=== PATIENT | male | born 1945 | race Caucasian/White ===

== ENCOUNTER → 2017-12-06 13:35 | Outpatient (CLI) | payer MEDICARE, OTHER, SELFPAY ==
--- NOTE | 2017-12-06 13:44 | US_ITS ---
US kidney retroperitoneal comp HISTORY: ITS.REASON: STAGE 4 CHRONIC KIDNEY DISEASE ORDERING PHYSICIAN: Aamir Rao MD PATIENT AGE: 72 years Comparison: None FINDINGS: The right kidney is 12 x 6.5 x 6.8 cm. No hydronephrosis. There is increase echogenicity of the renal cortex with cortical thinning. There is a 2.5 cm cyst along the upper pole on the right with an additional 1.4 cm cyst laterally and a 1.8 cm cyst inferiorly. The left kidney is 11 x 5 x 7 cm with cortical thinning and increased echogenicity of the liver. A 1.4 cm cyst is present in the mid polar region and a 2.6 cm cyst is present in the lower pole. No hydronephrosis. IMPRESSION: 1. No hydronephrosis. 2. Cortical thinning with increased echogenicity of the renal cortex consistent with medical renal disease. 3. Bilateral renal cysts
== END ==
PROVIDERS: Family Provider Internal Medicine Adolescent Medicine; PCP Internal Medicine Adolescent Medicine; Visit Provider Internal Medicine
DX: N18.4 Chronic kidney disease, stage 4 (severe) (principal)
CPT/HCPCS: 76770

== ENCOUNTER → 2018-09-26 11:22 | Outpatient (CLI) | payer MEDICARE, OTHER, SELFPAY ==
--- NOTE | 2018-09-26 11:36 | XR_ITS ---
XR chest 2V HISTORY: ITS.REASON: CHEST WALL PAIN ORDERING PHYSICIAN: Yusuf Luke MD PATIENT AGE: 73 years COMPARISON: 05/27/2014 FINDINGS: The cardiomediastinal silhouette and pulmonary vascularity are within normal limits. No lobar consolidation or collapse is evident. There is a small irregular parenchymal opacity overlying the anterior clear space inferiorly which may be related to an area of scarring. Follow-up may confirm stability. The remaining lungs are clear. There are mild degenerative changes in the thoracic spine. IMPRESSION: Small irregular parenchymal opacity in the anterior clear space inferiorly which may be due to an area of fibrosis or scarring. Suggest follow-up to confirm stability in this patient with chest wall pain
--- NOTE | 2018-09-26 11:36 | XR_ITS ---
XR ribs LT 2V HISTORY: ITS.REASON: CHEST WALL PAIN ORDERING PHYSICIAN: Yusuf Luke MD PATIENT AGE: 73 years Comparison: None FINDINGS: Multiple views of the Left ribs were obtained. No fracture or dislocation. No lytic or blastic change. IMPRESSION: Negative RIBS. If pain persists, consider follow-up exam in 7-[address] with 3-D reformats.
== END ==
PROVIDERS: PCP Internal Medicine Adolescent Medicine; Visit Provider Internal Medicine Adolescent Medicine
DX: R07.89 Other chest pain (principal)
CPT/HCPCS: 71046; 71100

== ENCOUNTER → 2019-03-17 09:14 | Outpatient (CLI) | payer MEDICARE, OTHER, SELFPAY ==
--- NOTE | 2019-03-17 | CA_ITS ---
APPROVED REPORT Exam: Exercise Treadmill Technologist: Elsa Hays Ht: 5 ft 10 in Wt: 236 lbs BSA: 2.24 m2 HR: 64 bpm BP: 127/74 mmHg Indications: Chest pain Medical History Medications: Allopurinol,,,,, Vitamins,,,,, Carvedilol,,,,, Januvia,,,,, Nephodiapine,,,,, Stress Test Details Test: Cory HR Resting HR: 68 bpm Max Heart Rate (APMHR): 147 bpm Max HR Achieved: 85 bpm Target HR (85% APMHR): 124 bpm % of APMHR: 57 Recovery HR: 67 bpm BP Resting BP: 130.0/70.0 mmHg Max BP: 142.0/60.0 mmHg Recovery BP: 137.0/65.0 mmHg ECG Clinical Exercise duration: 02:42 min Highest Stage Achieved: Exercise capacity: 4.6 METs Stress ECG Conclusion Symptoms: Leg pain (test stopped due to leg pain) Arrhythmias/Ectopy: None ST-T Changes: Less than 1.[address] changes up to 65% target heart rate. Electronically signed by : Yusuf Luke, 03/21/2019 16:44:44
== END ==
PROVIDERS: PCP Internal Medicine Adolescent Medicine; Visit Provider Internal Medicine Adolescent Medicine
DX: R07.9 Chest pain, unspecified (principal)
CPT/HCPCS: 93017

== ENCOUNTER → 2020-06-09 16:53 | Outpatient (CLI) | payer MEDICARE, OTHER, SELFPAY ==
[2020-06-09 16:59] LABS: Microscopic, Urine URINE MICROSCOPIC (MICROSCOPIC)
[2020-06-09 17:18] LABS: Basophils % 0.5 % (0.1-2.0); Eosinophils # 0.2 K/mm3 (0.0-0.4); Eosinophils % 2.7 % (0.1-12.0); Hematocrit 30.4 % (42.0-52.0); Hemoglobin 9.5 g/dL (14.1-18.0); Lymphocytes # 1.9 K/mm3 (0.7-4.5); Lymphocytes % 24.4 % (10-50); Mean Corpuscular HGB Conc 31.2 g/dL (31.8-35.4); Mean Corpuscular Hemoglobin 29.8 pg (27.0-31.2); Mean Corpuscular Volume 95.3 fl (80-94); Mean Platelet Volume 9.1 fl (7.4-10.4); Monocytes # 0.6 K/mm3 (0.1-1.0); Monocytes % 7.5 % (1.7-9.3); Neutrophils # 5.1 K/mm3 (1.8-7.8); Neutrophils % 64.9 % (37.0-80.0); Platelet Count 218 K/mm3 (142-424); Red Blood Count 3.19 M/mm3 (4.60-6.20); Red Cell Distribution Width 16.8 % (11.5-17.5); White Blood Count 7.9 K/mm3 (4.8-10.8)
[2020-06-09 17:32] LABS: Appearance,Urine CLEAR (Clear); Bilirubin,Urine Negative (Negative); Blood, Urine 1+ (Negative); Color,Urine YELLOW (Yellow); Glucose,Urine (UA) TRACE (Negative); Ketones,Urine Negative (Negative); Leukocyte Esterase,Urine Negative (Negative); Nitrate,Urine Negative (Negative); Protein,Urine 3+ (Negative); Specific Gravity, Urine 1.025 (1.005-1.030); Urobilinogen,Urine 0.2 EU/dl (0.2)
[2020-06-09 18:02] LABS: Bacteria,Urine Trace /lpf
[2020-06-09 18:56] LABS: Alanine Aminotransferase 12 U/L (12-78); Albumin/Globulin Ratio 1.4 (1.1-1.8); Alkaline Phosphatase 102 U/L (38-126); Anion Gap 19.8 mEq/L (5-15); Aspartate Amino Transferase 16 U/L (17-59); Bilirubin,Total 0.4 mg/dl (0.2-1.3); Calcium 7.1 mg/dl (8.4-10.2); Carbon Dioxide 20 mmol/L (22.0-30.0); Chloride 104 mmol/L (98-107); Estimated Glomerular Filt Rate 5 ml/min (>60); GFR (African American) 6 ML/MIN (>60); Globulin 2.9 g/dL (1.3-3.2); Glucose 144 mg/dl (74-100); Potassium 4.8 mmoL/L (3.5-5.1); Sodium 139 mmol/L (136-145); Total Protein,Serum 6.9 g/dl (6.3-8.2)
[2020-06-09 20:14] LABS: Blood Urea Nitrogen 82 mg/dl (9-20)
== END ==
PROVIDERS: Visit Provider Internal Medicine Adolescent Medicine
DX: N17.9 Acute kidney failure, unspecified (principal)
CPT/HCPCS: 36415; 80053; 81001; 85025

== ENCOUNTER → 2020-08-03 16:04 | Outpatient (CLI) | payer MEDICARE, OTHER, SELFPAY | PROVIDERS: PCP Internal Medicine Adolescent Medicine; Visit Provider Internal Medicine Cardiovascular Disease | DX: Z01.810 Encounter for preprocedural cardiovascular examination; Z20.822 Contact with and (suspected) exposure to COVID-19; R07.9 Chest pain, unspecified | CPT/HCPCS: U0003 ==

== ENCOUNTER 2020-08-04 07:41 | Day surgery (SDC) | payer MEDICARE, OTHER, SELFPAY ==
[2020-08-04] VITALS (13 sets, daily range): BP systolic 132–177; BP diastolic 81–98; PULSE 60–70; RESP 18–20; TEMP 36.7; O2SAT 92–100; BMI 35.6
--- NOTE | 2020-08-04 07:25 | IR_ITS ---
APPROVED REPORT Patient Location: Outpatient [id number] Developer: SKYE Cortez RT (R) PROCEDURES Selective coronary angiogram Drug-eluting stent deployment to the ostial proximal mid and distal dominant right coronary artery in a contiguous manner INDICATION Preoperative evaluation for vascular surgery, Coronary artery disease, Patient on hemodialysis not an appropriate candidate for coronary bypass surgery Informed consent was obtained prior to the procedure. COMPLICATIONS None Estimated Blood Loss: Less than 10 mls TECHNIQUE One percent lidocaine used to anesthetize the right anterior aspect of the wrist. The right radial artery was accessed via the Seldinger technique. A 6 Turkmen sheath was placed in the right radial artery. 2.5 mg of verapamil, 800 mcg of nitroglycerin, 1mg Lidocaine and 5000 U Heparin were given through the arterial sheath. The trap catheter was also used to perform left heart catheterization, left ventriculogram and selective coronary angiogram. At the end of the diagnostic procedure an AL 0.75 guide catheter was advanced however due to the tortuosity throughout the brachiocephalic artery it was unable to engage the right coronary artery. This was repeated with a JR4 and likewise could not be cannulated without kinking the guide catheter. A long 45 cm sheath was advanced which did help and allowed a 6 Turkmen JR4 catheter to cannulate the right coronary artery. A Choice PT wire was used to traverse the stenosis and a telescope was used to engage the proximal portion of the right coronary artery. A 2.5 x 27 mm balloon was used to predilate the stenosis and three 3 mm x 38 mm stents were deployed in the distal to proximal manner all overlapping in a contiguous manner all at 20, 22 and 24 arjun. Excellent angiographic results were obtained with FAWN-3 flow being present before and after the procedure. At the end of the procedure the apparatus was removed the sheath was removed good hemostasis was achieved using TR banding patient was transferred to the postop holding in stable condition ANGIOGRAPHIC RESULTS The left main artery Has distal 10% calcified stenosis The left anterior descending artery Has proximal and mid vessel calcified 50 to 60% stenoses. The entire proximal through mid LAD has calcified disease. Distally the LAD is a nice caliber vessel and supplies the apex. 2 moderate-sized diagonal arteries have proximal greater than 70% calcified stenoses however the vessel is patent with FAWN-3 flow The circumflex artery Is nondominant and proximally occluded. The distal vessel fills via collaterals from the LAD/diagonal system The right coronary artery Is a large dominant vessel with proximal concentric 30% stenosis a concentric 90% stenosis mid vessel 50 followed by an additional 80 to 90% stenosis with a distal diffuse 80% stenosis. It gives rise to a large PDA and posterior lateral branch The GALLEGOS ventriculogram reveals Not performed The left ventricular end-diastolic pressure Not measured IMPRESSION Coronary disease as described above Severe to critical disease throughout the dominant right coronary artery with successful reconstruction reducing critical disease to 0% with 3 contiguous drug-eluting stents Chronically occluded nondominant circumflex artery which fills nicely via left to left collaterals Moderate diffuse disease throughout the LAD as described above however the LAD is patent with excellent FAWN-3 flow PLAN 1. Dual antiplatelet therapy for at least 30 days at which time Plavix can be discontinued in order for vascular surgery to occur. I would like for Plavix to be restarted as soon as vascular surgeon feels it safe from a postoper
--- NOTE | 2020-08-04 07:54 | CA_ITS ---
APPROVED REPORT EXAM: Comprehensive 2D, Doppler, and color-flow Echocardiogram Transcription Typist: Ora Chin, MELINA, RVS Ht: 5 ft 10 in Wt: 248lbs BSA: 2.29 HR: 64 bpm BP: 136/84 mmHg Rhythm: frequent ectopy Indications: CP,ABN EKG, PRE OP, heart cath today 2D Dimensions LVDd 5.82 cm LVEF (Visual) 51.00 % LVDs 4.28 cm LA Volume 90.70 mL Aortic Root 3.48 cm LA Volume Index 39.60 mL/m2 (M/F) 16-34 Left Atrium 5.35 cm LVOT 2.12 cm (M/F) 1.5-2.5 M-Mode Dimensions LA Diam 5.20 cm (1.9-4.0) Ao Diam 3.64 cm (2.0-3.7) TAPSE 1.73 (<1.7) LV Diastology E Decel Time 177.00 (160-240 msec) E/A Ratio 0.88 MED E' 6.20 (< 7 cm/sec) MED A' 9.70 cm/s E'/MED E' Ratio 18.58 (>14) LAT E' 9.50 (<10 cm/sec) LAT A' 15.30 cm/s E/LAT E' Ratio 12.13 (>14) Pulm Vein s 23.00 cm/sec Pulm Vein d 20.00 cm/sec Ar-A Duration 90.00 msec Aortic Valve LVOT Max 101.00 (70-110 cm/s) LVOT VTI 23.00 cm AoV Peak Rahul. 156.00 (50-130 cm/s) AO Peak GR. 9.70 mmHg AO Mean GR. 4.90 (<5 mmHg) AO VTI 35.34 (18-25 cm) LEVI (VTI) 2.30 (2.5-4.5 cm2) Mitral Valve MV A Velocity 131.00 (40-130 cm/s) E/A Ratio 0.88 MV Decel. Time 177.00 (160-240 ms) MV Mean Gr. 3.80 (<2mmHg) Pulmonary Valve PV Peak Velocity 92.00 (50-150 cm/s) OK End VMAX 232.00 cm/s Tricuspid Valve TR P. Velocity 305.00 cm/s RAP Estimate 10.00 mmHg RVSP 47.30 mmHg Left Ventricle Left atrium is mildly enlarged, left ventricle is normal size, mild concentric left ventricular hypertrophy, visually estimated ejection fraction 45%, there is marked hypokinesis involving the basal septum and inferior basal wall. Grade 2 diastolic dysfunction seen with tissue Doppler evidence of raise left atrial pressure. Right Ventricle Right atrium and right ventricle mildly enlarged with normal contractility. Aortic Valve Aortic valve is minimally thickened and fibrosed, there is no aortic stenosis or aortic insufficiency. Mitral Valve Mitral valve leaflets are minimally thickened, there is no mitral stenosis, there is mild mitral regurgitation. Tricuspid Valve Tricuspid valve is grossly normal, there is mild tricuspid regurgitation, calculated right ventricular systolic pressure is 47 mmHg. Pulmonic Valve Pulmonic valve is poorly visualized. Great Vessels Aortic root is normal size. Pericardium No significant pericardial effusion noted. Conclusion 1. Biatrial enlargement, normal left ventricular size, mild concentric left ventricular hypertrophy, visually estimated ejection fraction 45% with segmental wall motion abnormality described above, grade 2 diastolic dysfunction seen with tissue Doppler evidence of raise left atrial pressure. 2. Mildly enlarged right ventricle with normal contractility. 3. Mild mitral and tricuspid regurgitation, calculated right ventricular systolic pressure is 47 mmHg. 4. No significant pericardial effusion noted. Electronically signed by : Juliocesar Martinez, 08/05/2020 13:56:32
[2020-08-04 08:48] LABS: Basophils # 0.1 K/mm3 (0-0.2); Basophils % 0.6 % (0.1-2.0); Eosinophils # 0.2 K/mm3 (0.0-0.4); Eosinophils % 2.7 % (0.1-12.0); Hematocrit 32.5 % (42.0-52.0); Hemoglobin 10.3 g/dL (14.1-18.0); Lymphocytes # 1.9 K/mm3 (0.7-4.5); Lymphocytes % 23.3 % (10-50); Mean Corpuscular HGB Conc 31.8 g/dL (31.8-35.4); Mean Corpuscular Hemoglobin 29.7 pg (27.0-31.2); Mean Corpuscular Volume 93.4 fl (80-94); Mean Platelet Volume 7.5 fl (7.4-10.4); Monocytes # 0.6 K/mm3 (0.1-1.0); Monocytes % 7.6 % (1.7-9.3); Neutrophils # 5.3 K/mm3 (1.8-7.8); Neutrophils % 65.7 % (37.0-80.0); Platelet Count 254 K/mm3 (142-424); Red Blood Count 3.48 M/mm3 (4.60-6.20); Red Cell Distribution Width 15.6 % (11.5-17.5); White Blood Count 8.1 K/mm3 (4.8-10.8)
[2020-08-04 08:52] LABS: Chloride 103 mmol/L (98-107); Potassium 3.4 mmoL/L (3.5-5.1); Sodium 140 mmol/L (136-145)
[2020-08-04 08:55] LABS: Anion Gap 13.4 mEq/L (5-15); Blood Urea Nitrogen 18 mg/dl (9-20); Calcium 7.6 mg/dl (8.4-10.2); Carbon Dioxide 27 mmol/L (22.0-30.0); Creatinine Clearance Estimated 20 mL/min (50-200); Estimated Glomerular Filt Rate 11 ml/min (>60); GFR (African American) 13 ML/MIN (>60); Glucose 144 mg/dl (74-100)
--- NOTE | 2020-08-04 13:39 | [facility].PHACLD ---
[place] has received discharge medication counseling on the following medications: NEW MEDICATIONS: PLAVIX, LIPITOR CONTINUED MEDICATIONS: ASPIRIN, COREG PATIENT WILL NOT BE STARTED ON AN BARBARA/ARB AT THIS TIME PER MD.
[2020-08-04 15:19] LABS: CATHL Activated Clotting Time 337 SEC (74-125)
== END 2020-08-04 13:31 | disposition home or self-care (01) ==
LOC: CATHLAB 07:43
PROVIDERS: PCP Internal Medicine Adolescent Medicine; Visit Provider Internal Medicine
DX: I25.118 Atherosclerotic heart disease of native coronary artery with other forms of angina pectoris (principal); E11.69 Type 2 diabetes mellitus with other specified complication; E66.9 Obesity, unspecified; I12.0 Hypertensive chronic kidney disease with stage 5 chronic kidney disease or end stage renal disease; N18.6 End stage renal disease; R06.00 Dyspnea, unspecified; R60.9 Edema, unspecified; R94.31 Abnormal electrocardiogram [ECG] [EKG]; Z99.2 Dependence on renal dialysis; E11.22 Type 2 diabetes mellitus with diabetic chronic kidney disease; Z79.84 Long term (current) use of oral hypoglycemic drugs; Z79.01 Long term (current) use of anticoagulants; Z79.899 Other long term (current) drug therapy
CPT/HCPCS: 80048; 85025; 85347; 92928; 93306; 99152; 99153; C1725; C1760; C1766; C1769; C1876; C9600; J1644; Q9967

== ENCOUNTER → 2023-01-19 10:34 | Outpatient (CLI) | payer MEDICARE, OTHER, SELFPAY ==
--- NOTE | 2023-01-19 10:38 | CA_ITS ---
APPROVED REPORT EXAM: Comprehensive 2D, Doppler, and color-flow Echocardiogram Liner Helper: Judith David RVT Ht: 5 ft 10 in Wt: 232lbs BSA: 2.22 BP: 153/85 mmHg Indications: LV DYSFUNCTION,CAD,ABN EKG,EDEMA,HTN,HLD,PT ON DIALYSIS TDS-LIMITED WINDOWS 2D Dimensions LVOT 2.81 cm (M/F) 1.5-2.5 LA Volume 89.00 mL LA Volume Index 39.91 mL/m2 (M/F) 16-34 M-Mode Dimensions RVDd 2.76 cm (0.9-2.6) LA Diam 4.48 cm (1.9-4.0) LVDd 5.35 cm (3.5-5.7) Ao Diam 3.76 cm (2.0-3.7) LVDs 3.83 cm (3.5-5.7) IVSd 0.49 cm (0.6-1.1) PWd 0.76 cm (0.6-1.1) EF (Teich) 54.40% FS 28.40% EDV (Teich) 138.30 mL TAPSE 1.98 (<1.7) ESV (Teich) 63.10 mL LV Diastology E Decel Time 200.00 (160-240 msec) E/A Ratio 0.5 MED E' 4.40 (< 7 cm/sec) E'/MED E' Ratio 12.66 (>14) LAT E' 9.30 (<10 cm/sec) E/LAT E' Ratio 5.99 (>14) Aortic Valve AO Peak GR. 7.70 mmHg Mitral Valve MV E Max Rahul. 56.00 (40-130 cm/s) MV A Velocity 113.00 (40-130 cm/s) E/A Ratio 0.49 MV Decel. Time 200.00 (160-240 ms) MV Mean Gr. 2.20 (<2mmHg) MV PHT 59.00 ms Pulmonary Valve PV Peak Velocity 95.00 (50-150 cm/s) Tricuspid Valve TR P. Velocity 120.00 cm/s RAP Estimate 10.00 mmHg RVSP 15.80 mmHg Left Ventricle The left ventricle is normal size. The left ventricular systolic function is normal. The left ventricular ejection fraction is within the normal range. There is increased LV wall thickness. There is normal LV segmental wall motion. Transmitral Doppler flow pattern suggests impaired LV relaxation. LVEF is 55% Right Ventricle Right ventricle is mildly dilated. The right ventricular systolic function is normal. Atria The left atrium size is normal. The right atrium size is normal. There is no Doppler evidence of interatrial shunt. Aortic Valve The aortic valve is mildly thickened. There is no aortic valvular stenosis. No aortic regurgitation is present. Mitral Valve Mild mitral annular calcification. The mitral valve leaflets are mildly thickened. No evidence of mitral valve stenosis. Trace mitral regurgitation. Tricuspid Valve Tricuspid valve leaflets are thin and pliable. Trace tricuspid regurgitation. There is insufficient TR jet to estimate RVSP. Pulmonic Valve The pulmonary valve is normal in structure. Trace pulmonic regurgitation. Great Vessels The aortic root is normal in size. The ascending aorta is not well visualized. The IVC is not well visualized. Pericardium There is no pericardial effusion. Other Information Study Quality: Technically Difficult Conclusion This is a technically difficult study due to poor accoustic windows. Normal biventricular systolic function. Mild RV dilation. No significant valvular stenosis or regurgitation. Electronically signed by : Althea Fuentes MD 01/23/2023 19:22:44
== END ==
PROVIDERS: PCP Family Medicine; Visit Provider Nurse Practitioner
DX: E78.5 Hyperlipidemia, unspecified (principal); I25.10 Atherosclerotic heart disease of native coronary artery without angina pectoris; N18.6 End stage renal disease; I12.0 Hypertensive chronic kidney disease with stage 5 chronic kidney disease or end stage renal disease
CPT/HCPCS: 93306

== ENCOUNTER 2024-05-14 11:16 | Outpatient (CLI) | payer MEDICARE, OTHER, SELFPAY ==
--- NOTE | 2024-05-14 11:21 | XR_ITS ---
FINAL REPORT CLINICAL HISTORY: LOW BACK PAIN COMPARISON: None FINDINGS: LUMBAR SPINE 4 views of the lumbar spine were obtained. There is no acute fracture. There is no malalignment. The vertebrae are normal in height. The disc spaces are preserved. Moderate facet sclerosis is noted in the lower lumbar spine. IMPRESSION: Degenerative changes without acute abnormality. Reviewed, Interpreted and Dictated by Fidencio Denis MD Transcribed by Estefanía Berman Authenticated and [facility]
== END 2024-05-14 23:59 | disposition home or self-care (01) ==
PROVIDERS: PCP Family Medicine; Visit Provider Family Medicine
DX: M54.50 Low back pain, unspecified (principal)
CPT/HCPCS: 72110

== ENCOUNTER 2024-07-11 13:44 | Outpatient (CLI) | payer MEDICARE, OTHER, SELFPAY ==
--- NOTE | 2024-07-11 14:30 | CA_ITS ---
APPROVED REPORT EXAM: Comprehensive 2D, Doppler, and color-flow Echocardiogram Non Destructive Tester: Ora Chin, RCS, RVS Ht: 5 ft 10 in Wt: 209lbs BSA: 2.13 BP: 135/79 mmHg Indications: Dyspnea, CAD, HTN, HLD Echo Enhancing Agent Comments: Poor acoustic windows 2D Dimensions IVSd 0.92 cm LVEF (Visual) 64.90 % PWd 1.24 cm LA Volume 51.10 mL LVDd 5.28 cm LA Volume Index 23.478283 mL/m2 (M/F) 16-34 LVDs 3.39 cm EF AP4 61.70 % Aortic Root 3.08 cm GL Strain -22.2 % Left Atrium 3.81 cm LVOT 1.98 cm (M/F) 1.5-2.5 M-Mode Dimensions LVDd 5.28 cm (3.5-5.7) Ao Diam 3.71 cm (2.0-3.7) LVDs 3.39 cm (3.5-5.7) IVSd 0.92 cm (0.6-1.1) PWd 1.24 cm (0.6-1.1) FS 35.80% TAPSE 1.43 (<1.7) LV Diastology E Decel Time 228 (160-240 msec) E/A Ratio 0.66 MED E' 5.5 (>= 7 cm/sec) MED A' 9.10 cm/s E'/MED E' Ratio 12.00 (<= 14) LAT E' 11.0 (>= 10 cm/sec) LAT A' 14.50 cm/s E/LAT E' Ratio 6.00 (<= 14) Aortic Valve LVOT Max 117.0 (70-110 cm/s) LEVI Index 0.95 cm2/m2 LVOT VTI 21.31 cm AoV Peak Rahul. 172.0 (50-130 cm/s) AO Mean GR. 5.80 (<5 mmHg) AO VTI 32.5 (18-25 cm) LEVI (VTI) 2.02 (2.5-4.5 cm2) Mitral Valve MV E Max Rahul. 66.0 (40-130 cm/s) MV A Velocity 100.0 (40-130 cm/s) E/A Ratio 0.66 MV Decel. Time 228 (160-240 ms) Tricuspid Valve TR P. Velocity 246.00 cm/s RAP Estimate 10.00 mmHg RVSP 34.20 mmHg Left Ventricle The left ventricle is normal size. The left ventricular systolic function is normal. The left ventricular ejection fraction is within the normal range. There is increased LV wall thickness. There is normal LV segmental wall motion. Transmitral Doppler flow pattern suggests impaired LV relaxation. LVEF is 55%. Right Ventricle The right ventricle is normal size. The right ventricular systolic function is normal. Atria The left atrium size is normal. The right atrium size is normal. There is no Doppler evidence of interatrial shunt. Aortic Valve Aortic valve is mildly thickened. There is no aortic valvular stenosis. No aortic regurgitation is present. Mitral Valve The mitral valve is normal in structure. No evidence of mitral valve stenosis. Trace mitral regurgitation. Tricuspid Valve Tricuspid valve is grossly normal in structure and function. Mild tricuspid regurgitation. RVSP is 20-25 mmHg. Pulmonic Valve The pulmonary valve is normal in structure. Trace pulmonic regurgitation. Great Vessels The aortic root is normal in size. IVC is normal in size and collapses >50% with inspiration. Pericardium There is no pericardial effusion. Other Information Study Quality: Fair Conclusion Normal biventricular systolic function. Mild TR. Electronically signed by : Althea Fuentes MD 07/22/2024 13:40:06
== END 2024-07-11 23:59 | disposition home or self-care (01) ==
LOC: RT 13:45
PROVIDERS: PCP Family Medicine; Visit Provider Nurse Practitioner
DX: I36.1 Nonrheumatic tricuspid (valve) insufficiency (principal); I51.9 Heart disease, unspecified; R00.1 Bradycardia, unspecified; I20.9 Angina pectoris, unspecified
CPT/HCPCS: 93306

== ENCOUNTER 2024-08-19 09:25 | Emergency (ER) | payer MEDICARE, OTHER, SELFPAY ==
[2024-08-19 09:35] VITALS: BP 156/85; PULSE 89; RESP 19; TEMP 36.8; O2SAT 96; BMI 29.5
--- NOTE | 2024-08-19 09:42 | PC.NURSE ---
[facility] for [facility] assistance with pt going to [facility]. confirmed contact information of with care management for them to reach out
--- OUTSIDE RECORDS SUMMARY | 2024-08-19 09:44 | XMS_ITS | Encounter Summary ---
Author Name [facility] [facility] [place] [facility] [place] Address [address] [place] [address] Support Name Relationship Address Phone LURDES AMPARO Next of Kin [address] [facility] [place] [place] [phone] LURDES AMPARO Emergency Contact [address] [facility] [address] [phone] Selected Encounter This section includes the information on record at [place] for the Encounter. Date/Time Encounter Type Encounter Description Reason Pro vider Source Jul 29, 2024 12:00 AM Outpatient Encounter EVENT (HISTORICAL) IHE Encounter Template Text not used by [place]
--- OUTSIDE RECORDS SUMMARY | 2024-08-19 09:44 | XMS_ITS ---
Author Organization Unknown TREATMENT PLAN Planned Care Start Date Provider Encounter for Check-up [phone] [facility]
--- OUTSIDE RECORDS SUMMARY | 2024-08-19 09:44 | XMS_ITS | Encounter Summary ---
Author Name [facility] [place] [facility] [place] Organization [facility] [place] Address [address] [place] [address] Support Name Relationship Address Phone CHATMANAMPARO BAILEY Next of Kin [address] [facility] [place] [phone] AMPARO CHATMAN Emergency Contact [address] [facility] [place] [phone] Selected Encounter This section includes the information on record at [place] for the Encounter. Date/Time Encounter Type Encounter Description Reason Pro vider Source Jul 18, 2024 01:07 PM Outpatient Encounter ADMIN PAT ACTIVTIES (MASNONCT) IHE Encounter Template Text not used by [facility] Encounter Notes: All associated encounter notes This section contains the clinical notes associated to the Encounter. Date/Time Encounter Note(s) Provider Source Jul 15, 2024 06:57 PM NONVA NOTE: LOCAL TITLE: [facility]UNITY [facility]-RONEL SELF PRESENTING CARE COORD PLAN STANDARD TITLE: NONVA NOTE DATE OF NOTE: JUL 15, 2024@18:57 ENTRY DATE: JUL 18, 2024@13:08:16 AUTHOR: DAIN BAGLEY COSIGNER: URGENCY: STATUS: COMPLETED COMMUNITY CARE-RONEL SELF PRESENTING CARE COORD PLAN NOTE Has ADDENDA Emergency Notification Intake Date Presenting to the Facility: Jul Date of note has been modified to reflect Date of Service. Reason for modification: HOSPITAL NOTIFICATION DATE/TIME: 07/16/2024 1036 EDT Method of Contact: Notified from [facility] worklist Notification ID: [id number] [facility] Referral #: Count Includes [facility] Hospital Name: Hospital: [facility] Address: City: [place] State: [place] Zip Code: Phone : Count Includes [facility] Facility Point of Contact: Name: DIXIE ROLON Phone: [phone] Chief complaint: RIGHT FX HUMERAL NECK Primary Diagnosis: Disposition Admitted Route of Admission: ER Date of Admission: Jul Admitting Diagnosis: S42.211A Community Care Provider: Yenny Level of Care: Acute Inpatient Care /cait/ Dain Bagley MSN, landing worker Nurse Coordinator Signed: 07/18/2024 13:13 07/18/2024 ADDENDUM STATUS: COMPLETED CONTINUED STAY REVIEW: Clinical update reviewed and transcribed from [facility] [employer] Link on Contact Date: Jul Date of Admission: Jul Maria M Morales APRN Nurse Practitioner Trauma Surgery Yasmin Chatman is a 79 yo M with PMHx of HTN, CAD s/p PCI, CHF, ESRD on iHD (TTS), HLD, T2DM, hypothyroidism, chronic anemia, gout and SUNNY who presented to ED on 07/15 from OSH following FFS due to weakness (-LOC) while at dialysis resulting in R humeral neck fx. ORT consulted, non-operative intervention. Admitted for pain control and rehab placement. 24hrs: Yasmin seen resting in bed eating breakfast. A&O. VSS. NAD. Tolerating Ra. Denies SOA, chest pain, N/V, dizziness, headache, blurred vision. Patient RUE in fletcher brace. Patient will be non op on RUE. Denies pain at this time. Discussed plan of care with patient/family, attending, JONATHON, RN, consulting teams. No further concerns at this time. Plan: - ORT: NWB RUE, Fletcher with cuff and collar, f/u outpt - Nephro consulted for ESRD (iHD TTS) - MMPC & bowel regimen - PT/OT, OOBTC daily -Resume home plavix - SSI, CC2 diet -PT/OT Dispo: CARMELA /gaby Bagley MSN, landing worker Nurse Coordinator Signed: 07/18/2024 13:16 07/21/2024 ADDENDUM STATUS: COMPLETED CONTINUED STAY REVIEW PER [employer] CARE LINK REVIEW Contact Date: 07/21/24 Date of Admission: 07/16/24 Facility Name: [facility] Plan: - ORT: NWB RUE, Fletcher with cuff and collar, f/u outpt - Nephro following for ESRD (iHD TTS) - MMPC & bowel regimen - PT/OT, OOBTC daily -Resume home plavix -EKG pending -Hold coreg for bradycardia (HR <60); Increase Nifedipine for Htn - SSI, CC2 diet -PT/OT Dispo: CARMELA Edited by: Maria M Morales APRN at 07/20/2024 0945 Maria M Morales APRN /cait/ Becky DIETRICH CAR STOWERAPPRENTICE MACHINIST OUTSIDE Signed: 07/21/2024 08:31 07/24/2024 ADDENDUM STATUS: COMPLETED Discharge Disposition Date of discharge: Jul Disposition Discharge to Correction Facility /cait/ Becky DIETRICH CAR STOWERAPPRENTICE MACHINIST OUTSIDE Signed: 07/24/2024 09:16 DAIN BAGLEY-[facility]
--- OUTSIDE RECORDS SUMMARY | 2024-08-19 09:44 | XMS_ITS | Encounter Summary ---
Author Name [facility] [place] Organization [place] Address [address] [place] [address] Support Name Relationship Address Phone AMPARO CHATMAN Next of Kin [address] [facility] [place] [phone] AMPARO CHATMAN Emergency Contact [address] [facility] [place] [address] [phone] Selected Encounter This section includes the information on record at [place] for the Encounter. Date/Time Encounter Type Encounter Description Reason Pro vider Source Jul 29, 2024 10:13 AM Outpatient Encounter TELEPHONE/MEDICINE IHE Encounter Template Text not used by [facility] Encounter Notes: All associated encounter notes This section contains the clinical notes associated to the Encounter. Date/Time Encounter Note(s) Provider Source Jul 29, 2024 10:13 AM ADMINISTRATIVE NOT E: LOCAL TITLE: V9 [facility] ADMINISTRATIVE NOTE STANDARD TITLE: ADMINISTRATIVE NOTE DATE OF NOTE: JUL 29, 2024@10:13 ENTRY DATE: JUL 29, 2024@10:16:07 AUTHOR: JAM SANTANA EXP COSIGNER: URGENCY: STATUS: COMPLETED Toxic Exposure Screening: Attempts to contact /caregiver to perform ARMIDA: Contact type attempted: Telephone. No answer; 2 phone attempts made today. Unable to leave message due to phone number not in service. No alternate phone numbers or contacts on profile. Unable to send message to via secure messaging on GELI due to not having an account. Note the purpose of this call is to complete the toxic exposure screening per the PACT Act that was passed into law in 2021. The [place] is now screening all Veterans enrolled in the [facility], and inquiring if they have any health-related concerns based on any possible toxic exposures during their service. /cait/ JAM SANTANA Staff Physician Signed: 07/29/2024 10:31 JAM SANTANA[facility]
--- OUTSIDE RECORDS SUMMARY | 2024-08-19 09:44 | XMS_ITS | Continuity of Care Document ---
Author Name [facility] Organization [facility] Care Team Providers Care Household Manager Name Role Phone [facility] Unavailable Unavailable Medications Combined list of outpatient medications from Department of Defense and Veterans Affairs facilities.Medications provided include 1) outpatient medications from the last 15 months, and 2) patient-reported medications. Medication Details Route Status Patient Instructions Prescription Expires Prescription Number Last Dispense Date Ordering Provider Order Date Order Qty Source CARVEDILOL (CARVEDILOL ), 12.5MG, TABLET, ORAL, GLENMARK PHARMA, 500 ea. BOTTLE Active [id number] 2023 180 Pharmac y Data Transac tion Service Facilit y CARVEDILOL (CARVEDILOL ), 12.5MG, TABLET, ORAL, GLENMARK PHARMA, 500 ea. BOTTLE Cancele d [id number] : 2023 0 Pharmac y Data Transac tion Service Facilit y JANUVIA (SITAGLIPTI N PHOSPHATE), 25MG, TABLET, ORAL, [employer] 30 ea. BOTTLE Active [id number] 4 2023 90 Pharmac y Data Transac tion Service Facilit y JANUVIA (SITAGLIPTI N PHOSPHATE), 25MG, TABLET, ORAL, [employer] 30 ea. BOTTLE Active [id number] 4 2023 90 Pharmac y Data Transac tion Service Facilit y LEVOTHYROXI NE SODIUM (levothyrox ine sodium), 175 MCG, TABLET, ORAL, AMNEAL PHARMACE, 1000 ea. BOTTLE Active [id number] 4 2023 90 Pharmac y Data Transac tion Service Facilit y NIFEDIPINE ER (nifedipine ), 60 MG, TAB ER 24, ORAL, [employer], 100 ea. BOTTLE Cancele d [id number] : 2023 0 Pharmac y Data Transac tion Service Facilit y NIFEDIPINE ER (nifedipine ), 60 MG, TAB ER 24, ORAL, INGENUS PHARMAC, 100 ea. BOTTLE Cancele d [id number] : 2023 0 Pharmac y Data Transac tion Service Facilit y NIFEDIPINE ER (nifedipine ), 90 MG, TABLET ER, ORAL, INGENUS PHARMAC, 100 ea. BOTTLE Active [id number] 2023 90 Pharmac y Data Transac tion Service Facilit y SEVELAMER CARBONATE (sevelamer carbonate), 800 MG, TABLET, ORAL, [employer] 270 ea. BOTTLE Cancele d [id number] : 2023 0 Pharmac y Data Transac tion Service Facilit y SEVELAMER CARBONATE (sevelamer carbonate), 800 MG, TABLET, ORAL, [employer] 270 ea. BOTTLE Active [id number] 2023 240 Pharmac y Data Transac tion Service Facilit y SEVELAMER CARBONATE (sevelamer carbonate), 800 MG, TABLET, ORAL, [employer] 270 ea. BOTTLE Cancele d [id number] : 2023 0 Pharmac y Data Transac tion Service Facilit y SEVELAMER CARBONATE (sevelamer carbonate), 800 MG, TABLET, ORAL, [employer] 270 ea. BOTTLE Cancele d [id number] : 2023 0 Pharmac y Data Transac tion Service Facilit y SEVELAMER CARBONATE (sevelamer carbonate), 800 MG, TABLET, ORAL, [employer] 270 ea. BOTTLE Active [id number] 4 2023 150 Pharmac y Data Transac tion Service Facilit y SEVELAMER CARBONATE (sevelamer carbonate), 800 MG, TABLET, ORAL, [employer] 270 ea. BOTTLE Active [id number] 4 2023 150 Pharmac y Data Transac tion Service Facilit y SEVELAMER CARBONATE (sevelamer carbonate), 800 MG, TABLET, ORAL, [employer] 270 ea. BOTTLE Cancele d [id number] : 2023 0 Pharmac y Data Transac tion Service Facilit y SEVELAMER CARBONATE (sevelamer carbonate), 800 MG, TABLET, ORAL, C[employer]LA [employer] 270 ea. BOTTLE Active [id number] 4 2023 210 Pharmac y Data Transac tion Service Facilit y SEVELAMER CARBONATE (sevelamer carbonate), 800 MG, TABLET, ORAL, [employer] , 270 ea. BOTTLE Cancele d [id number] : 2023 0 Pharmac y Data Transac tion Service Facilit y SEVELAMER CARBONATE (sevelamer carbonate), 800 MG, TABLET, ORAL, [employer] , 270 ea. BOTTLE Cancele d [id number] : 2023 0 Pharmac y Data Transac tion Service Facilit y Immunizations Combined list of available immunizations from the Department of Defense and Veterans Affairs facilities. Immunization Series Date Given Administered By Site Reaction Lot Number CVX Code Drug Vocational Rehabilitation Consultant Status Comments Source COVID-19, mRNA, LNP-S, PF, 30 mcg/0.3 mL dose 2021 ARELY [employer] (PFR) Not Given COVID-19, mRNA, LNP-S, PF, 30 mcg/0.3 mL dose DoD Hep A, adult 2017 YUSRA, () Not Given Hep A, adult DoD influenza, trivalent, adjuvanted 2016 MARQUISE BECKMAN () Not Given influenza , trivalent , adjuvante d [facility] Influenza, high dose seasonal 2015 MARQUISE BECKMAN () Not Given Influenza , high dose seasonal DoD Influenza, high dose seasonal 2014 ANNIE DEJESUS () Not Given Influenza , high dose seasonal DoD Encounters Combined list of: 1) Encounters from Department of Veterans Affairs facilities going backup to the last 18 months, not all [place] inpatient encounters are included; 2) Encounters from the Department of Defense facilities going backup to 280 months. Location Location Details Encounter Type Encounter Number Reason For Visit Attending Provider ADM Date DC Date Status Disposition Source [facility] Outpatient Encounter [id number] 05/29 [place] [facility] Outpatient Encounter [id number] 03/18 [place] [facility] Outpatient Encounter [id number] 07/18 [place] Outpatient Encounter [id number] 07/29 [place] [facility] Outpatient Encounter [id number] 07/29 [place] [facility] Social History Combined list of available smoking, tobacco, and other social history from Department of Defense and Veterans Affairs facilities. Social History Type Response Date Comment Sourc e This section is an empty social history section. DoD
--- NOTE | 2024-08-19 09:50 | ECG_ITS ---
APPROVED REPORT Exam: Resting ECG HR:87 bpm ECG Measurements Heart Rate 87 AXES WV 284 P 40 QRSd 103 QRS 60 QT 338 T 44 QTc 383 Conclusion SINUS RHYTHM WITH FIRST DEGREE AV BLOCK ABNORMAL ECG UNCONFIRMED REPORT Electronically signed by : Jorge Ashby, 08/19/2024 15:15:21
--- NOTE | 2024-08-19 09:54 | XR_ITS ---
FINAL REPORT CLINICAL HISTORY: Shortness of breath FINDINGS: A single PA view of the chest was obtained. There is no prior exam for comparison. The cardiac and mediastinal silhouettes are within normal limits. There are 2 nodular opacities in the left lung that are not definitely calcified. The lungs are otherwise clear. There is no effusion or pneumothorax. IMPRESSION: Nodular opacities in the left lung. Recommend chest CT. Reviewed, Interpreted and Dictated by Isabelle Noyola MD Transcribed by Estefanía Berman Authenticated and [facility]
--- NOTE | 2024-08-19 09:59 | HMH.EDGENADL ---
Discharge Plan Disposition Patient Disposition: Xfer Other Chief Complaint: Weakness Prescriptions Prescriptions: No Action sevelamer HCl 800 mg tablet 800 mg PO TID Centrum Silver Men 300-600-300 mcg tablet 1 tab PO DAILY clopidogrel 75 mg tablet 75 mg PO DAILY Qty: 90 3RF nifedipine 90 mg tablet extended release See Rx Instructions .ROUTE .COMPLEX Qty: 90 3RF Dose Instruction: TAKE 1 TABLET BY MOUTH DAILY Rx Instructions: TAKE 1 TABLET BY MOUTH DAILY atorvastatin 40 mg tablet 40 mg PO HS Qty: 90 3RF carvedilol 12.5 mg tablet 12.5 mg PO BID Qty: 180 1RF Rx Instructions: must administer with a meal/food levothyroxine 175 MCG tablet 175 mcg PO DAILY aspirin 81 MG tablet,chewable 81 mg PO DAILY sitagliptin phosphate 25 MG tablet 25 mg PO DAILY vitamin B95-pjqix acid 1 EACH tablet 1 each PO DAILY Referrals Follow up/Referrals: Provider,Referral, MD [Referring] - See instructions Clinical Impressions Clinical Impression: Generalized weakness, Inability to walk, Acute hyponatremia, Chronic anemia, End-stage renal disease (ESRD) Stand Alone Forms Stand Alone Forms: Transfer Record - ED Print Language Print Language: Peruvian Discharge ED Provider: Jr Ashby General Adult HPI General Chief complaint: Weakness Stated complaint: weakness Time Seen by Provider: 08/19/24 09:45 Mode of Arrival: EMS Source of Information: Patient Description of Symptoms (Recalled from ER Triage Doc. by RN): pt presents to ED from home via EMS for weakness. pt was going to dialysis this am and was very weak getting on the transportation bus. pt gets dialysis sunday, , sunday. pt reports that three days ago he was started on gabapentin 3 days ago and began to notice weakness. History of Present Illness HPI narrative: Felipe is a 79-year-old gentleman who has a history of end-stage renal disease and dialyzes on Sunday was set to have his dialysis this morning but states that he has severe and worsening generalized weakness. States that he is so weak that he cannot stand up or walk he typically is able to walk he lives at home with his . Denies this being solely focal to his legs but that is his main focus. States his entire body is weak and that he just feels tired. He does attribute his symptoms to the initiation of his gabapentin which he started a few days ago for chronic sciatica. Denies any back pain at the moment. Denies any saddle anesthesia. Does have a history of urinary incontinence but that is not a new symptom. Denies any bowel incontinence. He is not paralyzed from historical standpoint or states that he has proximal leg weakness. Related Data Home Medications ?Medication ?Instructions ?Recorded ?Confirmed aspirin 81 mg chewable tablet 81 mg PO DAILY Blood thinner 10/18/17 07/02/24 levothyroxine 175 mcg tablet 175 mcg PO DAILY THYROID 10/18/17 07/02/24 sitagliptin phosphate 25 mg tablet 25 mg PO DAILY Diabetes 10/18/17 07/02/24 vitamin B12 500 mcg-folic acid 400 1 each PO DAILY HEALTH 10/18/17 07/02/24 mcg tablet [id number] 300 mcg-K 60 1 tab PO DAILY Supplement 08/03/20 07/02/24 mcg-lycop 600 mcg-lutein 300 mcg tablet (Centrum Silver Men) sevelamer HCl 800 mg tablet 800 mg PO TID CKD 08/03/20 07/02/24 Previous Rx's ?Medication ?Instructions ?Recorded clopidogrel 75 mg tablet 75 mg PO DAILY STENT #90 tabs 01/31/24 nifedipine 90 mg tablet,extended See Rx Instructions .Route 02/11/24 release .COMPLEX #90 tabs atorvastatin 40 mg tablet 40 mg PO HS Cholesterol #90 tabs 02/28/24 carvedilol 12.5 mg tablet 12.5 mg PO BID #180 tabs 04/08/24 Allergies Allergy/AdvReac Type Severity Reaction Status Date / Time sulfamethoxazole (From Allergy Rash Verified 07/02/24 13:30 Bactrim) trimethoprim (From Bactrim) Allergy Rash Verified 07/02/24 13:30 [facility] Disclaimer: The information contained in this section may have been updated after the patient was seen, as this information can be updated by other users. Medical History Bradycardia LV dysfunction CAD (coronary artery disease) Dialysis patient Typical angina Preop cardiovascular exam Abnormal EKG End stage renal disease Edema Dyspnea Chest pain Social History Smoking Status: Never smoker alcohol intake: never substance use type: denies use current occupational status: retired Travel in the last 8 weeks?: None household members: spouse housing: house caffeine: Yes Have you lived/traveled outside US in past 30 days?: No Contact w/someone who lives/traveled outside US past 30 days?: No Exposure to someone with infectious disease in past 14 days?: No Do you have a fever (greater than 100.4 F or 38 C)?: No Have you tested positive for COVID-19?: No Exposed to someone with COVID-19 in past 14 days?: No Do you have a sore throat?: No Do you have a cough?: No Do you have any weakness?: Yes Do you have any diarrhea?: No Are you experiencing any unusual bleeding?: No Do you have any muscle aches/pain?: No Do you have any abdominal pain?: No Are you experiencing loss of taste or smell?: No Other Medical History Have you received the Flu Vaccine for this season: Yes Have you received the Pneumonia Vaccine: Yes ROS Obtained: Yes All systems reviewed & no additional complaints except as documented Physical Exam General General appearance: alert and in no apparent distress Respiratory Respiratory exam: Present normal lung sounds bilaterally Cardiovascular Cardiovascular exam: Present other (Bilateral lower extremity pitting edema) Abdominal Exam Abdominal exam: Present soft; Absent distention or tenderness Extremities Exam Extremities exam: Present full ROM and other (Patient has distal 5 out of 5 strength with dorsiflexion plantarflexion at the ankle and the foot but he is unable to hold both legs up off the bed against gravity he does have movement against gravity but cannot hold them up) Neurological Exam Neurological exam: Present alert and oriented X3 Medical Decision Making Medical Records Screening: Per USPSTF and CDC recommendations, given the prevalence of disease in our region, it is our hospital?s policy to screen for HIV and viral Hepatitis for all patients aged 18 and over and those with ongoing risk factors. [place] Inquiry Pt receiving controlled substance: No Vital Signs: 08/19/24 09:35 08/19/24 10:00 08/19/24 12:33 Temperature 98.3 F Temperature Source Oral Pulse Rate 86 84 Pulse Rate [Left Radial] 89 Respiratory Rate 19 Blood Pressure 167/84 H 152/79 H Blood Pressure [Right Arm] 156/85 H Blood Pressure Mean 99 Blood Pressure Mean [Right Arm] 108 02 Sat by Pulse Oximetry 96 94 L 97 Oxygen Delivery Method Room Air Room Air Lab Data Lab results reviewed: Yes I reviewed the patient's lab results. Lab Results 08/19/24 10:12: WBC 13.5 H, RBC 2.82 L, Hgb 8.6 L, Hct 26.2 L, MCV 92.9, MCH 30.5, MCHC 32.8, RDW 14.6, Plt Count 396, MPV 8.7, Neut % (Auto) 78.4, Lymph % (Auto) 9.3 L, Slope % (Auto) 10.9 H, Eos % (Auto) 0.4, Baso % (Auto) 0.4, Neut # (Auto) 10.6 H, Lymph # (Auto) 1.3, Slope # (Auto) 1.5 H, Eos # (Auto) 0.1, Baso # (Auto) 0.1, Sodium 129 L, Potassium 5.8 H, Chloride 95 L, Carbon Dioxide 26, Anion Gap 13.8, BUN 65 H, Creatinine 7.40 H, Estimated Creat Clear 10, Estimated GFR 7 L*, Est GFR ( Amer) 9 L*, Glucose 139 H, Calcium 9.0, Phosphorus 3.1, Magnesium 2.0, Total Bilirubin 0.4, AST 27, ALT 18, Alkaline Phosphatase 182 H, Total Creatine Kinase 54 L, Troponin I 0.03, C-Reactive Protein 270.5 H, NT-Pro-B Natriuret Pep 7680 H, Total Protein 6.3, Albumin 3.2 L, Globulin 3.1, Albumin/Globulin Ratio 1.0 L, TSH 1.68, HIV Ag/Ab Combo Qual Negative 08/19/24 10:40: Urine Color Yellow, Urine Appearance Clear, Urine pH 7.5, Ur Specific [place] 1.015, Urine Protein 2+ A, Urine Glucose (UA) Trace, Urine Ketones Negative, Urine Blood 3+ A, Urine Nitrate Negative, Urine Bilirubin Negative, Urine Urobilinogen 0.2, Ur Leukocyte Esterase Negative, Urine RBC None, Urine WBC 20-50, Ur Squamous Epith Cells Occasional, Urine Bacteria Trace 08/19/24 10:12 08/19/24 10:12 Orders (Tests/Meds): ORDERS Category Date Time Status CXR --portable [XR chest portable] Stat Exams 08/19/24 09:54 Completed POCUS Point of Care (ER Only) Stat Exams 08/19/24 09:55 Completed BNP [NT Pro Brain Natriuretic Pep.] Stat Lab 08/19/24 10:12 Completed CBC w/Auto Diff [Complete Blood Count Auto Diff] Stat Lab 08/19/24 10:12 Completed CK [Creatine Kinase] Stat Lab 08/19/24 10:12 Completed CMP [Comprehensive Metabolic Panel] Stat Lab 08/19/24 10:12 Completed CRP [C-Reactive Protein] Stat Lab 08/19/24 10:12 Completed HIV Combo Stat Lab 08/19/24 10:12 Completed Hepatitis C Ab Qual. W/ RFX Stat Lab 08/19/24 10:12 Received Magnesium Stat Lab 08/19/24 10:12 Completed Phosphorous Stat Lab 08/19/24 10:12 Completed TSH [Thyroid Stimulating Hormone] Stat Lab 08/19/24 10:12 Completed Trop I [Troponin I] Stat Lab 08/19/24 10:12 Completed Troponin I Q3H Lab 08/19/24 13:00 Ordered Troponin I Q3H Lab 08/19/24 16:00 Ordered UA [Urinalysis and Microscopic] Stat Lab 08/19/24 10:40 Completed Urine Culture Stat Micro 08/19/24 10:40 Received Medical Decision Narrative: 79-year-old with above history and physical. Differential is broad including decompensated heart failure significant electrolyte abnormalities infection spinal cord pathology etc. At the moment I am not working up further spinal cord pathology as he has no back pain and he has generalized weakness that does not seem to be confined to his legs. EKG was performed I personally interpreted shows a ventricular rate of 87 there is a sinus rhythm with a first-degree AV block patient either has very prolonged NH intervals or TU waves noted just after the QT complex. Will reassess after this initial workup is complete. Patient clearly is cannot be unable to care for himself and likely will need to be admitted for social reasons even if we do not find a medical cause of his symptoms today. Bedside ultrasound of the heart was unremarkable no definitive evidence of any significant depression in the left ventricular function. Chest x-ray was performed which I personally interpreted which shows no evidence of an acute cardiopulmonary emergency there are some nonspecific pulmonary nodules which may require an outpatient or nonemergent CT scan. Labs consistent with somebody who is on dialysis however some abnormalities including an elevation in the CRP is nonspecific there is also an elevation in white blood cell count of 13.5. No evidence of pneumonia. Urinalysis is unremarkable from a UTI standpoint. Patient CK is normal nonspecific elevation in inflammatory markers could be associated with some inflammatory condition of the proximal muscles but this seems to be more generalized in nature. Patient does have mild acute worsening of his chronic anemia H&H today is 8.6 and 26.2 down from hemoglobin of 10. But the patient denies any melena upper gastrointestinal bleed remains on the differential. Or some other form of blood loss. Neurologic exam remains nonfocal on serial assessments. Overall nonspecific workup nothing to definitively explain patient's acute generalized weakness that is this profound. He will require hospitalization as came to the bedside states that he is actually been declining over the last month since he broke his arm this may just be generalized deconditioning. Nonetheless he can go home and care for himself at the moment. He is on dialysis we have no dialysis capabilities here at [facility] therefore he was transferred to [facility] and ultimately accepted by Dr. Austin for further evaluation and management. The remains diagnostic uncertainty and family is aware of this. Procedures Miscellaneous Procedure Procedure Performed: Limited cardiac ultrasound Indication: Dyspnea Identified structures: The heart was visualized in the parasternal long axis, parastenal short axis, apical four chamber and subxyphiod views. The IVC was visualized in the short axis and long axis at its entry into the right atrium. Findings: Normal LVEF no evidence of pericardial effusion Impression: Unremarkable limited ultrasound of the heart Images were saved to permanent archive The study was technically adequate CPT: 23305-75 This study was performed by me, and I personally interpreted all images/videos. Based on my clinical judgement, these images were adequate and did not necessitate further imaging. Critical Care Critical Care Time Critical Care Time: No
[2024-08-19 10:00] VITALS: BP 167/84; PULSE 86; O2SAT 94
[2024-08-19 10:18] LABS: Basophils # 0.1 K/mm3 (0-0.2); Basophils % 0.4 % (0.1-2.0); Eosinophils # 0.1 Kmm3 (0.0-0.4); Eosinophils % 0.4 % (0.1-12.0); Hematocrit 26.2 % (42.0-52.0); Hemoglobin 8.6 g/dL (14.1-18.0); Lymphocytes # 1.3 K/mm3 (0.7-4.5); Lymphocytes % 9.3 % (10-50); Mean Corpuscular HGB Conc 32.8 g/dL (31.8-35.4); Mean Corpuscular Hemoglobin 30.5 pg (27.0-31.2); Mean Corpuscular Volume 92.9 fl (80-94); Mean Platelet Volume 8.7 fl (7.4-10.4); Monocytes # 1.5 K/mm3 (0.1-1.0); Monocytes % 10.9 % (1.7-9.3); Neutrophils # 10.6 K/mm3 (1.8-7.8); Neutrophils % 78.4 % (37.0-80.0); Nucleated Red Blood Cells # 0 10^3/uL; Nucleated Red Blood Cells % 0 %; Platelet Count 396 K/mm3 (142-424); Red Blood Count 2.82 M/mm3 (4.60-6.20); Red Cell Distribution Width 14.6 % (11.5-17.5); Red Cell Distribution Width-SD 49.8 fL; White Blood Count 13.5 K/mm3 (4.8-10.8)
[2024-08-19 10:38] LABS: Albumin Level 3.2 g/dl (3.5-5.0); Chloride 95 mmol/L (98-107); Potassium 5.8 mmoL/L (3.5-5.1); Sodium 129 mmol/L (136-145)
[2024-08-19 10:41] LABS: Alanine Aminotransferase 18 U/L (12-78); Alkaline Phosphatase 182 U/L (38-126); Anion Gap 13.8 mEq/L (5-15); Aspartate Amino Transferase 27 U/L (17-59); Bilirubin,Total 0.4 mg/dl (0.2-1.3); Blood Urea Nitrogen 65 mg/dl (9-20); Carbon Dioxide 26 mmol/L (22.0-30.0); Creatine Kinase 54 U/L (55-170); Creatinine Clearance Estimated 10 mL/min (50-200); Estimated Glomerular Filt Rate 7 ml/min (>60); GFR (African American) 9 ML/MIN (>60); Globulin 3.1 g/dL (1.3-3.2); Total Protein,Serum 6.3 g/dl (6.3-8.2)
[2024-08-19 10:42] LABS: Glucose 139 mg/dl (74-100); Phosphorous 3.1 mg/dl (2.5-4.5)
[2024-08-19 10:45] LABS: Microscopic, Urine URINE MICROSCOPIC (MICROSCOPIC)
[2024-08-19 10:47] LABS: C-Reactive Protein 270.5 mg/L (0-4)
[2024-08-19 10:53] LABS: NT Pro Brain Natriuretic Pep. 7680 pg/mL (0-450)
[2024-08-19 10:56] LABS: Troponin I 0.03 ng/ml (0.00-0.034)
[2024-08-19 11:14] LABS: Thyroid Stimulating Hormone 1.68 uIU/mL (0.465-4.68)
[2024-08-19 11:24] LABS: Appearance,Urine CLEAR (Clear); Bilirubin,Urine Negative (Negative); Blood, Urine 3+ (Negative); Color,Urine YELLOW (Yellow); Glucose,Urine (UA) TRACE (Negative); Ketones,Urine Negative (Negative); Leukocyte Esterase,Urine Negative (Negative); Nitrate,Urine Negative (Negative); PH,Urine 7.5 (5.0-8.5); Protein,Urine 2+ (Negative); Specific Gravity, Urine 1.015 (1.005-1.030); Urobilinogen,Urine 0.2 EU/dl (0.2)
[2024-08-19 11:25] LABS: HIV Combo NEGATIVE (Negative)
--- NOTE | 2024-08-19 12:19 | PC.NURSE ---
emmanuel chiu on phone with [facility] maritime officer.
[2024-08-19 12:24] LABS: Bacteria,Urine Trace /lpf; Squamous Epithelial Cell,Urine Occasional #/hpf (0-5); WBC,Urine 20-50 #/hpf (0-3)
[2024-08-19 12:33] VITALS: BP 152/79; PULSE 84; O2SAT 97
--- NOTE | 2024-08-19 12:39 | PC.NURSE ---
report called to mingo at [facility]. med surg room 115 phone number [phone]
--- NOTE | 2024-08-19 12:47 | PC.NURSE ---
call made to EMS for pt transport to [facility].
[2024-08-19 13:22] VITALS: BP 148/77; PULSE 64; RESP 19; TEMP 36.9
[2024-08-19 15:39] LABS: Hepatitis C Ab Qual. W/ RFX NEGATIVE (Negative)
== END 2024-08-19 13:23 | disposition other institution (70) ==
PROVIDERS: Emergency Provider Student in an Organized Health Care Education/Training Program; PCP Family Medicine
DX: R53.1 Weakness (principal); E87.5 Hyperkalemia; E87.1 Hypo-osmolality and hyponatremia; I44.0 Atrioventricular block, first degree; R26.2 Difficulty in walking, not elsewhere classified; D63.1 Anemia in chronic kidney disease; N18.6 End stage renal disease; Z99.2 Dependence on renal dialysis; Z11.4 Encounter for screening for human immunodeficiency virus [HIV]; Z11.59 Encounter for screening for other viral diseases
CPT/HCPCS: 71045; 80053; 81001; 82550; 83735; 83880; 84100; 84443; 84484; 85025; 86140; 86803; 87086; 87389; 93005; 99285

== ENCOUNTER 2025-01-19 15:46 | Outpatient (CLI) | payer MEDICARE, OTHER, SELFPAY ==
--- OUTSIDE RECORDS SUMMARY | 2024-03-19 10:00 | XMS_ITS ---
Author [facility] Address [address] [place] [phone] Care Team Providers Care Finish Photographer Name Role Phone Nestor Verdugo Unavailable [phone] Allergies Allergen (clinical drug ingredient) Drug/Non Drug [...] W/U Status Risk Notes Problem Primary insomnia (3409893) Primary insomnia (F51.01) Active confirmed Vital Signs Blood pressure systolic 130 mm Hg 03/19/20 24 Blood pressure diastolic 82 mm Hg 024 Heart Rate 75 /min 03/19/2024 Height 70 in 03/19/2024 Weight 201.4 lbs 03/19/2024 BMI 28.89 kg/m2 03/19/2024 Encounters Encounter Location Date Provider Diagnosis [facility] [address] [place] [id number] 03/19/2024 Nestor Verdugo Type 2 diabetes puneet [address], [place], [id number], Progress Notes * CHATMAN, ROGANASTASIADOB:[birth year] (79 yo M)Acc No.[id number]:03/19/2024 Progress Notes Patient: YASMIN PLASENCIA Provider: Glenis Verdugo M.D. :1945 A ge:78 Y S ex:Male Date:03/19/2024 Address:[address] [place], [place] [address], [id number] Subjective: * Chief Complaints: * 1 . [...] Coronary Artery Disease, Stents x 2, 2020- [facility]. * Surgical History: D enies Past Surgical [...] * Images: Billing Information: * Visit Code: 19570 Office Visit, Est Pt., Level 4. * Procedure Codes: G2211 Complex e/m visit add on. * Electronic signature of Mariam Verdugo MD on 01/19/2025 at 03:49 PM EDT Sign off status: Pending * Provider: Glenis Verdugo M.D. Date: 05/20/2023 Generated for Alan waller/Silvestre/eTransmitting on: 1 03:49 PM EDT History and Physical Notes * [...]
--- OUTSIDE RECORDS SUMMARY | 2024-07-19 17:30 | XMS_ITS ---
Author Organization [facility] PE D [place] Address [address] [facility] [address] [place] [address] Care Team Providers Care Retirement Manager Name Role Phone Yusuf Luke Primary Care Provider Migration, Provider Unavailable Unavailable Allergies Allergen (clinical drug ingredient) Drug/Non Drug Allergy documented on EMR Reaction Allergy Type Onset Date Status sulfamethoxazole / trimethoprim Bactrim rash Drug Allergy [facility] Conversion Encounter Medications Medication SIG (Take, Route, Frequency, Duration) Notes Start Date End Date Status FREESTYLE LITE TEST STRIPS USE TO TEST BLOOD SUGAR TWICE DAILY E11.9 *Please review for potential replacement for e-prescription and drug interaction check* 06/28/2017 Active CINNAMON CAPSULES 500MG DIRECTED PO QD *Please review for potential replacement for e-prescription and drug interaction check* Active TUMERICK 500MG ONE TABLET TWICE A DAY *Please review for potential replacement for e-prescription and drug interaction check* Active B-12 1000 MCG 1 tab(s) orally once a day Active Aspirin 81 MG 1 tab(s) orally once a day Active FREESTYLE LITE GLUCOSE MONITORING SYSTEM USE TO TEST BLOOD SUGAR TWICE DAILY E11.9 *Please review for potential replacement for e-prescription and drug interaction check* 06/28/2017 Active ACCU-CHECK COMPACTPLUS BID PRN *Please review for potential replacement for e-prescription and drug interaction check* 03/09/2014 Active Coreg 25 MG TAKE 2 TABLET BY MOUTH TWICE A DAY; Duration: 30 Active FREESTYLE LANCET USE TO TEST BLOOD SUGAR TWICE DAILY E11.9 *Please review for potential replacement for e-prescription and drug interaction check* 06/28/2017 Active ACCU CHECK DRUM NA DIRECTED DIRECTED BID; Duration: 30 DAY *Please review for potential replacement for e-prescription and drug interaction check* 08/29/2012 Active Januvia 25 MG TAKE 1 TABLET DAILY Active Allopurinol 100 MG 1 tab(s) orally 2 times a day Active Synthroid 175 MCG TAKE 1 TABLET DAILY Active NIFEdipine 10 MG TAKE 1 CAPSULE BY MOUTH DAILY.; Duration: 30 Active Encounters Encounter Location Date Provider Diagnosis [facility] [place] [address] [place] [address] 07/19/2024 Provider Migration Plan Of Treatment Medication Medication Name Sig Start Date Stop Date Notes Coreg 25 MG TAKE 2 TABLET BY OTF TH TWICE A DAY; Duration: 30 Januvia 25 MG TAKE 1 TABLET DAILY Synthroid 175 MCG TAKE 1 TABLET DAILY Progress Notes * Felipe CHATMAN WDOB:1945 (79 yo M)Acc No.[id number]:07/19/2024 Patient: Felipe PLASENCIA W Provider: Miya hart Migration :1945 A ge:79 Y S ex:Male Date:07/19/2024 Address:[address] [place], [place] [address], [id number] Pcp:Yusuf Luke Subjective: * Chief Complaints: * 1 . [facility] Conversion Encounter. * Medical History: * Medications: T aking ACCU CHECK DRUM NA NA DIRECTED DIRECTED BID , Notes to Pharmacist: *Please review for potential replacement for e-prescription and drug interaction check*, Taking ACCU-CHECK COMPACTPLUS BID PRN , Notes to Pharmacist: *Please review for potential replacement for e-prescription and drug interaction check*, Taking FREESTYLE LITE GLUCOSE MONITORING SYSTEM USE TO TEST BLOOD SUGAR TWICE DAILY , Notes to Pharmacist: E11.9 *Please review for potential replacement for e-prescription and drug interaction check*, Taking FREESTYLE LANCET USE TO TEST BLOOD SUGAR TWICE DAILY , Notes to Pharmacist: E11.9 *Please review for potential replacement for e-prescription and drug interaction check*, Taking FREESTYLE LITE TEST STRIPS USE TO TEST BLOOD SUGAR TWICE DAILY , Notes to Pharmacist: E11.9 *Please review for potential replacement for e-prescription and drug interaction check*, Taking TUMERICK 500MG TABLET ONE TABLET TWICE A DAY , Notes to Pharmacist: *Please review for potential replacement for e-prescription and drug interaction check*, Taking CINNAMON CAPSULES 500MG DIRECTED PO QD , Notes to Pharmacist: *Please review for potential replacement for e-prescription and drug interaction check*, Taking Aspirin 81 MG Tablet Delayed Release 1 tab(s) orally once a day , Taking B-12 1000 MCG Tablet 1 tab(s) orally once a day , Taking NIFEdipine 10 MG Capsule TAKE 1 CAPSULE BY MOUTH DAILY. , Taking Allopurinol 100 MG Tablet 1 tab(s) orally 2 times a day * Allergies: B actrim: rash. Objective: * Vitals: Assessment: Plan: * Treatment: * * Electronic signature of Paco brower Migration on 01/19/2025 at 03:48 PM EDT Sign off status: Pending * Provider: Miya hart Migration Date: 0 07/19/2024 Generated for Alan waller/Silvestre/Chaya on: 1 03:48 PM EDT
--- OUTSIDE RECORDS SUMMARY | 2024-08-15 09:30 | XMS_ITS ---
[facility] Address [address] [place] [id number] Care Team Providers Care Roll Forming Machine Operator Name Role Phone Nestor Verdugo Unavailable [phone] Allergies Allergen (clinical drug ingredient) Drug/Non Drug Allergy documented on EMR Reaction Allergy Type Onset Date Status sulfamethoxazole / trimethoprim Bactrim Unknown Drug Allergy Active REASON FOR VISIT CR D/C fu Medications Medication SIG (Take, Route, Frequency, Duration) Notes Start Date End Date Status Atorvastatin Calcium 40 MG 1 tab(s) oral ly once a day Active NIFEdipine ER 90 MG 2 tab(s) Orally once a day Active Levothyroxine Sodium 175 MCG TAKE 1 TABL ET BY MOUTH EVERY DAY; Duration: 90 Active Clopidogrel Bisulfate 75 MG 1 tablet Ora lly Once a day Active Januvia 25 MG as directed Orally Active Aspirin 81 MG 1 tab(s) orally once a day; Duration: 30 day(s) Active Sevelamer Carbonate 800 MG 2 tab(s) oral ly 3 times a day; Duration: 30 day(s) Active Vitamin B-12 1000 MCG 1 tab(s) orally on ce a day; Duration: 30 day(s) Active Vitamin D (Cholecalciferol) 25 MCG (1000 UT) 1 capsule Orally Once a day Active Carvedilol 12.5 MG 1 tablet with food Orally Twice a day Active Gabapentin 100 MG 1 capsule Orally Two times a day; Duration: 30 days 08/15/2024 Active Problems Problem Type SNOMED Code ICD Code Onset Dates Problem Status W/U Status Risk Notes Problem Sciatica (20439892) Right sided sciatica (M54.31) Active confirmed Vital Signs Blood pressure systolic 001 mm Hg 08/16/19 25 Blood pressure diastolic 001 mm Hg 025 Heart Rate 96 /min 08/15/2024 Height 70 in 08/15/2024 Weight 000 lbs 08/15/2024 Encounters Encounter Location Date Provider Diagnosis Mya [address] [facility] [address] [facility] [address] [place] [id number] 08/15/2024 Nestor Verdugo Closed fracture of s haft of right humerus, unspecified fracture morphology, initial encounter S42.301A ; Right sided sciatica M54.31 ; Peripheral edema R60.0 ; Primary hypertension I10 ; Hypothyroidism (acquired) E03.9 ; End stage renal disease N18.6 and 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 Assessments Encounter Date Diagnosis (ICD Code) Assessment Notes Treatment Notes Treatment Clinical Notes Section Notes 08/15/2024 Closed fracture of shaft of right humerus, unspecified fracture morphology, initial encounter (ICD-10 - S42.301A) Keep follow up with ortho at 08/15/2024 Right sided sciatica (ICD-10 - M54.31) 08/15/2024 Peripheral edema (ICD-10 - R60.0) Likely a side effect of Nifedipine 08/15/2024 Primary hypertension (ICD-10 - I10) Blood pressure journal, call with BP's from dialysis center next week 08/15/2024 Hypothyroidism (acquired) (ICD-10 - E03.9) 08/15/2024 End stage renal disease (ICD-10 - N18.6) 08/15/2024 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) Plan Of Treatment Medication Medication Name Sig Start Date Stop Date Notes Gabapentin 100 MG 1 capsule Orally Two times a day; Duration: 30 days 08/15/2024 Treatment Notes Assessment Notes Closed fracture of shaft of right humerus, unspecified fracture morphology, initial encounter Keep follow up with ortho at Peripheral edema Likely a side effect of Nifedipine Primary hypertension Blood pressure jour nal, call with BP's from dialysis center next week Next Appt Details Follow Up: via phone to repo rt progress, Reason: Provider Name:Nestor adair, 03/18/2025 03:30:00 PM, [address] [facility], [address], [place], [id number], Progress Notes * YASMIN CHATMANDOB:[birth year] (79 yo M)Acc No.[id number]:08/15/2024 Progress Notes Patient: YASMIN PLASENCIA Provider: Glenis Verdugo M.D. :1945 A ge:79 Y S ex:Male Date:08/15/2024 Address:[address] [place] [address] [place], [id number] Subjective: * Chief Complaints: * 1 . CR D/C fu. * HPI: H PI: 79 year old male presents with c/o Here for follow up on: P t here to f/u on [facility] d/c. Pt's states that pt broke his arm and was in [place] for rehab.? * ROS: D ERMATOLOGY: no R ramez. n o H robbie. G ASTROENTEROLOGY: no N ausea. n o V omiting. M USCULOSKELETAL: Sciatica yes, r ight. U ROLOGY: no D ifficulty urinating. n o B lood in urine. * Medical History: H ypertension, Type 2 Diabetes, Hyperlipidemia, Chronic Kidney Disease, Stage 5, Dialysis, 04/2020, Coronary Artery Disease, Stents x 2, 2020- [facility]. * Surgical History: D enies [...] yes, smokeless tobacco. * Medications: T aking Vitamin D (Cholecalciferol) 25 MCG (1000 UT) Capsule 1 capsule Orally Once a day , Taking Carvedilol 12.5 MG Tablet 1 tablet with food Orally Twice a day , Taking Clopidogrel Bisulfate 75 MG Tablet 1 tablet Orally Once a day , Taking Januvia 25 MG Tablet as directed Orally , Taking Sevelamer Carbonate 800 MG Tablet 2 tab(s) orally 3 times a day , Taking Vitamin B-12 1000 MCG Tablet 1 tab(s) orally once a day , Taking Aspirin 81 MG Tablet Delayed Release 1 tab(s) orally once a day , Taking Atorvastatin Calcium 40 MG Tablet 1 tab(s) orally once a day , Taking NIFEdipine ER 90 MG Tablet Extended Release 24 Hour 2 tab(s) Orally once a day , Taking Levothyroxine Sodium 175 MCG Tablet TAKE 1 TABLET BY MOUTH EVERY DAY , Discontinued Plavix 75 MG Tablet 1 tab(s) orally once a day , Discontinued Carvedilol 25 MG Tablet 2 tab(s) orally 2 times a day , Medication List reviewed and reconciled with the patient * Allergies: B actrim. Objective: * Vitals: W t: 000, Temp: 98.0, BP: 001/001, HR: 96, Nurse: emery, Ht: 70. * Examination: G eneral Examination: General Appearance: N AD. H eart: R SR. L ungs:?clear to auscultation. E xtremities: s plint and sling on RUE, bilateral 2+ leg edema.? Assessment: * Assessment: 1. C losed fracture of shaft of right humerus, unspecified fracture morphology, initial encounter - S42.301A (Primary) 2 . R ight sided sciatica - M54.31 3 .?Peripheral edema - R60.0 4 . P rimary hypertension - I10 5 . Hypothyroidism (acquired) - E03.9 6 . E nd stage renal disease - N18.6? 7. C hronic kidney disease due to diabetes mellitus - E11.22 Plan: * Treatment: 2. R ight sided sciatica Start Gabapentin Capsule, 100 MG, 1 capsule, Orally, Two times a day, 30 days, 60 Capsule, Refills 0. 3. P eripheral edema Notes: Likely a side effect of Nifedipine 4. P rimary hypertension Notes: Blood pressure journal, call with BP's from dialysis center next week * Procedure Codes: G 2211 Complex e/m visit add on * Follow Up: v ia phone to report progress * Images: Billing Information: * Visit Code: 43236 Office Visit, Est Pt., Level 4. * Procedure Codes: G2211 Complex e/m visit add on. * Electronic signature of Mariam Verdugo MD on 01/19/2025 at 03:49 PM EDT Sign off status: Pending * Provider: Glenis Verdugo M.D. Date: 0 08/15/2024 Generated for Alan waller/Silvestre/eTransmitting on: 1 03:49 PM EDT History and Physical Notes * HPI (History of Present Illness) Category Sub-Category Detail Notes Category Not es HPI Here for follow up on: Pt here t o f/u on [facility] d/c. Pt's states that pt broke his arm and was in [place] for rehab Examination Category Sub-Category Detail Notes Category Not es General Examination Heart: RSR Lungs: clear to auscultatio n Extremities: splint and sling on RUE, bilateral 2+ leg edema General Appearance: NAD
--- OUTSIDE RECORDS SUMMARY | 2024-09-10 09:30 | XMS_ITS ---
Author Organization [facility] Address [address] [place] [id number] Care Team Providers Care Marketing Graphics Specialist Name Role Phone Nestor Verdugo Unavailable [phone] REASON FOR VISIT CR f/u Encounters Encounter Location Date Provider Diagnosis [facility] [address] [place] [id number] 09/10/2024 Nestor Verdugo Plan Of Treatment Next Appt Details Provider Name:Nestor Aquino ry, 03/18/2025 03:30:00 PM, [address], [address], [place], [phone], Progress Notes * YASMIN CHATMANDOB:[birth year] (79 yo M)Acc No.[id number]:09/10/2024 Patient: Camille YASMIN MARKS Provider: Glenis Verduog M.D. :1945 A ge:79 Y S ex:Male Date:09/10/2024 [address] [id number] Subjective: * Chief Complaints: * 1 . CR f/u. * Medical History: Objective: * Vitals: Assessment: Plan: * Treatment: * Images: Billing Information: * Visit Code: * Procedure Codes: * Electronic signature of Mariam Verdugo MD on 01/19/2025 at 03:49 PM EDT Sign off status: Pending * Provider: Glenis Verdugo M.D. Date: 0 09/10/2024 Generated for Alan waller/Silvestre/Chaya on: 1 03:49 PM EDT
--- OUTSIDE RECORDS SUMMARY | 2024-09-17 09:45 | XMS_ITS ---
Author Organization [facility] Address [address] [place] [id number] Care Team Providers Care Rn Cardiac Rehab Name Role Phone Nestor Verdugo Unavailable [phone] Allergies Allergen (clinical drug ingredient) Drug/Non Drug Allergy documented on EMR Reaction Allergy Type Onset Date Status sulfamethoxazole / trimethoprim Bactrim Unknown Drug Allergy Active REASON FOR VISIT 6 month f/u & [place] D/C Medications Medication SIG (Take, Route, Frequency, [...] Status Risk Notes Problem Incontinence of feces (33167812) Incontinence of feces, unspecified fecal incontinence type (R15.9) Active confirmed Vital Signs Heart Rate 72 /min 09/17/2024 Height 70 in 09/17/2024 Weight 200 lbs 09/17/2024 BMI 28.69 kg/m2 09/17/2024 Encounters Encounter Location Date Provider Diagnosis [facility] 36 [facility] [address] [place] [id number] 09/17/2024 Nestor Verdugo Right sided sciatica M54.31 [...] Notes Peripheral edema Patient to discuss w [facility] dialysis clinic staff Pending Test Test Name Order Date CT Scan : Spine, lumbosacral, without co ntrast 09/17/2024 Next Appt Details Follow Up: via phone to repo rt test results, Reason: Provider Name:Nestor Aquino , 03/18/2025 03:30:00 PM, [address] [facility] 36 [facility], [address], [place], [phone], Progress Notes * YASMIN CHATMANDOB:[birth year] (79 yo M)Acc No.[id number]:09/17/2024 Progress Notes Patient: YASMIN PLASENCIA Provider: Glenis Verdugo M.D. :1945 A ge:79 Y S ex:Male Date:09/17/2024 Address:[address] [place], [place] [address], [id number] Subjective: * Chief Complaints: * 1 . 6 month f/u & [place] D/C. * HPI: C ardiology: 79 year [...] c/o Here for follow [place] on: [place] [facility] [place]. [place] states he was in [place] after having reaction to Gabapentin. Pt states he took Gabapentin for 3 days then became so weak that he w as unable to stand or walk. Pt states after going to [facility] 08/19 and being transported to [facility] for admission h e was then discharged [...] Coronary Artery Disease, Stents x , 2020- [facility]. * Surgical History: D enies Past [...] pain present - M51.369 5 . B [place] 28.0-28.9,adult - Z68.28 Plan: * Treatment: 2.?Incontinence of feces, unspecified fecal incontinence type?Imaging: CT Scan : Spine, lumbosacral, without contrast* MWF, afternoon appt.Claudia Marte 09/17/2024 04:10:53 PM EDT > no auth required; CPT code 12871; faxed to [facility] Scheduling 3.?Peripheral edema? Notes: Patient to discuss with dialysis clinic staff??4.?Degeneration of intervertebral disc of lumbar region, unspecified whether pain present?Imaging: CT Scan : Spine, lumbosacral, without contrast* MWF, afternoon appt.Claudia Marte 09/17/2024 04:10:53 PM EDT > no auth required; CPT code 59214; faxed to [facility] Scheduling * Procedure Codes: G 2211 Complex e/m visit add on, G8420 BMI<30 AND >=22 CALC & DOCU * Follow Up: v ia phone to report test results * Images: Billing Information: * Visit Code: 18900 Office Visit, Est Pt., Level 4. * Procedure Codes: G2211 Complex e/m visit add on. G8420 BMI<30 AND >=22 CALC & DOCU. * Electronic signature of Mariam Verdugo MD on 01/19/2025 at 03:49 PM EDT Sign off status: Pending * Provider: Glenis Verdugo M.D. Date: 0 09/17/2024 Generated for Alan waller/Silvestre/Donalditting on: 03:49 PM EDT History and Physical Notes [...] concerns HPI Here for follow up on: Collin Rid ge. Pt states he was in [place] after having reaction to Gabapentin. Pt states he took Gabapentin for 3 days then became so weak that he was unable to stand or walk. Pt states after going to [facility] 08/19 and being transported to [facility] for admission he was then discharged to Examination Category Sub-Category Detail Notes Category Not es General Examination Extremities: long arm bra ce on the right upper extremity, 1+ bilateral leg edema General Appearance: NAD, sitting in a wh eelchair
--- OUTSIDE RECORDS SUMMARY | 2025-01-19 15:49 | XMS_ITS | Patient Health Record ---
Author Organization [facility] PE D ROSALIE Address [address] [place] [address] Care Team Providers Care Building Code Inspector Name Role Phone Yusuf Luke Primary Care Provider Nelida Plaza Unavailable [phone] Migration, Provider Unavailable Unavailable Allergies Allergen (clinical drug ingredient) Drug/Non Drug Allergy documented on EMR Reaction Allergy Type Onset Date Status sulfamethoxazole / trimethoprim Bactrim rash Drug Allergy Active Medications Medication SIG (Take, Route, Frequency, Duration) Notes Start Date End Date Status Atorvastatin Calcium 40 MG 1 tablet Oral ly Once a day Active Synthroid 175 MCG TAKE 1 TABLET DAILY Active Sevelamer HCl 800 MG 1 tablet with meals Orally Three times a day Active B-12 5000 MCG 1 tab(s) orally once a day Active NIFEdipine ER 60 MG 1 tablet on an empty stomach Orally 2 times a day Active Aspirin 81 MG 1 tab(s) orally once a day Active Immunizations Vaccine Route Administration Date Status Comme nts Prevnar PCV-13 (Pneumococcal conjugate 13) IM Intramuscular 03/27/2016 Administered Pneumovax 23 IM Intramuscular 12/10/2019 Administered Influenza-Fluzone 3+years (NON-MEDICARE) IM Intramuscular 01/29/2018 Administered Influenza (Fluzone)--Medicar e only Unknown 04/25/2012 Administered Influenza (Fluzone)--Medicar e only IM Intramuscular 12/27/2015 Administered Influenza (Fluzone)--Medicar e only IM Intramuscular 01/24/2017 Administered LOt # [id number] Exp 09/14/17 [employer] Hep A Adult 2 Dose IM Intramuscular 03/25/2018 Administere d Fluzone High Dose IM Intramuscular 03/12/2019 Administered Fluzone High Dose IM Intramuscular 02/12/2020 Administered Fluzone High Dose IM Intramuscular 04/06/2021 Administered Problems Problem Type SNOMED Code ICD Code Onset Dates Problem Status W/U Status Risk Notes Problem End stage renal disease (82248931) End stage renal disease (N18.6) Active confirmed Problem Dependence on renal dialysis (339313549) Dependence on renal dialysis (Z99.2) Active confirmed Problem Hypothyroidism (74227599) Hypothyroidism (acquired) (E03.9) Active confirmed Problem Type II diabetes mellitus without complication (786562309) Diabetes mellitus type 2, noninsulin dependent (E11.9) Active confirmed Problem Essential hypertension (82995835) Essential hypertension (I10) Active confirmed Problem Senile debility (19076731) Senile debility (R54) Active confirmed Problem Gouty arthritis (07038706) Gouty arthritis (M10.9) Active confirmed Problem Chronic kidney disease stage 3 (disorder) (312486907) CKD (chronic kidney disease) stage 3, GFR 30-59 ml/min (N18.3) Active confirmed Problem Primary hypothyroidism (86608869) Primary hypothyroidism (E03.9) Active confirmed Problem Chronic kidney disease stage 4 (530087246) CKD (chronic kidney disease) stage 4, GFR 15-29 ml/min (N18.4) Active confirmed Problem Lower urinary tract symptoms due to benign prostatic hypertrophy (33105726513935) Benign prostatic hyperplasia with lower urinary tract symptoms (N40.1) Active confirmed Problem Anemia of chronic disorder (443646954) Anemia in chronic illness (D63.8) Active confirmed Problem AV block (295758608) AV block (I44.30) Active confirmed Problem 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 2 diabetes mellitus (357201754) Controlled type 2 diabetes mellitus with complication, without long-term current use of insulin (E11.8) Active confirmed Vital Signs Heart Rate 92 /min 07/29/2024 Temperature 98.2 degrees Fahrenheit 07/29/2024 Blood pressure diastolic 106 mm Hg 07/29/2024 Height 70 in 07/29/2024 Blood pressure systolic 166 mm Hg 07/29/2024 Weight 200.2 lbs 07/29/2024 BMI 28.72 kg/m2 07/29/2024 Encounters Encounter Location Date Provider Diagnosis [facility] PED [place] [address] [place] [address] 07/19/2024 Provider Migration [place] [address] [facility] [address] [place] [address] 07/29/2024 Nelida Plaza Closed fracture of neck of right humerus, sequela S42.211S ; Essential hypertension I10 ; End stage renal disease N18.6 ; Dependence on renal dialysis Z99.2 ; Primary hypothyroidism E03.9 ; Controlled type 2 diabetes mellitus with complication, without long-term current use of insulin E11.8 ; AV block I44.30 ; History of heart disease Z86.79 ; Anemia in chronic illness D63.8 ; Senile debility R54 and Hospital discharge follow-up Z09 Assessments Encounter Date Diagnosis (ICD Code) Assessment Notes Treatment Notes Treatment Clinical Notes Section Notes 07/29/2024 Essential hypertension (ICD-10 - I10) monitor, improved this afternoon after HD 07/29/2024 Closed fracture of neck of right humerus, sequela (ICD-10 - S42.211S) Continue orthopedic FU, NWB per their direction 07/29/2024 End stage renal disease (ICD-10 - N18.6) continue HD 07/29/2024 Dependence on renal dialysis (ICD-10 - Z99.2) 07/29/2024 Primary hypothyroidism (ICD-10 - E03.9) continue oral replacement 07/29/2024 Controlled type 2 diabetes mellitus with complication, without long-term current use of insulin (ICD-10 - E11.8) CC diet 07/29/2024 AV block (ICD-10 - I44.30) FU with [facility] Cardiology, monitor in place, coreg stopped 07/29/2024 History of heart disease (ICD-10 - Z86.79) plavix stopped. continue ASA, statin 07/29/2024 Anemia in chronic illness (ICD-10 - D63.8) nephrology following 07/29/2024 Senile debility (ICD-10 - R54) PT/OT as needed 07/29/2024 Hospital discharge follow-up (ICD-10 - Z09) records reviewed Plan Of Treatment Pending Test Test Name Order Date H-BMP 12/22/2016 C-TESTOSTERONE 05/07/2012 C-TESTOSTERONE 03/11/2011 C-CBC 05/07/2012 C-CBC 09/24/2019 C-CBC 08/26/2013 C-CMP 08/26/2013 C-CMP 05/07/2012 C-CMP 09/24/2019 C-CMP 06/03/2020 C-CMP 01/05/2014 C-CMP 03/11/2011 C-MICROALBUMIN 01/05/2014 C-LIPID PANEL 01/05/2014 C-LIPID PANEL 03/11/2011 C-LIPID PANEL 06/03/2020 C-LIPID PANEL 09/24/2019 C-LIPID PANEL 05/07/2012 C-URIC ACID 09/24/2019 C-TSH 08/26/2013 C-TSH 09/24/2019 C-TSH 05/07/2012 C-TSH 01/05/2014 C-TSH 03/11/2011 C-PSA 08/26/2013 C-HGBA1C 08/26/2013 C-HGBA1C 09/24/2019 C-HGBA1C 01/05/2014 C-HGBA1C 05/07/2012 C-HGBA1C 03/11/2011 Lexiscan Stress Test 05/12/2019 Future Test Test Name Order Date C-CMP 07/19/2015 C-LIPID PANEL 07/19/2015 C-TSH 07/19/2015 C-HGBA1C 07/19/2015 H-CMP 04/03/2016 H-LIPID PANEL 04/03/2016 H-HGBA1C 04/03/2016 H-TSH 04/03/2016 H-URIC ACID 04/03/2016 Insurance Providers Payer Name Payer Address Payer Phone Subscriber Number Group Number Insured Name Patient Relationship to Insured Coverage Start Date Coverage End Date MEDICARE [place] [address] [id number] Felipe Robison Self - patient is the insured [facility]. [address] [place] [address] [phone] [id number] Felipe Robison Self - patient is the insured Medical (General) History Medical History History ICD Code type II diabetes hypertension Hypothyroidism 244.9 Gout ESRD with dialysis negative cologuard testing 2016 CAD with stenting, CHF, chronic anemia, [facility] Surgical History Surgery Date(Month/Year) AVF placement cardiac stenting Hospitalization History Reason Date(Month/Year) [facility] - humerus fracture 07/2024
--- OUTSIDE RECORDS SUMMARY | 2025-01-19 15:49 | XMS_ITS | Encounter Summary ---
Author Organization [facility] Address [address] [place] [address] Care Team Providers Care Director Of Exhibit Development Name Role Phone Yusuf Luke MD Primary Care Provider + [phone] Liam Pineda MD Unavailable Janee Anton RN Unavailable [phone] Lei Abarca MD Unavailable [phone] Payton Austin Unavailable [phone] Reason for Visit * Reason Comments Med Refill Encounter Details Date Type Department Care Team (Late st Contact Info) Description 06/04/2023 Refill Professional [facility] Nephrology, Bone & Mineral Metabolism [address] [facility], [address] [place] [address] Yeyo Marrufo MD [address] [place] [id number] Social History Tobacco Use Types Packs/Day Years Used Date Smoking Tobacco: Never Smokeless Tobacco: Current Chew Alcohol Use Standard Drinks/Week Comments Never 0 (1 standard drink = 0.6 oz pur e alcohol) Sex and Gender Information Value Date Recorded Sex Assigned at Not on file Legal Sex Male 8:26 PM EDT Gender Identity Male 02/04/2021 9:54 AM EDT Sexual Orientation Not on file documented as of this encounter Miscellaneous Notes * Telephone Encounter - Benita Goodman LPN - 06/04/2023 12:36 PM EST This is a dialysis patient. The patient will need to contact the dialysis clinic and request a refill from the treating provider. documented in this encounter Plan of Treatment Not on file documented as of this encounter Visit Diagnoses Not on filedocumented in this encounter Additional Health Concerns Assessment Noted Time A fall risk assessment has been complete d for the patient 09/21/2021 1:31 PM EDT documented as of this encounter Care Teams Director Of Exhibit Development Relationship Specialty Start Date End Date Yusuf Luke MD [address] [place] [address] PCP - General 08/27/20 Liam Pineda MD [address] [facility] [address] [place] [address] Transplant Physician Transplant Surgery 06/30/20 Janee Anton RN [facility] [address] [place] [address] Surgical Navigator Transplant 06/30/20 Lei Abarca MD [address] [facility] [address] [place] [address] Referring Physician Nephrology 06/30/20 [place] [address] Surgical Navigator Transplant Surgery 12/09/20 documented as of this encounter
--- OUTSIDE RECORDS SUMMARY | 2025-01-19 15:49 | XMS_ITS | Patient Health Record ---
[facility] Address [address] [place] [id number] Care Team Providers Care Real Estate Sales Manager Name Role Phone Nestor Verdugo Unavailable [phone] Allergies Allergen (clinical drug ingredient) Drug/Non Drug Allergy documented on EMR Reaction Allergy Type Onset Date Status sulfamethoxazole / trimethoprim Bactrim Unknown Drug Allergy Active Results Component Value Reference Range Notes X ray : Spine, lumbosacral Reviewed date:05/15/2024 09:15:21 AM Interpretation:degenerative changes Performing Lab: Notes/Report: degenerative changes Reason For Referral No Information Medications Medication SIG (Take, Route, Frequency, Duration) [...] once a day; Duration: 10 days Active Vitamin D (Cholecalciferol) 25 MCG (1000 UT) 1 capsule Orally Once a day Active Immunizations Vaccine Route Administration Date Status Comme nts COVID 19 Pfizer Unknown 07/29/2020 Administered COVID 19 Pfizer Unknown 08/17/2020 Administered COVID 19 Pfizer Unknown 04/20/2021 Administered Fluzone High Dose (65yr and older) IM Intramuscular 01/23/2022 Administered Fluzone High Dose (65yr and older) Unknown 01/19/2025 Pending Fluzone Quad (6months&older) Unknown 01/29/2018 Administered Hepatitis A (adult) Unknown 03/25/2018 Administered PNEUMOVAX 23 VACCINE Unknown 12/10/2019 Administered Prevnar (PCV20) IM Intramuscular 05/22/2022 Administered xFluzone High Dose-private (65yr&older) Unknown 03/12/2019 Administered xFluzone High Dose-private (65yr&older) Unknown 02/12/2020 Administered xFluzone High Dose-private (65yr&older) Unknown 04/06/2021 Administered Problems Problem Type SNOMED Code ICD Code Onset Dates Problem Status W/U Status Risk Notes Problem Hypothyroidism (76659823) Hypothyroidism (acquired) (E03.9) Active confirmed Problem Diabetic renal disease (207668458) Type 2 diabetes mellitus with diabetic chronic kidney disease (E11.22) Active confirmed Problem Primary insomnia (5918575) Primary insomnia (F51.01) Active confirmed Problem End stage renal disease (60226902) End stage renal disease (N18.6) Active confirmed Problem Dependence on renal dialysis (347701849) Dependence on renal dialysis (Z99.2) Active confirmed Problem Atherosclerotic heart disease of [place] coronary artery without angina pectoris (948333644986972) Coronary artery disease involving [place] coronary artery of [place] heart without angina pectoris (I25.10) Active confirmed Problem Sciatica (35822667) Right sided sciatica (M54.31) Active confirmed Problem Difficulty walking (609171600) Difficulty walking (R26.2) Active confirmed Problem Incontinence of feces (52118396) Incontinence of feces, unspecified fecal incontinence type (R15.9) Active confirmed Problem Primary hypertension (49754387) Primary hypertension (I10) Active confirmed Problem Frequent fecal incontinence (208751157899277) 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) Active confirmed Vital Signs Heart Rate 80 /min 01/19/2025 Blood pressure diastolic 80 mm Hg 01/19/2025 Height 70 in 01/19/2025 Blood pressure systolic 126 mm Hg 01/19/2025 Weight 128.4 lbs 01/19/2025 BMI 18.42 kg/m2 01/19/2025 Encounters Encounter Location Date Provider Diagnosis Mya [address] [facility] [address] [place] [id number] 03/19/2024 Nestor Buffalo Type 2 diabetes puneet itus with diabetic chronic kidney disease E11.22 ; Primary hypertension I10 ; Hypothyroidism (acquired) E03.9 and Low back pain, unspecified M54.50 [place] [address] [facility] [address] [place] [id number] 08/15/2024 Nestor Buffalo Closed fracture of s haft of right humerus, unspecified fracture morphology, initial encounter S42.301A ; Right sided sciatica M54.31 ; Peripheral edema R60.0 ; Primary hypertension I10 ; Hypothyroidism (acquired) E03.9 ; End stage renal disease N18.6 and 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 Jacquelin-Obdulio [address] [facility] [address] [place] [id number] 09/17/2024 Nestor Buffalo Right sided sciatica M54.31 ; Incontinence of feces, unspecified fecal incontinence type R15.9 ; Peripheral edema R60.0 ; Degeneration of intervertebral disc of lumbar region, unspecified whether pain present M51.369 and BMI 28.0-28.9,adult Z68.28 [place] [address] [facility] [address] [place] [id number] 01/19/2025 Nestor Buffalo Pain in right lower leg M79.661 ; Pain in left lower leg M79.662 ; Difficulty walking R26.2 ; Frequent fecal incontinence R15.9 ; Encounter for immunization Z23 ; Muscle weakness M62.81 and SOB (shortness of breath) R06.02 Jacquelin-Obdulio [address] [facility] [address] [place] [id number] 05/15/2024 Nestor Buffalo [place] [address] [facility] [address] [place] [id number] 08/25/2024 Nestor Buffalo [place] [address] [facility] [address] [place], [place] [id number] 08/28/2024 Nestor Buffalo [facility] [address] [place], [place] [id number] 09/01/2024 Nestor Buffalo [facility] [address] [place] [id number] 10/27/2024 Nestor Buffalo [facility] [address] [place], [place] [id number] 11/03/2024 Nestor Buffalo [facility] [address] [place], [place] [id number] 01/16/2025 Nestor Buffalo Assessments Encounter Date Diagnosis (ICD Code) Assessment Notes Treatment Notes Treatment Clinical Notes Section Notes 03/19/2024 Type 2 diabetes mellitus with diabetic chronic kidney disease (ICD-10 - E11.22) 03/19/2024 Primary hypertension (ICD-10 - I10) 08/15/2024 Right sided sciatica (ICD-10 - M54.31) 08/15/2024 Closed fracture of shaft of right humerus, unspecified fracture morphology, initial encounter (ICD-10 - S42.301A) Keep follow up with ortho at 09/17/2024 Incontinence of feces, unspecified fecal incontinence type (ICD-10 - R15.9) 09/17/2024 Right sided sciatica (ICD-10 - M54.31) 01/19/2025 Pain in right lower leg (ICD-10 - M79.661) 01/19/2025 Pain in left lower leg (ICD-10 - M79.662) 01/19/2025 Difficulty walking (ICD-10 - R26.2) 09/17/2024 Peripheral edema (ICD-10 - R60.0) Patient to discuss with dialysis clinic staff 08/15/2024 Peripheral edema (ICD-10 - R60.0) Likely a side effect of Nifedipine 03/19/2024 Hypothyroidism (acquired) (ICD-10 - E03.9) 03/19/2024 Low back pain, unspecified (ICD-10 - M54.50) 08/15/2024 Primary hypertension (ICD-10 - I10) Blood pressure journal, call with BP's from dialysis center next week 09/17/2024 Degeneration of intervertebral disc of lumbar region, unspecified whether pain present (ICD-10 - M51.369) 01/19/2025 Frequent fecal incontinence (ICD-10 - R15.9) 09/17/2024 BMI 28.0-28.9,adult (ICD-10 - Z68.28) 01/19/2025 Encounter for immunization (ICD-10 - Z23) 08/15/2024 Hypothyroidism (acquired) (ICD-10 - E03.9) 08/15/2024 End stage renal disease (ICD-10 - N18.6) 01/19/2025 Muscle weakness (ICD-10 - M62.81) 08/15/2024 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) 01/19/2025 SOB (shortness of breath) (ICD-10 - R06.02) 03/19/2024 Other Labs from dialysis center reviewed, A1c 5.7%, see remainder of results Plan Of Treatment Pending Test Test Name Order Date Lipid Profile 09/17/2023 Glycohemoglobin (HbA1C) 09/17/2023 X ray : Spine, lumbosacral 01/19/2025 TSH 09/17/2023 CMP 09/17/2023 T4 Free 09/17/2023 CT Scan : Spine, lumbosacral, without co ntrast 09/17/2024 H-TSH 01/19/2025 H-CBC 01/19/2025 H-BNP 01/19/2025 H-VITAMIN B12 01/19/2025 H-CPK, Total 01/19/2025 Next Appt Details Provider Name:Nestor adair, 03/18/2025 03:30:00 PM, [address], [place], [place], [id number], Insurance Providers Payer Name Payer Address Payer Phone Subscriber Number Group Number Insured Name Patient Relationship to Insured Coverage Start Date Coverage End Date MEDICARE PART B [address] [address] [place] [id number] YASMIN SETHI Self - patient is the insured [place] [address] [place] [address] [id number] MCFARLAN D, YASMIN Self - patient is the insured Medical (General) History Medical History History ICD Code Hypertension Type 2 Diabetes Hyperlipidemia Chronic Kidney Disease, Stage 5 Dialysis, 04/2020 Coronary Artery Disease, Stents x 1- [facility] Surgical History Surgery Date(Month/Year)
--- OUTSIDE RECORDS SUMMARY | 2025-01-19 15:50 | XMS_ITS | Encounter Summary ---
Author Organization [facility] Address [address] [id number] Care Team Providers Care Drug Room Clerk Name Role Phone Yusuf Luke MD Primary Care Provider + [phone] Liam Pineda MD Unavailable Janee Anton RN Unavailable [phone] Lei Abarca MD Unavailable [phone] Payton Austin Unavailable [phone] Encounter Details Date Type Department Care Team (Late st Contact Info) Description 09/15/2020 Legacy OTTR Encounter Historical OTTR [address] [place] [address] Payton [place], [place] [id number] Social History Tobacco Use Types Packs/Day Years Used Date Smoking Tobacco: Never Alcohol Use Standard Drinks/Week Comments Yes 0 (1 standard drink = 0.6 oz pur e alcohol) Sex and Gender Information Value Date Recorded Sex Assigned at Not on file Legal Sex Male 8:26 PM EDT Gender Identity Male 02/04/2021 9:54 AM EDT Sexual Orientation Not on file documented as of this encounter Miscellaneous Notes * Progress Notes - Payton Austin MA - 09/15/2020 10:31 AM EDT Received a call from Mr. Bay's this morning to discuss Mr. Bay's upcoming appointment. I let her know that it was scheduled for 09/16 but I spoke with Mr. Bay and he dialyzes on that day. I rescheduled him to 09/[address] Pineda was at an outreach clinic that day, so he is scheduled now for 09/29 @ 1300. She understood and said they would be here. She was curious to know if he needed to be seen in pre-op again. I told her that I would discuss that with pre-opand get back to her. Spoke with Mili in pre-op who said that we gonsalo continue booking pre-op appointments on a case bycase basis. So, when he is booked for surgery and pre- op has his information, they will review and decide if he needs to be seen in person. Attempted to contact Mr. Bay and advise him, no answer, no VM. * Progress Notes - Payton Austin MA - 09/14/2020 12:17 PM EDT Mr. Bay is scheduled to see Dr. Pineda on 09/29 @ 1300 for AVF Creation Consult. Note to Rosario for update. * Progress Notes - Payton uAstin RN - 08/09/2020 3:56 PM EDT Attempted to contact Mr. Bay again this afternoon, no answer, no VM. Spoke with Tyra at dialysis facility who said that Mr. Bay would be in tomorrow and she would be happy to give him an appointment reminder for me. Faxed over appointment reminder. * Progress Notes - Payton Austin RN - 08/06/2020 11:[address] Pineda told me yesterday that Mr. Bay has already seen the chemical dependency professional had had stent placement and started on Plavix. He was told by pre-op that the chemical dependency professional said that he is good to go but Dr. Pineda would like to wait to take him to surgery. Mr. Bay is currently dialyzing via TDC and it is not urgent. Scheduled Mr. Bay for 09/16 @ 1320. Attempted to contact Mr. Bay, no answer, no voicemail. * Progress Notes - Payton Austin RN - 08/02/2020 3:40 PM EDT Was informed by Dr. Pineda that Mr. Bay needs to have cardiac tests prior to having surgery. Hesaid that Dr. Keys gave him a call and informed him. Dr. Pineda was not sure if we needed to get that scheduled or if they were getting it scheduled and ask me to call Dr. Keys and see. Called the phone number that Dr. Pineda gave me [phone], LVM on Dr. Keys's cell requesting a follow up call. Spoke with [facility], I was told that Mr. Bay does need to have cardiac clearance prior to surgery but they are getting that arranged due to him wanting it at a specific facility. Updated dialysis facility, [facility] requesting a call back from Mr. Bay and letting him know that we were aware of the current situation with cardiac testing and we will cancel surgery for Sundayand reschedule once those were complete. Note to Janee for update. UPDATE: email sent to [facility] [place] * Progress Notes - Payton Austin RN - 07/28/2020 12:58 PM EDT Ronna with dialysis has aggreed to do Mr. Bay's COVID on Sunday prior to his surgery, 08/02. * Progress Notes - ProviderDomenico MD - 07/22/2020 1:05 PM EDT DOS 08/04/2020 AVF vs Graft creation on 08/04 (Dx: N18.6 (ESRD), CPT: 72888 (Fistula)). This procedure is booked as an OPPA. 1. Fed Med AandB active NPR 2. 4 Life NPR since Medicare prime updating IAuth and nurse. * Progress Notes - Payton Austin RN - 07/22/2020 12:15 PM EDT Mr. Bay was seen in clinic yesterday by Dr. Pineda (Fernando) accompanied by his . He was consented for a left upper extremity AVF vs graft. It is scheduled for August 04 to follow first case. PICIS - 08/04 @ 1030, patient knows to be here at 0800 for prep and registration COVID - 07/31 @ dialysis - emailed Ronna, waiting for approval Binder made taken to [facility] OR Calendar updated Note to Mary Jo for pre-auth of Mr. Bay's AVF vs Graft creation on 08/04 (Dx: N18.6 (ESRD), CPT: 31834 (Fistula)). This procedure is booked as an OPPA. * Progress Notes - Payton Austin RN - 07/14/2020 9:25 AM EDT Janee received a call this morning from Mr. Bay that his is sick and is unable to attend his appointment today. * Progress Notes - ProviderDomenico MD - 07/14/2020 9:15 AM EDT Pt. called needing to r/s today's appts. R/s to 07/21; vein mapping @ 1pm, surg visit @ 2:40pm. Pt. confirmed new appts. Note to HEW for update. * Progress Notes - Judith Trinidad - 07/07/2020 10:41 AM EDT Mr. Bay called to let us know he would be unavailable to attend appt today. Will get vein mapping rescheduled and call him back with an appt date and time. * Progress Notes - ProviderDomenico MD - 07/06/2020 9:03 AM EDT DOS 07/07/2020 Venous duplex Upper Extremity Bilateral [id number] 1. Fed Med AandB active NPR 2. [employer]4 Life NPR updating IAuth and nurse. * Progress Notes - Judith Trinidad - 06/30/2020 3:06 PM EDT HEL[employer]TE[employer]ANING Surgical ICE referred by Lei Abarca MD for AVF placement consult for NORIS. Called , confirmed w/ , Mr. Bay is scheduled 07/07/20 1 pm arrival time for vein mapping/SG. Appt information mailed and emailed to [email or web address]. Referring/[facility] notified. documented in this encounter Plan of Treatment Not on file documented as of this encounter Visit Diagnoses Not on filedocumented in this encounter Care Teams Drug Room Clerk Relationship Specialty Start Date End Date Yusuf Luke MD [address] [place] [address] PCP - General 08/27/20 Liam Pineda MD [address] [facility] [address] [place] [address] Transplant Physician Transplant Surgery 06/30/20 Janee Anton, RN [facility] [address] [place] [address] Surgical Navigator Transplant 06/30/20 Lei Abarca MD [address] [facility] [address] [place] [address] Referring Physician Nephrology 06/30/20 [place] [address] Surgical Navigator Transplant Surgery 12/09/20 documented as of this encounter
--- OUTSIDE RECORDS SUMMARY | 2025-01-19 15:50 | XMS_ITS | Clinical Summary ---
Author Organization [facility] Address [address] [place] [address] Care Team Providers Care Sports Agent Name Role Phone Yusuf Luke MD Primary Care Provider + [phone] Liam Pineda MD Unavailable Janee Anton RN Unavailable [phone] Lei Abarca MD Unavailable [phone] Payton Austin Unavailable [phone] Allergies Active Allergy Reactions Criticality Noted Date Comments Sulfamethoxazole-Trimethoprim Rash Low 2017 Medications aspirin 81 MG EC tablet Take 1 tablet by mouth daily. Active Cyanocobalamin 5000 MCG capsule Take 1 capsule by mouth daily. Active levothyroxine (Synthroid, Levoxyl) 175 MCG tablet Take 1 tablet by mouth daily. 05/28/2017 Active sevelamer carbonate (Renvela) 800 MG tablet Take 3 tablets (2,400 mg) by mouth 3 (three) times a day with meals. 810 tablet 3 03/10/2024 Active atorvastatin (Lipitor) 40 MG tablet Take 1 tablet by mouth nightly. Active NIFEdipine XL (Adalat CC) 60 MG 24 hr tablet Take 1 tablet by mouth in the morning and 1 tablet before bedtime. Do not crush, chew, or split. 60 tablet 07/22/2024 Active acetaminophen (Tylenol) 500 MG tablet Take 1 tablet by mouth every 6 hours as needed for pain for up to 15 doses. 15 tablet 07/22/2024 Active Active Problems Problem Noted Date Diagnosed Date Second degree AV block, Mobitz type I 07/22/2024 Overview (07/23/2024): Asymptomatic Cardiology consulted; TTE, ECG, Tsh,FT4 Cardiac patch monitor for 14 days Will need to follow up with home Bioinformatics Support Specialist Dr. Helton in the next 2-3 weeks Fx humeral neck, right, closed, initial encounte r 07/16/2024 Overview (07/22/2024): Acute spiral fx of proximal humerus ORT consulted [facility] Cuff+Collar, trial non-op WBS per ORT Outpt F/U 07/28 Fall 07/16/2024 Overview (07/23/2024): Admitted SGT Tertiary exam 07/17 CHF (congestive heart failure) 07/16/2024 Overview (07/23/2024): Resumed medications and adjusted as needed Chronic anemia 07/16/2024 Overview (07/18/2024): Hgb stable Physical debility 07/16/2024 Overview (07/16/2024): Uses cane at baseline Sciatica 07/16/2024 Overview (07/22/2024): Has intermittent sciatic nerve pain, feels it contributed to fall Peripheral edema 07/16/2024 Overview (07/22/2024): ESRD / HF On iHD SUNNY (obstructive sleep apnea) 07/16/2024 Overview (07/22/2024): -See PCP for referral for sleep study High cholesterol 10/15/2020 Overview (07/16/2024): Home meds Hypothyroidism 10/15/2020 Overview (07/16/2024): Home meds CAD (coronary artery disease) 10/15/2020 Overview (07/22/2024): S/p PCI 2020 Resume aspirin; No need for Plavix as it is past the duration of recommended DAPT (Spoke with PCP who is aware and agreeable- Dr. Verdugo) ESRD (end stage renal disease) 10/15/2020 Overview (07/18/2024): On iHD, Tue/Thur/Sat LUE AV Fistula Nephro consulted; HD Tu.Th,Sa Essential hypertension, benign 11/25/2017 Overview (07/16/2024): Home meds, adjust regimen as needed Gout 11/25/2017 Type 2 diabetes mellitus with complications 11/14 Overview (07/16/2024): SSI CC2 Diet CTM BG Resolved Problems Problem Noted Date Diagnosed Date Resolved Date Complications due to vascula r device, implant, and graft 12/30/2020 07/16/2024 Overview (12/30/2020): Added automatically from request for surgery [id number] Good tolerance for activity 10/15/2020 07/16/2024 Antiplatelet or antithrombotic long-term use 07/16/2024 Proteinuria 12/09/2017 07/16/2024 Family History Medical History Relation Name Comments Cardiac disorder Father Stroke Father Diabetes Mother Other cancer Mother Stroke Mother Anesthesia problems Neg Hx Malig Hyperthermia Neg Hx Relation Name Status Comments Father Mother Social History Tobacco Use Types Packs/Day Years Used Date Smoking Tobacco: Never Smokeless Tobacco: Current Chew Alcohol Use Standard Drinks/Week Comments Never 0 (1 standard drink = 0.6 oz pur e alcohol) Sex and Gender Information Value Date Recorded Sex Assigned at Not on file Legal Sex Male 8:26 PM EDT Gender Identity Male 02/04/2021 9:54 AM EDT Sexual Orientation Not on file Last Filed Vital Signs Vital Sign Reading Time Taken Comments Blood Pressure 148/89 09/01/2024 1:34 PM EDT Pulse 67 09/01/2024 1:34 PM EDT Temperature 36.7 C (98.1 F) 07/23/2024 3:34 AM EDT Respiratory Rate 20 07/22/2024 12:23 PM EDT Oxygen Saturation 100% 09/01/2024 1:34 PM EDT Inhaled Oxygen Concentration - - Weight 88.5 kg (195 lb) 09/01/2024 1:34 PM EDT Height 176.5 cm (5' 9.5 ) 09/01/2024 1:34 PM EDT Body Mass Index 28.38 09/01/2024 1:34 PM EDT Plan of Treatment Health Maintenance Due Date Last Done Comments [facility]-Depression Screening 1945 [facility]-Medicare Annual Wellness (AWV) 1945 [facility]-Infant/Child/Adol SDOH Screenings 1945 Diabetes: Dental Exam 06/18/1955 [facility]- SDOH Screenings 06/18/1963 [facility]-Adult SDOH Screenings 06/18/1963 [facility]-Zoster Vaccines (1 of 2) 06/18/1995 [facility]-DTaP,Tdap,and Td Vaccines (1 - Tdap) 10/19/2017 10/18/2017 [facility]-RSV Vaccine: 60+ Years or (1 - 1-dose 75+ series) 2020 [facility]-Diabetes: Hemoglobin A1C 12/08/2020 06/10/2020 YPV-PGESD-13 Vaccine ( season) 2024 04/20/2021, 08/17/2020, 07/29/2020 [facility]-Influenza Vaccine (#1) 12/15/202403/03, 01/23/2022, 04/06/2021, Additional history exists [facility]-Hepatitis A Vaccines Aged Out 03/25/2018 No longer eligible based on patient's age to complete this topic [facility]-Pneumococcal Vaccine: 50+ Years Completed 12/10/2019, 03/27/2016 [facility]-Hepatitis C Screening Completed 2024, 07/16/2024, 06/10/2020 [facility]-Obesity Intervention Completed 025, 07/28/2024, 07/15/2024 HPV Vaccines Aged Out No longer eligi ble based on patient's age to complete this topic [facility]-HIB Vaccines Aged Out No longer e ligible based on patient's age to complete this topic [facility]-IPV Vaccines Aged Out No longer e ligible based on patient's age to complete this topic [facility]-Rotavirus Vaccines Aged Out No lo nger eligible based on patient's age to complete this topic Medical Devices Implanted Type Area Business Services Sales Representative Device Identifier Shelf Expiration Date Model / Serial / Lot Coil 38 Embolization 0.038 In-2cm-3mm - [id number] Implanted:Qty: 1 on 01/14/2021 by Caitlyn Malcolm, RN at [facility] Left: Arm [facility]-[id number] 12/09/2025 [id number] / / [id number] Coil Emb Pltm 0.035in 6cm 6mm - [id number] Implanted:Qty: 1 on 01/14/2021 by Caitlyn Malcolm, YAQUELIN at [facility] Left: Arm [facility]-[id number] 11/27/2024 [id number] / / [id number] Coil 38 Embolization 0.038 In-2cm-3mm - [id number] Implanted:Qty: 1 on 01/14/2021 by Caitlyn Malcolm, YAQUELIN at [facility] Left: Arm [facility]-[id number] 12/09/2025 [id number] / / [id number] Coil 38 Embolization 0.038 In-2cm-3mm - [id number] Implanted:Qty: 1 on 01/14/2021 by Caitlyn Malcolm, RN at [facility] Left: Arm [employer]-[id number] 12/09/2025 [id number] / / [id number] Coil Emb Pltm 0.035in 6cm 6mm - [id number] Implanted:Qty: 1 on 01/14/2021 by Caitlyn Malcolm, YAQUELIN at [facility] Left: Arm [facility]-[id number] 11/27/2024 [id number] / / [id number] Coil Emb Pltm 0.035in 6cm 6mm - [id number] Implanted:Qty: 1 on 01/14/2021 by Caitlyn Malcolm, YAQUELIN at [facility] Left: Arm [facility]-[id number] 11/27/2024 [id number] / / [id number] Procedures Procedure Name Priority Date/Time Associated Diagnosis Comments ACUTE HEPATITIS PANEL Routine 07/17/2024 9:22 AM EDT HEMOGLOBIN A1C Routine 06/10/2020 3:50 PM EST from Last 3 Months or Most Recently Relevant to Health Maintenance Results * Hepatitis panel, acute (07/17/2024 9:22 AM EDT) Hepatitis B Surf Antigen Negative Negative 07/17/2024 12:01 PM EDT [facility] Hepatitis A Antibody IgM Negative Negative 07/17/2024 12:01 PM EDT [facility] Hepatitis B Core Antibody IgM Negative Negative 07/17/2024 12:01 PM EDT [facility] Blood Venous blood specimen / Unknown (Central Line) Existing Catheter / Unknown 07/17/2024 9:22 AM EDT 07/17/2024 9:58 AM EDT Narrative [facility] - 07/17/2024 12:01 PM EDT Hepatitis C Antibody previously reported on patient within 24hrs and will not be repeated on this panel. See previous results below: Hepatitis C Antibody Date Value Ref Range Status 07/16/2024 Negative Negative Final us Jennifer Riggs MD LAB BLOOD ORDERABLES Final Resul t [facility] [address] [place] [address] * (ABNORMAL) Hemoglobin A1c (06/10/2020 3:50 PM EST) Hemoglobin A1c 7.2(H) 4.7 - 6.0 % [facility] Comment: Glycohemoglobin Reference Range, 0 years and up: 4.7 to 6.0% . HA1C Interpretive Data: Diagnosis of Diabetes: Diabetic > or = 6.5% Pre-diabetic 5.7 to 6.4% Non-diabetic < or = 5.6% . Glycemic Targets for Type I and Type II Diabetics: Non- Adults <7.0% Adults <6.0% Children and Adolescents <7.5% . Source: [place] Diabetes Association. Standards of medical care in diabetes, 2017. Diabetes Care.2017:40 (suppl 1):S1-S135. . HbA1c assay performed by an ion-exchange chromatography method that is certified traceable to the DCCT. 06/10/2020 3:50 PM EST 06/10/2020 5:40 PM EST us Nelida Brandt MD LAB BLOOD ORDERABLES Final Resu lt [facility] from Last 3 Months or Most Recently Relevant to Health Maintenance [place] [address] [facility] Advance Directives * Full Code (Latest Code Status on File) Date Activated Date Inactivated Comments 07/16/2024 4:40 PM 07/23/2024 2:05 PM Care Teams Sports Agent Relationship Specialty Start Date End Date Yusuf Luke MD [address] [place] [address] PCP - General 08/27/20 Liam Pineda MD [address] [facility] [address] [place] [address] Transplant Physician Transplant Surgery 06/30/20 Janee Anton, RN [facility] [address] [place] [address] Surgical Navigator Transplant 06/30/20 Lei Abarca MD [address] [facility] [address] [place] [address] Referring Physician Nephrology 06/30/20 [place] [address] Surgical Navigator Transplant Surgery 12/09/20
--- NOTE | 2025-01-19 15:52 | XR_ITS ---
FINAL REPORT CLINICAL HISTORY: PAIN IN LEFT LEG DIFFICULTY IN WALKING FINDINGS: AP, lateral, and oblique views of the lumbar spine were obtained. There is no acute fracture or acute malalignment of the lumbar spine. There is increased density within the inferior aspect of the thigh vertebral body and within the proximal sacrum, may represent sacral ala fractures. There is mild multilevel degenerative disc disease. No acute paraspinal abnormality is identified. IMPRESSION: Increasing densities in the sacrum bilaterally which could be sacral ala fractures but underlying malignancy is not excluded. Recommend CT or MRI of the lumbar spine/pelvis for further evaluation. Reviewed, Interpreted and Dictated by Isabelle Noyola MD Transcribed by Charla Posadas Authenticated and [facility]
== END 2025-01-19 23:59 | disposition home or self-care (01) ==
LOC: RAD 15:47
PROVIDERS: PCP Family Medicine; Visit Provider Family Medicine
DX: M51.361 Other intervertebral disc degeneration, lumbar region with lower extremity pain only (principal); R93.7 Abnormal findings on diagnostic imaging of other parts of musculoskeletal system; R26.2 Difficulty in walking, not elsewhere classified
CPT/HCPCS: 72110

== ENCOUNTER 2025-02-06 13:26 | Outpatient (CLI) | payer MEDICARE, OTHER, SELFPAY ==
--- OUTSIDE RECORDS SUMMARY | 2023-09-17 12:15 | XMS_ITS ---
Author Organization [facility] Address [address] [place], [place] [address] Care Team Providers Care Real Time Analyst Name Role Phone [place], Nestor Unavailable [phone] Allergies Allergen (clinical drug ingredient) Drug/Non Drug Allergy documented on EMR Reaction Allergy Type Onset Date Status sulfamethoxazole / trimethoprim Bactrim Unknown Drug Allergy Active Results Component Value Reference Range Notes P-Surgical Pathology Reviewed date:09/24/2023 10:09:53 AM Interpretation: Performing Lab: Notes/Report: Surgical Pathology View Report Patient Name: FELIPE CHATMAN Age-Sex-: 78y M 1945 Procedure Date: 09/17/2023 Accession Date: 09/19/2023 Pt Acct#: Report Date: 09/21/2023 Location: OFFICE Physician(s): Nestor Verdugo MD P A T H O L O G Y R E P O R T DIAGNOSIS: Skin, left hand, shave biopsy: Invasive squamous cell carcinoma, well differentiated, 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 Haven Fields MD electronically signed 09/21/2023 01:54 PM Gross Description: Received in formalin labeled Felipe Chatman per the requisition the site is left hand and consists of a white-mason, spiculated, irregular skin shave measuring 1.1 x 0.9 x 0.2 cm. Eccentrically located on the skin surface is a yellow, scaly lesion measuring 0.4 cm in greatest dimension. The lesion is 0.1 cm from the nearest margin. The base is inked blue. The specimen is sectioned and totally submitted in cassette 1A, 06/14. (KFA,[id number],[id number]) Grossing services provided by [facility], [facility], d/b/a [address] [place], [address] Heriberto Mills MD, Residential Recycle Driver. Microscopic Description: There are nests of mildly atypical squamous epithelium which arise from the epidermis and extend into the underlying dermis. There is surrounding inflammation and fibrosis present. The lesion is at least 2.1 mm thick and extends to the base of the biopsy. No definitive perineural or lymphovascular invasion are identified. Clinical History: Neoplasm of uncertain behavior of skin (D48.5); neoplasm of uncertain behavior Time of Collection of Tissue: 5:00 Time of Immersion of Tissue in Fixative: 5:00 Specimen List: Left hand Unless specified otherwise above, the quality of the H and E and any other stains performed is satisfactory, and any internal or external positive and negative controls react appropriately. End of Report Technical services provided by [facility], [facility], d/b/a [facility], [address] [place] [address] , [place] [address] Heriberto Mills MD, Residential Recycle Driver. Case reviewed and diagnosis rendered at [facility], [facility], d/b/a [address] , [place] [address] Heriberto Mills MD, Residential Recycle Driver. CONFIDENTIAL REASON FOR VISIT 6 month ckup Medications Medication SIG (Take, Route, Frequency, Duration) Notes Start Date End Date Status Aspirin 81 MG 1 tab(s) orally once a day; Duration: 30 day(s) Active Vitamin B-12 1000 MCG 1 tab(s) orally on ce a day; Duration: 30 day(s) Active NIFEdipine ER 90 MG 1 tab(s) Orally once a day Active Levoxyl 175 MCG 1 tab(s) orally once a day Active Sevelamer Carbonate 800 MG 2 tab(s) oral ly 3 times a day; Duration: 30 day(s) Active Plavix 75 MG 1 tab(s) orally once a day Active Januvia 25 MG 1 tab(s) orally once a day Active Carvedilol 25 MG 2 tab(s) orally 2 ti mes a day Active Atorvastatin Calcium 40 MG 1 tab(s) oral ly once a day Active Vital Signs Blood pressure systolic 122 mm Hg 09/17/19 24 Blood pressure diastolic 80 mm Hg 024 Heart Rate 70 /min 09/17/2023 Height 70 in 09/17/2023 Weight 231.6 lbs 09/17/2023 BMI 33.23 kg/m2 09/17/2023 Encounters Encounter Location Date Provider Diagnosis [facility] [address] [facility] [address] [facility] [address] [place] [id number] 09/17/2023 Nestor Verdugo Type 2 diabetes puneet itus with diabetic chronic kidney disease E11.22 ; Primary hypertension I10 ; Hypothyroidism (acquired) E03.9 and Neoplasm of uncertain behavior of skin of hand D48.5 Assessments Encounter Date Diagnosis (ICD Code) Assessment Notes Treatment Notes Treatment Clinical Notes Section Notes 09/17/2023 Type 2 diabetes mellitus with diabetic chronic kidney disease (ICD-10 - E11.22) 09/17/2023 Primary hypertension (ICD-10 - I10) 09/17/2023 Hypothyroidism (acquired) (ICD-10 - E03.9) 09/17/2023 Neoplasm of uncertain behavior of skin of hand (ICD-10 - D48.5) Plan Of Treatment Medication Medication Name Sig Start Date Stop Date Notes NIFEdipine ER 90 MG 1 tab(s) Orally once a day Levoxyl 175 MCG 1 tab(s) orally once a day Januvia 25 MG 1 tab(s) orally once a day Carvedilol 25 MG 2 tab(s) orally 2 times a day Pending Test Test Name Order Date Lipid Profile 09/17/2023 Glycohemoglobin (HbA1C) 09/17/2023 TSH 09/17/2023 CMP 09/17/2023 T4 Free 09/17/2023 Next Appt Details Follow Up: 6 Months, Reason: Provider Name:Nestor Aquino , 03/18/2025 03:30:00 PM, [address] [facility] [address] [facility], [address], [place], [id number], Procedure Notes * Category Sub-Category Detail Notes Shave Biopsy Indication: Uncertain nature of the lesion Consent: All risks, benefits, and potential complications were discussed including bleeding, infection, scarring, and the need for further surgery to improve the resultant scar or to remove a cancerous process. It was explained that this procedure was for diagnostic purposes and was not being performed with the intention of curing the condition Method: The biopsy was taken using the tangential shave technique. The area was first prepped with Betadine and anesthetized with 1% Lidocaine with epi. A flexible blade was used to harvest a freight representative specimen, light electrocautery of excision site for hemostasis Post-op: The likelihood of sc arring and the possibilty of recurrence was reiterated to the patient. The patient is instructed to cleanse the wound twice daily with soap and water or hydrogen peroxide, and then apply a bandage for one week's time. The patient is instructed to notify the office if the wound site(s) ooze, become painful or red. The biopsy specimen was sent to the laboratory for pathological evaluation Progress Notes * FELIPE CHATMANDOB:[birth year] (79 yo M)Acc No.[id number]:09/17/2023 Progress Notes Patient: FELIPE PLASENCIA Provider: Glenis Verdugo M.D. :1945 A ge:78 Y S ex:Male Date:09/17/2023 Address:[address] [place], [place] [id number] Subjective: * Chief Complaints: * 1 . 6 month ckup. * HPI: C ardiology: 78 year old male presents with c/o Blood Pressure Elevated P t here for 6 mo f/u on hypertension, states he is doing well and does not have any concerns. E ndocrinology: c/o Recent Blood Sugars P t here to f/u on DM 2. c/o Hypothyroidism. * ROS: D ERMATOLOGY: nodule o n the back of the left hand. n o R ramez.?no H robbie. G ASTROENTEROLOGY: no N ausea. n o V omiting. U ROLOGY: no D ifficulty urinating. n o B lood in urine. * Medical History: H ypertension, Type 2 Diabetes, Hyperlipidemia, Chronic Kidney Disease, Stage 5, Dialysis, 04/2020, Coronary Artery Disease, Stents x 2, 2020- [facility]. * Surgical History: D enies Past Surgical History. * Hospitalization/Major Diagno stic Procedure: D enies Past Hospitalization. * Family History: F ather: , diagnosed with Hypertension, Heart Disease, Stroke. M other: , diagnosed with Hypertension, Heart Disease, Cancer. 1 sister(s) . 3 son(s) . . sister . * Social History: C URRENT TOBACCO USE: Yes . C affeine: yes, frequency:coffee and soft drinks. Marital Status: . Occupation: retired. Recreational drug use: no. Tobacco use other than smoking: yes, smokeless tobacco. * Medications: T aking Sevelamer Carbonate 800 MG Tablet 2 tab(s) orally 3 times a day , Taking Vitamin B-12 1000 MCG Tablet 1 tab(s) orally once a day , Taking Aspirin 81 MG Tablet Delayed Release 1 tab(s) orally once a day , Taking Plavix 75 MG Tablet 1 tab(s) orally once a day , Taking Atorvastatin Calcium 40 MG Tablet 1 tab(s) orally once a day , Taking NIFEdipine ER 90 MG Tablet Extended Release 24 Hour 1 tab(s) Orally once a day , Taking Levoxyl 175 MCG Tablet 1 tab(s) orally once a day , Taking Carvedilol 25 MG Tablet 2 tab(s) orally 2 times a day , Taking Januvia 25 MG Tablet 1 tab(s) orally once a day , Medication List reviewed and reconciled with the patient * Allergies: B actrim. Objective: * Vitals: W t:231.6, Temp:98.0, BP:122/80, HR:70, Nurse:emery, Ht: 70, BMI:33.23. * Examination: E ndocrinology: General Appearance: N AD. H eart: R SR. L ungs:?clear to auscultation. S kin: d orsum of the left hand has a 7 mm wide firm pink nodule, non tender to palpation. Assessment: * Assessment: 1. T ype 2 diabetes mellitus with diabetic chronic kidney disease - E11.22 (Primary) 2 . P rimary hypertension - I10 3 . H ypothyroidism (acquired) - E03.9? 4. N eoplasm of uncertain behavior of skin of hand - D48.5 Plan: * Treatment: 2. P rimary hypertension Continue Carvedilol Tablet, 25 MG, 2 tab(s), orally, 2 times a day; C ontinue NIFEdipine ER Tablet Extended Release 24 Hour, 90 MG, 1 tab(s), Orally, once a day. L AB: CMP 3. H ypothyroidism (acquired) Continue Levoxyl Tablet, 175 MCG, 1 tab(s), orally, once a day. L AB: TSH L AB: T4 Free 4. N eoplasm of uncertain behavior of skin of hand L AB: P-Surgical Pathology (Collection Date & Time - 09/17/2023 04:00 PM) Value Reference Range S urgical Pathology View Report - * Invasive squamous cell carci noma, well differentiated, extending to the deep margin [place] 09/24/2023 10:09:46 AM >See phone encounter * Procedures: S have Biopsy: Indication: U ncertain nature of the lesion. C onsent:?All risks, benefits,and potential complications were discussed including bleeding, infection, scarring, and the need for further surgery to improve the resultant scar or to remove a cancerous process. It was explained that this procedure was for diagnostic purposes and was not being performed with the intention of curing the condition. M ethod: T he biopsy was taken using the tangential shave technique. The area was first prepped with Betadine and anesthetized with 1% Lidocaine with epi. A flexible blade was used to harvest a freight representative specimen, light electrocautery of excision site for hemostasis. P ost-op: T he likelihood of scarring and the possibilty of recurrence was reiterated to the patient. The patient is instructed to cleanse the wound twice daily with soap and water or hydrogen peroxide, and then apply a bandage for one week's time. The patient is instructed to notify the office if the wound site(s) ooze, become painful or red. The biopsy specimen was sent to the laboratory for pathological evaluation. * Procedure Codes: 1 1306 SHAVE LESION,SCALP,NECK,HANDS,FEET 0.6 TO 1.0 CM * Follow Up: 6 Months * Images: Billing Information: * Visit Code: 67618 Office Visit, Est Pt., Level 4. Modifiers: 25 * Procedure Codes: 78347 SHAVE LESION,SCALP,NECK,HANDS,FEET 0.6 TO 1.0 CM. * Electronic signature of Mariam Verdugo MD on 02/06/2025 at 01:30 PM EDT Sign off status: Pending * Provider: Glenis Verdugo M.D. Date: 0 09/17/2023 Generated for Alan waller/Silvestre/Chaya on: 1 01:30 PM EDT History and Physical Notes * HPI (History of Present Illness) Category Sub-Category Detail Notes Category Not es Endocrinology Recent Blood Sugars Pt here to f/u on DM 2 Hypothyroidism Cardiology Blood Pressure Elevated Pt here for 6 mo f/u on hypertension, states he is doing well and does not have any concerns Examination Category Sub-Category Detail Notes Category Not es Endocrinology Heart: RSR Lungs: clear to auscultatio n General Appearance: NAD Skin: dorsum of the left h and has a 7 mm wide firm pink nodule, non tender to palpation
--- OUTSIDE RECORDS SUMMARY | 2024-03-19 10:00 | XMS_ITS ---
[facility] Address [address] [place] [id number] Care Team Providers Care Draftsperson Name Role Phone Nestor Verdugo Unavailable [phone] Allergies Allergen (clinical drug ingredient) Drug/Non Drug Allergy documented on EMR Reaction Allergy Type Onset Date Status sulfamethoxazole / trimethoprim Bactrim Unknown Drug Allergy Active Results Component Value Reference Range Notes X ray : Spine, lumbosacral Reviewed date:05/15/2024 09:15:21 AM Interpretation:degenerative changes Performing Lab: Notes/Report: degenerative changes REASON FOR VISIT 6 month f/u Medications Medication SIG (Take, Route, Frequency, Duration) Notes Start Date End Date Status Atorvastatin Calcium 40 MG 1 tab(s) oral ly once a day Active Levoxyl 175 MCG 1 tab(s) orally once a day Active Januvia 25 mg TAKE 1 TABLET DAILY Active Carvedilol 25 MG 2 tab(s) orally 2 ti mes a day Active NIFEdipine ER 90 MG 1 tab(s) Orally once a day Active Plavix 75 MG 1 tab(s) orally once a day Active Vitamin B-12 1000 MCG 1 tab(s) orally on ce a day; Duration: 30 day(s) Active Aspirin 81 MG 1 tab(s) orally once a day; Duration: 30 day(s) Active Sevelamer Carbonate 800 MG 2 tab(s) oral ly 3 times a day; Duration: 30 day(s) Active Problems Problem Type SNOMED Code ICD Code Onset Dates Problem Status W/U Status Risk Notes Problem Primary insomnia (4767886) Primary insomnia (F51.01) Active confirmed Vital Signs Blood pressure systolic 130 mm Hg 03/19/20 24 Blood pressure diastolic 82 mm Hg 024 Heart Rate 75 /min 03/19/2024 Height 70 in 03/19/2024 Weight 201.4 lbs 03/19/2024 BMI 28.89 kg/m2 03/19/2024 Encounters Encounter Location Date Provider Diagnosis [facility] [address] [place] [id number] 03/19/2024 Nestor Verdugo Type 2 diabetes puneet itus with diabetic chronic kidney disease E11.22 ; Primary hypertension I10 ; Hypothyroidism (acquired) E03.9 and Low back pain, unspecified M54.50 Assessments Encounter Date Diagnosis (ICD Code) Assessment Notes Treatment Notes Treatment Clinical Notes Section Notes 03/19/2024 Type 2 diabetes mellitus with diabetic chronic kidney disease (ICD-10 - E11.22) 03/19/2024 Primary hypertension (ICD-10 - I10) 03/19/2024 Hypothyroidism (acquired) (ICD-10 - E03.9) 03/19/2024 Low back pain, unspecified (ICD-10 - M54.50) 03/19/2024 Other Labs from dialysis center reviewed, A1c 5.7%, see remainder of results Plan Of Treatment Medication Medication Name Sig Start Date Stop Date Notes Levoxyl 175 MCG 1 tab(s) orally once a day Januvia 25 mg TAKE 1 TABLET DAILY Carvedilol 25 MG 2 tab(s) orally 2 times a day NIFEdipine ER 90 MG 1 tab(s) Orally once a day Treatment Notes Assessment Notes Other Labs from dialysis c enter reviewed, A1c 5.7%, see remainder of results Next Appt Details Follow Up: 6 Months, Reason: Provider Name:Nestor Aquino ry, 03/18/2025 03:30:00 PM, [address], [address], [place], [phone], Progress Notes * CHATMAN, ROGANASTASIADOB:[birth year] (79 yo M)Acc No.[id number]:03/19/2024 Progress Notes Patient: YASMIN PLASENCIA Provider: Glenis Verdugo M.D. :1945 A ge:78 Y S ex:Male Date:03/19/2024 Address:[address] [place], [place] [address], [id number] Subjective: * Chief Complaints: * 1 . 6 month f/u. * HPI: C ardiology: 78 year old male presents with c/o Blood Pressure Elevated P t here for 6 mo f/u on hypertension, states he is doing well and does not have any concerns. E ndocrinology: c/o Recent Blood Sugars P t here to f/u, pt states that he does not check blood sugar at home. c/o Hypothyroidism P t here to f/u. * ROS: D ERMATOLOGY: no R ramez. n o H robbie. G ASTROENTEROLOGY: no N ausea. n o V omiting. U ROLOGY: no D ifficulty urinating. n o B lood in urine. * Medical History: H ypertension, Type 2 Diabetes, Hyperlipidemia, Chronic Kidney Disease, Stage 5, Dialysis, 04/2020, Coronary Artery Disease, Stents x 2, 2020- [facility]. * Surgical History: D enies Past [...] orally 2 times a day , Taking NIFEdipine ER 90 MG Tablet Extended Release 24 Hour 1 tab(s) Orally once a day , Taking Januvia 25 mg Tablet TAKE 1 TABLET DAILY , Taking Levoxyl 175 MCG Tablet 1 tab(s) orally once a day , Medication List reviewed and reconciled with the patient * Allergies: B actrim. Objective: * Vitals: W t:201.4, Temp:97.8, BP:130/82, HR:75, Nurse:emery, Ht: 70, BMI:28.89. * Examination: E ndocrinology: General Appearance: N AD. H eart: R SR. L ungs:?clear to auscultation. E xtremities: n o leg edema. Assessment: * Assessment: 1. T ype 2 diabetes mellitus with diabetic chronic kidney disease - E11.22 (Primary) 2 . P rimary hypertension - I10 3 . H ypothyroidism (acquired) - E03.9? 4. L ow back pain, unspecified - M54.50 Plan: * Treatment: 2. P rimary hypertension Continue Carvedilol Tablet, 25 MG, 2 tab(s), orally, 2 times a day; C ontinue NIFEdipine ER Tablet Extended Release 24 Hour, 90 MG, 1 tab(s), Orally, once a day. 3. H ypothyroidism (acquired) Continue Levoxyl Tablet, 175 MCG, 1 tab(s), orally, once a day. 4. L ow back pain, unspecified I maging: X ray : Spine, lumbosacral (Performed Date - 05/14/2024) d egenerative changes 5.?Others? Notes: Labs from dialysis center reviewed, A1c 5.7%, see remainder of results?? * Procedure Codes: G 2211 Complex e/m visit add on * Follow Up: 6 Months * Images: Billing Information: * Visit Code: 77677 Office Visit, Est Pt., Level 4. * Procedure Codes: G2211 Complex e/m visit add on. * Electronic signature of Mariam Verdugo MD on 02/06/2025 at 01:29 PM EDT Sign off status: Pending * Provider: Glenis Verdugo M.D. Date: 05/20/2023 Generated for Alan waller/Silvestre/eTransmitting on: 1 01:29 PM EDT History and Physical Notes * HPI (History of Present Illness) Category Sub-Category Detail Notes Category Not es Endocrinology Recent Blood Sugars Pt here to f /u, pt states that he does not check blood sugar at home Hypothyroidism Pt here to f/u Cardiology Blood Pressure Elevated Pt here for 6 mo f/u on hypertension, states he is doing well and does not have any concerns Examination Category Sub-Category Detail Notes Category Not es Endocrinology Heart: RSR Lungs: clear to auscultatio n Extremities: no leg edema General Appearance: NAD
--- OUTSIDE RECORDS SUMMARY | 2024-07-19 17:30 | XMS_ITS ---
Author Organization [facility] PE D ROSALIE Address [address] [facility] [address] [place] [address] Care Team Providers Care Drawing Supervisor Name Role Phone Yusuf Luke Primary Care Provider Migration, Provider Unavailable Unavailable Allergies Allergen (clinical drug ingredient) Drug/Non Drug Allergy documented on EMR Reaction Allergy Type Onset Date Status sulfamethoxazole / trimethoprim Bactrim rash Drug Allergy Active [facility] Conversion Encounter Medications Medication SIG (Take, Route, [...] Active Encounters Encounter Location Date Provider Diagnosis [facility] [place] [address] [place] [address] 07/19/2024 Provider Migration Plan Of Treatment Medication Medication Name Sig Start Date Stop Date Notes Coreg 25 MG TAKE 2 TABLET BY OTF TH TWICE A DAY; Duration: 30 Januvia 25 MG TAKE 1 TABLET DAILY Synthroid 175 MCG TAKE 1 TABLET DAILY Progress Notes * Felipe CHATMAN WDOB:1945 (79 yo M)Acc No.[id number]:07/19/2024 Patient: Felipe PLASENCIA W Provider: Miya hart Migration :1945 A ge:79 Y S ex:Male Date:07/19/2024 Address:[address] [place], [place] [address], [id number] Pcp:Yusuf Luke Subjective: * Chief Complaints: * [...] Electronic signature of Paco brower Migration on 02/06/2025 at 01:29 PM EDT Sign off status: Pending * Provider: Miya hart Migration Date: 0 07/19/2024 Generated for Alan waller/Silvestre/Chaya on: 01:29 PM EDT
--- OUTSIDE RECORDS SUMMARY | 2024-08-15 09:30 | XMS_ITS ---
Author Organization [facility] Address [address] [place] [id number] Care Team Providers Care Cost Accounting Manager Name Role Phone Nestor Verdugo Unavailable [phone] Allergies Allergen (clinical drug ingredient) Drug/Non Drug [...] Status W/U Status Risk Notes Problem Sciatica (37840170) Right sided sciatica (M54.31) Active confirmed Vital Signs Blood pressure systolic 001 mm Hg 08/16/19 25 Blood pressure diastolic 001 mm Hg 025 Heart Rate 96 /min 08/15/2024 Height 70 in 08/15/2024 Weight 000 lbs 08/15/2024 Encounters Encounter Location Date Provider Diagnosis Mya [address] [facility] [address] [facility] [address] [place] [id number] 08/15/2024 Nestor Verdugo Closed fracture of s [...] 03/18/2025 03:30:00 PM, [address] [facility], [address], [place], [id number], Progress Notes * YASMIN CHATMANDOB:[birth year] (79 yo M)Acc No.[id number]:08/15/2024 Progress Notes Patient: YASMIN PLASENCIA Provider: Glenis Verdugo M.D. :1945 A ge:79 Y S ex:Male Date:08/15/2024 Address:[address] [place] [address] [place], [id number] Subjective: * Chief Complaints: * 1 . CR D/C fu. * HPI: H PI: 79 year old male presents with c/o Here for follow up on: P t here to f/u on [facility] d/c. Pt's states that pt broke his [...] Coronary Artery Disease, Stents x 2, 2020- [facility]. * Surgical History: D enies Past Surgical [...] * Images: Billing Information: * Visit Code: 29566 Office Visit, Est Pt., Level 4. * Procedure Codes: G2211 Complex e/m visit add on. * Electronic signature of Mariam Verdugo MD on 02/06/2025 at 01:30 PM EDT Sign off status: Pending * Provider: Glenis Verdugo M.D. Date: 0 08/15/2024 Generated for Alan waller/Silvestre/eTransmitting on: 01:30 PM EDT History and Physical Notes * HPI (History of Present Illness) Category Sub-Category Detail Notes Category Not es HPI Here for follow up on: Pt here t o f/u on [facility] d/c. Pt's states that pt broke his arm and was in [place] for rehab Examination Category Sub-Category Detail Notes Category Not es General Examination Heart: RSR Lungs: clear to auscultatio n Extremities: splint and sling on RUE, bilateral 2+ leg edema General Appearance: NAD
--- OUTSIDE RECORDS SUMMARY | 2024-09-10 09:30 | XMS_ITS ---
Author Organization [facility] Address [address] [place] [id number] Care Team Providers Care Director Name Role Phone Nestor Verdugo Unavailable [phone] REASON FOR VISIT CR f/u Encounters Encounter Location Date Provider Diagnosis [facility] [address] [place] [id number] 09/10/2024 Nestor Verdugo Plan Of Treatment Next Appt Details Provider Name:Nestor Aquino ry, 03/18/2025 03:30:00 PM, [address], [address], [place], [phone], Progress Notes * YASMIN CHATMANDOB:[birth year] (79 yo M)Acc No.[id number]:09/10/2024 Patient: Camille YASMIN MARKS Provider: Glenis Verdugo M.D. :1945 A ge:79 Y S ex:Male Date:09/10/2024 [address] [id number] Subjective: * Chief Complaints: * 1 . CR f/u. * Medical History: Objective: * Vitals: Assessment: Plan: * Treatment: * Images: Billing Information: * Visit Code: * Procedure Codes: * Electronic signature of Mariam Verdugo MD on 02/06/2025 at 01:29 PM EDT Sign off status: Pending * Provider: Glenis Verdugo M.D. Date: 0 09/10/2024 Generated for Alan waller/Silvestre/Chaya on: 1 01:29 PM EDT
--- OUTSIDE RECORDS SUMMARY | 2024-09-17 09:45 | XMS_ITS ---
Author Organization [facility] Address [address] [place] [id number] Care Team Providers Care Apiarist Name Role Phone Netsor Verdugo Unavailable [phone] Allergies Allergen (clinical drug ingredient) Drug/Non Drug Allergy documented on EMR Reaction Allergy Type Onset Date Status sulfamethoxazole / trimethoprim Bactrim Unknown Drug Allergy Active REASON FOR VISIT 6 month f/u & [place] D/C Medications Medication SIG (Take, Route, Frequency, Duration) Notes Start Date End Date Status Januvia 25 MG as directed Orally Active Sevelamer Carbonate 800 MG 2 tab(s) oral ly 3 times a day; Duration: 30 day(s) Active Aspirin 81 MG 1 tab(s) orally once a day; Duration: 30 day(s) Active Atorvastatin Calcium 40 MG 1 tab(s) oral ly once a day Active Vitamin B-12 1000 MCG 1 tab(s) orally on ce a day; Duration: 30 day(s) Active Carvedilol 12.5 MG 1 tablet with food Orally Twice a day Active Clopidogrel Bisulfate 75 MG 1 tablet Ora lly Once a day Active Vitamin D (Cholecalciferol) 25 MCG (1000 UT) 1 capsule Orally Once a day Active Levothyroxine Sodium 175 MCG TAKE 1 TABL ET BY MOUTH EVERY DAY; Duration: 90 Active NIFEdipine ER 90 MG 2 tab(s) Orally once a day Active Problems Problem Type SNOMED Code ICD Code Onset Dates Problem Status W/U Status Risk Notes Problem Incontinence of feces (29488310) Incontinence of feces, unspecified fecal incontinence type (R15.9) Active confirmed Vital Signs Heart Rate 72 /min 09/17/2024 Height 70 in 09/17/2024 Weight 200 lbs 09/17/2024 BMI 28.69 kg/m2 09/17/2024 Encounters Encounter Location Date Provider Diagnosis [facility] [facility] 36 [facility] [address] [place] [id number] 09/17/2024 Nestor Verdugo Right sided sciatica M54.31 ; Incontinence of feces, unspecified fecal incontinence type R15.9 ; Peripheral edema R60.0 ; Degeneration of intervertebral disc of lumbar region, unspecified whether pain present M51.369 and BMI 28.0-28.9,adult Z68.28 Assessments Encounter Date Diagnosis (ICD Code) Assessment Notes Treatment Notes Treatment Clinical Notes Section Notes 09/17/2024 Right sided sciatica (ICD-10 - M54.31) 09/17/2024 Incontinence of feces, unspecified fecal incontinence type (ICD-10 - R15.9) 09/17/2024 Peripheral edema (ICD-10 - R60.0) Patient to discuss with dialysis clinic staff 09/17/2024 Degeneration of intervertebral disc of lumbar region, unspecified whether pain present (ICD-10 - M51.369) 09/17/2024 BMI 28.0-28.9,adult (ICD-10 - Z68.28) Plan Of Treatment Treatment Notes Assessment Notes Peripheral edema Patient to discuss w [facility] dialysis clinic staff Pending Test Test Name Order Date CT Scan : Spine, lumbosacral, without co ntrast 09/17/2024 Next Appt Details Follow Up: via phone to repo rt test results, Reason: Provider Name:Nestor Aquino , 03/18/2025 03:30:00 PM, [address] [facility] [facility] [address] [facility], [address], [place], [phone], Progress Notes * YASMIN CHATMANDOB:[birth year] (79 yo M)Acc No.[id number]:09/17/2024 Progress Notes Patient: YASMIN PLASENCIA Provider: Glenis Verdugo M.D. :1945 A ge:79 Y S ex:Male Date:09/17/2024 Address:[address] [place], [place] [address], [id number] Subjective: * Chief Complaints: * 1 . 6 month f/u & [place] D/C. * HPI: C ardiology: 79 year old male presents with c/o Leg Edema P t complains of bilateral leg swelling, lt is worse . c/o Blood Pressure Elevated P t here for 6 mo f/u on hypertension, states he is doing well and does not have any concerns. E ndocrinology: c/o Recent Blood Sugars P t here to f/u on DM 2. c/o Hypothyroidism P t here to f/u. H PI: c/o Here for follow [place] [facility] [place] after having reaction to Gabapentin. Pt states he took Gabapentin for 3 days then became so weak that he w as unable to stand or walk. Pt states after going to [facility] 08/19 and being transported to [facility] for admission h e was then discharged to . * ROS: D ERMATOLOGY: no R ramez. n o H robbie. G ASTROENTEROLOGY: no N ausea. n o V omiting. U ROLOGY: no D ifficulty urinating. n o B lood in urine. * Medical History: H ypertension, Type 2 Diabetes, Hyperlipidemia, Chronic Kidney Disease, Stage 5, Dialysis, 04/2020, Coronary Artery Disease, Stents x , 2020- [facility]. * Surgical History: D enies Past Surgical History. * Hospitalization/Major Diagno stic Procedure: D enjalen Past Hospitalization. * Family History: F ather: , diagnosed with Hypertension, Stroke, Heart Disease. M other: , diagnosed with Cancer, Hypertension, Heart Disease. 1 sister(s) . 3 son(s) . . [...] TABLET BY MOUTH EVERY DAY , Discontinued Gabapentin 100 MG Capsule 1 capsule Orally Two times a day , Medication List reviewed and reconciled with the patient * Allergies: B actrim. Objective: * Vitals: W t: 200, Temp: 97.8, HR: 72, Nurse: emery, Ht: 70, BMI:28.69. * Examination: G eneral Examination: General Appearance: N AD, sitting in a wheelchair. E xtremities: l preston arm brace on the right upper extremity, 1+ bilateral leg edema. Assessment: * Assessment: 1. R ight sided sciatica - M54.31 (Primary) 2 . I ncontinence of feces, unspecified fecal incontinence type - R15.9 3 . P eripheral edema - R60.0 ? 4 . D egeneration of intervertebral disc of lumbar region, unspecified whether pain present - M51.369 5 . B AL 28.0-28.9,adult - Z68.28 Plan: * Treatment: 2.?Incontinence of feces, unspecified fecal incontinence type?Imaging: CT Scan : Spine, lumbosacral, without contrast* MWF, afternoon appt.Claudia Marte 09/17/2024 04:10:53 PM EDT > no auth required; CPT code 60658; faxed to [facility] Scheduling 3.?Peripheral edema? Notes: Patient to discuss with dialysis clinic staff??4.?Degeneration of intervertebral disc of lumbar region, unspecified whether pain present?Imaging: CT Scan : Spine, lumbosacral, without contrast* MWF, afternoon appt.Claudia Marte 09/17/2024 04:10:53 PM EDT > no auth required; CPT code 18320; faxed to [facility] Scheduling * Procedure Codes: G 2211 Complex e/m visit add on, G8420 BMI<30 AND >=22 CALC & DOCU * Follow Up: v ia phone to report test results * Images: Billing Information: * Visit Code: 61806 Office Visit, Est Pt., Level 4. * Procedure Codes: G2211 Complex e/m visit add on. G8420 BMI<30 AND >=22 CALC & DOCU. * Electronic signature of Mariam Verdugo MD on 02/06/2025 at 01:30 PM EDT Sign off status: Pending * Provider: Glenis Verdugo M.D. Date: 0 09/17/2024 Generated for Alan waller/Silvestre/Donalditting on: 01:30 PM EDT History and Physical Notes * HPI (History of Present Illness) Category Sub-Category Detail Notes Category Not es Endocrinology Recent Blood Sugars Pt here to f/u on DM 2 Hypothyroidism Pt here to f/u Cardiology Leg Edema Pt complains of bilateral le g swelling, lt is worse Blood Pressure Elevated Pt here for 6 mo f/u on hypertension, states he is doing well and does not have any concerns HPI Here for follow up on: Crimora Rid ge. Pt states he was in [place] after having reaction to Gabapentin. Pt states he took Gabapentin for 3 days then became so weak that he was unable to stand or walk. Pt states after going to [facility] 08/19 and being transported to [facility] for admission he was then discharged to Examination Category Sub-Category Detail Notes Category Not es General Examination Extremities: long arm bra ce on the right upper extremity, 1+ bilateral leg edema General Appearance: NAD, sitting in a wh eelchair
--- OUTSIDE RECORDS SUMMARY | 2025-01-19 10:45 | XMS_ITS ---
Author Organization [facility] Address [address] [place] [phone] Care Team Providers Care Outreach Assistant Name Role Phone Nestor Verdugo Unavailable [phone] Allergies Allergen (clinical drug ingredient) Drug/Non Drug Allergy documented on EMR Reaction Allergy Type Onset Date Status sulfamethoxazole / trimethoprim Bactrim Unknown Drug Allergy Active Results Component Value Reference Range Notes X ray : Spine, lumbosacral Reviewed date:01/21/2025 09:38:21 AM Interpretation: Performing Lab: Notes/Report: REASON FOR VISIT check up, discuss circumstances Medications Medication SIG (Take, Route, Frequency, Duration) Notes Start Date End Date Status Clopidogrel Bisulfate 75 MG 1 tablet Ora lly Once a day Active Carvedilol 12.5 MG 1 tablet with food Orally Twice a day Active Vitamin B-12 1000 MCG 1 tab(s) orally on ce a day; Duration: 30 day(s) Active Sevelamer Carbonate 800 MG 2 tab(s) oral ly 3 times a day; Duration: 30 day(s) Active Vitamin D (Cholecalciferol) 25 MCG (1000 UT) 1 capsule Orally Once a day Active Aspirin 81 MG 1 tab(s) orally once a day; Duration: 30 day(s) Active NIFEdipine ER 90 MG 2 tab(s) Orally once a day Active Atorvastatin Calcium 40 MG 1 tab(s) oral ly once a day Active Levothyroxine Sodium 175 MCG TAKE 1 TABL ET BY MOUTH EVERY DAY; Duration: 90 Active Januvia 25 MG 1 tablet Orally once a day; Duration: 10 days Active Immunizations Vaccine Route Administration Date Status Comme nts Fluzone High Dose (65yr and older) IM Intramuscular 01/19/2025 Administered Problems Problem Type SNOMED Code ICD Code Onset Dates Problem Status W/U Status Risk Notes Problem Difficulty walking (020972239) Difficulty walking (R26.2) Active confirmed Problem Frequent fecal incontinence (643018028035979 ) 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) Active confirmed Vital Signs Blood pressure systolic 126 mm Hg 01/20/20 25 Blood pressure diastolic 80 mm Hg 025 Heart Rate 80 /min 01/19/2025 Height 70 in 01/19/2025 Weight 128.4 lbs 01/19/2025 BMI 18.42 kg/m2 01/19/2025 Encounters Encounter Location Date Provider Diagnosis [facility] [address] [id number] 01/19/2025 Nestor Verdugo Pain in right lower leg M79.661 ; Pain in left lower leg M79.662 ; Difficulty walking R26.2 ; Frequent fecal incontinence R15.9 ; Encounter for immunization Z23 ; Muscle weakness M62.81 and SOB (shortness of breath) R06.02 Assessments Encounter Date Diagnosis (ICD Code) Assessment Notes Treatment Notes Treatment Clinical Notes Section Notes 01/19/2025 Pain in right lower leg (ICD-10 - M79.661) 01/19/2025 Pain in left lower leg (ICD-10 - M79.662) 01/19/2025 Difficulty walking (ICD-10 - R26.2) 01/19/2025 Frequent fecal incontinence (ICD-10 - R15.9) 01/19/2025 Encounter for immunization (ICD-10 - Z23) 01/19/2025 Muscle weakness (ICD-10 - M62.81) 01/19/2025 SOB (shortness of breath) (ICD-10 - R06.02) Plan Of Treatment Pending Test Test Name Order Date H-TSH 01/19/2025 H-CBC 01/19/2025 H-BNP 01/19/2025 H-VITAMIN B12 01/19/2025 H-CPK, Total 01/19/2025 Next Appt Details Follow Up: via phone to repo rt test results, Reason: Provider Name:Nestor adair, 03/18/2025 03:30:00 PM, [address], [address], [place], [phone], Progress Notes * YASMIN CHATMANDOB:[birth year] (79 yo M)Acc No.[id number]:01/19/2025 Progress Notes Patient: YASMIN PLASENCIA Provider: Glenis Verdugo M.D. :1945 A ge:79 Y S ex:Male Date:01/19/2025 Address:[address] [place] [address], [place], [id number] Subjective: * Chief Complaints: * 1 . Check up, discuss circumstances. * HPI: L e79 year old male presents with c/o Leg pain P t states he has been having leg pain off and on for several months. He has had some issues with SOB and leg edema, worse on the left leg. He issues with bowel incontinence for several months as well. * ROS: D ERMATOLOGY: no R ramez. n o H robbie. G ASTROENTEROLOGY: no N ausea. n o V omiting. U ROLOGY: no D ifficulty urinating. n o B lood in urine. * Medical History: H ypertension, Type 2 Diabetes, Hyperlipidemia, Chronic Kidney Disease, Stage 5, Dialysis, 04/2020, Coronary Artery Disease, Stents x 2, 2020- [facility]. * Family History: F ather: , diagnosed with Hypertension, Stroke, Heart Disease. M other: , diagnosed with Cancer, Heart Disease, Hypertension. 1 sister(s) . 3 son(s) . . [...] tablet Orally Once a day , Taking Sevelamer Carbonate 800 MG Tablet [...] once a day , Taking Januvia 25 MG Tablet 1 tablet Orally once a day , Taking Levothyroxine Sodium 175 MCG Tablet TAKE 1 TABLET BY MOUTH EVERY DAY , Medication List reviewed and reconciled with the patient * Allergies: B actrim. Objective: * Vitals: W t: 128.4, Temp: 97.5, BP: 126/80, HR: 80, Nurse: joann, Ht: 70, BMI:18.42. * Examination: G eneral Examination: General Appearance: N AD, using a rollator walker to assist with ambulation. H eart: R SR. L ungs: c lear to auscultation. E xtremities:?1+ bilateral leg edema. Assessment: * Assessment: 1. P ain in right lower leg - M79.661 (Primary) 2 . P ain in left lower leg - M79.662 3 . D ifficulty walking - R26.2 4 . F requent fecal incontinence - R15.9 5 . E ncounter for immunization - Z23 6 . M uscle weakness - M62.81 7 . S OB (shortness of breath) - R06.02 ? Plan: * Treatment: 2.?Pain in left lower leg?Imaging: X ray : Spine, lumbosacral (Performed Date - 01/19/2025)* [place] 01/21/2025 09:3 8:11 AM EDT > See phone encounter 3.?Difficulty walking?LAB: H-TSH ?LAB: H-VITAMIN B12 ?Imaging: X ray : Spine, lumbosacral (Performed Date - 01/19/2025)* [place] 01/21/2025 09:3 8:11 AM EDT > See phone encounter 4.?Muscle weakness?LAB: H-TSH ?LAB: H-CBC ?LAB: H-CPK, Total5.?SOB (shortness of breath)?LAB: H-TSH ?LAB: H-CBC ?LAB: H-BNP * Immunizations: Fluzone High Dose (65yr and older) : 0.5 mL (Route: Intramuscular) given by Ara Winters on Right Deltoid (Encounter for immunization) * Procedure Codes: G 2211 Complex e/m visit add on * Follow Up: v ia phone to report test results * Images: Billing Information: * Visit Code: 05634 Office Visit, Est Pt., Level 4. * Procedure Codes: G2211 Complex e/m visit add on. * Electronic signature of Mariam Verdugo MD on 02/06/2025 at 01:30 PM EDT Sign off status: Pending * Provider: Glenis Verdugo M.D. Date: Generated for Alan waller/Silvestre/Milanasmitting on: 01:30 PM EDT History and Physical Notes * HPI (History of Present Illness) Category Sub-Category Detail Notes Category Not es Leg Leg pain Pt states he has been having leg pain off and on for several months. He has had some issues with SOB and leg edema, worse on the left leg. He issues with bowel incontinence for several months as well Examination Category Sub-Category Detail Notes Category Not es General Examination Heart: RSR Lungs: clear to auscultatio n Extremities: 1+ bilateral leg paul ma General Appearance: NAD, using a rollato r walker to assist with ambulation
--- OUTSIDE RECORDS SUMMARY | 2025-01-21 05:37 | XMS_ITS ---
Author Organization [facility] Address [address] [facility] [address] [place] [id number] Care Team Providers Care Investment Accounting Clerk Name Role Phone Nestor Verdugo Unavailable [phone] REASON FOR VISIT abnormal L-spine needs testing Problems Problem Type SNOMED Code ICD Code Onset Dates Problem Status W/U Status Risk Notes Problem Degeneration of intervertebral disc of lumbar region with discogenic back pain and lower extremity pain (M51.362) Active confirmed Encounters Encounter Location Date Provider Diagnosis [facility] [address] [facility] [address] [place] [id number] 01/21/2025 Nestor Verdugo Right sided sciatica M54.31 ; Closed fracture of sacrum, unspecified portion of sacrum, initial encounter S32.10XA ; Difficulty walking R26.2 and Degeneration of intervertebral disc of lumbar region with discogenic back pain and lower extremity pain M51.362 Assessments Encounter Date Diagnosis (ICD Code) Assessment Notes Treatment Notes Treatment Clinical Notes Section Notes 01/21/2025 Right sided sciatica (ICD-10 - M54.31) 01/21/2025 Closed fracture of sacrum, unspecified portion of sacrum, initial encounter (ICD-10 - S32.10XA) 01/21/2025 Difficulty walking (ICD-10 - R26.2) 01/21/2025 Degeneration of intervertebral disc of lumbar region with discogenic back pain and lower extremity pain (ICD-10 - M51.362) Plan Of Treatment Pending Test Test Name Order Date MRI : Spine, Lumbosacral, without contra st 01/21/2025 Next Appt Details Provider Name:Nestor Aquino ry, 03/18/2025 03:30:00 PM, [address], [place], [place], [id number], Progress Notes * YASMIN CHATMANDOB:[birth year] (79 yo M)Acc No.[id number]:01/21/2025 Patient: YASMIN PLASENCIA :1945 A ge:79 Y S ex:Male Address:[address] [place] [address], [id number] Subjective: * Chief Complaints: * a bnormal L-spine needs testing * Medical History: * Surgical History: * Hospitalization/Major Diagno stic Procedure: * Medications: Objective: * Vitals: * Physical Examination: Assessment: * Assessment: 1. R ight sided sciatica - M54.31 (Primary) 2 . C losed fracture of sacrum, unspecified portion of sacrum, initial encounter - S32.10XA 3 . D ifficulty walking - R26.2 4 . D egeneration of intervertebral disc of lumbar region with discogenic back pain and lower extremity pain - M51.362 Plan: * Treatment: 2.?Closed fracture of sacrum, unspecified portion of sacrum, initial encounter?Imaging: MRI : Spine, Lumbosacral, without contrast* Claudia Marte 01/21/2025 04:2 2:57 PM EDT > faxed to [facility] Scheduling 3.?Difficulty walking?Imaging: MRI : Spine, Lumbosacral, without contrast* Claudia Marte 01/21/2025 04:2 2:57 PM EDT > faxed to [facility] Scheduling 4.?Degeneration of intervertebral disc of lumbar region with discogenic back pain and lower extremity pain?Imaging: MRI : Spine, Lumbosacral, without contrast* Claudia Marte 01/21/2025 04:2 2:57 PM EDT > faxed to [facility] Scheduling * Procedure Codes: * true * Date: Generated for Printi ng/Faxing/eTransmitting on: 01:30 PM EDT
--- NOTE | 2025-02-06 13:28 | MR_ITS ---
FINAL REPORT TECHNIQUE: Multiplanar MR without gadolinium enhancement CLINICAL HISTORY: RIGHT SIDED SCIATICA. BILATERAL LBP. COMPARISON: None FINDINGS: There is an infiltrative process involving the L5 vertebra, and the entire sacrum with significant extraosseous extension of tumor and into the sacral neural foramen. The presacral space is noted as well. This extensive infiltrative process likely represents metastases or myeloma, or chordoma is a third possibility. There are small lesions in the posterior L2 vertebral body in the anterior L1 vertebral body, which are nonspecific but may represent metastases. There is minimal disc disease, with no tumor or cyst noted in the upper lumbar spine. There is tumor encasement of the thecal sac and cauda equina in the lower lumbar spine. There is a distended bladder, which could be secondary to cauda equina syndrome. There are soft tissue masses in the right pre-L5 region measuring 24 mm in thickness and in the left iliac fossa measuring 20 mm. This may be secondary to neoplastic adenopathy or metastases. There is evidence of polycystic kidney disease. IMPRESSION: 1. 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 The differential diagnosis includes metastatic disease or myeloma, or chordoma. Reviewed, Interpreted and Dictated by Conrad Jasmine MD Transcribed by Alejandra Ludwig Authenticated and [facility]
--- OUTSIDE RECORDS SUMMARY | 2025-02-06 13:29 | XMS_ITS | Patient Health Record ---
Author Organization [facility] Address [address] [place] [address] Care Team Providers Care Hvac Refrigeration Technician Name Role Phone Yusuf Luke Primary Care Provider Nelida Plaza Unavailable [phone] Migration, Provider Unavailable Unavailable Allergies Allergen (clinical [...] only IM Intramuscular 01/24/2017 Administered LOt # [id number] Exp 09/14/17 [employer] Hep A Adult 2 Dose IM Intramuscular 03/25/2018 Administere d Fluzone High Dose IM Intramuscular 03/12/2019 Administered Fluzone High Dose IM Intramuscular 02/12/2020 Administered Fluzone High Dose IM Intramuscular 04/06/2021 Administered Problems Problem Type SNOMED Code ICD Code Onset Dates Problem Status W/U Status Risk Notes Problem End stage renal disease (43587840) End stage renal disease (N18.6) Active confirmed Problem Dependence on renal dialysis (493044422) Dependence on renal dialysis (Z99.2) Active confirmed Problem Hypothyroidism (51772978) Hypothyroidism (acquired) (E03.9) Active confirmed Problem Type II diabetes mellitus without complication (227338520) Diabetes mellitus type 2, noninsulin dependent (E11.9) Active confirmed Problem Essential hypertension (09672036) Essential hypertension (I10) Active confirmed Problem Senile debility (22894037) Senile debility (R54) Active confirmed Problem Gouty arthritis (37543617) Gouty arthritis (M10.9) Active confirmed Problem Chronic kidney disease stage 3 (disorder) (189374498) CKD (chronic kidney disease) stage 3, GFR 30-59 ml/min (N18.3) Active confirmed Problem Primary hypothyroidism (17617444) Primary hypothyroidism (E03.9) Active confirmed Problem Chronic kidney disease stage 4 (471936074) CKD (chronic kidney disease) stage 4, GFR 15-29 ml/min (N18.4) Active confirmed Problem Lower urinary tract symptoms due to benign prostatic hypertrophy (53682079752840) Benign prostatic hyperplasia with lower urinary tract symptoms (N40.1) Active confirmed Problem Anemia of chronic disorder (505582069) Anemia in chronic illness (D63.8) Active confirmed Problem AV block (122168580) AV block (I44.30) Active confirmed Problem 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 2 diabetes mellitus (096006105) Controlled type 2 diabetes mellitus with complication, without long-term current use of insulin (E11.8) Active confirmed Vital Signs Heart Rate 92 /min 07/29/2024 Temperature 98.2 degrees Fahrenheit 07/29/2024 Blood pressure diastolic 106 mm Hg 07/29/2024 Height 70 in 07/29/2024 Blood pressure systolic 166 mm Hg 07/29/2024 Weight 200.2 lbs 07/29/2024 BMI 28.72 kg/m2 07/29/2024 Encounters Encounter Location Date Provider Diagnosis [facility] [address] [place] [address] 07/19/2024 Provider Migration [place] [address] [facility] [address] [place] [address] 07/29/2024 Nelida Plaza Closed fracture of neck [...] AV block (ICD-10 - I44.30) FU with [facility] Cardiology, monitor in place, coreg stopped 07/29/2024 History of heart disease (ICD-10 - Z86.79) plavix stopped. continue ASA, statin 07/29/2024 Anemia in chronic illness (ICD-10 - D63.8) nephrology following 07/29/2024 Senile debility (ICD-10 - R54) PT/OT as needed 07/29/2024 Hospital discharge follow-up (ICD-10 - Z09) records reviewed Plan Of Treatment Pending Test Test Name Order Date H-BMP 12/22/2016 C-TESTOSTERONE 03/11/2011 C-TESTOSTERONE 05/07/2012 C-CBC 05/07/2012 C-CBC 08/26/2013 C-CBC 09/24/2019 C-CMP 09/24/2019 C-CMP 06/03/2020 C-CMP 03/11/2011 C-CMP 05/07/2012 C-CMP 08/26/2013 C-CMP 01/05/2014 C-MICROALBUMIN 01/05/2014 C-LIPID PANEL 01/05/2014 C-LIPID PANEL 03/11/2011 C-LIPID PANEL 05/07/2012 C-LIPID PANEL 06/03/2020 C-LIPID PANEL 09/24/2019 C-URIC ACID 09/24/2019 C-TSH 09/24/2019 C-TSH 05/07/2012 C-TSH 03/11/2011 C-TSH 01/05/2014 C-TSH 08/26/2013 C-PSA 08/26/2013 C-HGBA1C 08/26/2013 C-HGBA1C 05/07/2012 C-HGBA1C 01/05/2014 C-HGBA1C 03/11/2011 C-HGBA1C 09/24/2019 Lexiscan Stress Test 05/12/2019 Future Test Test Name Order Date C-CMP 07/19/2015 C-LIPID PANEL 07/19/2015 C-TSH 07/19/2015 C-HGBA1C 07/19/2015 H-CMP 04/03/2016 H-LIPID PANEL 04/03/2016 H-HGBA1C 04/03/2016 H-TSH 04/03/2016 H-URIC ACID 04/03/2016 Insurance Providers Payer Name Payer Address Payer Phone Subscriber Number Group Number Insured Name Patient Relationship to Insured Coverage Start Date Coverage End Date [place]IC[place] [address] [phone] [id number] Felipe Robison Self - patient is the insured [facility]. [address] [place] [address] [id number] Felipe Robison Self - patient is the insured Medical (General) History Medical History History ICD Code type II diabetes hypertension Hypothyroidism 244.9 Gout ESRD with dialysis negative cologuard testing 2016 CAD with stenting, CHF, chronic anemia, SUNNY Surgical History Surgery Date(Month/Year) AVF placement cardiac stenting Hospitalization History Reason Date(Month/Year) [facility] - humerus fracture 07/2024
--- OUTSIDE RECORDS SUMMARY | 2025-02-06 13:30 | XMS_ITS | Encounter Summary ---
Author Organization [facility] Address [address] [id number] Care Team Providers Care Cook Tortilla Name Role Phone Yusuf Luke MD Primary Care Provider + [phone] Liam Pineda MD Unavailable Janee Anton RN Unavailable [phone] Lei Abarca MD Unavailable [phone] Payton Austin Unavailable [phone] Encounter Details Date Type Department Care Team (Late st Contact Info) Description 09/15/2020 Legacy OTTR Encounter Historical OTTR [address] [place] [address] Payton Austin [place], [place] [id number] Social History Tobacco Use Types Packs/Day Years [...] for update. * Progress Notes - Payton Austin RN - 08/09/2020 3:56 PM EDT Attempted [...] that Mr. Bay has already seen the cnc lathe machinist had had stent placement and started on Plavix. He was told by pre-op that the cnc lathe machinist said that he is good to go [...] phone number that Dr. Pineda gave me [phone], LVM on Dr. Keys's cell requesting a follow up call. Spoke with [facility], I was told that Mr. Bay does need to have cardiac clearance prior to surgery but they are getting that arranged due to him wanting it at a specific facility. Updated dialysis facility, [facility] requesting a call back from Mr. Bay and letting him know that we were aware of the current situation with cardiac testing and we will cancel surgery for Sundayand reschedule once those were complete. Note to Janee for update. UPDATE: email sent to [facility] for cancellation * Progress Notes - Patyon Austin RN - 07/28/2020 12:58 PM EDT Ronna with dialysis has aggreed to do Mr. Bay's COVID on Sunday prior to his surgery, 08/02. * Progress Notes - ProviderDomenico MD - 07/22/2020 1:05 PM EDT DOS 08/04/2020 AVF vs Graft creation on 08/04 (Dx: N18.6 (ESRD), CPT: 82880 (Fistula)). This procedure is booked as an [...] creation on 08/04 (Dx: N18.6 (ESRD), CPT: 29050 (Fistula)). This procedure is booked as an [...] DOS 07/07/2020 Venous duplex Upper Extremity Bilateral 02444 1. [employer] A[employer] active NPR 2. [employer] NPR updating IAuth and nurse. * Progress Notes - Judith Trinidad - 06/30/2020 3:06 PM EDT PERSONNEL OFFICER Surgical ICE referred by Lei Abarca MD for AVF placement consult for NORIS. Called , confirmed w/ , Mr. Bay is scheduled 07/07/20 1 pm arrival time for vein mapping/SG. Appt information mailed and emailed to [email or web address]. Referring/[facility] notified. documented in this encounter Plan of Treatment Not on file documented as of this encounter Visit Diagnoses Not on filedocumented in this encounter Care Teams Cook Tortilla Relationship Specialty Start Date End Date Yusuf Luke MD [address] [place] [address] PCP - General 08/27/20 Liam Pineda MD [address] [facility] [address] [place] [address] Transplant Physician Transplant Surgery 06/30/20 Janee Anton, RN [facility] [address] [place] [address] Surgical Navigator Transplant 06/30/20 Lei Abarca MD [address] [facility] [address] [place] [address] Referring Physician Nephrology 06/30/20 [place] [address] Surgical Navigator Transplant Surgery 12/09/20 documented as of this encounter
--- OUTSIDE RECORDS SUMMARY | 2025-02-06 13:30 | XMS_ITS | Patient Health Record ---
Author [facility] Address [address] [place] [id number] Care Team Providers Care Fios Line Installer Name Role Phone Nestor Verdugo Unavailable [phone] Allergies Allergen (clinical drug ingredient) Drug/Non Drug Allergy documented on EMR Reaction Allergy Type Onset Date Status sulfamethoxazole / trimethoprim Bactrim Unknown Drug Allergy Active Results Component Value Reference Range Notes X ray : Spine, lumbosacral Reviewed date:05/15/2024 09:15:21 AM Interpretation:degenerative changes Performing Lab: Notes/Report: degenerative changes X ray : Spine, lumbosacral Reviewed date:01/21/2025 09:38:21 AM Interpretation: Performing Lab: Notes/Report: Reason For Referral No Information Medications Medication [...] (65yr and older) IM Intramuscular 01/19/2025 Administered Fluzone Quad (6months&older) Unknown 01/29/2018 Administered Hepatitis A (adult) Unknown 03/25/2018 Administered PNEUMOVAX 23 VACCINE Unknown 12/10/2019 Administered Prevnar (PCV20) IM Intramuscular 05/22/2022 Administered xFluzone High Dose-private (65yr&older) Unknown 03/12/2019 Administered xFluzone High Dose-private (65yr&older) Unknown 02/12/2020 Administered xFluzone High Dose-private (65yr&older) Unknown 04/06/2021 Administered Problems Problem Type SNOMED Code ICD Code Onset Dates Problem Status W/U Status Risk Notes Problem Hypothyroidism (61536090) Hypothyroidism (acquired) (E03.9) Active confirmed Problem 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 Problem Primary insomnia (0664081) Primary insomnia (F51.01) Active confirmed Problem End stage renal disease (49872737) End stage renal disease (N18.6) Active confirmed Problem Dependence on renal dialysis (226586242) Dependence on renal dialysis (Z99.2) Active confirmed Problem Atherosclerotic heart disease of [place] coronary artery without angina pectoris (256435815632980) Coronary artery disease involving [place] coronary artery of [place] heart without angina pectoris (I25.10) Active confirmed Problem Sciatica (89110187) Right sided sciatica (M54.31) Active confirmed Problem Difficulty walking (142474084) Difficulty walking (R26.2) Active confirmed Problem Incontinence of feces (13230293) Incontinence of feces, unspecified fecal incontinence type (R15.9) Active confirmed Problem Primary hypertension (44456452) Primary hypertension (I10) Active confirmed Problem Frequent fecal incontinence (125434888549760) 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) Active confirmed Problem Degeneration of intervertebral disc of lumbar region with discogenic back pain and lower extremity pain (M51.362) Active confirmed Vital Signs Heart Rate 80 /min 01/19/2025 Blood pressure diastolic 80 mm Hg 01/19/2025 Height 70 in 01/19/2025 Blood pressure systolic 126 mm Hg 01/19/2025 Weight 128.4 lbs 01/19/2025 BMI 18.42 kg/m2 01/19/2025 Encounters Encounter Location Date Provider Diagnosis [facility] [address] [place] [id number] 03/19/2024 Nestor Motley Type 2 diabetes puneet itus with diabetic chronic kidney disease E11.22 ; Primary hypertension I10 ; Hypothyroidism (acquired) E03.9 and Low back pain, unspecified M54.50 [facility] [address] [place] [id number] 08/15/2024 Nestor Motley Closed fracture of s haft of right humerus, unspecified fracture morphology, initial encounter S42.301A ; Right sided sciatica M54.31 ; Peripheral edema R60.0 ; Primary hypertension I10 ; Hypothyroidism (acquired) E03.9 ; End stage renal disease N18.6 and 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 [facility] [address] [place] [id number] 09/17/2024 Nestor Motley Right sided sciatica M54.31 ; Incontinence of feces, unspecified fecal incontinence type R15.9 ; Peripheral edema R60.0 ; Degeneration of intervertebral disc of lumbar region, unspecified whether pain present M51.369 and BMI 28.0-28.9,adult Z68.28 [facility] [address] [place] [address] [place] [id number] 01/19/2025 Nestor Motley Pain in right lower leg M79.661 ; Pain in left lower leg M79.662 ; Difficulty walking R26.2 ; Frequent fecal incontinence R15.9 ; Encounter for immunization Z23 ; Muscle weakness M62.81 and SOB (shortness of breath) R06.02 [facility] [place] [id number] 05/15/2024 Nestor Motley [facility] [address] [place], [place] [id number] 08/25/2024 Nestor Motley [facility] [address] [place], [place] [id number] 08/28/2024 Nestor Motley [facility] [address] [place], [place] [id number] 09/01/2024 Nestor Motley [facility] [address] [place], [place] [id number] 10/27/2024 Nestor Motley [facility] [address] [place], [place] [id number] 11/03/2024 Nestor Motley [facility] [address] [place] [id number] 01/16/2025 Nestor Motley [facility] [address] [facility] [address] [place], [place] [id number] 01/21/2025 Nestor Motley Right sided sciatica M54.31 ; Closed fracture of sacrum, unspecified portion of sacrum, initial encounter S32.10XA ; Difficulty walking R26.2 and Degeneration of intervertebral disc of lumbar region with discogenic back pain and lower extremity pain M51.362 [facility] [address] [facility] [address] [place], [place] [id number] 01/29/2025 Nestor Motley Assessments Encounter Date Diagnosis (ICD Code) Assessment [...] in left lower leg (ICD-10 - M79.662) 01/21/2025 Right sided sciatica (ICD-10 - M54.31) 01/21/2025 Closed fracture of sacrum, unspecified portion of sacrum, initial encounter (ICD-10 - S32.10XA) 01/21/2025 Difficulty walking (ICD-10 - R26.2) 01/19/2025 Difficulty walking (ICD-10 - R26.2) 09/17/2024 [...] 01/19/2025 Frequent fecal incontinence (ICD-10 - R15.9) 01/21/2025 Degeneration of intervertebral disc of lumbar region with discogenic back pain and lower extremity pain (ICD-10 - M51.362) 09/17/2024 BMI 28.0-28.9,adult (ICD-10 - Z68.28) 01/19/2025 [...] Date Lipid Profile 09/17/2023 Glycohemoglobin (HbA1C) 09/17/2023 MRI : Spine, Lumbosacral, without contra st 01/21/2025 TSH 09/17/2023 CMP 09/17/2023 T4 Free 09/17/2023 CT Scan : Spine, lumbosacral, without co ntrast 09/17/2024 H-TSH 01/19/2025 H-CBC 01/19/2025 H-BNP 01/19/2025 H-VITAMIN B12 01/19/2025 H-CPK, Total 01/19/2025 Next Appt Details Provider Name:Nestor Aquino ry, 03/18/2025 03:30:00 PM, [address], [place], [id number], Insurance Providers Payer Name Payer Address Payer Phone Subscriber Number Group Number Insured Name Patient Relationship to Insured Coverage Start Date Coverage End Date MEDICARE PART B [address] [address] [place] [address] [id number] YASMIN SETHI Self - patient is the insured [employer] [address] [place] [address] [id number] YASMIN SETHI Self - patient is the insured Medical (General) History Medical History History ICD Code Hypertension Type 2 Diabetes Hyperlipidemia Chronic Kidney Disease, Stage 5 Dialysis, 04/2020 Coronary Artery Disease, Stents x 1- [facility] Surgical History Surgery Date(Month/Year)
--- OUTSIDE RECORDS SUMMARY | 2025-02-06 13:30 | XMS_ITS | Encounter Summary ---
Author Organization [facility] Address [address] [place] [address] Care Team Providers Care Chicken Stuffer Name Role Phone Yusuf Luke MD Primary Care Provider + [phone] Liam Pineda MD Unavailable Janee Anton RN Unavailable [phone] Lei Abarca MD Unavailable [phone] Payton Austin Unavailable [phone] Reason for Visit * Reason Comments Med Refill Encounter Details Date Type Department Care Team (Late st Contact Info) Description 06/04/2023 Refill Professional [facility] Nephrology, Bone & Mineral Metabolism [address] [facility], [address] [place] [address] Yeyo Marrufo MD [address] [place] [address] Social History Tobacco Use Types Packs/Day [...] documented as of this encounter Care Teams Chicken Stuffer Relationship Specialty Start Date End Date Yusuf Luke MD [address] [place] [address] PCP - General 08/27/20 Liam Pineda MD [address] [facility] [address] [place] [address] Transplant Physician Transplant Surgery 06/30/20 Janee Anton RN [facility] [address] [place] [address] Surgical Navigator Transplant 06/30/20 Lei Abarca MD [address] [facility] [address] [place] [address] Referring Physician Nephrology 06/30/20 [place] [address] Surgical Navigator Transplant Surgery 12/09/20 documented as of this encounter
--- OUTSIDE RECORDS SUMMARY | 2025-02-06 13:30 | XMS_ITS | Clinical Summary ---
Author Organization [facility] Address [address] [place] [address] Care Team Providers Care Community Outreach Manager Name Role Phone Yusuf Luke MD Primary Care Provider + [phone] Liam Pineda MD Unavailable Janee Anton RN Unavailable [phone] Lei Abarca MD Unavailable [phone] Payton Austin Unavailable [phone] Allergies Active Allergy Reactions Criticality Noted [...] Will need to follow up with home Law Firm Receptionist Dr. 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, implant, and graft 12/30/2020 07/16/2024 Overview (12/30/2020): Added automatically from request for surgery [id number] Good tolerance for activity 10/15/2020 07/16/2024 Antiplatelet [...] series) 2020 [facility]-Diabetes: Hemoglobin A1C 12/08/2020 06/10/2020 [id number] Vaccine (2024- season) 2024 04/20/2021, 08/17/2020, 07/29/2020 [facility]-Hepatitis A Vaccines Aged Out 03/25/2018 No longer eligible based on patient's age to complete this topic [facility]-Pneumococcal Vaccine: 50+ Years Completed 12/10/2019, 03/27/2016 [facility]-Hepatitis C Screening Completed 2024, 07/16/2024, 06/10/2020 [facility]-Obesity Intervention Completed 025, 07/28/2024, 07/15/2024 [facility]-Influenza Vaccine Completed 01/19/2025 , 03/03/2024, 01/23/2022, Additional history exists HPV Vaccines Aged Out No longer eligi [...] this topic Medical Devices Implanted Type Area Vaccine Key Customer Leader Device Identifier Shelf Expiration Date Model / Serial / Lot Coil 38 Embolization 0.038 In-2cm-3mm - [id number] Implanted:Qty: 1 on 01/14/2021 by Caitlyn Malcolm RN at [facility] Left: Arm [employer]-[id number] 12/09/2025 [id number] / / [id number] Coil Emb Pltm 0.035in 6cm 6mm - [id number] Implanted:Qty: 1 on 01/14/2021 by Caitlyn Malcolm, YAQUELIN at [facility] Left: Arm [facility] Inc-[id number] 11/27/2024 [id number] / / [id number] Coil 38 Embolization 0.038 In-2cm-3mm - [id number] Implanted:Qty: 1 on 01/14/2021 by Caitlyn Malcolm RN at [facility] Left: Arm [employer] [facility] Inc-[id number] 12/09/2025 [id number] / / [id number] Coil 38 Embolization 0.038 In-2cm-3mm - [id number] Implanted:Qty: 1 on 01/14/2021 by Caitlyn Malcolm, RN at [facility] Left: Arm [employer]-[id number] 12/09/2025 [id number] / / [id number] Coil Emb Pltm 0.035in 6cm 6mm - [id number] Implanted:Qty: 1 on 01/14/2021 by Caitlyn Malcolm, YAQUELIN at [facility] Left: Arm [facility] Inc-[id number] 11/27/2024 [id number] / / [id number] Coil Emb Pltm 0.035in 6cm 6mm - [id number] Implanted:Qty: 1 on 01/14/2021 by Caitlyn Malcolm, YAQUELIN at [facility] Left: Arm [facility] Inc-[id number] 11/27/2024 [id number] / / [id number] Procedures Procedure Name Priority Date/Time Associated Diagnosis Comments ACUTE HEPATITIS PANEL Routine 07/17/2024 9:22 AM EDT HEMOGLOBIN A1C Routine 06/10/2020 3:50 PM EST from Last 3 Months or Most Recently Relevant to Health Maintenance Results * Hepatitis panel, acute (07/17/2024 9:22 AM EDT) Hepatitis B Surf Antigen Negative Negative 07/17/2024 12:01 PM EDT [facility] Hepatitis A Antibody IgM Negative Negative 07/17/2024 12:01 PM EDT [facility] Hepatitis B Core Antibody IgM Negative Negative 07/17/2024 12:01 PM EDT [facility] Blood Venous blood specimen / Unknown (Central Line) Existing Catheter / Unknown 07/17/2024 9:22 AM EDT 07/17/2024 9:58 AM EDT Narrative [facility] - 07/17/2024 12:01 PM EDT Hepatitis C Antibody previously reported on patient within 24hrs and will not be repeated on this panel. See previous results below: Hepatitis C Antibody Date Value Ref Range Status 07/16/2024 Negative Negative Final Jennifer Riggs MD LAB BLOOD ORDERABLES Final Resul t [facility] [address] [place] [address] * (ABNORMAL) Hemoglobin A1c (06/10/2020 3:50 PM [...] <6.0% Children and Adolescents <7.5% . Source: [place] [employer]. Standards of medical care in diabetes, 2017. Diabetes Care.2017:40 (suppl 1):S1-S135. . HbA1c assay performed by an ion-exchange chromatography method that is certified traceable to the DCCT. 06/10/2020 3:50 PM EST 06/10/2020 5:40 PM EST us Nelida Brandt MD LAB BLOOD ORDERABLES Final Resu lt SUNQUEST from Last 3 Months or Most Recently Relevant to Health Maintenance Insurance MEDICARE [facility] Advance Directives * Full Code (Latest Code Status on File) Date Activated Date Inactivated Comments 07/16/2024 4:40 PM 07/23/2024 2:05 PM Care Teams Community Outreach Manager Relationship Specialty Start Date End Date Yusuf Luke MD [address] [place] [address] PCP - General 08/27/20 Liam Pineda MD [address] [facility] [address] [place] [address] Transplant Physician Transplant Surgery 06/30/20 Janee Anton, RN [facility] [address] [place] [address] Surgical Navigator Transplant 06/30/20 Lei Abarca MD [address] [facility] [address] [place] [address] Referring Physician Nephrology 06/30/20 [place] [address] Surgical Navigator Transplant Surgery 12/09/20
--- OUTSIDE RECORDS SUMMARY | 2025-02-06 13:35 | XMS_ITS ---
Author Organization [facility] ([facility]) Address [address] [place] [id number] Care Team Providers Care Field Reviewer Name Role Phone Unavailable Unavailable Unavailable Allergies, Adverse Reactions, Alerts Allergy Name Allergy Type Status Severity Reaction(s) Onset Date Inactive Date Treating Clinician Comments No Known Allergies Allergy Active 2021-08 18:57:3 5 Medications Ordered Medication Name Filled Medication Name Start Date Stop Date Current Medication? Ordering Clinician Indication Dosage Frequency Signature (SIG) Comments Components Mircera 2024-04 0-20 12:11: 30 Yes [id number] Number of Repeats Allowed: Frequency: RAKEL dosing, every two weeks Mircera 6 04:00: 00 Yes [id number] Number of Repeats Allowed: Frequency: RAKEL dosing, every two weeks acetaminoph en 6-14 13:42: 48 Yes [id number] Number of Repeats Allowed: Frequency: Every 4 hours as needed Mircera 4-16 21:03: 38 Yes [id number] Number of Repeats Allowed: Frequency: RAKEL dosing, every two weeks calcitriol 2023-04 2-13 17:53: 53 Yes [id number] Number of Repeats Allowed: Frequency: Three times a week NIFEdipine 6-13 15:15: 40 Yes Number of Repeats Allowed: Frequency: One time a day ONS [facility] 5-17 22:22: 08 Yes [id number] Number of Repeats Allowed: Frequency: Every Dialysis Treatment heparin sodium, porcine 05-03 05:00: 00 Yes [id number] Number of Repeats Allowed: Frequency: Every Dialysis TreatmentD osesOrdere d: Hourly Dose 500 Units/Hr 1:1000 Units/mLRo smooth: Intravenou s heparin sodium, porcine 05-03 05:00: 00 Yes [id number] Number of Repeats Allowed: Frequency: Every Dialysis TreatmentD osesOrdere d: Loading Dose 2000 Units 1:1000 Units/mLRo smooth: Intravenou s Oxygen 10-30 04:00: 00 Yes [id number] Number of Repeats Allowed: Frequency: As needed Nitrostat 10-30 04:00: 00 Yes [id number] Number of Repeats Allowed: Frequency: Every 5 minutes as needed Normal Saline Solution 0.9% NaCl 10-30 04:00: 00 Yes [id number] Number of Repeats Allowed: Frequency: As needed Januvia 06-15 05:00: 00 Yes Number of Repeats Allowed: Frequency: One time a day Levothyroxi ne Sodium 06-15 05:00: 00 Yes Number of Repeats Allowed: Frequency: One time a day Vitamin B 12 06-15 05:00: 00 Yes Number of Repeats Allowed: Frequency: One time a day Aspirin 81 06-15 05:00: 00 Yes Number of Repeats Allowed: Frequency: One time a day Multi Vitamin Daily 06-15 05:00: 00 Yes Number of Repeats Allowed: Frequency: One time a day Problems This patient has no known problems. Procedures Procedure Date / Time Performed Performing Clinician Doris ce Details AV Fistula 2020-11-09 04:00:00 Access Site Forearm (Left) Access Use Start Date 2021-11-01 04:00:0 0 DIALYSIS TREATMENT INFORMATION Conventional Hemodialysis Date Type Treatment Start Date Treatment End Date Pre-Treatment Vitals Post-Treatment Vitals Weight Gain BFR DFR Actual UF Dialysis Access Octob er 2024 In-Ce nter Hemod ialys is Treat ment 2025-02-05 T14:17:00. 000Z 2025-02-05 T17:52:21. 000Z BP Sitting (Pre-Dialysis) 171/88 mmHg BP Sitting (Post-D ialysis ) 153/ 85 mmHg Sitting Heart Rate Pre-Dialysis 66 BPM Sitting H eart Rate Post-Dialysis 62 BPM Temperature Pre-Dialysis 97 degF Temperature Post -Dialysis 97.3 degF February 03, 2025 In-Center Hemodialysis Treatment 8170-03-12D07:03:55.000Z 3956-13-79Y53:05:51.000Z BP Sitting (Pre-Dialysis) 120/79 mmHg BP Sitting (Post-Dialysis) 159/93 mmHg Concurrent Access: falseAV Fistula Forearm (Left) Arterial Sitting Heart Rate Pre-Dialysis 80 BPM Sitting H eart Rate Post-Dialysis 65 BPM Temperature Pre-Dialysis 98 degF Temperature Post -Dialysis 97.5 degF January 31, 2025 In-Center Hemodialysis Treatment 9924-13-88P43:49:00.000Z 3681-77-23A27:18:38.000Z BP Sitting (Pre-Dialysis) 132/63 mmHg BP Sitting (Post-Dialysis) 155/84 mmHg Concurrent Access: falseAV Fistula Forearm (Left) Arterial Sitting Heart Rate Pre-Dialysis 53 BPM Sitting H eart Rate Post-Dialysis 57 BPM Temperature Pre-Dialysis 97.7 degF Temperature Post -Dialysis 97.5 degF January 29, 2025 In-Center Hemodialysis Treatment 6404-98-33L16:48:30.000Z 3788-97-14C98:22:20.000Z BP Sitting (Pre-Dialysis) 117/81 mmHg BP Sitting (Post-Dialysis) 105/62 mmHg Concurrent Access: falseAV Fistula Forearm (Left) Arterial Sitting Heart Rate Pre-Dialysis 80 BPM Sitting H eart Rate Post-Dialysis 80 BPM Temperature Pre-Dialysis 97.6 degF Temperature Post -Dialysis 97.4 degF January 24, 2025 [facility] Treatment 8179-35-55X53:55:49.000Z 1091-07-07X13:28:12.000Z BP Sitting (Pre-Dialysis) 121/78 mmHg BP Sitting (Post-Dialysis) 131/65 mmHg Concurrent Access: falseAV Fistula Forearm (Left) Arterial BP Standing (Pre-Dialysis) 125/63 mmHg Sitti ng Heart Rate Post-Dialysis 60 BPM Sitting Heart Rate Pre-Dialysis 73 BPM Temperatu re Post-Dialysis 97.9 degF Standing Heart Rate Pre-Dialysis 54 BPM Temperature Pre-Dialysis 97.4 degF January 22, 2025 In-Center Hemodialysis Treatment 1292-62-63C48:47:23.000Z 8853-07-26O09:25:39.000Z BP Sitting (Pre-Dialysis) 134/82 mmHg BP Sitting (Post-Dialysis) 118/72 mmHg Concurrent Access: falseAV Fistula Forearm (Left) Arterial Sitting Heart Rate Pre-Dialysis 80 BPM Sitting H eart Rate Post-Dialysis 73 BPM Temperature Pre-Dialysis 97.9 degF Temperature Post -Dialysis 97.3 degF January 20, 2025 In-Center Hemodialysis Treatment 3811-05-82F31:46:00.000Z 6954-22-52O49:25:49.000Z BP Sitting (Pre-Dialysis) 121/81 mmHg BP Sitting (Post-Dialysis) 146/87 mmHg Concurrent Access: falseAV Fistula Forearm (Left) Arterial Sitting Heart Rate Pre-Dialysis 66 BPM BP Standing (Post-Dialysis) 129/89 mmHg Temperature Pre-Dialysis 97.9 degF Sitting Heart Ra te Post-Dialysis 69 BPM Standing Heart Rate Post-Rosa lysis 80 BPM Temperature Post-Dialysis 97 .1 degF January 17, 2025 In-Center Hemodialysis Treatment 9155-04-75D17:24:42.000Z 6316-91-05Y23:57:12.000Z BP Sitting (Pre-Dialysis) 128/75 mmHg BP Sitting (Post-Dialysis) 134/78 mmHg Concurrent Access: falseAV Fistula Forearm (Left) Arterial Sitting Heart Rate Pre-Dialysis 74 BPM Sitting H eart Rate Post-Dialysis 55 BPM Temperature Pre-Dialysis 98 degF Temperature Post -Dialysis 98.1 degF January 15, 2025 In-Center Hemodialysis Treatment 0148-14-55I32:43:07.000Z 4459-23-21L86:10:37.000Z BP Sitting (Pre-Dialysis) 132/77 mmHg BP Sitting (Post-Dialysis) 132/79 mmHg Concurrent Access: falseAV Fistula Forearm (Left) Arterial Sitting Heart Rate Pre-Dialysis 62 BPM Sitting H eart Rate Post-Dialysis 71 BPM Temperature Pre-Dialysis 97.6 degF Temperature Post -Dialysis 97.4 degF January 13, 2025 In-Center Hemodialysis Treatment 2624-50-73B28:53:50.000Z 4644-92-29X44:31:18.000Z BP Sitting (Pre-Dialysis) 160/92 mmHg BP Sitting (Post-Dialysis) 133/50 mmHg Concurrent Access: falseAV Fistula Forearm (Left) Arterial Sitting Heart Rate Pre-Dialysis 74 BPM BP Standing (Post-Dialysis) 138/81 mmHg Temperature Pre-Dialysis 98.3 degF Sitting Heart Ra te Post-Dialysis 74 BPM Standing Heart Rate Post-Rosa lysis 68 BPM Temperature Post-Dialysis 97 .9 degF January 10, 2025 In-Center Hemodialysis Treatment 7102-02-99W89:33:12.000Z 7973-23-02E22:06:52.000Z BP Sitting (Pre-Dialysis) 156/91 mmHg BP Sitting (Post-Dialysis) 131/93 mmHg Concurrent Access: falseAV Fistula Forearm (Left) Arterial Sitting Heart Rate Pre-Dialysis 73 BPM Sitting H eart Rate Post-Dialysis 60 BPM Temperature Pre-Dialysis 98.1 degF Temperature Post -Dialysis 97.6 degF January 08, 2025 In-Center Hemodialysis Treatment 0836-69-71H87:40:43.000Z 0595-23-22S69:14:42.000Z BP Sitting (Pre-Dialysis) 102/65 mmHg BP Sitting (Post-Dialysis) 160/77 mmHg Concurrent Access: falseAV Fistula Forearm (Left) Arterial BP Standing (Pre-Dialysis) 126/77 mmHg BP Standing (P ost-Dialysis) 121/82 mmHg Sitting Heart Rate Pre-Dialysis 69 BPM Sitting Heart Rate Post-Dialysis 95 BPM Standing Heart Rate Pre-Dialysis 80 BPM Standing Heart Rate Post-Dialysis 80 BPM Temperature Pre-Dialysis 97.4 degF Temperature Post -Dialysis 97.1 degF January 06, 2025 In-Center Hemodialysis Treatment 9030-52-77Z74:45:01.000Z 3825-93-29G61:16:41.000Z BP Sitting (Pre-Dialysis) 124/90 mmHg BP Sitting (Post-Dialysis) 139/73 mmHg Concurrent Access: falseAV Fistula Forearm (Left) Arterial Sitting Heart Rate Pre-Dialysis 80 BPM Sitting H eart Rate Post-Dialysis 60 BPM Temperature Pre-Dialysis 97.4 degF Temperature Post -Dialysis 98.2 degF January 03, 2025 In-Center Hemodialysis Treatment 400 mL/min 500 mL/min Concurrent Access: false January 01, 2025 In-Center Hemodialysis Treatment 25 -0 - T1 3: 41 :5 5. 00 0Z 20 25 -0 - 18 T1 7: 14 :3 0. 00 0Z BP Sitting (Pre-Dial ysis) 146/81 mmHg BP Sitting (Post-Rosa lysis) 147/7 7 mmHg Concurrent Access: falseAV Fistula Forearm (Left) Arterial BP Standing (Pre-Dialysis) 140/81 mmHg BP Standing (P ost-Dialysis) 140/97 mmHg Sitting Heart Rate Pre-Dialysis 72 BPM Sitting Heart Rate Post-Dialysis 60 BPM Standing Heart Rate Pre-Dialysis 74 BPM Standing Heart Rate Post-Dialysis 62 BPM Temperature Pre-Dialysis 97.3 degF Temperature Post -Dialysis 97.8 degF December 30, 2024 In-Center Hemodialysis Treatment 6268-29-88T22:43:00.000Z 3307-27-70S70:18:41.000Z BP Sitting (Pre-Dialysis) 136/74 mmHg BP Sitting (Post-Dialysis) 159/98 mmHg Concurrent Access: falseAV Fistula Forearm (Left) Arterial Sitting Heart Rate Pre-Dialysis 72 BPM BP Standing (Post-Dialysis) 121/83 mmHg Temperature Pre-Dialysis 97.8 degF Sitting Heart Ra te Post-Dialysis 60 BPM Standing Heart Rate Post-Rosa lysis 74 BPM Temperature Post-Dialysis 97 .4 degF December 27, 2024 In-Center Hemodialysis Treatment 9310-10-65F17:34:28.000Z 9213-99-84O15:06:36.000Z BP Sitting (Pre-Dialysis) 121/82 mmHg BP Sitting (Post-Dialysis) 136/76 mmHg Concurrent Access: falseAV Fistula Forearm (Left) Arterial BP Standing (Pre-Dialysis) 174/89 mmHg Sitti ng Heart Rate Post-Dialysis 65 BPM Sitting Heart Rate Pre-Dialysis 80 BPM Temperatu re Post-Dialysis 97.3 degF Standing Heart Rate Pre-Dialysis 69 BPM Temperature Pre-Dialysis 97.4 degF December 25, 2024 In-Center Hemodialysis Treatment 400 mL/min 500 mL/min Concurrent Access: false December 25, 2024 In-Center Hemodialysis Treatment 20 25 -0 - T1 4: 26 :0 0. 00 0Z 20 25 -0 - T1 7: 59 :0 0. 00 0Z BP Sitting (Pre-Dial ysis) 121/80 mmHg BP Sitting (Post-Rosa lysis) 119/8 0 mmHg Concurrent Access: falseAV Fistula Forearm (Left) Arterial BP Standing (Pre-Dialysis) 110/81 mmHg BP Standing (P ost-Dialysis) 122/92 mmHg Sitting Heart Rate Pre-Dialysis 80 BPM Sitting Heart Rate Post-Dialysis 80 BPM Standing Heart Rate Pre-Dialysis 60 BPM Standing Heart Rate Post-Dialysis 80 BPM December 23, 2024 In-Center Hemodialysis Treatment 4605-38-36O42:51:34.000Z 0690-33-69J37:24:47.000Z BP Sitting (Pre-Dialysis) 129/89 mmHg BP Sitting (Post-Dialysis) 106/58 mmHg Concurrent Access: falseAV Fistula Forearm (Left) Arterial BP Standing (Pre-Dialysis) 118/71 mmHg BP Standing (P ost-Dialysis) 113/64 mmHg Sitting Heart Rate Pre-Dialysis 68 BPM Sitting Heart Rate Post-Dialysis 80 BPM Standing Heart Rate Pre-Dialysis 70 BPM Standing Heart Rate Post-Dialysis 80 BPM Temperature Pre-Dialysis 97.5 degF Temperature Post -Dialysis 97 degF December 20, 2024 In-Center Hemodialysis Treatment 5889-00-05T63:03:25.000Z 0602-19-39U98:42:56.000Z BP Sitting (Pre-Dialysis) 122/68 mmHg BP Sitting (Post-Dialysis) 145/83 mmHg Concurrent Access: falseAV Fistula Forearm (Left) Arterial Sitting Heart Rate Pre-Dialysis 71 BPM BP Standing (Post-Dialysis) 123/98 mmHg Temperature Pre-Dialysis 97.5 degF Sitting Heart Ra te Post-Dialysis 60 BPM Standing Heart Rate Post-Rosa lysis 80 BPM Temperature Post-Dialysis 97 .5 degF December 18, 2024 In-Center Hemodialysis Treatment [id number]:46:58.000Z 0148-25-70P83:21:24.000Z BP Sitting (Pre-Dialysis) 129/61 mmHg BP Sitting (Post-Dialysis) 136/53 mmHg Concurrent Access: falseAV Fistula Forearm (Left) Arterial Sitting Heart Rate Pre-Dialysis 62 BPM BP Standing (Post-Dialysis) 138/77 mmHg Temperature Pre-Dialysis 97.6 degF Sitting Heart Ra te Post-Dialysis 60 BPM Standing Heart Rate Post-Rosa lysis 74 BPM Temperature Post-Dialysis 97 .2 degF December 16, 2024 In-Center Hemodialysis Treatment 8586-53-59U50:31:00.000Z 0550-74-89T83:06:02.000Z BP Sitting (Pre-Dialysis) 136/64 mmHg BP Sitting (Post-Dialysis) 120/92 mmHg Concurrent Access: falseAV Fistula Forearm (Left) Arterial Sitting Heart Rate Pre-Dialysis 77 BPM Sitting H eart Rate Post-Dialysis 66 BPM Temperature Pre-Dialysis 98 degF Temperature Post -Dialysis 97 degF December 13, 2024 In-Center Hemodialysis Treatment [id number]:57:42.000Z 0033-40-43C07:33:18.000Z BP Sitting (Pre-Dialysis) 112/69 mmHg BP Sitting (Post-Dialysis) 125/76 mmHg Concurrent Access: falseAV Fistula Forearm (Left) Arterial BP Standing (Pre-Dialysis) 121/70 mmHg BP Standing (P ost-Dialysis) 116/78 mmHg Sitting Heart Rate Pre-Dialysis 80 BPM Sitting Heart Rate Post-Dialysis 70 BPM Standing Heart Rate Pre-Dialysis 80 BPM Standing Heart Rate Post-Dialysis 72 BPM Temperature Pre-Dialysis 97.6 degF Temperature Post -Dialysis 97.6 degF December 11, 2024 In-Center Hemodialysis Treatment 0839-10-79W83:08:56.000Z 5953-19-51F32:42:31.000Z BP Sitting (Pre-Dialysis) 153/90 mmHg BP Sitting (Post-Dialysis) 152/68 mmHg Concurrent Access: falseAV Fistula Forearm (Left) Arterial Sitting Heart Rate Pre-Dialysis 80 BPM BP Standing (Post-Dialysis) 152/98 mmHg Temperature Pre-Dialysis 97.9 degF Sitting Heart Ra te Post-Dialysis 87 BPM Standing Heart Rate Post-Rosa lysis 67 BPM Temperature Post-Dialysis 98 .1 degF December 09, 2024 In-Center Hemodialysis Treatment 4203-67-75W01:45:00.000Z 6631-25-37U25:16:03.000Z BP Sitting (Pre-Dialysis) 124/70 mmHg BP Sitting (Post-Dialysis) 134/68 mmHg Concurrent Access: falseAV Fistula Forearm (Left) Arterial Sitting Heart Rate Pre-Dialysis 80 BPM Sitting H eart Rate Post-Dialysis 60 BPM Temperature Pre-Dialysis 97.5 degF Temperature Post -Dialysis 98.1 degF December 06, 2024 In-Center Hemodialysis Treatment [id number]:17:40.000Z 7622-75-19F52:20:36.000Z BP Sitting (Pre-Dialysis) 103/89 mmHg BP Sitting (Post-Dialysis) 164/89 mmHg Concurrent Access: falseAV Fistula Forearm (Left) Arterial Sitting Heart Rate Pre-Dialysis 74 BPM BP Standing (Post-Dialysis) 112/80 mmHg Temperature Pre-Dialysis 97.9 degF Sitting Heart Ra te Post-Dialysis 60 BPM Standing Heart Rate Post-Rosa lysis 68 BPM Temperature Post-Dialysis 97 .9 degF December 04, 2024 In-Center Hemodialysis Treatment 2431-14-59A88:01:27.000Z 6107-26-58D09:24:22.000Z BP Sitting (Pre-Dialysis) 104/71 mmHg BP Sitting (Post-Dialysis) 123/83 mmHg Concurrent Access: falseAV Fistula Forearm (Left) Arterial Sitting Heart Rate Pre-Dialysis 74 BPM Sitting H eart Rate Post-Dialysis 72 BPM Temperature Pre-Dialysis 98 degF December 02, 2024 In-Center Hemodialysis Treatment 2920-69-19D79:42:11.000Z 9749-78-44F86:16:43.000Z BP Sitting (Pre-Dialysis) 144/100 mmHg BP Sitting (Post-Dialysis) 126/93 mmHg Concurrent Access: falseAV Fistula Forearm (Left) Arterial Sitting Heart Rate Pre-Dialysis 60 BPM Sitting H eart Rate Post-Dialysis 81 BPM Temperature Pre-Dialysis 98.1 degF Temperature Post -Dialysis 98.1 degF November 29, 2024 [facility] Treatment 1654-10-03C77:10:47.000Z 2355-45-69X49:43:32.000Z BP Sitting (Pre-Dialysis) 108/89 mmHg BP Sitting (Post-Dialysis) 142/77 mmHg Concurrent Access: falseAV Fistula Forearm (Left) Arterial BP Standing (Pre-Dialysis) 104/76 mmHg Sitti ng Heart Rate Post-Dialysis 60 BPM Sitting Heart Rate Pre-Dialysis 113 BPM Temperatu re Post-Dialysis 97.6 degF Standing Heart Rate Pre-Dialysis 120 BPM Temperature Pre-Dialysis 97.5 degF November 27, 2024 In-Center Hemodialysis Treatment 8250-94-59S43:00:55.000Z 1382-98-97K14:32:00.000Z BP Sitting (Pre-Dialysis) 110/74 mmHg BP Sitting (Post-Dialysis) 160/91 mmHg Concurrent Access: falseAV Fistula Forearm (Left) Arterial BP Standing (Pre-Dialysis) 119/81 mmHg BP Standing (P ost-Dialysis) 128/61 mmHg Sitting Heart Rate Pre-Dialysis 86 BPM Sitting Heart Rate Post-Dialysis 60 BPM Standing Heart Rate Pre-Dialysis 86 BPM Standing Heart Rate Post-Dialysis 80 BPM Temperature Pre-Dialysis 98.3 degF Temperature Post -Dialysis 97.6 degF November 25, 2024 In-Center Hemodialysis Treatment 1147-37-84M16:00:27.000Z 5525-49-30F70:35:28.000Z BP Sitting (Pre-Dialysis) 136/98 mmHg BP Sitting (Post-Dialysis) 143/82 mmHg Concurrent Access: falseAV Fistula Forearm (Left) Arterial Sitting Heart Rate Pre-Dialysis 82 BPM BP Standing (Post-Dialysis) 134/78 mmHg Temperature Pre-Dialysis 98.4 degF Sitting Heart Ra te Post-Dialysis 62 BPM Standing Heart Rate Post-Rosa lysis 60 BPM Temperature Post-Dialysis 98 degF November 22, 2024 In-Center Hemodialysis Treatment 1513-56-28Q82:47:11.000Z 8991-60-44B80:17:12.000Z BP Sitting (Pre-Dialysis) 116/80 mmHg BP Sitting (Post-Dialysis) 140/87 mmHg Concurrent Access: falseAV Fistula Forearm (Left) Arterial Sitting Heart Rate Pre-Dialysis 95 BPM Sitting H eart Rate Post-Dialysis 67 BPM Temperature Pre-Dialysis 98.3 degF Temperature Post -Dialysis 98.4 degF November 20, 2024 In-Center Hemodialysis Treatment 2368-27-40T94:38:00.000Z 8932-37-10D05:07:39.000Z BP Sitting (Pre-Dialysis) 142/93 mmHg BP Sitting (Post-Dialysis) 165/90 mmHg Concurrent Access: falseAV Fistula Forearm (Left) Arterial Sitting Heart Rate Pre-Dialysis 97 BPM BP Standing (Post-Dialysis) 150/99 mmHg Temperature Pre-Dialysis 98.1 degF Sitting Heart Ra te Post-Dialysis 65 BPM Standing Heart Rate Post-Rosa lysis 82 BPM Temperature Post-Dialysis 98 .3 degF November 15, 2024 In-Center Hemodialysis Treatment 7090-83-19Y01:56:15.000Z 8381-40-01D03:24:16.000Z BP Sitting (Pre-Dialysis) 118/62 mmHg BP Sitting (Post-Dialysis) 143/83 mmHg Concurrent Access: falseAV Fistula Forearm (Left) Arterial Sitting Heart Rate Pre-Dialysis 74 BPM BP Standing (Post-Dialysis) 133/88 mmHg Temperature Pre-Dialysis 97.8 degF Sitting Heart Ra te Post-Dialysis 67 BPM Standing Heart Rate Post-Rosa lysis 62 BPM Temperature Post-Dialysis 97 .8 degF November 13, 2024 In-Center Hemodialysis Treatment 1528-12-67Z04:38:10.000Z 1252-10-22K96:07:36.000Z BP Sitting (Pre-Dialysis) 125/98 mmHg BP Sitting (Post-Dialysis) 144/87 mmHg Concurrent Access: falseAV Fistula Forearm (Left) Arterial Sitting Heart Rate Pre-Dialysis 80 BPM BP Standing (Post-Dialysis) 128/88 mmHg Temperature Pre-Dialysis 97.4 degF Sitting Heart Ra te Post-Dialysis 66 BPM Standing Heart Rate Post-Rosa lysis 69 BPM Temperature Post-Dialysis 97 .2 degF November 11, 2024 In-Center Hemodialysis Treatment 9174-40-49T81:22:45.000Z 8824-59-28E89:03:20.000Z BP Sitting (Pre-Dialysis) 153/93 mmHg BP Sitting (Post-Dialysis) 147/82 mmHg Concurrent Access: falseAV Fistula Forearm (Left) Arterial Sitting Heart Rate Pre-Dialysis 80 BPM Sitting H eart Rate Post-Dialysis 60 BPM Temperature Pre-Dialysis 97.9 degF Temperature Post -Dialysis 97.3 degF November 08, 2024 In-Center Hemodialysis Treatment 3420-25-35N49:09:00.000Z 3139-33-91W79:42:49.000Z BP Sitting (Pre-Dialysis) 116/87 mmHg BP Sitting (Post-Dialysis) 144/86 mmHg Concurrent Access: falseAV Fistula Forearm (Left) Arterial Sitting Heart Rate Pre-Dialysis 74 BPM Sitting H eart Rate Post-Dialysis 66 BPM Temperature Pre-Dialysis 97.6 degF Temperature Post -Dialysis 97.9 degF November 06, 2024 In-Center Hemodialysis Treatment 6908-94-02C21:58:06.000Z 9760-99-36N53:37:12.000Z BP Sitting (Pre-Dialysis) 115/85 mmHg BP Sitting (Post-Dialysis) 128/101 mmHg Concurrent Access: falseAV Fistula Forearm (Left) Arterial Sitting Heart Rate Pre-Dialysis 60 BPM BP Standing (Post-Dialysis) 135/61 mmHg Temperature Pre-Dialysis 97.9 degF Sitting Heart Ra te Post-Dialysis 66 BPM Standing Heart Rate Post-Rosa lysis 68 BPM Temperature Post-Dialysis 97 .9 degF November 04, 2024 In-Center Hemodialysis Treatment 6884-17-04R94:32:21.000Z 3943-90-09W04:04:27.000Z BP Sitting (Pre-Dialysis) 141/85 mmHg BP Sitting (Post-Dialysis) 140/80 mmHg Concurrent Access: falseAV Fistula Forearm (Left) Arterial BP Standing (Pre-Dialysis) 144/80 mmHg BP Standing (P ost-Dialysis) 135/78 mmHg Sitting Heart Rate Pre-Dialysis 74 BPM Sitting Heart Rate Post-Dialysis 65 BPM Standing Heart Rate Pre-Dialysis 74 BPM Standing Heart Rate Post-Dialysis 80 BPM Temperature Pre-Dialysis 97.4 degF Temperature Post -Dialysis 97.6 degF November 01, 2024 In-Center Hemodialysis Treatment 0774-56-29X25:50:13.000Z 2765-19-87K98:27:04.000Z BP Sitting (Pre-Dialysis) 105/57 mmHg BP Sitting (Post-Dialysis) 129/83 mmHg Concurrent Access: falseAV Fistula Forearm (Left) Arterial BP Standing (Pre-Dialysis) 131/71 mmHg BP Standing (P ost-Dialysis) 146/88 mmHg Sitting Heart Rate Pre-Dialysis 70 BPM Sitting Heart Rate Post-Dialysis 69 BPM Standing Heart Rate Pre-Dialysis 72 BPM Standing Heart Rate Post-Dialysis 80 BPM Temperature Pre-Dialysis 97.4 degF Temperature Post -Dialysis 97.9 degF October 30, 2024 In-Center Hemodialysis Treatment 4180-92-11Y07:47:25.000Z 5979-23-55Q30:21:25.000Z BP Sitting (Pre-Dialysis) 126/64 mmHg BP Sitting (Post-Dialysis) 112/61 mmHg Concurrent Access: falseAV Fistula Forearm (Left) Arterial BP Standing (Pre-Dialysis) 147/82 mmHg Sitti ng Heart Rate Post-Dialysis 65 BPM Sitting Heart Rate Pre-Dialysis 80 BPM Temperatu re Post-Dialysis 97.1 degF Standing Heart Rate Pre-Dialysis 81 BPM Temperature Pre-Dialysis 97.6 degF October 28, 2024 In-Center Hemodialysis Treatment 7534-50-96Z20:56:17.000Z 6398-63-56X14:26:22.000Z BP Sitting (Pre-Dialysis) 148/86 mmHg BP Sitting (Post-Dialysis) 143/93 mmHg Concurrent Access: falseAV Fistula Forearm (Left) Arterial Sitting Heart Rate Pre-Dialysis 80 BPM BP Standing (Post-Dialysis) 143/94 mmHg Temperature Pre-Dialysis 97.6 degF Sitting Heart Ra te Post-Dialysis 73 BPM Standing Heart Rate Post-Rosa lysis 90 BPM Temperature Post-Dialysis 97 .6 degF October 25, 2024 In-Center Hemodialysis Treatment 8633-54-28J09:48:51.000Z 4412-18-88O51:28:31.000Z BP Sitting (Pre-Dialysis) 146/83 mmHg BP Sitting (Post-Dialysis) 151/75 mmHg Concurrent Access: falseAV Fistula Forearm (Left) Arterial Sitting Heart Rate Pre-Dialysis 80 BPM BP Standing (Post-Dialysis) 143/88 mmHg Temperature Pre-Dialysis 98.1 degF Sitting Heart Ra te Post-Dialysis 60 BPM Standing Heart Rate Post-Rosa lysis 72 BPM Temperature Post-Dialysis 97 .9 degF October 23, 2024 In-Center Hemodialysis Treatment 3431-69-98U77:26:00.000Z 9731-57-28U02:58:05.000Z BP Sitting (Pre-Dialysis) 151/92 mmHg BP Sitting (Post-Dialysis) 127/74 mmHg Concurrent Access: falseAV Fistula Forearm (Left) Arterial Sitting Heart Rate Pre-Dialysis 94 BPM BP Standing (Post-Dialysis) 121/77 mmHg Temperature Pre-Dialysis 97.6 degF Sitting Heart Ra te Post-Dialysis 61 BPM Standing Heart Rate Post-Rosa lysis 80 BPM Temperature Post-Dialysis 97 .4 degF [facility] 8082-46-13Z62:47:53.000Z 3328-38-54B99:23:16.000Z BP Sitting (Pre-Dialysis) 106/94 mmHg BP Sitting (Post-Dialysis) 126/76 mmHg Concurrent Access: falseAV Fistula Forearm (Left) Arterial Sitting Heart Rate Pre-Dialysis 80 BPM Sitting H eart Rate Post-Dialysis 60 BPM Temperature Pre-Dialysis 98.1 degF Temperature Post -Dialysis 97.6 degF October 18, 2024 In-Center Hemodialysis Treatment 3424-62-13X75:51:00.000Z 2471-18-75T64:23:00.000Z BP Sitting (Pre-Dialysis) 130/94 mmHg BP Sitting (Post-Dialysis) 148/85 mmHg Concurrent Access: falseAV Fistula Forearm (Left) Arterial Sitting Heart Rate Pre-Dialysis 80 BPM Sitting H eart Rate Post-Dialysis 66 BPM Temperature Pre-Dialysis 97.9 degF Temperature Post -Dialysis 97.9 degF October 16, 2024 In-Center Hemodialysis Treatment 5437-40-92F03:35:04.000Z 6897-86-66O62:09:35.000Z BP Sitting (Pre-Dialysis) 135/80 mmHg BP Sitting (Post-Dialysis) 154/82 mmHg Concurrent Access: falseAV Fistula Forearm (Left) Arterial Sitting Heart Rate Pre-Dialysis 80 BPM BP Standing (Post-Dialysis) 138/91 mmHg Temperature Pre-Dialysis 98.2 degF Sitting Heart Ra te Post-Dialysis 60 BPM Standing Heart Rate Post-Rosa lysis 73 BPM Temperature Post-Dialysis 97 .1 degF October 14, 2024 In-Center Hemodialysis Treatment 0551-04-97D72:32:26.000Z 5523-54-10K39:04:16.000Z BP Sitting (Pre-Dialysis) 133/81 mmHg BP Sitting (Post-Dialysis) 138/80 mmHg Concurrent Access: falseAV Fistula Forearm (Left) Arterial Sitting Heart Rate Pre-Dialysis 85 BPM BP Standing (Post-Dialysis) 121/89 mmHg Temperature Pre-Dialysis 98.3 degF Sitting Heart Ra te Post-Dialysis 62 BPM Standing Heart Rate Post-Rosa lysis 80 BPM Temperature Post-Dialysis 97 .1 degF October 11, 2024 In-Center Hemodialysis Treatment [id number]:49:50.000Z 2175-32-27B25:33:01.000Z BP Sitting (Pre-Dialysis) 142/82 mmHg BP Sitting (Post-Dialysis) 133/78 mmHg Concurrent Access: falseAV Fistula Forearm (Left) Arterial Sitting Heart Rate Pre-Dialysis 80 BPM BP Standing (Post-Dialysis) 119/85 mmHg Temperature Pre-Dialysis 98.2 degF Sitting Heart Ra te Post-Dialysis 62 BPM Standing Heart Rate Post-Rosa lysis 77 BPM Temperature Post-Dialysis 97 .8 degF October 09, 2024 In-Center Hemodialysis Treatment 4033-57-92P40:29:22.000Z 4544-46-26P20:00:49.000Z BP Sitting (Pre-Dialysis) 150/87 mmHg BP Sitting (Post-Dialysis) 128/73 mmHg Concurrent Access: falseAV Fistula Forearm (Left) Arterial Sitting Heart Rate Pre-Dialysis 80 BPM Sitting H eart Rate Post-Dialysis 66 BPM Temperature Pre-Dialysis 97.9 degF Temperature Post -Dialysis 97.3 degF October 07, 2024 In-Center Hemodialysis Treatment 2629-54-64B43:26:05.000Z 8178-10-07U62:04:48.000Z BP Sitting (Pre-Dialysis) 174/101 mmHg BP Sitting (Post-Dialysis) 142/93 mmHg Concurrent Access: falseAV Fistula Forearm (Left) Arterial Sitting Heart Rate Pre-Dialysis 80 BPM Sitting H eart Rate Post-Dialysis 62 BPM Temperature Pre-Dialysis 97.3 degF Temperature Post -Dialysis 97.8 degF October 04, 2024 In-Center Hemodialysis Treatment 7579-29-15G64:30:31.000Z 5858-76-82X35:01:21.000Z BP Sitting (Pre-Dialysis) 124/77 mmHg BP Sitting (Post-Dialysis) 101/77 mmHg Concurrent Access: falseAV Fistula Forearm (Left) Arterial Sitting Heart Rate Pre-Dialysis 80 BPM Sitting H eart Rate Post-Dialysis 107 BPM Temperature Pre-Dialysis 97.6 degF Temperature Post -Dialysis 97.9 degF October 02, 2024 In-Center Hemodialysis Treatment 1513-46-47M31:44:00.000Z 9134-26-40Q47:14:43.000Z BP Sitting (Pre-Dialysis) 156/96 mmHg BP Sitting (Post-Dialysis) 153/67 mmHg Concurrent Access: falseAV Fistula Forearm (Left) Arterial Sitting Heart Rate Pre-Dialysis 80 BPM Sitting H eart Rate Post-Dialysis 66 BPM Temperature Pre-Dialysis 98.1 degF Temperature Post -Dialysis 97.9 degF September 30, 2024 In-Center Hemodialysis Treatment 8513-87-07O55:47:34.000Z 5108-86-74K30:21:39.000Z BP Sitting (Pre-Dialysis) 153/94 mmHg BP Sitting (Post-Dialysis) 155/92 mmHg Concurrent Access: falseAV Fistula Forearm (Left) Arterial Sitting Heart Rate Pre-Dialysis 80 BPM Sitting H eart Rate Post-Dialysis 66 BPM Temperature Pre-Dialysis 97.8 degF Temperature Post -Dialysis 97.6 degF September 27, 2024 In-Center Hemodialysis Treatment 5866-11-37O29:51:12.000Z 3505-99-59P75:22:52.000Z BP Sitting (Pre-Dialysis) 107/87 mmHg BP Sitting (Post-Dialysis) 167/90 mmHg Concurrent Access: falseAV Fistula Forearm (Left) Arterial Sitting Heart Rate Pre-Dialysis 84 BPM Sitting H eart Rate Post-Dialysis 65 BPM Temperature Pre-Dialysis 98.1 degF Temperature Post -Dialysis 97.3 degF September 25, 2024 In-Center Hemodialysis Treatment 2040-72-99B08:35:34.000Z 1972-98-77K08:11:25.000Z BP Sitting (Pre-Dialysis) 163/98 mmHg BP Sitting (Post-Dialysis) 161/94 mmHg Concurrent Access: falseAV Fistula Forearm (Left) Arterial Sitting Heart Rate Pre-Dialysis 80 BPM Sitting H eart Rate Post-Dialysis 73 BPM Temperature Pre-Dialysis 97.2 degF Temperature Post -Dialysis 97.5 degF September 23, 2024 In-Center Hemodialysis Treatment 1550-98-63X70:37:15.000Z 0030-23-30P03:09:01.000Z BP Sitting (Pre-Dialysis) 173/99 mmHg BP Sitting (Post-Dialysis) 157/100 mmHg Concurrent Access: falseAV Fistula Forearm (Left) Arterial Sitting Heart Rate Pre-Dialysis 80 BPM Sitting H eart Rate Post-Dialysis 69 BPM Temperature Pre-Dialysis 97.6 degF Temperature Post -Dialysis 97.9 degF September 20, 2024 In-Center Hemodialysis Treatment 1901-14-31C44:56:00.000Z 7384-24-39J55:24:52.000Z BP Sitting (Pre-Dialysis) 138/84 mmHg BP Sitting (Post-Dialysis) 154/81 mmHg Concurrent Access: falseAV Fistula Forearm (Left) Arterial Sitting Heart Rate Pre-Dialysis 80 BPM Sitting H eart Rate Post-Dialysis 65 BPM Temperature Pre-Dialysis 97.3 degF Temperature Post -Dialysis 97.5 degF September 18, 2024 In-Center Hemodialysis Treatment 8278-92-64Y74:46:04.000Z 2559-00-29S42:19:49.000Z BP Sitting (Pre-Dialysis) 140/76 mmHg BP Sitting (Post-Dialysis) 139/76 mmHg Concurrent Access: falseAV Fistula Forearm (Left) Arterial Sitting Heart Rate Pre-Dialysis 80 BPM Sitting H eart Rate Post-Dialysis 62 BPM Temperature Pre-Dialysis 98.2 degF Temperature Post -Dialysis 97.2 degF September 16, 2024 In-Center Hemodialysis Treatment 7775-56-41V87:56:51.000Z 5511-26-71O85:34:08.000Z BP Sitting (Pre-Dialysis) 162/92 mmHg BP Sitting (Post-Dialysis) 166/94 mmHg Concurrent Access: falseAV Fistula Forearm (Left) Arterial Sitting Heart Rate Pre-Dialysis 77 BPM Sitting H eart Rate Post-Dialysis 67 BPM Temperature Pre-Dialysis 97.9 degF Temperature Post -Dialysis 97.6 degF September 13, 2024 In-Center Hemodialysis Treatment 3182-69-75N73:04:37.000Z 7128-57-01Z54:39:38.000Z BP Sitting (Pre-Dialysis) 132/97 mmHg BP Sitting (Post-Dialysis) 164/88 mmHg Concurrent Access: falseAV Fistula Forearm (Left) Arterial Sitting Heart Rate Pre-Dialysis 99 BPM Sitting H eart Rate Post-Dialysis 65 BPM Temperature Pre-Dialysis 98 degF Temperature Post -Dialysis 97.2 degF September 11, 2024 In-Center Hemodialysis Treatment 4808-22-85S54:35:29.000Z 3706-32-95W55:12:59.000Z BP Sitting (Pre-Dialysis) 149/83 mmHg BP Sitting (Post-Dialysis) 163/90 mmHg Concurrent Access: falseAV Fistula Forearm (Left) Arterial Sitting Heart Rate Pre-Dialysis 77 BPM Sitting H eart Rate Post-Dialysis 62 BPM Temperature Pre-Dialysis 97.6 degF Temperature Post -Dialysis 98.1 degF September 09, 2024 In-Center Hemodialysis Treatment 2300-83-15M36:55:00.000Z 2426-85-78Z39:22:58.000Z BP Sitting (Pre-Dialysis) 167/92 mmHg BP Sitting (Post-Dialysis) 147/81 mmHg Concurrent Access: falseAV Fistula Forearm (Left) Arterial Sitting Heart Rate Pre-Dialysis 80 BPM Sitting H eart Rate Post-Dialysis 50 BPM Temperature Pre-Dialysis 97.9 degF Temperature Post -Dialysis 97.9 degF September 06, 2024 In-Center Hemodialysis Treatment 9382-55-66X01:08:00.000Z 5858-45-06N91:43:56.000Z BP Sitting (Pre-Dialysis) 163/94 mmHg BP Sitting (Post-Dialysis) 169/97 mmHg Concurrent Access: falseAV Fistula Forearm (Left) Arterial Sitting Heart Rate Pre-Dialysis 72 BPM Sitting H eart Rate Post-Dialysis 80 BPM Temperature Pre-Dialysis 97.3 degF Temperature Post -Dialysis 98.1 degF September 04, 2024 In-Center Hemodialysis Treatment 5120-92-98Q39:50:38.000Z 4884-02-77Z10:29:17.000Z BP Sitting (Pre-Dialysis) 149/91 mmHg BP Sitting (Post-Dialysis) 154/87 mmHg Concurrent Access: falseAV Fistula Forearm (Left) Arterial Sitting Heart Rate Pre-Dialysis 80 BPM Sitting H eart Rate Post-Dialysis 69 BPM Temperature Pre-Dialysis 97.7 degF Temperature Post -Dialysis 97.3 degF September 02, 2024 In-Center Hemodialysis Treatment 7440-22-20Q97:35:38.000Z 8723-97-80W59:11:03.000Z BP Sitting (Pre-Dialysis) 147/83 mmHg BP Sitting (Post-Dialysis) 156/87 mmHg Concurrent Access: falseAV Fistula Forearm (Left) Arterial Sitting Heart Rate Pre-Dialysis 80 BPM Sitting H eart Rate Post-Dialysis 68 BPM Temperature Pre-Dialysis 97.6 degF Temperature Post -Dialysis 97.9 degF August 30, 2024 In-Center Hemodialysis Treatment 4304-37-17Z19:00:00.000Z 1823-76-55X01:33:52.000Z BP Sitting (Pre-Dialysis) 156/79 mmHg BP Sitting (Post-Dialysis) 176/99 mmHg Concurrent Access: falseAV Fistula Forearm (Left) Arterial Sitting Heart Rate Pre-Dialysis 73 BPM Sitting H eart Rate Post-Dialysis 69 BPM Temperature Pre-Dialysis 97.9 degF Temperature Post -Dialysis 97.6 degF August 28, 2024 In-Center Hemodialysis Treatment 3404-07-96R21:00:33.000Z 4949-21-95N07:30:08.000Z BP Sitting (Pre-Dialysis) 148/69 mmHg BP Sitting (Post-Dialysis) 161/85 mmHg Concurrent Access: falseAV Fistula Forearm (Left) Arterial Sitting Heart Rate Pre-Dialysis 69 BPM Sitting H eart Rate Post-Dialysis 60 BPM Temperature Pre-Dialysis 97.5 degF Temperature Post -Dialysis 97.7 degF August 26, 2024 In-Center Hemodialysis Treatment 9429-78-57X23:39:39.000Z 5542-23-41F86:13:42.000Z BP Sitting (Pre-Dialysis) 178/94 mmHg BP Sitting (Post-Dialysis) 141/77 mmHg Concurrent Access: falseAV Fistula Forearm (Left) Arterial Sitting Heart Rate Pre-Dialysis 77 BPM Sitting H eart Rate Post-Dialysis 67 BPM Temperature Pre-Dialysis 97.5 degF Temperature Post -Dialysis 97.7 degF August 23, 2024 In-Center Hemodialysis Treatment 0796-44-49N10:58:00.000Z 1909-02-31Q70:36:43.000Z BP Sitting (Pre-Dialysis) 122/88 mmHg BP Sitting (Post-Dialysis) 161/64 mmHg Concurrent Access: falseAV Fistula Forearm (Left) Arterial Sitting Heart Rate Pre-Dialysis 103 BPM Sitting H eart Rate Post-Dialysis 67 BPM Temperature Pre-Dialysis 97.3 degF Temperature Post -Dialysis 97.9 degF August 21, 2024 In-Center Hemodialysis Treatment 8406-16-08H89:32:51.000Z 7698-08-07P61:03:42.000Z BP Sitting (Pre-Dialysis) 159/64 mmHg BP Sitting (Post-Dialysis) 121/83 mmHg Concurrent Access: falseAV Fistula Forearm (Left) Arterial Sitting Heart Rate Pre-Dialysis 67 BPM Sitting H eart Rate Post-Dialysis 69 BPM Temperature Pre-Dialysis 97.9 degF Temperature Post -Dialysis 98.1 degF August 16, 2024 In-Center Hemodialysis Treatment 8790-21-51Q50:30:27.000Z 3972-80-82K80:07:28.000Z BP Sitting (Pre-Dialysis) 186/118 mmHg BP Sitting (Post-Dialysis) 145/63 mmHg Concurrent Access: falseAV Fistula Forearm (Left) Arterial Sitting Heart Rate Pre-Dialysis 102 BPM Sitting H eart Rate Post-Dialysis 86 BPM Temperature Pre-Dialysis 98 degF Temperature Post -Dialysis 97.1 degF August 14, 2024 In-Center Hemodialysis Treatment 8067-03-00T30:57:14.000Z 9387-53-48I30:28:09.000Z BP Sitting (Pre-Dialysis) 153/81 mmHg BP Sitting (Post-Dialysis) 126/64 mmHg Concurrent Access: falseAV Fistula Forearm (Left) Arterial Sitting Heart Rate Pre-Dialysis 92 BPM Sitting H eart Rate Post-Dialysis 80 BPM Temperature Pre-Dialysis 98.1 degF Temperature Post -Dialysis 97.9 degF August 12, 2024 In-Center Hemodialysis Treatment 3965-83-39Y16:48:17.000Z 2956-33-58D05:18:33.000Z BP Sitting (Pre-Dialysis) 183/90 mmHg BP Sitting (Post-Dialysis) 130/86 mmHg Concurrent Access: falseAV Fistula Forearm (Left) Arterial Sitting Heart Rate Pre-Dialysis 85 BPM Sitting H eart Rate Post-Dialysis 80 BPM Temperature Pre-Dialysis 98.3 degF Temperature Post -Dialysis 97.3 degF August 09, 2024 In-Center Hemodialysis Treatment 8959-33-71I55:11:35.000Z 1489-00-74P30:41:57.000Z BP Sitting (Pre-Dialysis) 103/88 mmHg BP Sitting (Post-Dialysis) 125/92 mmHg Concurrent Access: falseAV Fistula Forearm (Left) Arterial Sitting Heart Rate Pre-Dialysis 103 BPM Sitting H eart Rate Post-Dialysis 87 BPM Temperature Pre-Dialysis 97.9 degF Temperature Post -Dialysis 97.6 degF August 07, 2024 In-Center Hemodialysis Treatment 3029-31-54Z10:34:12.000Z 4023-26-31R43:08:14.000Z BP Sitting (Pre-Dialysis) 154/64 mmHg BP Sitting (Post-Dialysis) 177/87 mmHg Concurrent Access: falseAV Fistula Forearm (Left) Arterial Sitting Heart Rate Pre-Dialysis 80 BPM Sitting H eart Rate Post-Dialysis 80 BPM Temperature Pre-Dialysis 98.2 degF August 04, 2024 In-Center Hemodialysis Treatment 2130-07-66K50:40:00.000Z 2461-57-60P79:12:21.000Z BP Sitting (Pre-Dialysis) 165/103 mmHg BP Sitting (Post-Dialysis) 134/92 mmHg Concurrent Access: falseAV Fistula Forearm (Left) Arterial BP Standing (Pre-Dialysis) 118/96 mmHg Sitti ng Heart Rate Post-Dialysis 73 BPM Sitting Heart Rate Pre-Dialysis 86 BPM Temperatu re Post-Dialysis 98.1 degF Standing Heart Rate Pre-Dialysis 91 BPM Temperature Pre-Dialysis 98.3 degF August 02, 2024 In-Center Hemodialysis Treatment 6796-71-47T50:39:27.000Z 4175-42-92M33:24:52.000Z BP Sitting (Pre-Dialysis) 139/50 mmHg BP Sitting (Post-Dialysis) 140/90 mmHg Concurrent Access: falseAV Fistula Forearm (Left) Arterial Sitting Heart Rate Pre-Dialysis 87 BPM Sitting H eart Rate Post-Dialysis 73 BPM Temperature Pre-Dialysis 97.6 degF Temperature Post -Dialysis 98.1 degF July 31, 2024 In-Center Hemodialysis Treatment 6089-97-91W57:00:41.000Z 9734-74-53G72:41:40.000Z BP Sitting (Pre-Dialysis) 165/84 mmHg BP Sitting (Post-Dialysis) 176/92 mmHg Concurrent Access: falseAV Fistula Forearm (Left) Arterial Sitting Heart Rate Pre-Dialysis 88 BPM Sitting H eart Rate Post-Dialysis 80 BPM Temperature Pre-Dialysis 98.1 degF Temperature Post -Dialysis 97.3 degF July 29, 2024 In-Center Hemodialysis Treatment 8106-79-00D90:32:13.000Z 6263-05-11S77:03:42.000Z BP Sitting (Pre-Dialysis) 131/86 mmHg BP Sitting (Post-Dialysis) 188/87 mmHg Concurrent Access: falseAV Fistula Forearm (Left) Arterial Sitting Heart Rate Pre-Dialysis 88 BPM Sitting H eart Rate Post-Dialysis 86 BPM Temperature Pre-Dialysis 97.5 degF Temperature Post -Dialysis 97 degF July 26, 2024 In-Center Hemodialysis Treatment 8232-85-24Q26:13:00.000Z 1792-89-21B56:40:00.000Z BP Sitting (Pre-Dialysis) 163/92 mmHg BP Sitting (Post-Dialysis) 107/70 mmHg Concurrent Access: falseAV Fistula Forearm (Left) Arterial Sitting Heart Rate Pre-Dialysis 88 BPM July 24, 2024 In-Center Hemodialysis Treatment 9735-65-45N86:35:52.000Z 7945-36-08P59:07:47.000Z BP Sitting (Pre-Dialysis) 185/96 mmHg BP Sitting (Post-Dialysis) 135/71 mmHg Concurrent Access: falseAV Fistula Forearm (Left) Arterial Sitting Heart Rate Pre-Dialysis 85 BPM Sitting H eart Rate Post-Dialysis 73 BPM Temperature Pre-Dialysis 98.1 degF Temperature Post -Dialysis 97.3 degF July 15, 2024 In-Center Hemodialysis Treatment 2471-07-43B94:44:00.000Z 4805-18-21M56:15:51.000Z BP Sitting (Pre-Dialysis) 143/97 mmHg BP Sitting (Post-Dialysis) 114/58 mmHg Concurrent Access: falseAV Fistula Forearm (Left) Arterial BP Standing (Pre-Dialysis) 125/75 mmHg Sitti ng Heart Rate Post-Dialysis 73 BPM Sitting Heart Rate Pre-Dialysis 65 BPM Temperatu re Post-Dialysis 97.9 degF Standing Heart Rate Pre-Dialysis 80 BPM Temperature Pre-Dialysis 97.3 degF July 10, 2024 In-Center Hemodialysis Treatment 7589-57-75W03:13:00.000Z 6432-00-72G88:46:36.000Z BP Sitting (Pre-Dialysis) 114/70 mmHg BP Sitting (Post-Dialysis) 123/84 mmHg Concurrent Access: falseAV Fistula Forearm (Left) Arterial BP Standing (Pre-Dialysis) 121/77 mmHg BP Standing (P ost-Dialysis) 125/98 mmHg Sitting Heart Rate Pre-Dialysis 80 BPM Sitting Heart Rate Post-Dialysis 65 BPM Standing Heart Rate Pre-Dialysis 85 BPM Standing Heart Rate Post-Dialysis 68 BPM Temperature Pre-Dialysis 97.7 degF Temperature Post -Dialysis 97.4 degF July 08, 2024 In-Center Hemodialysis Treatment 8021-87-81H50:05:00.000Z 2490-78-76E32:36:37.000Z BP Sitting (Pre-Dialysis) 141/83 mmHg BP Sitting (Post-Dialysis) 127/80 mmHg Concurrent Access: falseAV Fistula Forearm (Left) Arterial BP Standing (Pre-Dialysis) 137/80 mmHg BP Standing (P ost-Dialysis) 119/78 mmHg Sitting Heart Rate Pre-Dialysis 82 BPM Sitting Heart Rate Post-Dialysis 65 BPM Standing Heart Rate Pre-Dialysis 80 BPM Standing Heart Rate Post-Dialysis 77 BPM Temperature Pre-Dialysis 97.6 degF Temperature Post -Dialysis 97.6 degF July 05, 2024 In-Center Hemodialysis Treatment 9982-16-34Q81:20:12.000Z 4972-19-48Y09:53:32.000Z BP Sitting (Pre-Dialysis) 121/77 mmHg BP Sitting (Post-Dialysis) 127/78 mmHg Concurrent Access: falseAV Fistula Forearm (Left) Arterial BP Standing (Pre-Dialysis) 129/77 mmHg BP Standing (P ost-Dialysis) 101/65 mmHg Sitting Heart Rate Pre-Dialysis 80 BPM Sitting Heart Rate Post-Dialysis 65 BPM Standing Heart Rate Pre-Dialysis 80 BPM Standing Heart Rate Post-Dialysis 88 BPM Temperature Pre-Dialysis 98.1 degF Temperature Post -Dialysis 97.2 degF July 03, 2024 In-Center Hemodialysis Treatment 4966-01-80Q69:38:00.000Z 8630-61-40R53:06:24.000Z BP Sitting (Pre-Dialysis) 138/79 mmHg BP Sitting (Post-Dialysis) 125/78 mmHg Concurrent Access: falseAV Fistula Forearm (Left) Arterial BP Standing (Pre-Dialysis) 138/85 mmHg BP Standing (P ost-Dialysis) 107/58 mmHg Sitting Heart Rate Pre-Dialysis 67 BPM Sitting Heart Rate Post-Dialysis 62 BPM Standing Heart Rate Pre-Dialysis 80 BPM Standing Heart Rate Post-Dialysis 96 BPM Temperature Pre-Dialysis 97.8 degF Temperature Post -Dialysis 97.3 degF July 01, 2024 In-Center Hemodialysis Treatment 4861-72-11S78:29:00.000Z 3874-89-38A58:58:31.000Z BP Sitting (Pre-Dialysis) 126/73 mmHg BP Sitting (Post-Dialysis) 119/80 mmHg Concurrent Access: falseAV Fistula Forearm (Left) Arterial BP Standing (Pre-Dialysis) 130/79 mmHg Sitti ng Heart Rate Post-Dialysis 71 BPM Sitting Heart Rate Pre-Dialysis 77 BPM Temperatu re Post-Dialysis 98.2 degF Standing Heart Rate Pre-Dialysis 82 BPM Temperature Pre-Dialysis 97.6 degF June 28, 2024 In-Center Hemodialysis Treatment 0422-24-50M64:28:00.000Z 4021-59-90X38:24:46.000Z BP Sitting (Pre-Dialysis) 118/70 mmHg BP Sitting (Post-Dialysis) 110/57 mmHg Concurrent Access: falseAV Fistula Forearm (Left) Arterial BP Standing (Pre-Dialysis) 120/72 mmHg BP Standing (P ost-Dialysis) 100/57 mmHg Sitting Heart Rate Pre-Dialysis 82 BPM Sitting Heart Rate Post-Dialysis 65 BPM Standing Heart Rate Pre-Dialysis 90 BPM Standing Heart Rate Post-Dialysis 80 BPM Temperature Pre-Dialysis 97.9 degF Temperature Post -Dialysis 98 degF June 26, 2024 In-Center Hemodialysis Treatment 8291-42-36X71:01:00.000Z 0118-10-46Z58:28:06.000Z BP Sitting (Pre-Dialysis) 139/78 mmHg BP Sitting (Post-Dialysis) 121/70 mmHg Concurrent Access: falseAV Fistula Forearm (Left) Arterial BP Standing (Pre-Dialysis) 150/93 mmHg BP Standing (P ost-Dialysis) 100/78 mmHg Sitting Heart Rate Pre-Dialysis 80 BPM Sitting Heart Rate Post-Dialysis 66 BPM Standing Heart Rate Pre-Dialysis 80 BPM Standing Heart Rate Post-Dialysis 80 BPM Temperature Pre-Dialysis 97.3 degF Temperature Post -Dialysis 97.3 degF June 24, 2024 In-Center Hemodialysis Treatment 4061-77-88V57:18:01.000Z 3305-24-39W37:44:09.000Z BP Sitting (Pre-Dialysis) 122/69 mmHg BP Sitting (Post-Dialysis) 130/85 mmHg Concurrent Access: falseAV Fistula Forearm (Left) Arterial BP Standing (Pre-Dialysis) 146/90 mmHg Sitti ng Heart Rate Post-Dialysis 77 BPM Sitting Heart Rate Pre-Dialysis 80 BPM Temperatu re Post-Dialysis 97.3 degF Standing Heart Rate Pre-Dialysis 80 BPM Temperature Pre-Dialysis 97.7 degF June 21, 2024 In-Center Hemodialysis Treatment 0763-61-33I73:08:52.000Z 4348-03-46V56:42:43.000Z BP Sitting (Pre-Dialysis) 123/77 mmHg BP Sitting (Post-Dialysis) 134/87 mmHg Concurrent Access: falseAV Fistula Forearm (Left) Arterial Sitting Heart Rate Pre-Dialysis 86 BPM BP Standing (Post-Dialysis) 113/68 mmHg Temperature Pre-Dialysis 97.3 degF Sitting Heart Ra te Post-Dialysis 69 BPM Standing Heart Rate Post-Rosa lysis 80 BPM Temperature Post-Dialysis 98 degF June 19, 2024 In-Center Hemodialysis Treatment 7059-68-47O99:01:20.000Z 4662-44-29I97:31:41.000Z BP Sitting (Pre-Dialysis) 160/96 mmHg BP Sitting (Post-Dialysis) 135/79 mmHg Concurrent Access: falseAV Fistula Forearm (Left) Arterial BP Standing (Pre-Dialysis) 154/92 mmHg BP Standing (P ost-Dialysis) 105/62 mmHg Sitting Heart Rate Pre-Dialysis 89 BPM Sitting Heart Rate Post-Dialysis 60 BPM Standing Heart Rate Pre-Dialysis 89 BPM Standing Heart Rate Post-Dialysis 85 BPM Temperature Pre-Dialysis 97.3 degF Temperature Post -Dialysis 98.1 degF 2024 In-Center Hemodialysis Treatment 9455-13-18L98:58:00.000Z 9379-74-31M88:33:25.000Z BP Sitting (Pre-Dialysis) 102/72 mmHg BP Sitting (Post-Dialysis) 133/86 mmHg Concurrent Access: falseAV Fistula Forearm (Left) Arterial BP Standing (Pre-Dialysis) 115/75 mmHg BP Standing (P ost-Dialysis) 131/59 mmHg Sitting Heart Rate Pre-Dialysis 62 BPM Sitting Heart Rate Post-Dialysis 71 BPM Standing Heart Rate Pre-Dialysis 95 BPM Standing Heart Rate Post-Dialysis 82 BPM Temperature Pre-Dialysis 97.3 degF Temperature Post -Dialysis 97.9 degF June 14, 2024 In-Center Hemodialysis Treatment 1491-87-07D40:14:00.000Z 6721-00-12E91:45:31.000Z BP Sitting (Pre-Dialysis) 160/102 mmHg BP Sitting (Post-Dialysis) 120/76 mmHg Concurrent Access: falseAV Fistula Forearm (Left) Arterial BP Standing (Pre-Dialysis) 160/103 mmHg Sitti ng Heart Rate Post-Dialysis 70 BPM Sitting Heart Rate Pre-Dialysis 80 BPM Temperatu re Post-Dialysis 97.5 degF Standing Heart Rate Pre-Dialysis 88 BPM Temperature Pre-Dialysis 98 degF June 12, 2024 In-Center Hemodialysis Treatment 3128-87-94G56:34:02.000Z 9261-76-40J13:03:08.000Z BP Sitting (Pre-Dialysis) 144/86 mmHg BP Sitting (Post-Dialysis) 118/75 mmHg Concurrent Access: falseAV Fistula Forearm (Left) Arterial BP Standing (Pre-Dialysis) 118/91 mmHg Sitti ng Heart Rate Post-Dialysis 70 BPM Sitting Heart Rate Pre-Dialysis 80 BPM Temperatu re Post-Dialysis 97.2 degF Standing Heart Rate Pre-Dialysis 60 BPM Temperature Pre-Dialysis 97.4 degF June 10, 2024 In-Center Hemodialysis Treatment 4602-93-07Q94:21:17.000Z 0223-74-51R59:00:00.000Z BP Sitting (Pre-Dialysis) 142/90 mmHg BP Sitting (Post-Dialysis) 111/69 mmHg Concurrent Access: falseAV Fistula Forearm (Left) Arterial BP Standing (Pre-Dialysis) 149/92 mmHg Sitting Heart Rate Post-Dialysis 67 BPM Sitting Heart Rate Pre-Dialysis 80 BPM Standing Heart Rate Pre-Dialysis 82 BPM Temperature Pre-Dialysis 97.3 degF June 07, 2024 In-Center Hemodialysis Treatment 8831-03-41J42:21:00.000Z 5368-78-30B02:58:27.000Z BP Sitting (Pre-Dialysis) 146/91 mmHg BP Sitting (Post-Dialysis) 105/62 mmHg Concurrent Access: falseAV Fistula Forearm (Left) Arterial Sitting Heart Rate Pre-Dialysis 80 BPM BP Standing (Post-Dialysis) 105/59 mmHg Temperature Pre-Dialysis 97.3 degF Sitting Heart Ra te Post-Dialysis 70 BPM Standing Heart Rate Post-Rosa lysis 73 BPM Temperature Post-Dialysis 97 .6 degF June 05, 2024 In-Center Hemodialysis Treatment 8152-83-41J11:58:00.000Z 0881-24-57V87:45:52.000Z BP Sitting (Pre-Dialysis) 119/79 mmHg BP Sitting (Post-Dialysis) 169/100 mmHg Concurrent Access: falseAV Fistula Forearm (Left) Arterial Sitting Heart Rate Pre-Dialysis 96 BPM BP Standi ng (Post-Dialysis) 100/64 mmHg Temperature Pre-Dialysis 98 degF Sitting Heart Ra te Post-Dialysis 77 BPM Standing Heart Rate Post-Rosa lysis 88 BPM Temperature Post-Dialysis 98 degF June 03, 2024 In-Center Hemodialysis Treatment 8462-22-63W94:16:57.000Z 2524-92-39J71:50:30.000Z BP Sitting (Pre-Dialysis) 120/81 mmHg BP Sitting (Post-Dialysis) 117/69 mmHg Concurrent Access: falseAV Fistula Forearm (Left) Arterial Sitting Heart Rate Pre-Dialysis 80 BPM Sitting H eart Rate Post-Dialysis 67 BPM Temperature Pre-Dialysis 98 degF Temperature Post -Dialysis 97.8 degF May 31, 2024 In-Center Hemodialysis Treatment 9055-36-92P87:39:24.000Z 3612-41-80K80:21:15.000Z BP Sitting (Pre-Dialysis) 143/85 mmHg BP Sitting (Post-Dialysis) 136/84 mmHg Concurrent Access: falseAV Fistula Forearm (Left) Arterial Sitting Heart Rate Pre-Dialysis 80 BPM BP Standi ng (Post-Dialysis) 105/66 mmHg Temperature Pre-Dialysis 98 degF Sitting Heart Ra te Post-Dialysis 68 BPM Standing Heart Rate Post-Rosa lysis 80 BPM Temperature Post-Dialysis 97 .6 degF May 29, 2024 In-Center Hemodialysis Treatment 0053-28-69E66:37:00.000Z 7544-38-17B45:11:35.000Z BP Sitting (Pre-Dialysis) 123/88 mmHg BP Sitting (Post-Dialysis) 159/103 mmHg Concurrent Access: falseAV Fistula Forearm (Left) Arterial BP Standing (Pre-Dialysis) 159/98 mmHg BP Standing (P ost-Dialysis) 144/118 mmHg Sitting Heart Rate Pre-Dialysis 74 BPM Sitting Heart Rate Post-Dialysis 61 BPM Standing Heart Rate Pre-Dialysis 80 BPM Standing Heart Rate Post-Dialysis 68 BPM Temperature Pre-Dialysis 98 degF Temperature Post -Dialysis 98 degF May 27, 2024 In-Center Hemodialysis Treatment 9294-85-69S26:26:20.000Z 9840-08-92E25:01:43.000Z BP Sitting (Pre-Dialysis) 134/87 mmHg BP Sitting (Post-Dialysis) 118/78 mmHg Concurrent Access: falseAV Fistula Forearm (Left) Arterial BP Standing (Pre-Dialysis) 154/88 mmHg BP Standing (P ost-Dialysis) 105/77 mmHg Sitting Heart Rate Pre-Dialysis 87 BPM Sitting Heart Rate Post-Dialysis 85 BPM Standing Heart Rate Pre-Dialysis 87 BPM Standing Heart Rate Post-Dialysis 80 BPM Temperature Pre-Dialysis 97.9 degF Temperature Post -Dialysis 97.9 degF May 24, 2024 In-Center Hemodialysis Treatment [id number]:07:00.000Z [id number]:40:22.000Z BP Sitting (Pre-Dialysis) 158/85 mmHg BP Sitting (Post-Dialysis) 121/71 mmHg Concurrent Access: falseAV Fistula Forearm (Left) Arterial BP Standing (Pre-Dialysis) 135/103 mmHg Sitti ng Heart Rate Post-Dialysis 74 BPM Sitting Heart Rate Pre-Dialysis 80 BPM Temperatu re Post-Dialysis 97.3 degF Standing Heart Rate Pre-Dialysis 51 BPM Temperature Pre-Dialysis 97.3 degF May 22, 2024 In-Center Hemodialysis Treatment [id number]:41:38.000Z [id number]:16:18.000Z BP Sitting (Pre-Dialysis) 135/83 mmHg BP Sitting (Post-Dialysis) 124/76 mmHg Concurrent Access: falseAV Fistula Forearm (Left) Arterial BP Standing (Pre-Dialysis) 138/61 mmHg BP Standing (P ost-Dialysis) 123/67 mmHg Sitting Heart Rate Pre-Dialysis 74 BPM Sitting Heart Rate Post-Dialysis 62 BPM Standing Heart Rate Pre-Dialysis 71 BPM Standing Heart Rate Post-Dialysis 87 BPM Temperature Pre-Dialysis 97.3 degF Temperature Post -Dialysis 97.3 degF May 20, 2024 In-Center Hemodialysis Treatment [id number]:33:00.000Z [id number]:04:36.000Z BP Sitting (Pre-Dialysis) 136/83 mmHg BP Sitting (Post-Dialysis) 155/90 mmHg Concurrent Access: falseAV Fistula Forearm (Left) Arterial BP Standing (Pre-Dialysis) 136/77 mmHg Sitting Heart Rate Post-Dialysis 66 BPM Sitting Heart Rate Pre-Dialysis 74 BPM Temperatu re Post-Dialysis 98 degF Standing Heart Rate Pre-Dialysis 72 BPM Temperature Pre-Dialysis 98 degF May 15, 2024 In-Center Hemodialysis Treatment [id number]:22:00.000Z [id number]:57:37.000Z BP Sitting (Pre-Dialysis) 174/108 mmHg BP Sitting (Post-Dialysis) 151/93 mmHg Concurrent Access: falseAV Fistula Forearm (Left) Arterial BP Standing (Pre-Dialysis) 101/58 mmHg BP Standing (P ost-Dialysis) 132/82 mmHg Sitting Heart Rate Pre-Dialysis 80 BPM Sitting Heart Rate Post-Dialysis 72 BPM Standing Heart Rate Pre-Dialysis 80 BPM Standing Heart Rate Post-Dialysis 85 BPM Temperature Pre-Dialysis 98.3 degF May 13, 2024 In-Center Hemodialysis Treatment [id number]:18:03.000Z [id number]:53:52.000Z BP Sitting (Pre-Dialysis) 162/111 mmHg BP Sitting (Post-Dialysis) 136/78 mmHg Concurrent Access: falseAV Fistula Forearm (Left) Arterial BP Standing (Pre-Dialysis) 178/118 mmHg BP Standing (P ost-Dialysis) 113/63 mmHg Sitting Heart Rate Pre-Dialysis 80 BPM Sitting Heart Rate Post-Dialysis 66 BPM Standing Heart Rate Pre-Dialysis 80 BPM Standing Heart Rate Post-Dialysis 68 BPM Temperature Pre-Dialysis 97.3 degF Temperature Post -Dialysis 97.3 degF May 10, 2024 In-Center Hemodialysis Treatment [id number]:20:00.000Z 9033-32-27J08:55:11.000Z BP Sitting (Pre-Dialysis) 129/78 mmHg BP Sitting (Post-Dialysis) 150/96 mmHg Concurrent Access: falseAV Fistula Forearm (Left) Arterial Sitting Heart Rate Pre-Dialysis 80 BPM BP Standing (Post-Dialysis) 133/86 mmHg Temperature Pre-Dialysis 97.5 degF Sitting Heart Ra te Post-Dialysis 67 BPM Standing Heart Rate Post-Rosa lysis 66 BPM Temperature Post-Dialysis 97 .6 degF May 08, 2024 In-Center Hemodialysis Treatment [id number]:15:27.000Z [id number]:48:47.000Z BP Sitting (Pre-Dialysis) 134/82 mmHg BP Sitting (Post-Dialysis) 135/73 mmHg Concurrent Access: falseAV Fistula Forearm (Left) Arterial BP Standing (Pre-Dialysis) 114/87 mmHg BP Standing (P ost-Dialysis) 118/72 mmHg Sitting Heart Rate Pre-Dialysis 80 BPM Sitting Heart Rate Post-Dialysis 71 BPM Standing Heart Rate Pre-Dialysis 82 BPM Standing Heart Rate Post-Dialysis 77 BPM Temperature Pre-Dialysis 97.2 degF Temperature Post -Dialysis 97.3 degF May 06, 2024 In-Center Hemodialysis Treatment [id number]:02:31.000Z [id number]:34:11.000Z BP Sitting (Pre-Dialysis) 167/99 mmHg BP Sitting (Post-Dialysis) 156/95 mmHg Concurrent Access: falseAV Fistula Forearm (Left) Arterial BP Standing (Pre-Dialysis) 122/95 mmHg BP Standing (P ost-Dialysis) 123/79 mmHg Sitting Heart Rate Pre-Dialysis 88 BPM Sitting Heart Rate Post-Dialysis 73 BPM Standing Heart Rate Pre-Dialysis 90 BPM Standing Heart Rate Post-Dialysis 67 BPM Temperature Pre-Dialysis 97.6 degF Temperature Post -Dialysis 97.8 degF May 03, 2024 In-Center Hemodialysis Treatment [id number]:48:15.000Z [id number]:19:01.000Z BP Sitting (Pre-Dialysis) 186/113 mmHg BP Sitting (Post-Dialysis) 134/79 mmHg Concurrent Access: falseAV Fistula Forearm (Left) Arterial BP Standing (Pre-Dialysis) 178/104 mmHg Sitti ng Heart Rate Post-Dialysis 68 BPM Sitting Heart Rate Pre-Dialysis 80 BPM Temperatu re Post-Dialysis 97.9 degF Standing Heart Rate Pre-Dialysis 80 BPM Temperature Pre-Dialysis 98 degF May 01, 2024 In-Center Hemodialysis Treatment [id number]:53:00.000Z 8913-06-93A54:24:56.000Z BP Sitting (Pre-Dialysis) 140/93 mmHg BP Sitting (Post-Dialysis) 145/78 mmHg Concurrent Access: falseAV Fistula Forearm (Left) Arterial BP Standing (Pre-Dialysis) 153/99 mmHg BP Standing (P ost-Dialysis) 159/82 mmHg Sitting Heart Rate Pre-Dialysis 80 BPM Sitting Heart Rate Post-Dialysis 60 BPM Standing Heart Rate Pre-Dialysis 73 BPM Standing Heart Rate Post-Dialysis 77 BPM Temperature Pre-Dialysis 97.3 degF Temperature Post -Dialysis 97.7 degF April 29, 2024 In-Center Hemodialysis Treatment [id number]:50:00.000Z 7868-40-91X50:26:30.000Z BP Sitting (Pre-Dialysis) 158/99 mmHg BP Sitting (Post-Dialysis) 162/82 mmHg Concurrent Access: falseAV Fistula Forearm (Left) Arterial BP Standing (Pre-Dialysis) 158/99 mmHg BP Standing (P ost-Dialysis) 119/83 mmHg Sitting Heart Rate Pre-Dialysis 74 BPM Sitting Heart Rate Post-Dialysis 66 BPM Standing Heart Rate Pre-Dialysis 74 BPM Standing Heart Rate Post-Dialysis 85 BPM Temperature Pre-Dialysis 97.3 degF Temperature Post -Dialysis 97.8 degF April 26, 2024 In-Center Hemodialysis Treatment [id number]:23:11.000Z 1253-74-83T67:57:41.000Z BP Sitting (Pre-Dialysis) 142/87 mmHg BP Sitting (Post-Dialysis) 148/93 mmHg Concurrent Access: falseAV Fistula Forearm (Left) Arterial BP Standing (Pre-Dialysis) 148/90 mmHg Sitti ng Heart Rate Post-Dialysis 68 BPM Sitting Heart Rate Pre-Dialysis 73 BPM Temperatu re Post-Dialysis 97.3 degF Standing Heart Rate Pre-Dialysis 80 BPM Temperature Pre-Dialysis 97.3 degF April 23, 2024 In-Center Hemodialysis Treatment [id number]:28:34.000Z [id number]:59:04.000Z BP Sitting (Pre-Dialysis) 134/79 mmHg BP Sitting (Post-Dialysis) 156/86 mmHg Concurrent Access: falseAV Fistula Forearm (Left) Arterial BP Standing (Pre-Dialysis) 124/78 mmHg BP Standing (P ost-Dialysis) 133/76 mmHg Sitting Heart Rate Pre-Dialysis 80 BPM Sitting Heart Rate Post-Dialysis 73 BPM Standing Heart Rate Pre-Dialysis 80 BPM Standing Heart Rate Post-Dialysis 80 BPM Temperature Pre-Dialysis 98.3 degF Temperature Post -Dialysis 98.3 degF April 19, 2024 In-Center Hemodialysis Treatment [id number]:57:41.000Z 2476-87-25O40:27:19.000Z BP Sitting (Pre-Dialysis) 185/121 mmHg BP Sitting (Post-Dialysis) 153/92 mmHg Concurrent Access: falseAV Fistula Forearm (Left) Arterial BP Standing (Pre-Dialysis) 187/106 mmHg BP Standing (P ost-Dialysis) 123/87 mmHg Sitting Heart Rate Pre-Dialysis 93 BPM Sitting Heart Rate Post-Dialysis 74 BPM Standing Heart Rate Pre-Dialysis 91 BPM Standing Heart Rate Post-Dialysis 87 BPM Temperature Pre-Dialysis 98 degF Temperature Post -Dialysis 97.9 degF April 17, 2024 In-Center Hemodialysis Treatment [id number]:43:24.000Z 3556-85-15I59:04:42.000Z BP Sitting (Pre-Dialysis) 109/65 mmHg BP Sitting (Post-Dialysis) 112/70 mmHg Concurrent Access: falseAV Fistula Forearm (Left) Arterial Sitting Heart Rate Pre-Dialysis 46 BPM Sitting H eart Rate Post-Dialysis 77 BPM Temperature Pre-Dialysis 97.3 degF Temperature Post -Dialysis 97.9 degF April 15, 2024 In-Center Hemodialysis Treatment [id number]:57:00.000Z 3423-94-68U03:26:00.000Z BP Sitting (Pre-Dialysis) 128/85 mmHg BP Sitting (Post-Dialysis) 104/85 mmHg Concurrent Access: falseAV Fistula Forearm (Left) Arterial BP Standing (Pre-Dialysis) 137/85 mmHg Sitti ng Heart Rate Post-Dialysis 62 BPM Sitting Heart Rate Pre-Dialysis 80 BPM Temperatu re Post-Dialysis 97.3 degF Standing Heart Rate Pre-Dialysis 80 BPM Temperature Pre-Dialysis 98.4 degF April 12, 2024 In-Center Hemodialysis Treatment 8877-16-04X70:49:00.000Z 7554-15-13T09:22:24.000Z BP Sitting (Pre-Dialysis) 136/78 mmHg BP Sitting (Post-Dialysis) 127/79 mmHg Concurrent Access: falseAV Fistula Forearm (Left) Arterial Sitting Heart Rate Pre-Dialysis 66 BPM BP Standing (Post-Dialysis) 119/64 mmHg Temperature Pre-Dialysis 97.9 degF Sitting Heart Ra te Post-Dialysis 75 BPM Standing Heart Rate Post-Rosa lysis 80 BPM Temperature Post-Dialysis 97 .6 degF April 10, 2024 In-Center Hemodialysis Treatment [id number]:11:57.000Z 6047-02-11M43:43:54.000Z BP Sitting (Pre-Dialysis) 141/95 mmHg BP Sitting (Post-Dialysis) 138/79 mmHg Concurrent Access: falseAV Fistula Forearm (Left) Arterial BP Standing (Pre-Dialysis) 161/90 mmHg Sitti ng Heart Rate Post-Dialysis 74 BPM Sitting Heart Rate Pre-Dialysis 80 BPM Temperatu re Post-Dialysis 97.6 degF Standing Heart Rate Pre-Dialysis 62 BPM Temperature Pre-Dialysis 97.6 degF April 07, 2024 In-Center Hemodialysis Treatment [id number]:54:57.000Z 9708-96-53G06:30:38.000Z BP Sitting (Pre-Dialysis) 151/92 mmHg BP Sitting (Post-Dialysis) 129/67 mmHg Concurrent Access: falseAV Fistula Forearm (Left) Arterial BP Standing (Pre-Dialysis) 160/90 mmHg BP Standing (P ost-Dialysis) 104/64 mmHg Sitting Heart Rate Pre-Dialysis 82 BPM Sitting Heart Rate Post-Dialysis 80 BPM Standing Heart Rate Pre-Dialysis 80 BPM Standing Heart Rate Post-Dialysis 77 BPM Temperature Pre-Dialysis 97.5 degF Temperature Post -Dialysis 97.5 degF April 05, 2024 In-Center Hemodialysis Treatment [id number]:53:09.000Z 9467-91-49Z18:28:03.000Z BP Sitting (Pre-Dialysis) 162/89 mmHg BP Sitting (Post-Dialysis) 140/83 mmHg Concurrent Access: falseAV Fistula Forearm (Left) Arterial BP Standing (Pre-Dialysis) 159/97 mmHg BP Standing (P ost-Dialysis) 117/78 mmHg Sitting Heart Rate Pre-Dialysis 80 BPM Sitting Heart Rate Post-Dialysis 80 BPM Standing Heart Rate Pre-Dialysis 80 BPM Standing Heart Rate Post-Dialysis 65 BPM Temperature Pre-Dialysis 97.3 degF Temperature Post -Dialysis 97.6 degF April 03, 2024 In-Center Hemodialysis Treatment [id number]:03:38.000Z 5568-37-39I70:36:13.000Z BP Sitting (Pre-Dialysis) 148/88 mmHg BP Sitting (Post-Dialysis) 135/91 mmHg Concurrent Access: falseAV Fistula Forearm (Left) Arterial BP Standing (Pre-Dialysis) 164/97 mmHg BP Standing (P ost-Dialysis) 106/84 mmHg Sitting Heart Rate Pre-Dialysis 80 BPM Sitting Heart Rate Post-Dialysis 71 BPM Standing Heart Rate Pre-Dialysis 80 BPM Standing Heart Rate Post-Dialysis 80 BPM Temperature Pre-Dialysis 98.1 degF Temperature Post -Dialysis 97.9 degF April 01, 2024 In-Center Hemodialysis Treatment 4451-03-14Y38:56:00.000Z 7151-92-17S43:31:02.000Z BP Sitting (Pre-Dialysis) 133/83 mmHg BP Sitting (Post-Dialysis) 132/87 mmHg Concurrent Access: falseAV Fistula Forearm (Left) Arterial BP Standing (Pre-Dialysis) 144/107 mmHg BP Standing (P ost-Dialysis) 131/89 mmHg Sitting Heart Rate Pre-Dialysis 86 BPM Sitting Heart Rate Post-Dialysis 80 BPM Standing Heart Rate Pre-Dialysis 86 BPM Standing Heart Rate Post-Dialysis 82 BPM Temperature Pre-Dialysis 97.7 degF Temperature Post -Dialysis 97.3 degF March 29, 2024 In-Center Hemodialysis Treatment [id number]:36:04.000Z 9048-43-54C02:01:57.000Z BP Sitting (Pre-Dialysis) 168/106 mmHg BP Sitting (Post-Dialysis) 127/80 mmHg Concurrent Access: falseAV Fistula Forearm (Left) Arterial Sitting Heart Rate Pre-Dialysis 80 BPM Sitting H eart Rate Post-Dialysis 80 BPM Temperature Pre-Dialysis 97.6 degF Temperature Post -Dialysis 97.6 degF March 27, 2024 In-Center Hemodialysis Treatment 7618-75-34F93:14:58.000Z 3501-76-49Q31:43:51.000Z BP Sitting (Pre-Dialysis) 162/97 mmHg BP Sitting (Post-Dialysis) 124/98 mmHg Concurrent Access: falseAV Fistula Forearm (Left) Arterial Sitting Heart Rate Pre-Dialysis 80 BPM BP Standing (Post-Dialysis) 127/75 mmHg Temperature Pre-Dialysis 98.7 degF Sitting Heart Ra te Post-Dialysis 80 BPM Standing Heart Rate Post-Rosa lysis 82 BPM Temperature Post-Dialysis 98 degF March 25, 2024 In-Center Hemodialysis Treatment 0916-05-11J00:54:44.000Z 1488-65-51R05:37:19.000Z BP Sitting (Pre-Dialysis) 151/81 mmHg BP Sitting (Post-Dialysis) 158/87 mmHg Concurrent Access: falseAV Fistula Forearm (Left) Arterial BP Standing (Pre-Dialysis) 157/94 mmHg BP Standing (P ost-Dialysis) 121/78 mmHg Sitting Heart Rate Pre-Dialysis 80 BPM Sitting Heart Rate Post-Dialysis 65 BPM Standing Heart Rate Pre-Dialysis 80 BPM Standing Heart Rate Post-Dialysis 80 BPM Temperature Pre-Dialysis 97.9 degF Temperature Post -Dialysis 97.9 degF March 22, 2024 In-Center Hemodialysis Treatment [id number]:54:42.000Z [id number]:26:43.000Z BP Sitting (Pre-Dialysis) 140/84 mmHg BP Sitting (Post-Dialysis) 151/94 mmHg Concurrent Access: falseAV Fistula Forearm (Left) Arterial BP Standing (Pre-Dialysis) 126/83 mmHg BP Standing (P ost-Dialysis) 124/79 mmHg Sitting Heart Rate Pre-Dialysis 80 BPM Sitting Heart Rate Post-Dialysis 66 BPM Standing Heart Rate Pre-Dialysis 72 BPM Standing Heart Rate Post-Dialysis 80 BPM Temperature Pre-Dialysis 97.5 degF Temperature Post -Dialysis 97.6 degF March 20, 2024 In-Center Hemodialysis Treatment 6428-61-25P70:01:42.000Z 8674-26-70Q51:33:12.000Z BP Sitting (Pre-Dialysis) 154/95 mmHg BP Sitting (Post-Dialysis) 158/88 mmHg Concurrent Access: falseAV Fistula Forearm (Left) Arterial Sitting Heart Rate Pre-Dialysis 80 BPM Sitting H eart Rate Post-Dialysis 60 BPM Temperature Pre-Dialysis 97.6 degF Temperature Post -Dialysis 98 degF March 18, 2024 In-Center Hemodialysis Treatment [id number]:05:16.000Z [id number]:35:33.000Z BP Sitting (Pre-Dialysis) 148/98 mmHg BP Sitting (Post-Dialysis) 109/59 mmHg Concurrent Access: falseAV Fistula Forearm (Left) Arterial BP Standing (Pre-Dialysis) 162/106 mmHg Sitting Heart Rate Post-Dialysis 65 BPM Sitting Heart Rate Pre-Dialysis 77 BPM Standing Heart Rate Pre-Dialysis 80 BPM Temperature Pre-Dialysis 97.3 degF March 15, 2024 In-Center Hemodialysis Treatment 1997-67-33B12:59:13.000Z [id number]:36:13.000Z BP Sitting (Pre-Dialysis) 150/77 mmHg BP Sitting (Post-Dialysis) 149/87 mmHg Concurrent Access: falseAV Fistula Forearm (Left) Arterial BP Standing (Pre-Dialysis) 158/95 mmHg BP Standing (P ost-Dialysis) 121/78 mmHg Sitting Heart Rate Pre-Dialysis 80 BPM Sitting Heart Rate Post-Dialysis 68 BPM Standing Heart Rate Pre-Dialysis 80 BPM Standing Heart Rate Post-Dialysis 80 BPM Temperature Pre-Dialysis 97.4 degF Temperature Post -Dialysis 97.4 degF March 12, 2024 In-Center Hemodialysis Treatment 8622-72-84T01:55:01.000Z 5823-39-53V03:23:31.000Z BP Sitting (Pre-Dialysis) 177/91 mmHg BP Sitting (Post-Dialysis) 150/77 mmHg Concurrent Access: falseAV Fistula Forearm (Left) Arterial Sitting Heart Rate Pre-Dialysis 80 BPM BP Standi ng (Post-Dialysis) 128/90 mmHg Temperature Pre-Dialysis 98 degF Sitting Heart Ra te Post-Dialysis 77 BPM Standing Heart Rate Post-Rosa lysis 80 BPM Temperature Post-Dialysis 97 .8 degF March 10, 2024 In-Center Hemodialysis Treatment [id number]:52:57.000Z 5005-94-27H63:26:30.000Z BP Sitting (Pre-Dialysis) 165/98 mmHg BP Sitting (Post-Dialysis) 128/75 mmHg Concurrent Access: falseAV Fistula Forearm (Left) Arterial BP Standing (Pre-Dialysis) 166/95 mmHg BP Standing (P ost-Dialysis) 107/67 mmHg Sitting Heart Rate Pre-Dialysis 80 BPM Sitting Heart Rate Post-Dialysis 60 BPM Standing Heart Rate Pre-Dialysis 80 BPM Standing Heart Rate Post-Dialysis 80 BPM Temperature Pre-Dialysis 98.3 degF Temperature Post -Dialysis 97.3 degF March 08, 2024 In-Center Hemodialysis Treatment [id number]:53:24.000Z 6297-28-36W48:27:00.000Z BP Sitting (Pre-Dialysis) 166/104 mmHg BP Sitting (Post-Dialysis) 135/82 mmHg Concurrent Access: falseAV Fistula Forearm (Left) Arterial Sitting Heart Rate Pre-Dialysis 80 BPM BP Standing (Post-Dialysis) 110/77 mmHg Temperature Pre-Dialysis 97.1 degF Sitting Heart Ra te Post-Dialysis 61 BPM Standing Heart Rate Post-Rosa lysis 74 BPM Temperature Post-Dialysis 98 degF March 06, 2024 In-Center Hemodialysis Treatment [id number]:47:21.000Z 8185-41-78U09:13:44.000Z BP Sitting (Pre-Dialysis) 133/81 mmHg BP Sitting (Post-Dialysis) 126/81 mmHg Concurrent Access: falseAV Fistula Forearm (Left) Arterial BP Standing (Pre-Dialysis) 148/78 mmHg BP Standing (P ost-Dialysis) 126/73 mmHg Sitting Heart Rate Pre-Dialysis 80 BPM Sitting Heart Rate Post-Dialysis 60 BPM Standing Heart Rate Pre-Dialysis 77 BPM Standing Heart Rate Post-Dialysis 80 BPM Temperature Pre-Dialysis 97.9 degF Temperature Post -Dialysis 97.3 degF March 04, 2024 In-Center Hemodialysis Treatment [id number]:56:18.000Z 2482-42-43Z75:26:59.000Z BP Sitting (Pre-Dialysis) 156/93 mmHg BP Sitting (Post-Dialysis) 157/87 mmHg Concurrent Access: falseAV Fistula Forearm (Left) Arterial BP Standing (Pre-Dialysis) 156/93 mmHg Sitti ng Heart Rate Post-Dialysis 70 BPM Sitting Heart Rate Pre-Dialysis 80 BPM Temperatu re Post-Dialysis 98.2 degF Standing Heart Rate Pre-Dialysis 80 BPM Temperature Pre-Dialysis 98.5 degF March 01, 2024 In-Center Hemodialysis Treatment 1778-11-05Z77:55:56.000Z 5951-66-20W26:28:59.000Z BP Sitting (Pre-Dialysis) 139/77 mmHg BP Sitting (Post-Dialysis) 174/92 mmHg Concurrent Access: falseAV Fistula Forearm (Left) Arterial Sitting Heart Rate Pre-Dialysis 80 BPM BP Standi ng (Post-Dialysis) 137/86 mmHg Temperature Pre-Dialysis 98 degF Sitting Heart Ra te Post-Dialysis 60 BPM Standing Heart Rate Post-Rosa lysis 73 BPM Temperature Post-Dialysis 97 .2 degF February 28, 2024 In-Center Hemodialysis Treatment 7392-51-01G30:06:00.000Z 0825-58-14S77:37:35.000Z BP Sitting (Pre-Dialysis) 173/110 mmHg BP Sitting (Post-Dialysis) 177/85 mmHg Concurrent Access: falseAV Fistula Forearm (Left) Arterial Sitting Heart Rate Pre-Dialysis 74 BPM Sitting H eart Rate Post-Dialysis 63 BPM Temperature Pre-Dialysis 97.5 degF Temperature Post -Dialysis 97.3 degF February 26, 2024 In-Center Hemodialysis Treatment [id number]:58:03.000Z [id number]:34:03.000Z BP Sitting (Pre-Dialysis) 172/104 mmHg BP Sitting (Post-Dialysis) 136/86 mmHg Concurrent Access: falseAV Fistula Forearm (Left) Arterial BP Standing (Pre-Dialysis) 158/102 mmHg BP Standing (P ost-Dialysis) 125/87 mmHg Sitting Heart Rate Pre-Dialysis 77 BPM Sitting Heart Rate Post-Dialysis 62 BPM Standing Heart Rate Pre-Dialysis 66 BPM Standing Heart Rate Post-Dialysis 80 BPM Temperature Pre-Dialysis 97.3 degF Temperature Post -Dialysis 97.3 degF February 23, 2024 In-Center Hemodialysis Treatment 9765-26-40N87:01:38.000Z 8297-17-39H28:28:30.000Z BP Sitting (Pre-Dialysis) 140/87 mmHg BP Sitting (Post-Dialysis) 131/77 mmHg Concurrent Access: falseAV Fistula Forearm (Left) Arterial BP Standing (Pre-Dialysis) 147/85 mmHg BP Standing (P ost-Dialysis) 141/89 mmHg Sitting Heart Rate Pre-Dialysis 80 BPM Sitting Heart Rate Post-Dialysis 60 BPM Standing Heart Rate Pre-Dialysis 80 BPM Standing Heart Rate Post-Dialysis 62 BPM Temperature Pre-Dialysis 97.6 degF Temperature Post -Dialysis 97.6 degF February 21, 2024 In-Center Hemodialysis Treatment 1130-26-61R86:53:17.000Z 8384-56-88D30:25:43.000Z BP Sitting (Pre-Dialysis) 155/93 mmHg BP Sitting (Post-Dialysis) 137/77 mmHg Concurrent Access: falseAV Fistula Forearm (Left) Arterial BP Standing (Pre-Dialysis) 155/93 mmHg BP Standing (P ost-Dialysis) 121/77 mmHg Sitting Heart Rate Pre-Dialysis 85 BPM Sitting Heart Rate Post-Dialysis 69 BPM Standing Heart Rate Pre-Dialysis 85 BPM Standing Heart Rate Post-Dialysis 80 BPM Temperature Pre-Dialysis 97.3 degF Temperature Post -Dialysis 97.6 degF February 19, 2024 In-Center Hemodialysis Treatment [id number]:58:00.000Z 6712-05-72N28:32:48.000Z BP Sitting (Pre-Dialysis) 168/99 mmHg BP Sitting (Post-Dialysis) 147/89 mmHg Concurrent Access: falseAV Fistula Forearm (Left) Arterial BP Standing (Pre-Dialysis) 153/90 mmHg BP Standing (P ost-Dialysis) 149/119 mmHg Sitting Heart Rate Pre-Dialysis 80 BPM Sitting Heart Rate Post-Dialysis 65 BPM Standing Heart Rate Pre-Dialysis 80 BPM Standing Heart Rate Post-Dialysis 82 BPM Temperature Pre-Dialysis 97.3 degF Temperature Post -Dialysis 97.7 degF February 16, 2024 In-Center Hemodialysis Treatment 2012-83-89F94:58:08.000Z 6758-98-16L50:28:59.000Z BP Sitting (Pre-Dialysis) 131/68 mmHg BP Sitting (Post-Dialysis) 125/78 mmHg Concurrent Access: falseAV Fistula Forearm (Left) Arterial BP Standing (Pre-Dialysis) 134/81 mmHg BP Standing (P ost-Dialysis) 121/78 mmHg Sitting Heart Rate Pre-Dialysis 68 BPM Sitting Heart Rate Post-Dialysis 68 BPM Standing Heart Rate Pre-Dialysis 80 BPM Standing Heart Rate Post-Dialysis 69 BPM Temperature Pre-Dialysis 97.9 degF Temperature Post -Dialysis 97.5 degF February 14, 2024 In-Center Hemodialysis Treatment [id number]:11:12.000Z 1792-83-02A74:44:38.000Z BP Sitting (Pre-Dialysis) 165/118 mmHg BP Sitting (Post-Dialysis) 157/67 mmHg Concurrent Access: falseAV Fistula Forearm (Left) Arterial Sitting Heart Rate Pre-Dialysis 81 BPM BP Standing (Post-Dialysis) 121/73 mmHg Temperature Pre-Dialysis 97.4 degF Sitting Heart Ra te Post-Dialysis 60 BPM Standing Heart Rate Post-Rosa lysis 80 BPM Temperature Post-Dialysis 97 .4 degF February 12, 2024 In-Center Hemodialysis Treatment 3849-79-56S27:50:00.000Z 4477-02-68U93:19:41.000Z BP Sitting (Pre-Dialysis) 164/96 mmHg BP Sitting (Post-Dialysis) 136/78 mmHg Concurrent Access: falseAV Fistula Forearm (Left) Arterial BP Standing (Pre-Dialysis) 164/96 mmHg Sitti ng Heart Rate Post-Dialysis 62 BPM Sitting Heart Rate Pre-Dialysis 74 BPM Temperatu re Post-Dialysis 97.3 degF Standing Heart Rate Pre-Dialysis 77 BPM Temperature Pre-Dialysis 97.9 degF February 09, 2024 In-Center Hemodialysis Treatment 8914-60-73L36:59:40.000Z 0553-03-46Q10:33:19.000Z BP Sitting (Pre-Dialysis) 141/82 mmHg BP Sitting (Post-Dialysis) 128/84 mmHg Concurrent Access: falseAV Fistula Forearm (Left) Arterial Sitting Heart Rate Pre-Dialysis 72 BPM BP Standing (Post-Dialysis) 101/74 mmHg Temperature Pre-Dialysis 97.4 degF Sitting Heart Ra te Post-Dialysis 62 BPM Standing Heart Rate Post-Rosa lysis 60 BPM Temperature Post-Dialysis 97 .3 degF February 07, 2024 In-Center Hemodialysis Treatment [id number]:55:00.000Z 9209-43-35H22:24:45.000Z BP Sitting (Pre-Dialysis) 163/96 mmHg BP Sitting (Post-Dialysis) 126/77 mmHg Concurrent Access: falseAV Fistula Forearm (Left) Arterial Sitting Heart Rate Pre-Dialysis 80 BPM BP Standing (Post-Dialysis) 109/70 mmHg Temperature Pre-Dialysis 97.5 degF Sitting Heart Ra te Post-Dialysis 69 BPM Standing Heart Rate Post-Rosa lysis 80 BPM Temperature Post-Dialysis 97 .7 degF February 05, 2024 In-Center Hemodialysis Treatment [id number]:56:29.000Z 7951-60-67K32:27:55.000Z BP Sitting (Pre-Dialysis) 146/85 mmHg BP Sitting (Post-Dialysis) 157/79 mmHg Concurrent Access: falseAV Fistula Forearm (Left) Arterial BP Standing (Pre-Dialysis) 146/85 mmHg BP Standing (P ost-Dialysis) 120/77 mmHg Sitting Heart Rate Pre-Dialysis 74 BPM Sitting Heart Rate Post-Dialysis 65 BPM Standing Heart Rate Pre-Dialysis 74 BPM Standing Heart Rate Post-Dialysis 82 BPM Temperature Pre-Dialysis 97.4 degF Temperature Post -Dialysis 97.9 degF February 02, 2024 In-Center Hemodialysis Treatment 0725-11-17P94:08:20.000Z 4086-43-52O17:42:13.000Z BP Sitting (Pre-Dialysis) 154/89 mmHg BP Sitting (Post-Dialysis) 127/79 mmHg Concurrent Access: falseAV Fistula Forearm (Left) Arterial Sitting Heart Rate Pre-Dialysis 66 BPM BP Standing (Post-Dialysis) 118/77 mmHg Temperature Pre-Dialysis 97.4 degF Sitting Heart Ra te Post-Dialysis 68 BPM Standing Heart Rate Post-Rosa lysis 80 BPM Temperature Post-Dialysis 97 .9 degF January 31, 2024 In-Center Hemodialysis Treatment [id number]:04:05.000Z 8328-29-88L21:38:05.000Z BP Sitting (Pre-Dialysis) 140/85 mmHg BP Sitting (Post-Dialysis) 143/76 mmHg Concurrent Access: falseAV Fistula Forearm (Left) Arterial Sitting Heart Rate Pre-Dialysis 74 BPM BP Standing (Post-Dialysis) 120/72 mmHg Temperature Pre-Dialysis 97.9 degF Sitting Heart Ra te Post-Dialysis 61 BPM Standing Heart Rate Post-Rosa lysis 74 BPM Temperature Post-Dialysis 98 .1 degF January 29, 2024 In-Center Hemodialysis Treatment [id number]:59:00.000Z [id number]:34:00.000Z BP Sitting (Pre-Dialysis) 162/97 mmHg BP Sitting (Post-Dialysis) 142/85 mmHg Concurrent Access: falseAV Fistula Forearm (Left) Arterial BP Standing (Pre-Dialysis) 159/95 mmHg Sitti ng Heart Rate Post-Dialysis 60 BPM Sitting Heart Rate Pre-Dialysis 71 BPM Temperatu re Post-Dialysis 97.6 degF Standing Heart Rate Pre-Dialysis 70 BPM Temperature Pre-Dialysis 97.7 degF January 26, 2024 In-Center Hemodialysis Treatment [id number]:53:22.000Z [id number]:24:22.000Z BP Sitting (Pre-Dialysis) 162/90 mmHg BP Sitting (Post-Dialysis) 146/85 mmHg Concurrent Access: falseAV Fistula Forearm (Left) Arterial Sitting Heart Rate Pre-Dialysis 80 BPM Sitting H eart Rate Post-Dialysis 65 BPM Temperature Pre-Dialysis 97.5 degF Temperature Post -Dialysis 97.5 degF January 24, 2024 In-Center Hemodialysis Treatment [id number]:09:45.000Z [id number]:46:35.000Z BP Sitting (Pre-Dialysis) 128/86 mmHg BP Sitting (Post-Dialysis) 148/87 mmHg Concurrent Access: falseAV Fistula Forearm (Left) Arterial BP Standing (Pre-Dialysis) 133/80 mmHg BP Standing (P ost-Dialysis) 108/63 mmHg Sitting Heart Rate Pre-Dialysis 80 BPM Sitting Heart Rate Post-Dialysis 60 BPM Standing Heart Rate Pre-Dialysis 80 BPM Standing Heart Rate Post-Dialysis 63 BPM Temperature Pre-Dialysis 97.6 degF Temperature Post -Dialysis 97.9 degF January 22, 2024 In-Center Hemodialysis Treatment [id number]:58:48.000Z [id number]:32:11.000Z BP Sitting (Pre-Dialysis) 156/97 mmHg BP Sitting (Post-Dialysis) 118/77 mmHg Concurrent Access: falseAV Fistula Forearm (Left) Arterial Sitting Heart Rate Pre-Dialysis 73 BPM BP Standing (Post-Dialysis) 105/62 mmHg Temperature Pre-Dialysis 97.5 degF Sitting Heart Ra te Post-Dialysis 67 BPM Standing Heart Rate Post-Rosa lysis 71 BPM Temperature Post-Dialysis 97 .8 degF January 19, 2024 In-Center Hemodialysis Treatment 1834-03-92S53:00:07.000Z [id number]:35:27.000Z BP Sitting (Pre-Dialysis) 138/95 mmHg BP Sitting (Post-Dialysis) 147/87 mmHg Concurrent Access: falseAV Fistula Forearm (Left) Arterial Sitting Heart Rate Pre-Dialysis 80 BPM BP Standing (Post-Dialysis) 107/79 mmHg Temperature Pre-Dialysis 97.8 degF Sitting Heart Ra te Post-Dialysis 69 BPM Standing Heart Rate Post-Rosa lysis 77 BPM Temperature Post-Dialysis 97 .8 degF January 17, 2024 In-Center Hemodialysis Treatment [id number]:03:26.000Z [id number]:35:56.000Z BP Sitting (Pre-Dialysis) 155/92 mmHg BP Sitting (Post-Dialysis) 137/78 mmHg Concurrent Access: falseAV Fistula Forearm (Left) Arterial Sitting Heart Rate Pre-Dialysis 66 BPM BP Standi ng (Post-Dialysis) 136/77 mmHg Temperature Pre-Dialysis 98 degF Sitting Heart Ra te Post-Dialysis 79 BPM Standing Heart Rate Post-Rosa lysis 68 BPM Temperature Post-Dialysis 98 .1 degF January 15, 2024 In-Center Hemodialysis Treatment 9070-48-89Q82:57:00.000Z 7650-72-53R30:15:00.000Z BP Sitting (Pre-Dialysis) 162/94 mmHg BP Sitting (Post-Dialysis) 128/78 mmHg Concurrent Access: falseAV Fistula Forearm (Left) Arterial Sitting Heart Rate Pre-Dialysis 70 BPM BP Standing (Post-Dialysis) 117/65 mmHg Temperature Pre-Dialysis 98.1 degF Sitting Heart Ra te Post-Dialysis 78 BPM Standing Heart Rate Post-Rosa lysis 80 BPM Temperature Post-Dialysis 98 .1 degF January 12, 2024 In-Center Hemodialysis Treatment [id number]:33:45.000Z 9049-04-81N82:10:18.000Z BP Sitting (Pre-Dialysis) 170/104 mmHg BP Sitting (Post-Dialysis) 124/78 mmHg Concurrent Access: falseAV Fistula Forearm (Left) Arterial Sitting Heart Rate Pre-Dialysis 70 BPM BP Standing (Post-Dialysis) 121/86 mmHg Temperature Pre-Dialysis 98.1 degF Sitting Heart Ra te Post-Dialysis 66 BPM Standing Heart Rate Post-Rosa lysis 66 BPM Temperature Post-Dialysis 98 .1 degF January 10, 2024 In-Center Hemodialysis Treatment [id number]:06:11.000Z 1044-60-08D11:10:39.000Z BP Sitting (Pre-Dialysis) 160/90 mmHg BP Sitting (Post-Dialysis) 139/81 mmHg Concurrent Access: falseAV Fistula Forearm (Left) Arterial BP Standing (Pre-Dialysis) 161/91 mmHg BP Standing (P ost-Dialysis) 120/79 mmHg Sitting Heart Rate Pre-Dialysis 80 BPM Sitting Heart Rate Post-Dialysis 60 BPM Standing Heart Rate Pre-Dialysis 80 BPM Standing Heart Rate Post-Dialysis 67 BPM Temperature Pre-Dialysis 97.6 degF Temperature Post -Dialysis 98.6 degF January 08, 2024 In-Center Hemodialysis Treatment [id number]:06:00.000Z 3457-75-27P97:38:18.000Z BP Sitting (Pre-Dialysis) 139/95 mmHg BP Sitting (Post-Dialysis) 117/80 mmHg Concurrent Access: falseAV Fistula Forearm (Left) Arterial BP Standing (Pre-Dialysis) 164/90 mmHg Sitti ng Heart Rate Post-Dialysis 67 BPM Sitting Heart Rate Pre-Dialysis 77 BPM Temperatu re Post-Dialysis 97.9 degF Standing Heart Rate Pre-Dialysis 80 BPM Temperature Pre-Dialysis 98 degF January 05, 2024 In-Center Hemodialysis Treatment [id number]:13:22.000Z 6274-40-41P57:44:17.000Z BP Sitting (Pre-Dialysis) 155/93 mmHg BP Sitting (Post-Dialysis) 119/69 mmHg Concurrent Access: falseAV Fistula Forearm (Left) Arterial BP Standing (Pre-Dialysis) 154/88 mmHg BP Standing (P ost-Dialysis) 118/78 mmHg Sitting Heart Rate Pre-Dialysis 80 BPM Sitting Heart Rate Post-Dialysis 66 BPM Standing Heart Rate Pre-Dialysis 74 BPM Standing Heart Rate Post-Dialysis 69 BPM Temperature Pre-Dialysis 97.6 degF Temperature Post -Dialysis 97.9 degF January 03, 2024 In-Center Hemodialysis Treatment [id number]:01:45.000Z 5007-41-71Z67:31:55.000Z BP Sitting (Pre-Dialysis) 159/95 mmHg BP Sitting (Post-Dialysis) 127/65 mmHg Concurrent Access: falseAV Fistula Forearm (Left) Arterial Sitting Heart Rate Pre-Dialysis 74 BPM BP Standi ng (Post-Dialysis) 11/63 mmHg Temperature Pre-Dialysis 97.4 degF Sitting Heart Ra te Post-Dialysis 70 BPM Standing Heart Rate Post-Rosa lysis 82 BPM Temperature Post-Dialysis 98 .3 degF January 01, 2024 In-Center Hemodialysis Treatment [id number]:02:27.000Z 1922-49-01V21:36:51.000Z BP Sitting (Pre-Dialysis) 167/107 mmHg BP Sitting (Post-Dialysis) 149/86 mmHg Concurrent Access: falseAV Fistula Forearm (Left) Arterial BP Standing (Pre-Dialysis) 174/105 mmHg BP Standing (P ost-Dialysis) 118/75 mmHg Sitting Heart Rate Pre-Dialysis 80 BPM Sitting Heart Rate Post-Dialysis 74 BPM Standing Heart Rate Pre-Dialysis 80 BPM Standing Heart Rate Post-Dialysis 80 BPM Temperature Pre-Dialysis 97.6 degF Temperature Post -Dialysis 97.5 degF December 29, 2023 In-Center Hemodialysis Treatment 9600-59-33E91:51:00.000Z 5675-93-95N71:51:06.000Z BP Sitting (Pre-Dialysis) 128/74 mmHg BP Sitting (Post-Dialysis) 143/80 mmHg Concurrent Access: falseAV Fistula Forearm (Left) Arterial Sitting Heart Rate Pre-Dialysis 70 BPM BP Standing (Post-Dialysis) 120/64 mmHg Temperature Pre-Dialysis 97.6 degF Sitting Heart Ra te Post-Dialysis 74 BPM Standing Heart Rate Post-Rosa lysis 89 BPM Temperature Post-Dialysis 97 .5 degF December 27, 2023 In-Center Hemodialysis Treatment [id number]:11:00.000Z 8492-79-37A08:34:09.000Z BP Sitting (Pre-Dialysis) 146/84 mmHg BP Sitting (Post-Dialysis) 149/83 mmHg Concurrent Access: falseAV Fistula Forearm (Left) Arterial Sitting Heart Rate Pre-Dialysis 67 BPM BP Standing (Post-Dialysis) 138/75 mmHg Temperature Pre-Dialysis 97.5 degF Sitting Heart Ra te Post-Dialysis 68 BPM Standing Heart Rate Post-Rosa lysis 74 BPM Temperature Post-Dialysis 97 .5 degF December 25, 2023 In-Center Hemodialysis Treatment [id number]:54:39.000Z 4681-45-18I06:42:59.000Z BP Sitting (Pre-Dialysis) 158/97 mmHg BP Sitting (Post-Dialysis) 160/81 mmHg Concurrent Access: falseAV Fistula Forearm (Left) Arterial BP Standing (Pre-Dialysis) 158/97 mmHg BP Standing (P ost-Dialysis) 132/71 mmHg Sitting Heart Rate Pre-Dialysis 67 BPM Sitting Heart Rate Post-Dialysis 60 BPM Standing Heart Rate Pre-Dialysis 67 BPM Standing Heart Rate Post-Dialysis 74 BPM Temperature Pre-Dialysis 97.7 degF Temperature Post -Dialysis 97.8 degF December 22, 2023 In-Center Hemodialysis Treatment [id number]:58:00.000Z 6094-02-55C63:33:51.000Z BP Sitting (Pre-Dialysis) 150/88 mmHg BP Sitting (Post-Dialysis) 132/78 mmHg Concurrent Access: falseAV Fistula Forearm (Left) Arterial Sitting Heart Rate Pre-Dialysis 73 BPM BP Standing (Post-Dialysis) 121/76 mmHg Temperature Pre-Dialysis 97.7 degF Sitting Heart Ra te Post-Dialysis 60 BPM Standing Heart Rate Post-Rosa lysis 65 BPM Temperature Post-Dialysis 97 .4 degF December 20, 2023 In-Center Hemodialysis Treatment 6726-43-00T30:50:00.000Z 6359-47-81G67:25:57.000Z BP Sitting (Pre-Dialysis) 167/89 mmHg BP Sitting (Post-Dialysis) 141/84 mmHg Concurrent Access: falseAV Fistula Forearm (Left) Arterial BP Standing (Pre-Dialysis) 156/87 mmHg BP Standing (P ost-Dialysis) 116/63 mmHg Sitting Heart Rate Pre-Dialysis 74 BPM Sitting Heart Rate Post-Dialysis 74 BPM Standing Heart Rate Pre-Dialysis 68 BPM Standing Heart Rate Post-Dialysis 74 BPM Temperature Pre-Dialysis 97.6 degF Temperature Post -Dialysis 97.6 degF December 18, 2023 In-Center Hemodialysis Treatment 5639-57-48R54:56:00.000Z 7292-67-98F74:27:00.000Z BP Sitting (Pre-Dialysis) 171/91 mmHg BP Sitting (Post-Dialysis) 158/87 mmHg Concurrent Access: falseAV Fistula Forearm (Left) Arterial BP Standing (Pre-Dialysis) 164/99 mmHg BP Standing (P ost-Dialysis) 124/69 mmHg Sitting Heart Rate Pre-Dialysis 68 BPM Sitting Heart Rate Post-Dialysis 67 BPM Standing Heart Rate Pre-Dialysis 68 BPM Standing Heart Rate Post-Dialysis 62 BPM Temperature Pre-Dialysis 97.9 degF Temperature Post -Dialysis 97.6 degF December 15, 2023 In-Center Hemodialysis Treatment [id number]:11:00.000Z 3009-18-28B05:47:23.000Z BP Sitting (Pre-Dialysis) 162/88 mmHg BP Sitting (Post-Dialysis) 116/60 mmHg Concurrent Access: falseAV Fistula Forearm (Left) Arterial BP Standing (Pre-Dialysis) 164/88 mmHg BP Standing (P ost-Dialysis) 104/71 mmHg Sitting Heart Rate Pre-Dialysis 68 BPM Sitting Heart Rate Post-Dialysis 60 BPM Standing Heart Rate Pre-Dialysis 69 BPM Standing Heart Rate Post-Dialysis 109 BPM Temperature Pre-Dialysis 97.5 degF Temperature Post -Dialysis 97.2 degF December 13, 2023 In-Center Hemodialysis Treatment 0544-25-67Q97:54:00.000Z 6667-46-18W19:29:40.000Z BP Sitting (Pre-Dialysis) 151/90 mmHg BP Sitting (Post-Dialysis) 151/83 mmHg Concurrent Access: falseAV Fistula Forearm (Left) Arterial BP Standing (Pre-Dialysis) 152/86 mmHg BP Standing (P ost-Dialysis) 151/83 mmHg Sitting Heart Rate Pre-Dialysis 69 BPM Sitting Heart Rate Post-Dialysis 67 BPM Standing Heart Rate Pre-Dialysis 73 BPM Standing Heart Rate Post-Dialysis 73 BPM Temperature Pre-Dialysis 97.8 degF Temperature Post -Dialysis 97.8 degF December 11, 2023 In-Center Hemodialysis Treatment 7263-36-04N63:58:00.000Z 4620-20-61I67:33:53.000Z BP Sitting (Pre-Dialysis) 159/92 mmHg BP Sitting (Post-Dialysis) 132/81 mmHg Concurrent Access: falseAV Fistula Forearm (Left) Arterial Sitting Heart Rate Pre-Dialysis 69 BPM Sitting H eart Rate Post-Dialysis 65 BPM Temperature Pre-Dialysis 98.3 degF Temperature Post -Dialysis 97.8 degF December 08, 2023 In-Center Hemodialysis Treatment 6058-27-12F71:55:44.000Z [id number]:58:19.000Z BP Sitting (Pre-Dialysis) 165/65 mmHg BP Sitting (Post-Dialysis) 152/65 mmHg Concurrent Access: falseAV Fistula Forearm (Left) Arterial Sitting Heart Rate Pre-Dialysis 68 BPM BP Standing (Post-Dialysis) 102/57 mmHg Temperature Pre-Dialysis 97.9 degF Sitting Heart Ra te Post-Dialysis 65 BPM Standing Heart Rate Post-Rosa lysis 67 BPM Temperature Post-Dialysis 97 .8 degF December 06, 2023 In-Center Hemodialysis Treatment [id number]:40:00.000Z 6397-28-65A12:00:15.000Z BP Sitting (Pre-Dialysis) 156/60 mmHg BP Sitting (Post-Dialysis) 152/78 mmHg Concurrent Access: falseAV Fistula Forearm (Left) Arterial BP Standing (Pre-Dialysis) 167/60 mmHg BP Standing (P ost-Dialysis) 127/78 mmHg Sitting Heart Rate Pre-Dialysis 65 BPM Sitting Heart Rate Post-Dialysis 65 BPM Standing Heart Rate Pre-Dialysis 65 BPM Standing Heart Rate Post-Dialysis 68 BPM Temperature Pre-Dialysis 97.9 degF Temperature Post -Dialysis 97.8 degF December 04, 2023 In-Center Hemodialysis Treatment [id number]:57:00.000Z 6401-80-85K08:33:53.000Z BP Sitting (Pre-Dialysis) 133/64 mmHg BP Sitting (Post-Dialysis) 129/72 mmHg Concurrent Access: falseAV Fistula Forearm (Left) Arterial Sitting Heart Rate Pre-Dialysis 80 BPM BP Standing (Post-Dialysis) 106/62 mmHg Temperature Pre-Dialysis 98.3 degF Sitting Heart Ra te Post-Dialysis 62 BPM Standing Heart Rate Post-Rosa lysis 71 BPM Temperature Post-Dialysis 97 .8 degF December 01, 2023 In-Center Hemodialysis Treatment [id number]:15:00.000Z 3720-95-15G07:49:30.000Z BP Sitting (Pre-Dialysis) 121/78 mmHg BP Sitting (Post-Dialysis) 123/90 mmHg Concurrent Access: falseAV Fistula Forearm (Left) Arterial BP Standing (Pre-Dialysis) 117/82 mmHg BP Standing (P ost-Dialysis) 161/83 mmHg Sitting Heart Rate Pre-Dialysis 65 BPM Sitting Heart Rate Post-Dialysis 68 BPM Standing Heart Rate Pre-Dialysis 60 BPM Standing Heart Rate Post-Dialysis 77 BPM Temperature Pre-Dialysis 98.3 degF Temperature Post -Dialysis 97.8 degF November 29, 2023 In-Center Hemodialysis Treatment [id number]:55:00.000Z 2337-62-10I38:30:10.000Z BP Sitting (Pre-Dialysis) 156/94 mmHg BP Sitting (Post-Dialysis) 127/65 mmHg Concurrent Access: falseAV Fistula Forearm (Left) Arterial BP Standing (Pre-Dialysis) 151/99 mmHg Sitti ng Heart Rate Post-Dialysis 68 BPM Sitting Heart Rate Pre-Dialysis 97 BPM Temperatu re Post-Dialysis 97.4 degF Standing Heart Rate Pre-Dialysis 82 BPM Temperature Pre-Dialysis 98 degF November 27, 2023 In-Center Hemodialysis Treatment 9939-52-10V78:57:00.000Z 3495-47-60Q07:32:00.000Z BP Sitting (Pre-Dialysis) 151/80 mmHg BP Sitting (Post-Dialysis) 148/74 mmHg Concurrent Access: falseAV Fistula Forearm (Left) Arterial BP Standing (Pre-Dialysis) 148/85 mmHg BP Standing (P ost-Dialysis) 134/74 mmHg Sitting Heart Rate Pre-Dialysis 74 BPM Sitting Heart Rate Post-Dialysis 65 BPM Standing Heart Rate Pre-Dialysis 72 BPM Standing Heart Rate Post-Dialysis 80 BPM Temperature Pre-Dialysis 98 degF Temperature Post -Dialysis 97.6 degF November 24, 2023 In-Center Hemodialysis Treatment [id number]:06:00.000Z 1273-20-62X26:13:11.000Z BP Sitting (Pre-Dialysis) 146/76 mmHg BP Sitting (Post-Dialysis) 121/55 mmHg Concurrent Access: falseAV Fistula Forearm (Left) Arterial Sitting Heart Rate Pre-Dialysis 72 BPM BP Standing (Post-Dialysis) 116/78 mmHg Temperature Pre-Dialysis 97.9 degF Sitting Heart Ra te Post-Dialysis 62 BPM Standing Heart Rate Post-Rosa lysis 60 BPM Temperature Post-Dialysis 97 .6 degF November 22, 2023 In-Center Hemodialysis Treatment [id number]:48:00.000Z 3725-07-49E90:24:43.000Z BP Sitting (Pre-Dialysis) 177/95 mmHg BP Sitting (Post-Dialysis) 135/83 mmHg Concurrent Access: falseAV Fistula Forearm (Left) Arterial Sitting Heart Rate Pre-Dialysis 77 BPM Sitting H eart Rate Post-Dialysis 70 BPM Temperature Pre-Dialysis 98.1 degF Temperature Post -Dialysis 98.3 degF November 20, 2023 In-Center Hemodialysis Treatment 7989-24-47P67:15:00.000Z 6218-95-36C91:48:09.000Z BP Sitting (Pre-Dialysis) 147/54 mmHg BP Sitting (Post-Dialysis) 139/72 mmHg Concurrent Access: falseAV Fistula Forearm (Left) Arterial BP Standing (Pre-Dialysis) 159/95 mmHg Sitti ng Heart Rate Post-Dialysis 72 BPM Sitting Heart Rate Pre-Dialysis 72 BPM Temperatu re Post-Dialysis 98.3 degF Standing Heart Rate Pre-Dialysis 74 BPM Temperature Pre-Dialysis 98.3 degF November 17, 2023 In-Center Hemodialysis Treatment 3810-39-22J66:58:00.000Z 6540-15-25F36:27:13.000Z BP Sitting (Pre-Dialysis) 151/93 mmHg BP Sitting (Post-Dialysis) 144/80 mmHg Concurrent Access: falseAV Fistula Forearm (Left) Arterial Sitting Heart Rate Pre-Dialysis 80 BPM BP Standing (Post-Dialysis) 130/66 mmHg Temperature Pre-Dialysis 97.2 degF Sitting Heart Ra te Post-Dialysis 61 BPM Standing Heart Rate Post-Rosa lysis 80 BPM Temperature Post-Dialysis 98 degF November 15, 2023 In-Center Hemodialysis Treatment [id number]:58:00.000Z 7147-07-12K93:32:08.000Z BP Sitting (Pre-Dialysis) 164/71 mmHg BP Sitting (Post-Dialysis) 142/78 mmHg Concurrent Access: falseAV Fistula Forearm (Left) Arterial Sitting Heart Rate Pre-Dialysis 60 BPM Sitting H eart Rate Post-Dialysis 67 BPM Temperature Pre-Dialysis 98 degF Temperature Post -Dialysis 98 degF November 13, 2023 In-Center Hemodialysis Treatment 9040-47-87A77:04:00.000Z 5731-44-40H24:30:40.000Z BP Sitting (Pre-Dialysis) 132/78 mmHg BP Sitting (Post-Dialysis) 129/78 mmHg Concurrent Access: falseAV Fistula Forearm (Left) Arterial BP Standing (Pre-Dialysis) 129/79 mmHg Sitting Heart Rate Post-Dialysis 69 BPM Sitting Heart Rate Pre-Dialysis 69 BPM Temperatu re Post-Dialysis 98 degF Standing Heart Rate Pre-Dialysis 80 BPM Temperature Pre-Dialysis 98.6 degF November 10, 2023 In-Center Hemodialysis Treatment 1096-30-44R88:05:00.000Z 7456-36-70G94:38:15.000Z BP Sitting (Pre-Dialysis) 138/80 mmHg BP Sitting (Post-Dialysis) 130/82 mmHg Concurrent Access: falseAV Fistula Forearm (Left) Arterial BP Standing (Pre-Dialysis) 148/80 mmHg BP Standing (P ost-Dialysis) 134/73 mmHg Sitting Heart Rate Pre-Dialysis 80 BPM Sitting Heart Rate Post-Dialysis 68 BPM Standing Heart Rate Pre-Dialysis 110 BPM Standing Heart Rate Post-Dialysis 77 BPM Temperature Pre-Dialysis 98 degF Temperature Post -Dialysis 98 degF November 08, 2023 In-Center Hemodialysis Treatment 4393-43-34H35:03:00.000Z 2072-79-47Z04:31:19.000Z BP Sitting (Pre-Dialysis) 142/78 mmHg BP Sitting (Post-Dialysis) 156/89 mmHg Concurrent Access: falseAV Fistula Forearm (Left) Arterial BP Standing (Pre-Dialysis) 143/94 mmHg BP Standing (P ost-Dialysis) 156/89 mmHg Sitting Heart Rate Pre-Dialysis 80 BPM Sitting Heart Rate Post-Dialysis 80 BPM Standing Heart Rate Pre-Dialysis 80 BPM Standing Heart Rate Post-Dialysis 80 BPM Temperature Pre-Dialysis 97.7 degF Temperature Post -Dialysis 97.9 degF November 06, 2023 In-Center Hemodialysis Treatment 0625-16-78C56:51:00.000Z 9924-19-07N69:24:18.000Z BP Sitting (Pre-Dialysis) 159/96 mmHg BP Sitting (Post-Dialysis) 144/82 mmHg Concurrent Access: falseAV Fistula Forearm (Left) Arterial BP Standing (Pre-Dialysis) 159/96 mmHg BP Standing (P ost-Dialysis) 158/81 mmHg Sitting Heart Rate Pre-Dialysis 80 BPM Sitting Heart Rate Post-Dialysis 96 BPM Standing Heart Rate Pre-Dialysis 80 BPM Standing Heart Rate Post-Dialysis 67 BPM Temperature Pre-Dialysis 97.7 degF Temperature Post -Dialysis 97.9 degF November 03, 2023 In-Center Hemodialysis Treatment [id number]:24:25.000Z 1549-67-62T27:26:55.000Z BP Sitting (Pre-Dialysis) 158/92 mmHg BP Sitting (Post-Dialysis) 121/78 mmHg Concurrent Access: falseAV Fistula Forearm (Left) Arterial Sitting Heart Rate Pre-Dialysis 71 BPM Sitting H eart Rate Post-Dialysis 66 BPM Temperature Pre-Dialysis 97.7 degF Temperature Post -Dialysis 97.9 degF November 01, 2023 In-Center Hemodialysis Treatment 9986-82-20G15:07:00.000Z 9207-83-59U66:43:21.000Z BP Sitting (Pre-Dialysis) 134/85 mmHg BP Sitting (Post-Dialysis) 136/72 mmHg Concurrent Access: falseAV Fistula Forearm (Left) Arterial BP Standing (Pre-Dialysis) 153/78 mmHg BP Standing (P ost-Dialysis) 131/77 mmHg Sitting Heart Rate Pre-Dialysis 80 BPM Sitting Heart Rate Post-Dialysis 75 BPM Standing Heart Rate Pre-Dialysis 80 BPM Standing Heart Rate Post-Dialysis 74 BPM Temperature Pre-Dialysis 98.3 degF Temperature Post -Dialysis 98.3 degF October 30, 2023 In-Center Hemodialysis Treatment 1163-38-26J14:53:00.000Z 1679-60-75C83:32:11.000Z BP Sitting (Pre-Dialysis) 140/87 mmHg BP Sitting (Post-Dialysis) 121/82 mmHg Concurrent Access: falseAV Fistula Forearm (Left) Arterial BP Standing (Pre-Dialysis) 141/85 mmHg BP Standing (P ost-Dialysis) 104/86 mmHg Sitting Heart Rate Pre-Dialysis 80 BPM Sitting Heart Rate Post-Dialysis 69 BPM Standing Heart Rate Pre-Dialysis 80 BPM Standing Heart Rate Post-Dialysis 66 BPM Temperature Pre-Dialysis 98.7 degF Temperature Post -Dialysis 97.6 degF October 27, 2023 In-Center Hemodialysis Treatment [id number]:01:00.000Z 6153-47-85C77:31:07.000Z BP Sitting (Pre-Dialysis) 125/77 mmHg BP Sitting (Post-Dialysis) 119/62 mmHg Concurrent Access: falseAV Fistula Forearm (Left) Arterial BP Standing (Pre-Dialysis) 132/72 mmHg BP Standing (P ost-Dialysis) 100/62 mmHg Sitting Heart Rate Pre-Dialysis 80 BPM Sitting Heart Rate Post-Dialysis 68 BPM Standing Heart Rate Pre-Dialysis 80 BPM Standing Heart Rate Post-Dialysis 60 BPM Temperature Pre-Dialysis 98.3 degF Temperature Post -Dialysis 97.9 degF October 25, 2023 In-Center Hemodialysis Treatment 3050-89-95Q35:53:00.000Z 2443-11-85A05:23:09.000Z BP Sitting (Pre-Dialysis) 156/91 mmHg BP Sitting (Post-Dialysis) 164/86 mmHg Concurrent Access: falseAV Fistula Forearm (Left) Arterial BP Standing (Pre-Dialysis) 156/91 mmHg Sitti ng Heart Rate Post-Dialysis 72 BPM Sitting Heart Rate Pre-Dialysis 86 BPM Temperatu re Post-Dialysis 98.3 degF Standing Heart Rate Pre-Dialysis 86 BPM Temperature Pre-Dialysis 97.6 degF October 23, 2023 In-Center Hemodialysis Treatment 7087-94-26O75:15:00.000Z 4812-93-72F80:49:14.000Z BP Sitting (Pre-Dialysis) 146/90 mmHg BP Sitting (Post-Dialysis) 157/95 mmHg Concurrent Access: falseAV Fistula Forearm (Left) Arterial BP Standing (Pre-Dialysis) 150/96 mmHg Sitti ng Heart Rate Post-Dialysis 75 BPM Sitting Heart Rate Pre-Dialysis 68 BPM Temperatu re Post-Dialysis 98.3 degF Standing Heart Rate Pre-Dialysis 69 BPM Temperature Pre-Dialysis 97.9 degF October 20, 2023 In-Center Hemodialysis Treatment [id number]:43:00.000Z 9326-89-32X89:15:01.000Z BP Sitting (Pre-Dialysis) 159/91 mmHg BP Sitting (Post-Dialysis) 160/91 mmHg Concurrent Access: falseAV Fistula Forearm (Left) Arterial BP Standing (Pre-Dialysis) 150/86 mmHg Sitti ng Heart Rate Post-Dialysis 70 BPM Sitting Heart Rate Pre-Dialysis 80 BPM Temperatu re Post-Dialysis 98.3 degF Standing Heart Rate Pre-Dialysis 80 BPM Temperature Pre-Dialysis 97.5 degF October 18, 2023 In-Center Hemodialysis Treatment 2068-53-52Q07:54:00.000Z 9005-41-60A21:23:11.000Z BP Sitting (Pre-Dialysis) 122/77 mmHg BP Sitting (Post-Dialysis) 163/74 mmHg Concurrent Access: falseAV Fistula Forearm (Left) Arterial BP Standing (Pre-Dialysis) 130/79 mmHg BP Standing (P ost-Dialysis) 117/78 mmHg Sitting Heart Rate Pre-Dialysis 80 BPM Sitting Heart Rate Post-Dialysis 80 BPM Standing Heart Rate Pre-Dialysis 80 BPM Standing Heart Rate Post-Dialysis 80 BPM Temperature Pre-Dialysis 98.6 degF Temperature Post -Dialysis 98.6 degF October 16, 2023 In-Center Hemodialysis Treatment 1228-17-66K98:02:00.000Z 8938-94-03P93:36:15.000Z BP Sitting (Pre-Dialysis) 140/85 mmHg BP Sitting (Post-Dialysis) 173/86 mmHg Concurrent Access: falseAV Fistula Forearm (Left) Arterial Sitting Heart Rate Pre-Dialysis 77 BPM BP Standing (Post-Dialysis) 103/67 mmHg Temperature Pre-Dialysis 97.9 degF Sitting Heart Ra te Post-Dialysis 69 BPM Standing Heart Rate Post-Rosa lysis 108 BPM Temperature Post-Dialysis 97 .7 degF October 13, 2023 In-Center Hemodialysis Treatment 7955-70-88P13:40:00.000Z 8785-46-27P79:17:09.000Z BP Sitting (Pre-Dialysis) 153/81 mmHg BP Sitting (Post-Dialysis) 148/78 mmHg Concurrent Access: falseAV Fistula Forearm (Left) Arterial BP Standing (Pre-Dialysis) 128/91 mmHg Sitti ng Heart Rate Post-Dialysis 69 BPM Sitting Heart Rate Pre-Dialysis 80 BPM Temperatu re Post-Dialysis 97.7 degF Standing Heart Rate Pre-Dialysis 80 BPM Temperature Pre-Dialysis 97.8 degF October 11, 2023 In-Center Hemodialysis Treatment 5691-03-57E88:31:00.000Z 7904-43-09X20:06:41.000Z BP Sitting (Pre-Dialysis) 159/64 mmHg BP Sitting (Post-Dialysis) 152/86 mmHg Concurrent Access: falseAV Fistula Forearm (Left) Arterial BP Standing (Pre-Dialysis) 144/82 mmHg Sitti ng Heart Rate Post-Dialysis 68 BPM Sitting Heart Rate Pre-Dialysis 60 BPM Temperatu re Post-Dialysis 97.6 degF Standing Heart Rate Pre-Dialysis 80 BPM Temperature Pre-Dialysis 97.6 degF October 09, 2023 In-Center Hemodialysis Treatment [id number]:52:00.000Z 4197-48-01Y13:23:53.000Z BP Sitting (Pre-Dialysis) 150/94 mmHg BP Sitting (Post-Dialysis) 137/96 mmHg Concurrent Access: falseAV Fistula Forearm (Left) Arterial BP Standing (Pre-Dialysis) 150/84 mmHg Sitti ng Heart Rate Post-Dialysis 72 BPM Sitting Heart Rate Pre-Dialysis 74 BPM Temperatu re Post-Dialysis 98.3 degF Standing Heart Rate Pre-Dialysis 80 BPM Temperature Pre-Dialysis 97.6 degF October 06, 2023 In-Center Hemodialysis Treatment [id number]:35:00.000Z [id number]:08:12.000Z BP Sitting (Pre-Dialysis) 153/91 mmHg BP Sitting (Post-Dialysis) 168/93 mmHg Concurrent Access: falseAV Fistula Forearm (Left) Arterial BP Standing (Pre-Dialysis) 148/88 mmHg Sitti ng Heart Rate Post-Dialysis 70 BPM Sitting Heart Rate Pre-Dialysis 73 BPM Temperatu re Post-Dialysis 97.6 degF Standing Heart Rate Pre-Dialysis 80 BPM Temperature Pre-Dialysis 97.6 degF October 04, 2023 In-Center Hemodialysis Treatment [id number]:41:00.000Z [id number]:22:04.000Z BP Sitting (Pre-Dialysis) 127/74 mmHg BP Sitting (Post-Dialysis) 124/80 mmHg Concurrent Access: falseAV Fistula Forearm (Left) Arterial BP Standing (Pre-Dialysis) 134/90 mmHg BP Standing (P ost-Dialysis) 152/92 mmHg Sitting Heart Rate Pre-Dialysis 73 BPM Sitting Heart Rate Post-Dialysis 80 BPM Standing Heart Rate Pre-Dialysis 69 BPM Standing Heart Rate Post-Dialysis 80 BPM Temperature Pre-Dialysis 98.3 degF Temperature Post -Dialysis 98.2 degF October 02, 2023 In-Center Hemodialysis Treatment [id number]:54:00.000Z [id number]:30:07.000Z BP Sitting (Pre-Dialysis) 155/82 mmHg BP Sitting (Post-Dialysis) 132/76 mmHg Concurrent Access: falseAV Fistula Forearm (Left) Arterial BP Standing (Pre-Dialysis) 173/84 mmHg Sitti ng Heart Rate Post-Dialysis 71 BPM Sitting Heart Rate Pre-Dialysis 80 BPM Temperatu re Post-Dialysis 98.3 degF Standing Heart Rate Pre-Dialysis 80 BPM Temperature Pre-Dialysis 97.4 degF September 29, 2023 In-Center Hemodialysis Treatment [id number]:45:00.000Z [id number]:21:40.000Z BP Sitting (Pre-Dialysis) 144/79 mmHg BP Sitting (Post-Dialysis) 139/76 mmHg Concurrent Access: falseAV Fistula Forearm (Left) Arterial BP Standing (Pre-Dialysis) 144/90 mmHg BP Standing (P ost-Dialysis) 111/57 mmHg Sitting Heart Rate Pre-Dialysis 74 BPM Sitting Heart Rate Post-Dialysis 75 BPM Standing Heart Rate Pre-Dialysis 80 BPM Standing Heart Rate Post-Dialysis 113 BPM Temperature Pre-Dialysis 97.4 degF Temperature Post -Dialysis 97.9 degF September 27, 2023 In-Center Hemodialysis Treatment [id number]:04:00.000Z 6501-64-46J47:31:06.000Z BP Sitting (Pre-Dialysis) 145/87 mmHg BP Sitting (Post-Dialysis) 161/85 mmHg Concurrent Access: falseAV Fistula Forearm (Left) Arterial BP Standing (Pre-Dialysis) 152/78 mmHg Sitting Heart Rate Post-Dialysis 67 BPM Sitting Heart Rate Pre-Dialysis 73 BPM Temperatu re Post-Dialysis 98 degF Standing Heart Rate Pre-Dialysis 70 BPM Temperature Pre-Dialysis 98.5 degF September 25, 2023 In-Center Hemodialysis Treatment [id number]:59:00.000Z 6749-80-29R11:35:00.000Z BP Sitting (Pre-Dialysis) 153/89 mmHg BP Sitting (Post-Dialysis) 133/79 mmHg Concurrent Access: falseAV Fistula Forearm (Left) Arterial BP Standing (Pre-Dialysis) 153/89 mmHg BP Standing (P ost-Dialysis) 110/57 mmHg Sitting Heart Rate Pre-Dialysis 73 BPM Sitting Heart Rate Post-Dialysis 67 BPM Standing Heart Rate Pre-Dialysis 73 BPM Standing Heart Rate Post-Dialysis 78 BPM Temperature Pre-Dialysis 98.6 degF Temperature Post -Dialysis 97.6 degF September 22, 2023 In-Center Hemodialysis Treatment [id number]:02:00.000Z [id number]:33:16.000Z BP Sitting (Pre-Dialysis) 145/85 mmHg BP Sitting (Post-Dialysis) 144/84 mmHg Concurrent Access: falseAV Fistula Forearm (Left) Arterial BP Standing (Pre-Dialysis) 134/103 mmHg BP Standing (P ost-Dialysis) 106/66 mmHg Sitting Heart Rate Pre-Dialysis 73 BPM Sitting Heart Rate Post-Dialysis 62 BPM Standing Heart Rate Pre-Dialysis 73 BPM Standing Heart Rate Post-Dialysis 70 BPM Temperature Pre-Dialysis 97.8 degF Temperature Post -Dialysis 97.6 degF September 20, 2023 In-Center Hemodialysis Treatment [id number]:37:00.000Z [id number]:09:01.000Z BP Sitting (Pre-Dialysis) 134/76 mmHg BP Sitting (Post-Dialysis) 142/80 mmHg Concurrent Access: falseAV Fistula Forearm (Left) Arterial BP Standing (Pre-Dialysis) 140/77 mmHg BP Standing (P ost-Dialysis) 110/72 mmHg Sitting Heart Rate Pre-Dialysis 80 BPM Sitting Heart Rate Post-Dialysis 60 BPM Standing Heart Rate Pre-Dialysis 80 BPM Standing Heart Rate Post-Dialysis 72 BPM Temperature Pre-Dialysis 98 degF Temperature Post -Dialysis 98 degF September 18, 2023 In-Center Hemodialysis Treatment [id number]:01:00.000Z 5197-06-13E38:27:57.000Z BP Sitting (Pre-Dialysis) 151/87 mmHg BP Sitting (Post-Dialysis) 126/77 mmHg Concurrent Access: falseAV Fistula Forearm (Left) Arterial BP Standing (Pre-Dialysis) 143/95 mmHg Sitti ng Heart Rate Post-Dialysis 70 BPM Sitting Heart Rate Pre-Dialysis 80 BPM Temperatu re Post-Dialysis 98.3 degF Standing Heart Rate Pre-Dialysis 80 BPM Temperature Pre-Dialysis 98.3 degF September 15, 2023 In-Center Hemodialysis Treatment 3939-43-41Z44:02:00.000Z 7109-78-55S72:23:47.000Z BP Sitting (Pre-Dialysis) 157/89 mmHg BP Sitting (Post-Dialysis) 115/93 mmHg Concurrent Access: falseAV Fistula Forearm (Left) Arterial BP Standing (Pre-Dialysis) 153/97 mmHg BP Standing (P ost-Dialysis) 111/60 mmHg Sitting Heart Rate Pre-Dialysis 72 BPM Sitting Heart Rate Post-Dialysis 60 BPM Standing Heart Rate Pre-Dialysis 77 BPM Standing Heart Rate Post-Dialysis 65 BPM Temperature Pre-Dialysis 97.8 degF September 13, 2023 In-Center Hemodialysis Treatment 4700-74-91Q18:05:00.000Z 3546-70-13Z76:34:35.000Z BP Sitting (Pre-Dialysis) 141/81 mmHg BP Sitting (Post-Dialysis) 108/90 mmHg Concurrent Access: falseAV Fistula Forearm (Left) Arterial BP Standing (Pre-Dialysis) 143/85 mmHg BP Standing (P ost-Dialysis) 102/63 mmHg Sitting Heart Rate Pre-Dialysis 80 BPM Sitting Heart Rate Post-Dialysis 95 BPM Standing Heart Rate Pre-Dialysis 80 BPM Standing Heart Rate Post-Dialysis 84 BPM Temperature Pre-Dialysis 97.6 degF September 11, 2023 In-Center Hemodialysis Treatment [id number]:59:00.000Z 5942-52-27V99:32:57.000Z BP Sitting (Pre-Dialysis) 171/78 mmHg BP Sitting (Post-Dialysis) 130/52 mmHg Concurrent Access: falseAV Fistula Forearm (Left) Arterial BP Standing (Pre-Dialysis) 146/81 mmHg BP Standing (P ost-Dialysis) 120/60 mmHg Sitting Heart Rate Pre-Dialysis 73 BPM Sitting Heart Rate Post-Dialysis 60 BPM Standing Heart Rate Pre-Dialysis 73 BPM Standing Heart Rate Post-Dialysis 65 BPM Temperature Pre-Dialysis 97.8 degF Temperature Post -Dialysis 97.8 degF September 08, 2023 In-Center Hemodialysis Treatment [id number]:52:00.000Z 3328-45-54W06:29:34.000Z BP Sitting (Pre-Dialysis) 151/71 mmHg BP Sitting (Post-Dialysis) 143/75 mmHg Concurrent Access: falseAV Fistula Forearm (Left) Arterial Sitting Heart Rate Pre-Dialysis 77 BPM Sitting H eart Rate Post-Dialysis 62 BPM Temperature Pre-Dialysis 97.8 degF Temperature Post -Dialysis 97.8 degF September 06, 2023 In-Center Hemodialysis Treatment [id number]:56:00.000Z [id number]:27:21.000Z BP Sitting (Pre-Dialysis) 143/81 mmHg BP Sitting (Post-Dialysis) 126/72 mmHg Concurrent Access: falseAV Fistula Forearm (Left) Arterial BP Standing (Pre-Dialysis) 149/84 mmHg BP Standing (P ost-Dialysis) 115/64 mmHg Sitting Heart Rate Pre-Dialysis 77 BPM Sitting Heart Rate Post-Dialysis 70 BPM Standing Heart Rate Pre-Dialysis 80 BPM Standing Heart Rate Post-Dialysis 74 BPM Temperature Pre-Dialysis 98.6 degF Temperature Post -Dialysis 97.6 degF September 04, 2023 In-Center Hemodialysis Treatment [id number]:06:00.000Z 9128-32-47B23:30:00.000Z BP Sitting (Pre-Dialysis) 160/95 mmHg BP Sitting (Post-Dialysis) 122/64 mmHg Concurrent Access: falseAV Fistula Forearm (Left) Arterial BP Standing (Pre-Dialysis) 159/98 mmHg Sitti ng Heart Rate Post-Dialysis 62 BPM Sitting Heart Rate Pre-Dialysis 80 BPM Temperatu re Post-Dialysis 97.5 degF Standing Heart Rate Pre-Dialysis 80 BPM Temperature Pre-Dialysis 98.6 degF September 01, 2023 In-Center Hemodialysis Treatment [id number]:59:00.000Z 7424-57-67I54:32:15.000Z BP Sitting (Pre-Dialysis) 134/82 mmHg BP Sitting (Post-Dialysis) 130/61 mmHg Concurrent Access: falseAV Fistula Forearm (Left) Arterial BP Standing (Pre-Dialysis) 132/80 mmHg BP Standing (P ost-Dialysis) 126/76 mmHg Sitting Heart Rate Pre-Dialysis 72 BPM Sitting Heart Rate Post-Dialysis 66 BPM Standing Heart Rate Pre-Dialysis 72 BPM Standing Heart Rate Post-Dialysis 80 BPM Temperature Pre-Dialysis 98.6 degF Temperature Post -Dialysis 97.5 degF August 30, 2023 In-Center Hemodialysis Treatment [id number]:01:00.000Z 2046-45-87D31:36:00.000Z BP Sitting (Pre-Dialysis) 179/95 mmHg BP Sitting (Post-Dialysis) 152/88 mmHg Concurrent Access: falseAV Fistula Forearm (Left) Arterial BP Standing (Pre-Dialysis) 171/95 mmHg BP Standing (P ost-Dialysis) 122/77 mmHg Sitting Heart Rate Pre-Dialysis 71 BPM Sitting Heart Rate Post-Dialysis 62 BPM Standing Heart Rate Pre-Dialysis 74 BPM Standing Heart Rate Post-Dialysis 73 BPM Temperature Pre-Dialysis 98 degF Temperature Post -Dialysis 97.3 degF August 28, 2023 In-Center Hemodialysis Treatment [id number]:56:00.000Z [id number]:29:37.000Z BP Sitting (Pre-Dialysis) 163/97 mmHg BP Sitting (Post-Dialysis) 142/81 mmHg Concurrent Access: falseAV Fistula Forearm (Left) Arterial BP Standing (Pre-Dialysis) 160/94 mmHg Sitti ng Heart Rate Post-Dialysis 67 BPM Sitting Heart Rate Pre-Dialysis 72 BPM Temperatu re Post-Dialysis 98.3 degF Standing Heart Rate Pre-Dialysis 72 BPM Temperature Pre-Dialysis 98 degF August 25, 2023 In-Center Hemodialysis Treatment [id number]:04:00.000Z 7363-83-06G20:40:08.000Z BP Sitting (Pre-Dialysis) 155/93 mmHg BP Sitting (Post-Dialysis) 109/76 mmHg Concurrent Access: falseAV Fistula Forearm (Left) Arterial BP Standing (Pre-Dialysis) 152/93 mmHg Sitti ng Heart Rate Post-Dialysis 69 BPM Sitting Heart Rate Pre-Dialysis 80 BPM Temperatu re Post-Dialysis 98.3 degF Standing Heart Rate Pre-Dialysis 80 BPM Temperature Pre-Dialysis 98 degF August 23, 2023 In-Center Hemodialysis Treatment [id number]:18:00.000Z [id number]:20:44.000Z BP Sitting (Pre-Dialysis) 155/88 mmHg BP Sitting (Post-Dialysis) 106/91 mmHg Concurrent Access: falseAV Fistula Forearm (Left) Arterial BP Standing (Pre-Dialysis) 161/92 mmHg Sitti ng Heart Rate Post-Dialysis 65 BPM Sitting Heart Rate Pre-Dialysis 78 BPM Temperatu re Post-Dialysis 98.3 degF Standing Heart Rate Pre-Dialysis 67 BPM Temperature Pre-Dialysis 97.4 degF August 21, 2023 In-Center Hemodialysis Treatment [id number]:57:26.000Z 9070-39-78L67:25:02.000Z BP Sitting (Pre-Dialysis) 158/83 mmHg BP Sitting (Post-Dialysis) 151/100 mmHg Concurrent Access: falseAV Fistula Forearm (Left) Arterial BP Standing (Pre-Dialysis) 149/89 mmHg Sitti ng Heart Rate Post-Dialysis 66 BPM Sitting Heart Rate Pre-Dialysis 77 BPM Temperatu re Post-Dialysis 98.3 degF Standing Heart Rate Pre-Dialysis 80 BPM Temperature Pre-Dialysis 97.4 degF August 18, 2023 In-Center Hemodialysis Treatment 3834-43-34H01:01:00.000Z 7874-51-06Z80:29:54.000Z BP Sitting (Pre-Dialysis) 142/81 mmHg BP Sitting (Post-Dialysis) 148/96 mmHg Concurrent Access: falseAV Fistula Forearm (Left) Arterial BP Standing (Pre-Dialysis) 156/84 mmHg Sitti ng Heart Rate Post-Dialysis 60 BPM Sitting Heart Rate Pre-Dialysis 67 BPM Temperatu re Post-Dialysis 98.3 degF Standing Heart Rate Pre-Dialysis 69 BPM Temperature Pre-Dialysis 97.4 degF August 16, 2023 In-Center Hemodialysis Treatment 9259-03-89J09:59:00.000Z 1602-01-33L94:36:34.000Z BP Sitting (Pre-Dialysis) 155/91 mmHg BP Sitting (Post-Dialysis) 145/70 mmHg Concurrent Access: falseAV Fistula Forearm (Left) Arterial Sitting Heart Rate Pre-Dialysis 77 BPM BP Standi ng (Post-Dialysis) 145/70 mmHg Temperature Pre-Dialysis 98 degF Sitting Heart Ra te Post-Dialysis 62 BPM Standing Heart Rate Post-Rosa lysis 62 BPM Temperature Post-Dialysis 97 .6 degF August 14, 2023 In-Center Hemodialysis Treatment [id number]:09:00.000Z 2217-89-07C81:45:02.000Z BP Sitting (Pre-Dialysis) 138/80 mmHg BP Sitting (Post-Dialysis) 137/78 mmHg Concurrent Access: falseAV Fistula Forearm (Left) Arterial BP Standing (Pre-Dialysis) 135/77 mmHg BP Standing (P ost-Dialysis) 110/74 mmHg Sitting Heart Rate Pre-Dialysis 68 BPM Sitting Heart Rate Post-Dialysis 60 BPM Standing Heart Rate Pre-Dialysis 69 BPM Standing Heart Rate Post-Dialysis 68 BPM Temperature Pre-Dialysis 98 degF Temperature Post -Dialysis 97.6 degF August 11, 2023 In-Center Hemodialysis Treatment [id number]:58:00.000Z 6861-88-96P35:29:27.000Z BP Sitting (Pre-Dialysis) 161/92 mmHg BP Sitting (Post-Dialysis) 149/66 mmHg Concurrent Access: falseAV Fistula Forearm (Left) Arterial BP Standing (Pre-Dialysis) 156/96 mmHg BP Standing (P ost-Dialysis) 118/56 mmHg Sitting Heart Rate Pre-Dialysis 77 BPM Sitting Heart Rate Post-Dialysis 66 BPM Standing Heart Rate Pre-Dialysis 80 BPM Standing Heart Rate Post-Dialysis 80 BPM Temperature Pre-Dialysis 98 degF Temperature Post -Dialysis 97.6 degF August 09, 2023 In-Center Hemodialysis Treatment [id number]:54:00.000Z 5709-38-59P47:28:00.000Z BP Sitting (Pre-Dialysis) 160/98 mmHg BP Sitting (Post-Dialysis) 161/101 mmHg Concurrent Access: falseAV Fistula Forearm (Left) Arterial BP Standing (Pre-Dialysis) 166/92 mmHg Sitti ng Heart Rate Post-Dialysis 62 BPM Sitting Heart Rate Pre-Dialysis 69 BPM Temperatu re Post-Dialysis 97.8 degF Standing Heart Rate Pre-Dialysis 67 BPM Temperature Pre-Dialysis 97.9 degF August 07, 2023 In-Center Hemodialysis Treatment [id number]:12:59.000Z 3138-02-53H73:00:29.000Z BP Sitting (Pre-Dialysis) 147/91 mmHg BP Sitting (Post-Dialysis) 157/91 mmHg Concurrent Access: falseAV Fistula Forearm (Left) Arterial BP Standing (Pre-Dialysis) 163/97 mmHg BP Standing (P ost-Dialysis) 135/87 mmHg Sitting Heart Rate Pre-Dialysis 69 BPM Sitting Heart Rate Post-Dialysis 61 BPM Standing Heart Rate Pre-Dialysis 77 BPM Standing Heart Rate Post-Dialysis 74 BPM Temperature Pre-Dialysis 97.9 degF Temperature Post -Dialysis 97.8 degF August 04, 2023 In-Center Hemodialysis Treatment [id number]:47:00.000Z [id number]:12:17.000Z BP Sitting (Pre-Dialysis) 163/86 mmHg BP Sitting (Post-Dialysis) 132/79 mmHg Concurrent Access: falseAV Fistula Forearm (Left) Arterial BP Standing (Pre-Dialysis) 140/77 mmHg BP Standing (P ost-Dialysis) 146/86 mmHg Sitting Heart Rate Pre-Dialysis 69 BPM Sitting Heart Rate Post-Dialysis 65 BPM Standing Heart Rate Pre-Dialysis 69 BPM Standing Heart Rate Post-Dialysis 71 BPM Temperature Pre-Dialysis 98 degF Temperature Post -Dialysis 97.7 degF August 02, 2023 In-Center Hemodialysis Treatment [id number]:53:00.000Z 6392-62-04S74:19:36.000Z BP Sitting (Pre-Dialysis) 158/76 mmHg BP Sitting (Post-Dialysis) 124/87 mmHg Concurrent Access: falseAV Fistula Forearm (Left) Arterial BP Standing (Pre-Dialysis) 131/75 mmHg Sitti ng Heart Rate Post-Dialysis 62 BPM Sitting Heart Rate Pre-Dialysis 86 BPM Temperatu re Post-Dialysis 97.6 degF Standing Heart Rate Pre-Dialysis 70 BPM Temperature Pre-Dialysis 98 degF July 31, 2023 In-Center Hemodialysis Treatment [id number]:59:00.000Z [id number]:30:43.000Z BP Sitting (Pre-Dialysis) 152/82 mmHg BP Sitting (Post-Dialysis) 149/87 mmHg Concurrent Access: falseAV Fistula Forearm (Left) Arterial BP Standing (Pre-Dialysis) 157/85 mmHg BP Standing (P ost-Dialysis) 137/89 mmHg Sitting Heart Rate Pre-Dialysis 73 BPM Sitting Heart Rate Post-Dialysis 60 BPM Standing Heart Rate Pre-Dialysis 71 BPM Standing Heart Rate Post-Dialysis 65 BPM Temperature Pre-Dialysis 97.6 degF Temperature Post -Dialysis 97.6 degF July 28, 2023 In-Center Hemodialysis Treatment 9276-02-09G25:11:31.000Z [id number]:45:22.000Z BP Sitting (Pre-Dialysis) 151/88 mmHg BP Sitting (Post-Dialysis) 138/85 mmHg Concurrent Access: falseAV Fistula Forearm (Left) Arterial BP Standing (Pre-Dialysis) 149/88 mmHg Sitti ng Heart Rate Post-Dialysis 60 BPM Sitting Heart Rate Pre-Dialysis 72 BPM Temperatu re Post-Dialysis 97.6 degF Standing Heart Rate Pre-Dialysis 68 BPM Temperature Pre-Dialysis 97.6 degF July 26, 2023 In-Center Hemodialysis Treatment [id number]:57:00.000Z 5395-91-25G12:29:27.000Z BP Sitting (Pre-Dialysis) 154/86 mmHg BP Sitting (Post-Dialysis) 168/97 mmHg Concurrent Access: falseAV Fistula Forearm (Left) Arterial BP Standing (Pre-Dialysis) 171/95 mmHg Sitti ng Heart Rate Post-Dialysis 60 BPM Sitting Heart Rate Pre-Dialysis 68 BPM Temperatu re Post-Dialysis 98.1 degF Standing Heart Rate Pre-Dialysis 72 BPM Temperature Pre-Dialysis 98 degF July 24, 2023 In-Center Hemodialysis Treatment 4531-28-33P57:04:17.000Z 0794-90-80Z09:33:43.000Z BP Sitting (Pre-Dialysis) 167/106 mmHg BP Sitting (Post-Dialysis) 155/79 mmHg Concurrent Access: falseAV Fistula Forearm (Left) Arterial BP Standing (Pre-Dialysis) 177/102 mmHg Sitti ng Heart Rate Post-Dialysis 81 BPM Sitting Heart Rate Pre-Dialysis 66 BPM Temperatu re Post-Dialysis 98.7 degF Standing Heart Rate Pre-Dialysis 69 BPM Temperature Pre-Dialysis 97.6 degF July 21, 2023 In-Center Hemodialysis Treatment [id number]:50:00.000Z 9449-09-79P08:23:55.000Z BP Sitting (Pre-Dialysis) 127/89 mmHg BP Sitting (Post-Dialysis) 142/75 mmHg Concurrent Access: falseAV Fistula Forearm (Left) Arterial BP Standing (Pre-Dialysis) 119/89 mmHg Sitti ng Heart Rate Post-Dialysis 79 BPM Sitting Heart Rate Pre-Dialysis 101 BPM Temperatu re Post-Dialysis 98.7 degF Standing Heart Rate Pre-Dialysis 104 BPM Temperature Pre-Dialysis 97.6 degF July 19, 2023 In-Center Hemodialysis Treatment [id number]:11:53.000Z 1064-15-16C50:44:13.000Z BP Sitting (Pre-Dialysis) 139/84 mmHg BP Sitting (Post-Dialysis) 152/77 mmHg Concurrent Access: falseAV Fistula Forearm (Left) Arterial BP Standing (Pre-Dialysis) 134/92 mmHg BP Standing (P ost-Dialysis) 132/82 mmHg Sitting Heart Rate Pre-Dialysis 78 BPM Sitting Heart Rate Post-Dialysis 69 BPM Standing Heart Rate Pre-Dialysis 77 BPM Standing Heart Rate Post-Dialysis 71 BPM Temperature Pre-Dialysis 98 degF Temperature Post -Dialysis 98.6 degF July 17, 2023 In-Center Hemodialysis Treatment [id number]:37:00.000Z 7930-19-59X81:38:34.000Z BP Sitting (Pre-Dialysis) 142/96 mmHg BP Sitting (Post-Dialysis) 161/75 mmHg Concurrent Access: falseAV Fistula Forearm (Left) Arterial BP Standing (Pre-Dialysis) 168/92 mmHg BP Standing (P ost-Dialysis) 125/69 mmHg Sitting Heart Rate Pre-Dialysis 77 BPM Sitting Heart Rate Post-Dialysis 67 BPM Standing Heart Rate Pre-Dialysis 60 BPM Standing Heart Rate Post-Dialysis 74 BPM Temperature Pre-Dialysis 97.3 degF Temperature Post -Dialysis 98.7 degF July 14, 2023 In-Center Hemodialysis Treatment 7786-43-73F57:53:00.000Z 2815-48-83A56:16:36.000Z BP Sitting (Pre-Dialysis) 178/99 mmHg BP Sitting (Post-Dialysis) 169/78 mmHg Concurrent Access: falseAV Fistula Forearm (Left) Arterial BP Standing (Pre-Dialysis) 169/90 mmHg BP Standing (P ost-Dialysis) 145/78 mmHg Sitting Heart Rate Pre-Dialysis 71 BPM Sitting Heart Rate Post-Dialysis 65 BPM Standing Heart Rate Pre-Dialysis 60 BPM Standing Heart Rate Post-Dialysis 69 BPM Temperature Pre-Dialysis 97.3 degF Temperature Post -Dialysis 98.7 degF July 12, 2023 In-Center Hemodialysis Treatment 2331-02-14V00:03:00.000Z [id number]:45:15.000Z BP Sitting (Pre-Dialysis) 149/77 mmHg BP Sitting (Post-Dialysis) 167/82 mmHg Concurrent Access: falseAV Fistula Forearm (Left) Arterial BP Standing (Pre-Dialysis) 169/98 mmHg BP Standing (P ost-Dialysis) 136/86 mmHg Sitting Heart Rate Pre-Dialysis 65 BPM Sitting Heart Rate Post-Dialysis 60 BPM Standing Heart Rate Pre-Dialysis 62 BPM Standing Heart Rate Post-Dialysis 65 BPM Temperature Pre-Dialysis 96.4 degF Temperature Post -Dialysis 98.6 degF July 10, 2023 In-Center Hemodialysis Treatment [id number]:02:00.000Z 1324-19-49Z39:35:06.000Z BP Sitting (Pre-Dialysis) 171/95 mmHg BP Sitting (Post-Dialysis) 168/84 mmHg Concurrent Access: falseAV Fistula Forearm (Left) Arterial BP Standing (Pre-Dialysis) 178/91 mmHg BP Standing (P ost-Dialysis) 140/80 mmHg Sitting Heart Rate Pre-Dialysis 62 BPM Sitting Heart Rate Post-Dialysis 60 BPM Standing Heart Rate Pre-Dialysis 62 BPM Standing Heart Rate Post-Dialysis 68 BPM Temperature Pre-Dialysis 98 degF Temperature Post -Dialysis 96.6 degF July 07, 2023 In-Center Hemodialysis Treatment [id number]:29:00.000Z 3911-35-95Y98:29:12.000Z BP Sitting (Pre-Dialysis) 149/83 mmHg BP Sitting (Post-Dialysis) 166/106 mmHg Concurrent Access: falseAV Fistula Forearm (Left) Arterial BP Standing (Pre-Dialysis) 152/97 mmHg BP Standing (P ost-Dialysis) 119/80 mmHg Sitting Heart Rate Pre-Dialysis 60 BPM Sitting Heart Rate Post-Dialysis 60 BPM Standing Heart Rate Pre-Dialysis 60 BPM Standing Heart Rate Post-Dialysis 62 BPM Temperature Pre-Dialysis 98 degF Temperature Post -Dialysis 96.6 degF July 05, 2023 In-Center Hemodialysis Treatment [id number]:58:00.000Z [id number]:24:46.000Z BP Sitting (Pre-Dialysis) 139/100 mmHg BP Sitting (Post-Dialysis) 171/105 mmHg Concurrent Access: falseAV Fistula Forearm (Left) Arterial BP Standing (Pre-Dialysis) 112/95 mmHg BP Standing (P ost-Dialysis) 145/96 mmHg Sitting Heart Rate Pre-Dialysis 87 BPM Sitting Heart Rate Post-Dialysis 60 BPM Standing Heart Rate Pre-Dialysis 113 BPM Standing Heart Rate Post-Dialysis 60 BPM Temperature Pre-Dialysis 98.3 degF Temperature Post -Dialysis 98 degF July 03, 2023 In-Center Hemodialysis Treatment [id number]:58:00.000Z 1628-09-14B09:26:09.000Z BP Sitting (Pre-Dialysis) 147/80 mmHg BP Sitting (Post-Dialysis) 161/93 mmHg Concurrent Access: falseAV Fistula Forearm (Left) Arterial BP Standing (Pre-Dialysis) 150/87 mmHg BP Standing (P ost-Dialysis) 142/85 mmHg Sitting Heart Rate Pre-Dialysis 60 BPM Sitting Heart Rate Post-Dialysis 60 BPM Standing Heart Rate Pre-Dialysis 60 BPM Standing Heart Rate Post-Dialysis 62 BPM Temperature Pre-Dialysis 97.3 degF Temperature Post -Dialysis 97.8 degF June 30, 2023 In-Center Hemodialysis Treatment [id number]:58:00.000Z 4313-47-55G56:26:33.000Z BP Sitting (Pre-Dialysis) 141/82 mmHg BP Sitting (Post-Dialysis) 129/64 mmHg Concurrent Access: falseAV Fistula Forearm (Left) Arterial BP Standing (Pre-Dialysis) 146/72 mmHg Sitti ng Heart Rate Post-Dialysis 60 BPM Sitting Heart Rate Pre-Dialysis 60 BPM Temperatu re Post-Dialysis 97.6 degF Standing Heart Rate Pre-Dialysis 60 BPM Temperature Pre-Dialysis 97.3 degF June 28, 2023 In-Center Hemodialysis Treatment [id number]:57:00.000Z 7105-09-96O32:28:34.000Z BP Sitting (Pre-Dialysis) 135/72 mmHg BP Sitting (Post-Dialysis) 132/65 mmHg Concurrent Access: falseAV Fistula Forearm (Left) Arterial BP Standing (Pre-Dialysis) 138/77 mmHg BP Standing (P ost-Dialysis) 109/65 mmHg Sitting Heart Rate Pre-Dialysis 62 BPM Sitting Heart Rate Post-Dialysis 65 BPM Standing Heart Rate Pre-Dialysis 82 BPM Standing Heart Rate Post-Dialysis 60 BPM Temperature Pre-Dialysis 97.9 degF Temperature Post -Dialysis 97.4 degF June 26, 2023 In-Center Hemodialysis Treatment [id number]:59:00.000Z 0758-85-08V54:34:50.000Z BP Sitting (Pre-Dialysis) 138/83 mmHg BP Sitting (Post-Dialysis) 134/68 mmHg Concurrent Access: falseAV Fistula Forearm (Left) Arterial BP Standing (Pre-Dialysis) 111/83 mmHg BP Standing (P ost-Dialysis) 101/65 mmHg Sitting Heart Rate Pre-Dialysis 62 BPM Sitting Heart Rate Post-Dialysis 60 BPM Standing Heart Rate Pre-Dialysis 60 BPM Standing Heart Rate Post-Dialysis 65 BPM Temperature Pre-Dialysis 97.9 degF Temperature Post -Dialysis 97.4 degF June 23, 2023 In-Center Hemodialysis Treatment [id number]:07:00.000Z 2972-73-15O01:39:00.000Z BP Sitting (Pre-Dialysis) 154/86 mmHg BP Sitting (Post-Dialysis) 134/84 mmHg Concurrent Access: falseAV Fistula Forearm (Left) Arterial BP Standing (Pre-Dialysis) 149/92 mmHg Sitti ng Heart Rate Post-Dialysis 60 BPM Sitting Heart Rate Pre-Dialysis 66 BPM Temperatu re Post-Dialysis 97.3 degF Standing Heart Rate Pre-Dialysis 68 BPM Temperature Pre-Dialysis 97.5 degF June 21, 2023 In-Center Hemodialysis Treatment [id number]:01:00.000Z 0027-79-89S65:36:00.000Z BP Sitting (Pre-Dialysis) 129/80 mmHg BP Sitting (Post-Dialysis) 126/60 mmHg Concurrent Access: falseAV Fistula Forearm (Left) Arterial BP Standing (Pre-Dialysis) 130/67 mmHg Sitti ng Heart Rate Post-Dialysis 60 BPM Sitting Heart Rate Pre-Dialysis 60 BPM Temperatu re Post-Dialysis 97.6 degF Standing Heart Rate Pre-Dialysis 60 BPM Temperature Pre-Dialysis 98 degF June 19, 2023 In-Center Hemodialysis Treatment 8217-05-55I27:56:00.000Z [id number]:34:03.000Z BP Sitting (Pre-Dialysis) 136/67 mmHg BP Sitting (Post-Dialysis) 132/80 mmHg Concurrent Access: falseAV Fistula Forearm (Left) Arterial BP Standing (Pre-Dialysis) 136/67 mmHg BP Standing (P ost-Dialysis) 116/88 mmHg Sitting Heart Rate Pre-Dialysis 96 BPM Sitting Heart Rate Post-Dialysis 80 BPM Standing Heart Rate Pre-Dialysis 96 BPM Standing Heart Rate Post-Dialysis 80 BPM Temperature Pre-Dialysis 97.5 degF Temperature Post -Dialysis 98.3 degF June 16, 2023 In-Center Hemodialysis Treatment 0067-08-25A27:45:00.000Z [id number]:05:50.000Z BP Sitting (Pre-Dialysis) 142/85 mmHg BP Sitting (Post-Dialysis) 116/69 mmHg Concurrent Access: falseAV Fistula Forearm (Left) Arterial BP Standing (Pre-Dialysis) 136/81 mmHg BP Standing (P ost-Dialysis) 101/59 mmHg Sitting Heart Rate Pre-Dialysis 66 BPM Sitting Heart Rate Post-Dialysis 67 BPM Standing Heart Rate Pre-Dialysis 66 BPM Standing Heart Rate Post-Dialysis 60 BPM Temperature Pre-Dialysis 97.5 degF Temperature Post -Dialysis 98.3 degF June 14, 2023 In-Center Hemodialysis Treatment [id number]:05:00.000Z [id number]:40:32.000Z BP Sitting (Pre-Dialysis) 134/78 mmHg BP Sitting (Post-Dialysis) 123/78 mmHg Concurrent Access: falseAV Fistula Forearm (Left) Arterial BP Standing (Pre-Dialysis) 127/78 mmHg BP Standing (P ost-Dialysis) 139/71 mmHg Sitting Heart Rate Pre-Dialysis 67 BPM Sitting Heart Rate Post-Dialysis 75 BPM Standing Heart Rate Pre-Dialysis 67 BPM Standing Heart Rate Post-Dialysis 65 BPM Temperature Pre-Dialysis 97.3 degF Temperature Post -Dialysis 98 degF June 12, 2023 In-Center Hemodialysis Treatment [id number]:57:00.000Z [id number]:22:29.000Z BP Sitting (Pre-Dialysis) 165/84 mmHg BP Sitting (Post-Dialysis) 153/82 mmHg Concurrent Access: falseAV Fistula Forearm (Left) Arterial BP Standing (Pre-Dialysis) 160/77 mmHg BP Standing (P ost-Dialysis) 130/73 mmHg Sitting Heart Rate Pre-Dialysis 62 BPM Sitting Heart Rate Post-Dialysis 71 BPM Standing Heart Rate Pre-Dialysis 67 BPM Standing Heart Rate Post-Dialysis 60 BPM Temperature Pre-Dialysis 98.2 degF Temperature Post -Dialysis 98 degF June 09, 2023 In-Center Hemodialysis Treatment [id number]:59:00.000Z [id number]:30:33.000Z BP Sitting (Pre-Dialysis) 134/74 mmHg BP Sitting (Post-Dialysis) 117/68 mmHg Concurrent Access: falseAV Fistula Forearm (Left) Arterial Sitting Heart Rate Pre-Dialysis 67 BPM BP Standing (Post-Dialysis) 105/66 mmHg Temperature Pre-Dialysis 97.4 degF Sitting Heart Ra te Post-Dialysis 72 BPM Standing Heart Rate Post-Rosa lysis 60 BPM Temperature Post-Dialysis 97 .4 degF June 07, 2023 In-Center Hemodialysis Treatment 6972-29-08J63:01:00.000Z 9840-54-53A68:22:00.000Z BP Sitting (Pre-Dialysis) 122/73 mmHg BP Sitting (Post-Dialysis) 148/90 mmHg Concurrent Access: falseAV Fistula Forearm (Left) Arterial Sitting Heart Rate Pre-Dialysis 60 BPM Sitting H eart Rate Post-Dialysis 87 BPM Temperature Pre-Dialysis 98.1 degF Temperature Post -Dialysis 98.6 degF June 05, 2023 In-Center Hemodialysis Treatment 2875-68-06Z23:08:00.000Z 6518-09-75V52:42:14.000Z BP Sitting (Pre-Dialysis) 146/91 mmHg BP Sitting (Post-Dialysis) 139/93 mmHg Concurrent Access: falseAV Fistula Forearm (Left) Arterial BP Standing (Pre-Dialysis) 149/98 mmHg BP Standing (P ost-Dialysis) 133/82 mmHg Sitting Heart Rate Pre-Dialysis 70 BPM Sitting Heart Rate Post-Dialysis 60 BPM Standing Heart Rate Pre-Dialysis 89 BPM Standing Heart Rate Post-Dialysis 63 BPM Temperature Pre-Dialysis 98.6 degF Temperature Post -Dialysis 98 degF June 02, 2023 In-Center Hemodialysis Treatment [id number]:08:11.000Z 7548-30-95T02:38:46.000Z BP Sitting (Pre-Dialysis) 138/81 mmHg BP Sitting (Post-Dialysis) 137/91 mmHg Concurrent Access: falseAV Fistula Forearm (Left) Arterial BP Standing (Pre-Dialysis) 161/92 mmHg Sitting Heart Rate Post-Dialysis 80 BPM Sitting Heart Rate Pre-Dialysis 66 BPM Temperatu re Post-Dialysis 98 degF Standing Heart Rate Pre-Dialysis 89 BPM Temperature Pre-Dialysis 98 degF May 31, 2023 In-Center Hemodialysis Treatment 0551-05-31Z59:59:00.000Z 9975-56-68B15:35:27.000Z BP Sitting (Pre-Dialysis) 113/66 mmHg BP Sitting (Post-Dialysis) 132/72 mmHg Concurrent Access: falseAV Fistula Forearm (Left) Arterial BP Standing (Pre-Dialysis) 118/72 mmHg Sitti ng Heart Rate Post-Dialysis 60 BPM Sitting Heart Rate Pre-Dialysis 67 BPM Temperatu re Post-Dialysis 98.6 degF Standing Heart Rate Pre-Dialysis 68 BPM Temperature Pre-Dialysis 97.6 degF May 29, 2023 In-Center Hemodialysis Treatment [id number]:00:00.000Z 9165-36-89Q27:44:03.000Z BP Sitting (Pre-Dialysis) 119/71 mmHg BP Sitting (Post-Dialysis) 121/71 mmHg Concurrent Access: falseAV Fistula Forearm (Left) Arterial BP Standing (Pre-Dialysis) 128/63 mmHg BP Standing (P ost-Dialysis) 102/69 mmHg Sitting Heart Rate Pre-Dialysis 69 BPM Sitting Heart Rate Post-Dialysis 66 BPM Standing Heart Rate Pre-Dialysis 67 BPM Standing Heart Rate Post-Dialysis 60 BPM Temperature Pre-Dialysis 97.6 degF Temperature Post -Dialysis 98.6 degF May 26, 2023 In-Center Hemodialysis Treatment [id number]:07:00.000Z 2551-97-26S26:35:32.000Z BP Sitting (Pre-Dialysis) 122/79 mmHg BP Sitting (Post-Dialysis) 129/76 mmHg Concurrent Access: falseAV Fistula Forearm (Left) Arterial BP Standing (Pre-Dialysis) 121/70 mmHg BP Standing (P ost-Dialysis) 102/58 mmHg Sitting Heart Rate Pre-Dialysis 71 BPM Sitting Heart Rate Post-Dialysis 65 BPM Standing Heart Rate Pre-Dialysis 68 BPM Standing Heart Rate Post-Dialysis 72 BPM Temperature Pre-Dialysis 97.6 degF Temperature Post -Dialysis 97.6 degF May 24, 2023 In-Center Hemodialysis Treatment [id number]:52:00.000Z 5923-68-34S73:28:39.000Z BP Sitting (Pre-Dialysis) 125/69 mmHg BP Sitting (Post-Dialysis) 121/84 mmHg Concurrent Access: falseAV Fistula Forearm (Left) Arterial BP Standing (Pre-Dialysis) 122/77 mmHg BP Standing (P ost-Dialysis) 114/91 mmHg Sitting Heart Rate Pre-Dialysis 71 BPM Sitting Heart Rate Post-Dialysis 60 BPM Standing Heart Rate Pre-Dialysis 72 BPM Standing Heart Rate Post-Dialysis 100 BPM Temperature Pre-Dialysis 98 degF Temperature Post -Dialysis 98 degF May 22, 2023 In-Center Hemodialysis Treatment [id number]:55:00.000Z 9419-65-55J08:22:14.000Z BP Sitting (Pre-Dialysis) 127/83 mmHg BP Sitting (Post-Dialysis) 117/69 mmHg Concurrent Access: falseAV Fistula Forearm (Left) Arterial BP Standing (Pre-Dialysis) 132/79 mmHg BP Standing (P ost-Dialysis) 104/61 mmHg Sitting Heart Rate Pre-Dialysis 86 BPM Sitting Heart Rate Post-Dialysis 61 BPM Standing Heart Rate Pre-Dialysis 68 BPM Standing Heart Rate Post-Dialysis 68 BPM Temperature Pre-Dialysis 97.8 degF Temperature Post -Dialysis 98.7 degF May 19, 2023 In-Center Hemodialysis Treatment [id number]:57:00.000Z 2762-38-62E53:28:55.000Z BP Sitting (Pre-Dialysis) 130/76 mmHg BP Sitting (Post-Dialysis) 108/70 mmHg Concurrent Access: falseAV Fistula Forearm (Left) Arterial BP Standing (Pre-Dialysis) 122/78 mmHg BP Standing (P ost-Dialysis) 100/64 mmHg Sitting Heart Rate Pre-Dialysis 60 BPM Sitting Heart Rate Post-Dialysis 60 BPM Standing Heart Rate Pre-Dialysis 62 BPM Standing Heart Rate Post-Dialysis 65 BPM Temperature Pre-Dialysis 98.6 degF Temperature Post -Dialysis 98.6 degF May 17, 2023 In-Center Hemodialysis Treatment [id number]:01:00.000Z 3683-14-45N89:36:21.000Z BP Sitting (Pre-Dialysis) 151/93 mmHg BP Sitting (Post-Dialysis) 142/93 mmHg Concurrent Access: falseAV Fistula Forearm (Left) Arterial BP Standing (Pre-Dialysis) 111/84 mmHg Sitti ng Heart Rate Post-Dialysis 85 BPM Sitting Heart Rate Pre-Dialysis 67 BPM Temperatu re Post-Dialysis 98.8 degF Standing Heart Rate Pre-Dialysis 65 BPM Temperature Pre-Dialysis 98 degF May 15, 2023 In-Center Hemodialysis Treatment 6029-58-35Z78:03:00.000Z 1863-05-20T59:37:30.000Z BP Sitting (Pre-Dialysis) 142/85 mmHg BP Sitting (Post-Dialysis) 141/83 mmHg Concurrent Access: falseAV Fistula Forearm (Left) Arterial BP Standing (Pre-Dialysis) 148/82 mmHg BP Standing (P ost-Dialysis) 100/78 mmHg Sitting Heart Rate Pre-Dialysis 62 BPM Sitting Heart Rate Post-Dialysis 87 BPM Standing Heart Rate Pre-Dialysis 66 BPM Standing Heart Rate Post-Dialysis 80 BPM Temperature Pre-Dialysis 98 degF Temperature Post -Dialysis 98.8 degF May 12, 2023 In-Center Hemodialysis Treatment [id number]:00:00.000Z 1884-92-91K65:34:00.000Z BP Sitting (Pre-Dialysis) 121/65 mmHg BP Sitting (Post-Dialysis) 115/70 mmHg Concurrent Access: falseAV Fistula Forearm (Left) Arterial BP Standing (Pre-Dialysis) 122/69 mmHg BP Standing (P ost-Dialysis) 105/61 mmHg Sitting Heart Rate Pre-Dialysis 67 BPM Sitting Heart Rate Post-Dialysis 61 BPM Standing Heart Rate Pre-Dialysis 66 BPM Standing Heart Rate Post-Dialysis 62 BPM Temperature Pre-Dialysis 97.5 degF Temperature Post -Dialysis 97.6 degF May 10, 2023 In-Center Hemodialysis Treatment [id number]:56:00.000Z [id number]:31:37.000Z BP Sitting (Pre-Dialysis) 128/72 mmHg BP Sitting (Post-Dialysis) 125/74 mmHg Concurrent Access: falseAV Fistula Forearm (Left) Arterial BP Standing (Pre-Dialysis) 120/82 mmHg BP Standing (P ost-Dialysis) 100/64 mmHg Sitting Heart Rate Pre-Dialysis 67 BPM Sitting Heart Rate Post-Dialysis 60 BPM Standing Heart Rate Pre-Dialysis 70 BPM Standing Heart Rate Post-Dialysis 62 BPM Temperature Pre-Dialysis 97.6 degF Temperature Post -Dialysis 97.6 degF May 08, 2023 In-Center Hemodialysis Treatment [id number]:05:00.000Z 6090-23-60D51:42:17.000Z BP Sitting (Pre-Dialysis) 127/80 mmHg BP Sitting (Post-Dialysis) 110/63 mmHg Concurrent Access: falseAV Fistula Forearm (Left) Arterial BP Standing (Pre-Dialysis) 135/78 mmHg BP Standing (P ost-Dialysis) 106/65 mmHg Sitting Heart Rate Pre-Dialysis 80 BPM Sitting Heart Rate Post-Dialysis 66 BPM Standing Heart Rate Pre-Dialysis 65 BPM Standing Heart Rate Post-Dialysis 60 BPM Temperature Pre-Dialysis 98 degF Temperature Post -Dialysis 97.6 degF May 05, 2023 In-Center Hemodialysis Treatment [id number]:08:34.000Z 5783-77-32V82:35:16.000Z BP Sitting (Pre-Dialysis) 132/90 mmHg BP Sitting (Post-Dialysis) 140/81 mmHg Concurrent Access: falseAV Fistula Forearm (Left) Arterial BP Standing (Pre-Dialysis) 113/99 mmHg Sitti ng Heart Rate Post-Dialysis 65 BPM Sitting Heart Rate Pre-Dialysis 103 BPM Temperatu re Post-Dialysis 97.7 degF Standing Heart Rate Pre-Dialysis 61 BPM Temperature Pre-Dialysis 98 degF May 03, 2023 In-Center Hemodialysis Treatment 7531-12-33V26:05:00.000Z [id number]:46:14.000Z BP Sitting (Pre-Dialysis) 133/77 mmHg BP Sitting (Post-Dialysis) 138/81 mmHg Concurrent Access: falseAV Fistula Forearm (Left) Arterial BP Standing (Pre-Dialysis) 149/80 mmHg Sitti ng Heart Rate Post-Dialysis 60 BPM Sitting Heart Rate Pre-Dialysis 69 BPM Temperatu re Post-Dialysis 97.6 degF Standing Heart Rate Pre-Dialysis 69 BPM Temperature Pre-Dialysis 97.9 degF May 01, 2023 In-Center Hemodialysis Treatment 3998-70-14U49:16:00.000Z 9131-55-97E79:49:06.000Z BP Sitting (Pre-Dialysis) 157/92 mmHg BP Sitting (Post-Dialysis) 138/91 mmHg Concurrent Access: falseAV Fistula Forearm (Left) Arterial BP Standing (Pre-Dialysis) 157/92 mmHg BP Standing (P ost-Dialysis) 101/68 mmHg Sitting Heart Rate Pre-Dialysis 67 BPM Sitting Heart Rate Post-Dialysis 60 BPM Standing Heart Rate Pre-Dialysis 67 BPM Standing Heart Rate Post-Dialysis 60 BPM Temperature Pre-Dialysis 97.9 degF Temperature Post -Dialysis 98 degF April 28, 2023 In-Center Hemodialysis Treatment [id number]:03:00.000Z 5921-54-36Y59:43:07.000Z BP Sitting (Pre-Dialysis) 123/78 mmHg BP Sitting (Post-Dialysis) 135/66 mmHg Concurrent Access: falseAV Fistula Forearm (Left) Arterial BP Standing (Pre-Dialysis) 138/79 mmHg BP Standing (P ost-Dialysis) 102/58 mmHg Sitting Heart Rate Pre-Dialysis 69 BPM Sitting Heart Rate Post-Dialysis 66 BPM Standing Heart Rate Pre-Dialysis 73 BPM Standing Heart Rate Post-Dialysis 70 BPM Temperature Pre-Dialysis 97.9 degF Temperature Post -Dialysis 97.6 degF April 26, 2023 In-Center Hemodialysis Treatment [id number]:54:00.000Z 1978-31-51R98:32:24.000Z BP Sitting (Pre-Dialysis) 122/68 mmHg BP Sitting (Post-Dialysis) 135/83 mmHg Concurrent Access: falseAV Fistula Forearm (Left) Arterial Sitting Heart Rate Pre-Dialysis 69 BPM Sitting H eart Rate Post-Dialysis 60 BPM Temperature Pre-Dialysis 97.9 degF Temperature Post -Dialysis 97.8 degF April 24, 2023 In-Center Hemodialysis Treatment [id number]:14:25.000Z [id number]:48:55.000Z BP Sitting (Pre-Dialysis) 128/95 mmHg BP Sitting (Post-Dialysis) 143/78 mmHg Concurrent Access: falseAV Fistula Forearm (Left) Arterial BP Standing (Pre-Dialysis) 141/95 mmHg BP Standing (P ost-Dialysis) 105/60 mmHg Sitting Heart Rate Pre-Dialysis 69 BPM Sitting Heart Rate Post-Dialysis 80 BPM Standing Heart Rate Pre-Dialysis 69 BPM Standing Heart Rate Post-Dialysis 60 BPM Temperature Pre-Dialysis 97.9 degF Temperature Post -Dialysis 97.7 degF April 21, 2023 In-Center Hemodialysis Treatment [id number]:07:00.000Z 1291-26-20E24:46:41.000Z BP Sitting (Pre-Dialysis) 126/78 mmHg BP Sitting (Post-Dialysis) 121/71 mmHg Concurrent Access: falseAV Fistula Forearm (Left) Arterial BP Standing (Pre-Dialysis) 130/79 mmHg Sitti ng Heart Rate Post-Dialysis 60 BPM Sitting Heart Rate Pre-Dialysis 62 BPM Temperatu re Post-Dialysis 97.6 degF Standing Heart Rate Pre-Dialysis 62 BPM Temperature Pre-Dialysis 97.3 degF April 19, 2023 In-Center Hemodialysis Treatment [id number]:12:00.000Z 7016-62-39G72:48:14.000Z BP Sitting (Pre-Dialysis) 136/99 mmHg BP Sitting (Post-Dialysis) 135/68 mmHg Concurrent Access: falseAV Fistula Forearm (Left) Arterial BP Standing (Pre-Dialysis) 111/85 mmHg BP Standing (P ost-Dialysis) 107/88 mmHg Sitting Heart Rate Pre-Dialysis 60 BPM Sitting Heart Rate Post-Dialysis 60 BPM Standing Heart Rate Pre-Dialysis 54 BPM Standing Heart Rate Post-Dialysis 74 BPM Temperature Pre-Dialysis 97.3 degF Temperature Post -Dialysis 97.8 degF April 17, 2023 In-Center Hemodialysis Treatment 9530-24-70V68:07:00.000Z 0693-30-02E11:44:31.000Z BP Sitting (Pre-Dialysis) 133/88 mmHg BP Sitting (Post-Dialysis) 122/80 mmHg Concurrent Access: falseAV Fistula Forearm (Left) Arterial BP Standing (Pre-Dialysis) 133/80 mmHg BP Standing (P ost-Dialysis) 100/62 mmHg Sitting Heart Rate Pre-Dialysis 65 BPM Sitting Heart Rate Post-Dialysis 65 BPM Standing Heart Rate Pre-Dialysis 66 BPM Standing Heart Rate Post-Dialysis 78 BPM Temperature Pre-Dialysis 97.3 degF Temperature Post -Dialysis 98.1 degF April 14, 2023 In-Center Hemodialysis Treatment 5420-01-16P28:15:00.000Z 2786-51-20H36:52:39.000Z BP Sitting (Pre-Dialysis) 134/81 mmHg BP Sitting (Post-Dialysis) 108/72 mmHg Concurrent Access: falseAV Fistula Forearm (Left) Arterial BP Standing (Pre-Dialysis) 141/81 mmHg BP Standing (P ost-Dialysis) 106/68 mmHg Sitting Heart Rate Pre-Dialysis 69 BPM Sitting Heart Rate Post-Dialysis 67 BPM Standing Heart Rate Pre-Dialysis 69 BPM Standing Heart Rate Post-Dialysis 66 BPM Temperature Pre-Dialysis 97.5 degF Temperature Post -Dialysis 97.5 degF April 12, 2023 In-Center Hemodialysis Treatment [id number]:19:00.000Z 7932-32-06P92:51:59.000Z BP Sitting (Pre-Dialysis) 135/82 mmHg BP Sitting (Post-Dialysis) 101/64 mmHg Concurrent Access: falseAV Fistula Forearm (Left) Arterial BP Standing (Pre-Dialysis) 132/76 mmHg BP Standing (P ost-Dialysis) 125/65 mmHg Sitting Heart Rate Pre-Dialysis 68 BPM Sitting Heart Rate Post-Dialysis 74 BPM Standing Heart Rate Pre-Dialysis 68 BPM Standing Heart Rate Post-Dialysis 72 BPM Temperature Pre-Dialysis 97 degF Temperature Post -Dialysis 98 degF April 10, 2023 In-Center Hemodialysis Treatment [id number]:05:00.000Z 4083-94-34T35:36:13.000Z BP Sitting (Pre-Dialysis) 127/73 mmHg BP Sitting (Post-Dialysis) 109/73 mmHg Concurrent Access: falseAV Fistula Forearm (Left) Arterial BP Standing (Pre-Dialysis) 130/78 mmHg BP Standing (P ost-Dialysis) 105/55 mmHg Sitting Heart Rate Pre-Dialysis 66 BPM Sitting Heart Rate Post-Dialysis 60 BPM Standing Heart Rate Pre-Dialysis 65 BPM Standing Heart Rate Post-Dialysis 72 BPM Temperature Pre-Dialysis 97.3 degF Temperature Post -Dialysis 98 degF April 07, 2023 In-Center Hemodialysis Treatment [id number]:57:00.000Z 4872-69-03F70:28:15.000Z BP Sitting (Pre-Dialysis) 135/71 mmHg BP Sitting (Post-Dialysis) 139/79 mmHg Concurrent Access: falseAV Fistula Forearm (Left) Arterial BP Standing (Pre-Dialysis) 142/84 mmHg BP Standing (P ost-Dialysis) 128/78 mmHg Sitting Heart Rate Pre-Dialysis 61 BPM Sitting Heart Rate Post-Dialysis 65 BPM Standing Heart Rate Pre-Dialysis 67 BPM Standing Heart Rate Post-Dialysis 83 BPM Temperature Pre-Dialysis 98.1 degF Temperature Post -Dialysis 97.4 degF April 05, 2023 In-Center Hemodialysis Treatment [id number]:41:00.000Z 0447-11-61Q38:02:49.000Z BP Sitting (Pre-Dialysis) 142/70 mmHg BP Sitting (Post-Dialysis) 140/83 mmHg Concurrent Access: falseAV Fistula Forearm (Left) Arterial BP Standing (Pre-Dialysis) 139/82 mmHg BP Standing (P ost-Dialysis) 123/80 mmHg Sitting Heart Rate Pre-Dialysis 60 BPM Sitting Heart Rate Post-Dialysis 60 BPM Standing Heart Rate Pre-Dialysis 68 BPM Standing Heart Rate Post-Dialysis 82 BPM Temperature Pre-Dialysis 97.9 degF Temperature Post -Dialysis 97.5 degF April 03, 2023 In-Center Hemodialysis Treatment [id number]:16:00.000Z 6285-04-11C13:56:46.000Z BP Sitting (Pre-Dialysis) 145/77 mmHg BP Sitting (Post-Dialysis) 145/87 mmHg Concurrent Access: falseAV Fistula Forearm (Left) Arterial BP Standing (Pre-Dialysis) 106/82 mmHg BP Standing (P ost-Dialysis) 125/84 mmHg Sitting Heart Rate Pre-Dialysis 65 BPM Sitting Heart Rate Post-Dialysis 65 BPM Standing Heart Rate Pre-Dialysis 94 BPM Standing Heart Rate Post-Dialysis 67 BPM Temperature Pre-Dialysis 97.2 degF Temperature Post -Dialysis 97.6 degF March 31, 2023 In-Center Hemodialysis Treatment [id number]:23:00.000Z [id number]:32:56.000Z BP Sitting (Pre-Dialysis) 101/67 mmHg BP Sitting (Post-Dialysis) 135/78 mmHg Concurrent Access: falseAV Fistula Forearm (Left) Arterial BP Standing (Pre-Dialysis) 139/88 mmHg BP Standing (P ost-Dialysis) 104/61 mmHg Sitting Heart Rate Pre-Dialysis 51 BPM Sitting Heart Rate Post-Dialysis 51 BPM Standing Heart Rate Pre-Dialysis 69 BPM Standing Heart Rate Post-Dialysis 60 BPM Temperature Pre-Dialysis 97.5 degF Temperature Post -Dialysis 97.5 degF March 29, 2023 In-Center Hemodialysis Treatment [id number]:11:00.000Z [id number]:55:54.000Z BP Sitting (Pre-Dialysis) 129/81 mmHg BP Sitting (Post-Dialysis) 110/69 mmHg Concurrent Access: falseAV Fistula Forearm (Left) Arterial BP Standing (Pre-Dialysis) 138/94 mmHg Sitti ng Heart Rate Post-Dialysis 82 BPM Sitting Heart Rate Pre-Dialysis 66 BPM Temperatu re Post-Dialysis 97.6 degF Standing Heart Rate Pre-Dialysis 97 BPM Temperature Pre-Dialysis 98.2 degF March 27, 2023 In-Center Hemodialysis Treatment [id number]:10:00.000Z [id number]:57:39.000Z BP Sitting (Pre-Dialysis) 147/84 mmHg BP Sitting (Post-Dialysis) 107/72 mmHg Concurrent Access: falseAV Fistula Forearm (Left) Arterial BP Standing (Pre-Dialysis) 131/66 mmHg Sitti ng Heart Rate Post-Dialysis 88 BPM Sitting Heart Rate Pre-Dialysis 65 BPM Temperatu re Post-Dialysis 97.6 degF Standing Heart Rate Pre-Dialysis 90 BPM Temperature Pre-Dialysis 98.2 degF March 24, 2023 In-Center Hemodialysis Treatment [id number]:05:00.000Z 4065-56-95Q17:39:00.000Z BP Sitting (Pre-Dialysis) 148/83 mmHg BP Sitting (Post-Dialysis) 141/85 mmHg Concurrent Access: falseAV Fistula Forearm (Left) Arterial BP Standing (Pre-Dialysis) 151/88 mmHg Sitti ng Heart Rate Post-Dialysis 60 BPM Sitting Heart Rate Pre-Dialysis 60 BPM Temperatu re Post-Dialysis 97.6 degF Standing Heart Rate Pre-Dialysis 60 BPM Temperature Pre-Dialysis 98.5 degF March 22, 2023 In-Center Hemodialysis Treatment [id number]:44:00.000Z 7379-35-16G72:28:15.000Z BP Sitting (Pre-Dialysis) 131/81 mmHg BP Sitting (Post-Dialysis) 128/84 mmHg Concurrent Access: falseAV Fistula Forearm (Left) Arterial Sitting Heart Rate Pre-Dialysis 68 BPM BP Standing (Post-Dialysis) 111/83 mmHg Temperature Pre-Dialysis 98.1 degF Sitting Heart Ra te Post-Dialysis 60 BPM Standing Heart Rate Post-Rosa lysis 60 BPM Temperature Post-Dialysis 97 .5 degF March 20, 2023 In-Center Hemodialysis Treatment 0956-29-06U17:00:00.000Z [id number]:38:10.000Z BP Sitting (Pre-Dialysis) 142/75 mmHg BP Sitting (Post-Dialysis) 125/83 mmHg Concurrent Access: falseAV Fistula Forearm (Left) Arterial BP Standing (Pre-Dialysis) 135/76 mmHg BP Standing (P ost-Dialysis) 116/92 mmHg Sitting Heart Rate Pre-Dialysis 78 BPM Sitting Heart Rate Post-Dialysis 60 BPM Standing Heart Rate Pre-Dialysis 74 BPM Standing Heart Rate Post-Dialysis 66 BPM Temperature Pre-Dialysis 98.1 degF Temperature Post -Dialysis 97.3 degF March 17, 2023 In-Center Hemodialysis Treatment 5875-07-18D59:04:00.000Z 3532-07-33K99:40:06.000Z BP Sitting (Pre-Dialysis) 139/85 mmHg BP Sitting (Post-Dialysis) 122/71 mmHg Concurrent Access: falseAV Fistula Forearm (Left) Arterial BP Standing (Pre-Dialysis) 139/82 mmHg Sitti ng Heart Rate Post-Dialysis 60 BPM Sitting Heart Rate Pre-Dialysis 60 BPM Temperatu re Post-Dialysis 97.5 degF Standing Heart Rate Pre-Dialysis 60 BPM Temperature Pre-Dialysis 97.8 degF March 15, 2023 In-Center Hemodialysis Treatment 2607-23-83Y87:01:00.000Z 0126-87-39Q43:40:52.000Z BP Sitting (Pre-Dialysis) 148/86 mmHg BP Sitting (Post-Dialysis) 131/90 mmHg Concurrent Access: falseAV Fistula Forearm (Left) Arterial BP Standing (Pre-Dialysis) 136/85 mmHg BP Standing (P ost-Dialysis) 145/98 mmHg Sitting Heart Rate Pre-Dialysis 66 BPM Sitting Heart Rate Post-Dialysis 80 BPM Standing Heart Rate Pre-Dialysis 66 BPM Standing Heart Rate Post-Dialysis 87 BPM Temperature Pre-Dialysis 97.6 degF Temperature Post -Dialysis 97.4 degF March 13, 2023 In-Center Hemodialysis Treatment [id number]:00:00.000Z 8757-10-73Y01:30:53.000Z BP Sitting (Pre-Dialysis) 139/79 mmHg BP Sitting (Post-Dialysis) 134/75 mmHg Concurrent Access: falseAV Fistula Forearm (Left) Arterial BP Standing (Pre-Dialysis) 140/84 mmHg BP Standing (P ost-Dialysis) 134/96 mmHg Sitting Heart Rate Pre-Dialysis 74 BPM Sitting Heart Rate Post-Dialysis 68 BPM Standing Heart Rate Pre-Dialysis 68 BPM Standing Heart Rate Post-Dialysis 60 BPM Temperature Pre-Dialysis 97.8 degF Temperature Post -Dialysis 97.3 degF March 10, 2023 In-Center Hemodialysis Treatment [id number]:59:00.000Z [id number]:38:33.000Z BP Sitting (Pre-Dialysis) 125/88 mmHg BP Sitting (Post-Dialysis) 122/71 mmHg Concurrent Access: falseAV Fistula Forearm (Left) Arterial BP Standing (Pre-Dialysis) 146/85 mmHg BP Standing (P ost-Dialysis) 101/62 mmHg Sitting Heart Rate Pre-Dialysis 66 BPM Sitting Heart Rate Post-Dialysis 61 BPM Standing Heart Rate Pre-Dialysis 67 BPM Standing Heart Rate Post-Dialysis 62 BPM Temperature Pre-Dialysis 97.2 degF Temperature Post -Dialysis 97.2 degF March 07, 2023 In-Center Hemodialysis Treatment [id number]:05:00.000Z [id number]:33:50.000Z BP Sitting (Pre-Dialysis) 145/89 mmHg BP Sitting (Post-Dialysis) 122/84 mmHg Concurrent Access: falseAV Fistula Forearm (Left) Arterial BP Standing (Pre-Dialysis) 147/87 mmHg Sitti ng Heart Rate Post-Dialysis 60 BPM Sitting Heart Rate Pre-Dialysis 65 BPM Temperatu re Post-Dialysis 97.2 degF Standing Heart Rate Pre-Dialysis 65 BPM Temperature Pre-Dialysis 97.9 degF March 05, 2023 In-Center Hemodialysis Treatment [id number]:15:00.000Z 7609-00-62V65:49:00.000Z BP Sitting (Pre-Dialysis) 130/90 mmHg BP Sitting (Post-Dialysis) 159/60 mmHg Concurrent Access: falseAV Fistula Forearm (Left) Arterial BP Standing (Pre-Dialysis) 158/91 mmHg BP Standing (P ost-Dialysis) 117/72 mmHg Sitting Heart Rate Pre-Dialysis 60 BPM Sitting Heart Rate Post-Dialysis 60 BPM Standing Heart Rate Pre-Dialysis 62 BPM Standing Heart Rate Post-Dialysis 66 BPM March 03, 2023 In-Center Hemodialysis Treatment [id number]:54:00.000Z [id number]:28:03.000Z BP Sitting (Pre-Dialysis) 155/90 mmHg BP Sitting (Post-Dialysis) 139/93 mmHg Concurrent Access: falseAV Fistula Forearm (Left) Arterial BP Standing (Pre-Dialysis) 149/89 mmHg BP Standing (P ost-Dialysis) 105/60 mmHg Sitting Heart Rate Pre-Dialysis 67 BPM Sitting Heart Rate Post-Dialysis 60 BPM Standing Heart Rate Pre-Dialysis 60 BPM Standing Heart Rate Post-Dialysis 60 BPM Temperature Pre-Dialysis 97.3 degF Temperature Post -Dialysis 97.5 degF March 01, 2023 In-Center Hemodialysis Treatment [id number]:04:00.000Z [id number]:39:46.000Z BP Sitting (Pre-Dialysis) 161/92 mmHg BP Sitting (Post-Dialysis) 148/86 mmHg Concurrent Access: falseAV Fistula Forearm (Left) Arterial BP Standing (Pre-Dialysis) 170/99 mmHg Sitti ng Heart Rate Post-Dialysis 60 BPM Sitting Heart Rate Pre-Dialysis 73 BPM Temperatu re Post-Dialysis 97.5 degF Standing Heart Rate Pre-Dialysis 68 BPM Temperature Pre-Dialysis 97.8 degF February 27, 2023 In-Center Hemodialysis Treatment [id number]:23:00.000Z 7440-40-09I83:51:33.000Z BP Sitting (Pre-Dialysis) 134/86 mmHg BP Sitting (Post-Dialysis) 142/81 mmHg Concurrent Access: falseAV Fistula Forearm (Left) Arterial Sitting Heart Rate Pre-Dialysis 61 BPM Sitting H eart Rate Post-Dialysis 62 BPM Temperature Pre-Dialysis 97.8 degF Temperature Post -Dialysis 97.5 degF February 24, 2023 In-Center Hemodialysis Treatment [id number]:56:00.000Z [id number]:30:50.000Z BP Sitting (Pre-Dialysis) 147/91 mmHg BP Sitting (Post-Dialysis) 130/76 mmHg Concurrent Access: falseAV Fistula Forearm (Left) Arterial BP Standing (Pre-Dialysis) 151/87 mmHg Sitti ng Heart Rate Post-Dialysis 60 BPM Sitting Heart Rate Pre-Dialysis 80 BPM Temperatu re Post-Dialysis 97.4 degF Standing Heart Rate Pre-Dialysis 78 BPM Temperature Pre-Dialysis 97.5 degF February 22, 2023 In-Center Hemodialysis Treatment [id number]:54:00.000Z [id number]:22:21.000Z BP Sitting (Pre-Dialysis) 148/86 mmHg BP Sitting (Post-Dialysis) 142/92 mmHg Concurrent Access: falseAV Fistula Forearm (Left) Arterial Sitting Heart Rate Pre-Dialysis 60 BPM BP Standi ng (Post-Dialysis) 123/94 mmHg Temperature Pre-Dialysis 97 degF Sitting Heart Ra te Post-Dialysis 75 BPM Standing Heart Rate Post-Rosa lysis 80 BPM Temperature Post-Dialysis 97 .5 degF February 20, 2023 In-Center Hemodialysis Treatment [id number]:35:43.000Z [id number]:07:14.000Z BP Sitting (Pre-Dialysis) 143/87 mmHg BP Sitting (Post-Dialysis) 121/68 mmHg Concurrent Access: falseAV Fistula Forearm (Left) Arterial BP Standing (Pre-Dialysis) 143/86 mmHg BP Standing (P ost-Dialysis) 105/63 mmHg Sitting Heart Rate Pre-Dialysis 60 BPM Sitting Heart Rate Post-Dialysis 80 BPM Standing Heart Rate Pre-Dialysis 60 BPM Standing Heart Rate Post-Dialysis 79 BPM Temperature Pre-Dialysis 97.3 degF February 17, 2023 In-Center Hemodialysis Treatment [id number]:11:00.000Z 9445-30-00Y53:36:40.000Z BP Sitting (Pre-Dialysis) 159/61 mmHg BP Sitting (Post-Dialysis) 124/60 mmHg Concurrent Access: falseAV Fistula Forearm (Left) Arterial BP Standing (Pre-Dialysis) 161/87 mmHg Sitti ng Heart Rate Post-Dialysis 94 BPM Sitting Heart Rate Pre-Dialysis 62 BPM Temperatu re Post-Dialysis 97.6 degF Standing Heart Rate Pre-Dialysis 60 BPM Temperature Pre-Dialysis 97.5 degF February 15, 2023 In-Center Hemodialysis Treatment [id number]:56:00.000Z 1204-08-11M42:30:13.000Z BP Sitting (Pre-Dialysis) 165/79 mmHg BP Sitting (Post-Dialysis) 144/90 mmHg Concurrent Access: falseAV Fistula Forearm (Left) Arterial BP Standing (Pre-Dialysis) 184/98 mmHg Sitti ng Heart Rate Post-Dialysis 60 BPM Sitting Heart Rate Pre-Dialysis 60 BPM Temperatu re Post-Dialysis 97.1 degF Standing Heart Rate Pre-Dialysis 67 BPM Temperature Pre-Dialysis 97 degF February 13, 2023 In-Center Hemodialysis Treatment [id number]:09:49.000Z [id number]:03:25.000Z BP Sitting (Pre-Dialysis) 125/87 mmHg BP Sitting (Post-Dialysis) 119/73 mmHg Concurrent Access: falseAV Fistula Forearm (Left) Arterial BP Standing (Pre-Dialysis) 116/90 mmHg BP Standing (P ost-Dialysis) 111/62 mmHg Sitting Heart Rate Pre-Dialysis 71 BPM Sitting Heart Rate Post-Dialysis 60 BPM Standing Heart Rate Pre-Dialysis 67 BPM Standing Heart Rate Post-Dialysis 60 BPM Temperature Pre-Dialysis 97.9 degF Temperature Post -Dialysis 97 degF February 10, 2023 In-Center Hemodialysis Treatment [id number]:03:00.000Z 1018-63-13A21:27:19.000Z BP Sitting (Pre-Dialysis) 136/81 mmHg BP Sitting (Post-Dialysis) 127/76 mmHg Concurrent Access: falseAV Fistula Forearm (Left) Arterial BP Standing (Pre-Dialysis) 134/80 mmHg BP Standing (P ost-Dialysis) 126/60 mmHg Sitting Heart Rate Pre-Dialysis 65 BPM Sitting Heart Rate Post-Dialysis 55 BPM Standing Heart Rate Pre-Dialysis 67 BPM Standing Heart Rate Post-Dialysis 62 BPM Temperature Pre-Dialysis 97.5 degF Temperature Post -Dialysis 97.5 degF February 08, 2023 In-Center Hemodialysis Treatment [id number]:03:00.000Z 8130-15-89Z70:34:34.000Z BP Sitting (Pre-Dialysis) 153/89 mmHg BP Sitting (Post-Dialysis) 131/71 mmHg Concurrent Access: falseAV Fistula Forearm (Left) Arterial BP Standing (Pre-Dialysis) 153/89 mmHg Sitti ng Heart Rate Post-Dialysis 60 BPM Sitting Heart Rate Pre-Dialysis 70 BPM Temperatu re Post-Dialysis 97.9 degF Standing Heart Rate Pre-Dialysis 70 BPM Temperature Pre-Dialysis 97 degF February 06, 2023 In-Center Hemodialysis Treatment [id number]:06:00.000Z 0000-86-23C36:26:20.000Z BP Sitting (Pre-Dialysis) 165/103 mmHg BP Sitting (Post-Dialysis) 120/70 mmHg Concurrent Access: falseAV Fistula Forearm (Left) Arterial Sitting Heart Rate Pre-Dialysis 65 BPM BP Standing (Post-Dialysis) 117/62 mmHg Temperature Pre-Dialysis 97.4 degF Sitting Heart Ra te Post-Dialysis 84 BPM Standing Heart Rate Post-Rosa lysis 84 BPM February 03, 2023 In-Center Hemodialysis Treatment [id number]:51:00.000Z 4277-07-10W97:29:07.000Z BP Sitting (Pre-Dialysis) 132/74 mmHg BP Sitting (Post-Dialysis) 120/60 mmHg Concurrent Access: falseAV Fistula Forearm (Left) Arterial BP Standing (Pre-Dialysis) 145/79 mmHg Sitti ng Heart Rate Post-Dialysis 52 BPM Sitting Heart Rate Pre-Dialysis 60 BPM Temperatu re Post-Dialysis 97.3 degF Standing Heart Rate Pre-Dialysis 60 BPM Temperature Pre-Dialysis 97.5 degF February 01, 2023 In-Center Hemodialysis Treatment [id number]:57:50.000Z 3110-87-61H79:25:52.000Z BP Sitting (Pre-Dialysis) 161/95 mmHg BP Sitting (Post-Dialysis) 155/87 mmHg Concurrent Access: falseAV Fistula Forearm (Left) Arterial BP Standing (Pre-Dialysis) 161/95 mmHg BP Standing (P ost-Dialysis) 136/95 mmHg Sitting Heart Rate Pre-Dialysis 67 BPM Sitting Heart Rate Post-Dialysis 54 BPM Standing Heart Rate Pre-Dialysis 67 BPM Standing Heart Rate Post-Dialysis 104 BPM Temperature Pre-Dialysis 98.2 degF Temperature Post -Dialysis 97.2 degF January 31, 2023 In-Center Hemodialysis Treatment [id number]:40:00.000Z [id number]:11:04.000Z BP Sitting (Pre-Dialysis) 160/89 mmHg BP Sitting (Post-Dialysis) 119/68 mmHg Concurrent Access: falseAV Fistula Forearm (Left) Arterial BP Standing (Pre-Dialysis) 160/90 mmHg Sitti ng Heart Rate Post-Dialysis 60 BPM Sitting Heart Rate Pre-Dialysis 62 BPM Temperatu re Post-Dialysis 97.3 degF Standing Heart Rate Pre-Dialysis 74 BPM Temperature Pre-Dialysis 97.1 degF January 27, 2023 In-Center Hemodialysis Treatment 9158-08-30A86:57:00.000Z 7441-90-68G34:28:34.000Z BP Sitting (Pre-Dialysis) 157/85 mmHg BP Sitting (Post-Dialysis) 113/77 mmHg Concurrent Access: falseAV Fistula Forearm (Left) Arterial BP Standing (Pre-Dialysis) 165/89 mmHg Sitti ng Heart Rate Post-Dialysis 60 BPM Sitting Heart Rate Pre-Dialysis 62 BPM Temperatu re Post-Dialysis 97.3 degF Standing Heart Rate Pre-Dialysis 65 BPM Temperature Pre-Dialysis 97.6 degF January 25, 2023 In-Center Hemodialysis Treatment 2391-47-36W13:07:59.000Z [id number]:40:40.000Z BP Sitting (Pre-Dialysis) 145/54 mmHg BP Sitting (Post-Dialysis) 136/76 mmHg Concurrent Access: falseAV Fistula Forearm (Left) Arterial BP Standing (Pre-Dialysis) 134/79 mmHg Sitti ng Heart Rate Post-Dialysis 60 BPM Sitting Heart Rate Pre-Dialysis 62 BPM Temperatu re Post-Dialysis 97.3 degF Standing Heart Rate Pre-Dialysis 68 BPM Temperature Pre-Dialysis 98.3 degF January 23, 2023 In-Center Hemodialysis Treatment [id number]:59:00.000Z [id number]:34:21.000Z BP Sitting (Pre-Dialysis) 141/74 mmHg BP Sitting (Post-Dialysis) 128/61 mmHg Concurrent Access: falseAV Fistula Forearm (Left) Arterial BP Standing (Pre-Dialysis) 139/82 mmHg Sitting Heart Rate Post-Dialysis 55 BPM Sitting Heart Rate Pre-Dialysis 65 BPM Standing Heart Rate Pre-Dialysis 62 BPM Temperature Pre-Dialysis 98.5 degF January 20, 2023 In-Center Hemodialysis Treatment 1147-20-23M34:39:11.000Z 0825-99-96J69:39:03.000Z BP Sitting (Pre-Dialysis) 111/82 mmHg BP Sitting (Post-Dialysis) 132/79 mmHg Concurrent Access: falseAV Fistula Forearm (Left) Arterial BP Standing (Pre-Dialysis) 145/89 mmHg Sitti ng Heart Rate Post-Dialysis 60 BPM Sitting Heart Rate Pre-Dialysis 60 BPM Temperatu re Post-Dialysis 97.6 degF Standing Heart Rate Pre-Dialysis 60 BPM Temperature Pre-Dialysis 97.6 degF January 18, 2023 In-Center Hemodialysis Treatment [id number]:50:00.000Z 9664-71-77B96:26:53.000Z BP Sitting (Pre-Dialysis) 173/97 mmHg BP Sitting (Post-Dialysis) 113/94 mmHg Concurrent Access: falseAV Fistula Forearm (Left) Arterial BP Standing (Pre-Dialysis) 175/95 mmHg Sitti ng Heart Rate Post-Dialysis 50 BPM Sitting Heart Rate Pre-Dialysis 61 BPM Temperatu re Post-Dialysis 97.3 degF Standing Heart Rate Pre-Dialysis 67 BPM Temperature Pre-Dialysis 98.5 degF January 16, 2023 In-Center Hemodialysis Treatment [id number]:55:00.000Z 0712-09-47J11:23:00.000Z BP Sitting (Pre-Dialysis) 173/92 mmHg BP Sitting (Post-Dialysis) 150/89 mmHg Concurrent Access: falseAV Fistula Forearm (Left) Arterial BP Standing (Pre-Dialysis) 176/98 mmHg Sitti ng Heart Rate Post-Dialysis 54 BPM Sitting Heart Rate Pre-Dialysis 60 BPM Temperatu re Post-Dialysis 97.3 degF Standing Heart Rate Pre-Dialysis 60 BPM Temperature Pre-Dialysis 97.5 degF January 13, 2023 In-Center Hemodialysis Treatment 9910-15-90H15:03:00.000Z 9347-65-51J48:30:08.000Z BP Sitting (Pre-Dialysis) 149/94 mmHg BP Sitting (Post-Dialysis) 140/73 mmHg Concurrent Access: falseAV Fistula Forearm (Left) Arterial Sitting Heart Rate Pre-Dialysis 69 BPM BP Standing (Post-Dialysis) 100/71 mmHg Temperature Pre-Dialysis 97.2 degF Sitting Heart Ra te Post-Dialysis 60 BPM Standing Heart Rate Post-Rosa lysis 60 BPM Temperature Post-Dialysis 97 .4 degF January 11, 2023 In-Center Hemodialysis Treatment 3733-03-87K72:53:00.000Z 7038-94-29R20:23:26.000Z BP Sitting (Pre-Dialysis) 151/86 mmHg BP Sitting (Post-Dialysis) 141/82 mmHg Concurrent Access: falseAV Fistula Forearm (Left) Arterial BP Standing (Pre-Dialysis) 160/96 mmHg BP Standing (P ost-Dialysis) 126/80 mmHg Sitting Heart Rate Pre-Dialysis 60 BPM Sitting Heart Rate Post-Dialysis 60 BPM Standing Heart Rate Pre-Dialysis 60 BPM Standing Heart Rate Post-Dialysis 60 BPM Temperature Pre-Dialysis 97.2 degF Temperature Post -Dialysis 97.2 degF January 09, 2023 In-Center Hemodialysis Treatment [id number]:47:00.000Z 7965-04-25G41:29:03.000Z BP Sitting (Pre-Dialysis) 118/69 mmHg BP Sitting (Post-Dialysis) 145/77 mmHg Concurrent Access: falseAV Fistula Forearm (Left) Arterial BP Standing (Pre-Dialysis) 136/104 mmHg BP Standing (P ost-Dialysis) 134/80 mmHg Sitting Heart Rate Pre-Dialysis 80 BPM Sitting Heart Rate Post-Dialysis 60 BPM Standing Heart Rate Pre-Dialysis 74 BPM Standing Heart Rate Post-Dialysis 60 BPM Temperature Pre-Dialysis 97.1 degF Temperature Post -Dialysis 97 degF January 06, 2023 In-Center Hemodialysis Treatment [id number]:06:00.000Z [id number]:38:21.000Z BP Sitting (Pre-Dialysis) 151/92 mmHg BP Sitting (Post-Dialysis) 141/80 mmHg Concurrent Access: falseAV Fistula Forearm (Left) Arterial BP Standing (Pre-Dialysis) 159/99 mmHg BP Standing (P ost-Dialysis) 151/66 mmHg Sitting Heart Rate Pre-Dialysis 67 BPM Sitting Heart Rate Post-Dialysis 55 BPM Standing Heart Rate Pre-Dialysis 98 BPM Standing Heart Rate Post-Dialysis 62 BPM Temperature Pre-Dialysis 97.5 degF Temperature Post -Dialysis 97.8 degF January 04, 2023 In-Center Hemodialysis Treatment 1905-87-21S54:48:00.000Z 1005-59-57Z42:08:54.000Z BP Sitting (Pre-Dialysis) 171/89 mmHg BP Sitting (Post-Dialysis) 154/83 mmHg Concurrent Access: falseAV Fistula Forearm (Left) Arterial BP Standing (Pre-Dialysis) 172/78 mmHg BP Standing (P ost-Dialysis) 140/75 mmHg Sitting Heart Rate Pre-Dialysis 67 BPM Sitting Heart Rate Post-Dialysis 60 BPM Standing Heart Rate Pre-Dialysis 66 BPM Standing Heart Rate Post-Dialysis 65 BPM Temperature Pre-Dialysis 97.9 degF Temperature Post -Dialysis 97.6 degF January 02, 2023 In-Center Hemodialysis Treatment 4440-79-74W51:08:00.000Z 1132-12-66W51:40:18.000Z BP Sitting (Pre-Dialysis) 155/83 mmHg BP Sitting (Post-Dialysis) 144/71 mmHg Concurrent Access: falseAV Fistula Forearm (Left) Arterial BP Standing (Pre-Dialysis) 147/86 mmHg BP Standing (P ost-Dialysis) 109/56 mmHg Sitting Heart Rate Pre-Dialysis 60 BPM Sitting Heart Rate Post-Dialysis 56 BPM Standing Heart Rate Pre-Dialysis 60 BPM Standing Heart Rate Post-Dialysis 60 BPM Temperature Pre-Dialysis 97.4 degF Temperature Post -Dialysis 97.5 degF December 30, 2022 In-Center Hemodialysis Treatment [id number]:59:00.000Z 4137-78-72F08:27:50.000Z BP Sitting (Pre-Dialysis) 151/88 mmHg BP Sitting (Post-Dialysis) 136/76 mmHg Concurrent Access: falseAV Fistula Forearm (Left) Arterial BP Standing (Pre-Dialysis) 136/72 mmHg BP Standing (P ost-Dialysis) 101/64 mmHg Sitting Heart Rate Pre-Dialysis 60 BPM Sitting Heart Rate Post-Dialysis 55 BPM Standing Heart Rate Pre-Dialysis 60 BPM Standing Heart Rate Post-Dialysis 66 BPM Temperature Pre-Dialysis 97.3 degF Temperature Post -Dialysis 97.3 degF December 28, 2022 In-Center Hemodialysis Treatment 3995-12-45K23:53:00.000Z 7182-21-13R03:28:01.000Z BP Sitting (Pre-Dialysis) 149/90 mmHg BP Sitting (Post-Dialysis) 125/91 mmHg Concurrent Access: falseAV Fistula Forearm (Left) Arterial BP Standing (Pre-Dialysis) 149/80 mmHg BP Standing (P ost-Dialysis) 113/74 mmHg Sitting Heart Rate Pre-Dialysis 65 BPM Sitting Heart Rate Post-Dialysis 100 BPM Standing Heart Rate Pre-Dialysis 60 BPM Standing Heart Rate Post-Dialysis 89 BPM Temperature Pre-Dialysis 97.8 degF Temperature Post -Dialysis 97.6 degF December 26, 2022 In-Center Hemodialysis Treatment 2926-74-64G22:05:00.000Z 6722-79-93S68:39:40.000Z BP Sitting (Pre-Dialysis) 163/82 mmHg BP Sitting (Post-Dialysis) 172/86 mmHg Concurrent Access: falseAV Fistula Forearm (Left) Arterial BP Standing (Pre-Dialysis) 169/96 mmHg BP Standing (P ost-Dialysis) 130/73 mmHg Sitting Heart Rate Pre-Dialysis 60 BPM Sitting Heart Rate Post-Dialysis 60 BPM Standing Heart Rate Pre-Dialysis 60 BPM Standing Heart Rate Post-Dialysis 60 BPM Temperature Pre-Dialysis 97 degF Temperature Post -Dialysis 97.8 degF December 23, 2022 In-Center Hemodialysis Treatment 5428-46-27T15:06:00.000Z 1784-97-96T47:37:59.000Z BP Sitting (Pre-Dialysis) 156/87 mmHg BP Sitting (Post-Dialysis) 147/87 mmHg Concurrent Access: falseAV Fistula Forearm (Left) Arterial BP Standing (Pre-Dialysis) 155/90 mmHg BP Standing (P ost-Dialysis) 111/56 mmHg Sitting Heart Rate Pre-Dialysis 74 BPM Sitting Heart Rate Post-Dialysis 60 BPM Standing Heart Rate Pre-Dialysis 60 BPM Standing Heart Rate Post-Dialysis 60 BPM Temperature Pre-Dialysis 98 degF Temperature Post -Dialysis 97.2 degF December 21, 2022 In-Center Hemodialysis Treatment 7010-09-16I21:02:00.000Z 8630-45-49G81:36:11.000Z BP Sitting (Pre-Dialysis) 158/90 mmHg BP Sitting (Post-Dialysis) 102/85 mmHg Concurrent Access: falseAV Fistula Forearm (Left) Arterial BP Standing (Pre-Dialysis) 160/79 mmHg Sitti ng Heart Rate Post-Dialysis 60 BPM Sitting Heart Rate Pre-Dialysis 67 BPM Temperatu re Post-Dialysis 97.3 degF Standing Heart Rate Pre-Dialysis 66 BPM Temperature Pre-Dialysis 97.5 degF December 19, 2022 In-Center Hemodialysis Treatment 0285-19-28Z98:50:00.000Z 7563-97-75W39:26:47.000Z BP Sitting (Pre-Dialysis) 140/82 mmHg BP Sitting (Post-Dialysis) 100/66 mmHg Concurrent Access: falseAV Fistula Forearm (Left) Arterial BP Standing (Pre-Dialysis) 147/77 mmHg Sitti ng Heart Rate Post-Dialysis 68 BPM Sitting Heart Rate Pre-Dialysis 67 BPM Temperatu re Post-Dialysis 97.2 degF Standing Heart Rate Pre-Dialysis 66 BPM Temperature Pre-Dialysis 97.8 degF December 16, 2022 In-Center Hemodialysis Treatment 2335-35-54T01:28:00.000Z 3154-31-34M56:55:46.000Z BP Sitting (Pre-Dialysis) 188/75 mmHg BP Sitting (Post-Dialysis) 182/73 mmHg Concurrent Access: falseAV Fistula Forearm (Left) Arterial BP Standing (Pre-Dialysis) 172/95 mmHg Sitti ng Heart Rate Post-Dialysis 66 BPM Sitting Heart Rate Pre-Dialysis 82 BPM Temperatu re Post-Dialysis 97.3 degF Standing Heart Rate Pre-Dialysis 65 BPM Temperature Pre-Dialysis 97.5 degF December 14, 2022 In-Center Hemodialysis Treatment [id number]:20:00.000Z 9066-83-31Z20:52:30.000Z BP Sitting (Pre-Dialysis) 168/101 mmHg BP Sitting (Post-Dialysis) 146/92 mmHg Concurrent Access: falseAV Fistula Forearm (Left) Arterial BP Standing (Pre-Dialysis) 171/95 mmHg BP Standing (P ost-Dialysis) 139/86 mmHg Sitting Heart Rate Pre-Dialysis 60 BPM Sitting Heart Rate Post-Dialysis 60 BPM Standing Heart Rate Pre-Dialysis 60 BPM Standing Heart Rate Post-Dialysis 66 BPM Temperature Pre-Dialysis 97.6 degF Temperature Post -Dialysis 97.4 degF December 12, 2022 In-Center Hemodialysis Treatment [id number]:23:00.000Z 2962-04-75G89:01:21.000Z BP Sitting (Pre-Dialysis) 147/85 mmHg BP Sitting (Post-Dialysis) 117/75 mmHg Concurrent Access: falseAV Fistula Forearm (Left) Arterial BP Standing (Pre-Dialysis) 130/58 mmHg Sitti ng Heart Rate Post-Dialysis 58 BPM Sitting Heart Rate Pre-Dialysis 65 BPM Temperatu re Post-Dialysis 97.5 degF Standing Heart Rate Pre-Dialysis 62 BPM Temperature Pre-Dialysis 97.6 degF December 09, 2022 In-Center Hemodialysis Treatment 9826-09-48A64:13:00.000Z 0350-40-34S57:43:04.000Z BP Sitting (Pre-Dialysis) 153/92 mmHg BP Sitting (Post-Dialysis) 134/62 mmHg Concurrent Access: falseAV Fistula Forearm (Left) Arterial Sitting Heart Rate Pre-Dialysis 60 BPM Sitting H eart Rate Post-Dialysis 60 BPM Temperature Pre-Dialysis 97.1 degF Temperature Post -Dialysis 97.4 degF December 07, 2022 In-Center Hemodialysis Treatment 4312-86-42A94:25:00.000Z 3984-65-86C94:58:37.000Z BP Sitting (Pre-Dialysis) 136/72 mmHg BP Sitting (Post-Dialysis) 167/60 mmHg Concurrent Access: falseAV Fistula Forearm (Left) Arterial BP Standing (Pre-Dialysis) 141/84 mmHg BP Standing (P ost-Dialysis) 108/78 mmHg Sitting Heart Rate Pre-Dialysis 62 BPM Sitting Heart Rate Post-Dialysis 67 BPM Standing Heart Rate Pre-Dialysis 65 BPM Standing Heart Rate Post-Dialysis 62 BPM Temperature Pre-Dialysis 97.6 degF Temperature Post -Dialysis 97 degF December 05, 2022 In-Center Hemodialysis Treatment 4662-05-19Z95:18:00.000Z 9282-30-19W58:30:48.000Z BP Sitting (Pre-Dialysis) 148/79 mmHg BP Sitting (Post-Dialysis) 144/63 mmHg Concurrent Access: falseAV Fistula Forearm (Left) Arterial Sitting Heart Rate Pre-Dialysis 60 BPM Sitting H eart Rate Post-Dialysis 53 BPM Temperature Pre-Dialysis 97.3 degF Temperature Post -Dialysis 96.7 degF December 02, 2022 In-Center Hemodialysis Treatment 5969-68-27W97:35:00.000Z 4516-05-00K65:06:49.000Z BP Sitting (Pre-Dialysis) 135/50 mmHg BP Sitting (Post-Dialysis) 120/92 mmHg Concurrent Access: falseAV Fistula Forearm (Left) Arterial BP Standing (Pre-Dialysis) 133/78 mmHg BP Standing (P ost-Dialysis) 127/85 mmHg Sitting Heart Rate Pre-Dialysis 62 BPM Sitting Heart Rate Post-Dialysis 60 BPM Standing Heart Rate Pre-Dialysis 65 BPM Standing Heart Rate Post-Dialysis 67 BPM Temperature Pre-Dialysis 97 degF Temperature Post -Dialysis 97.6 degF November 30, 2022 In-Center Hemodialysis Treatment 8805-12-58P65:20:00.000Z 0247-21-55V45:50:55.000Z BP Sitting (Pre-Dialysis) 128/73 mmHg BP Sitting (Post-Dialysis) 104/50 mmHg Concurrent Access: falseAV Fistula Forearm (Left) Arterial BP Standing (Pre-Dialysis) 127/68 mmHg Sitti ng Heart Rate Post-Dialysis 55 BPM Sitting Heart Rate Pre-Dialysis 61 BPM Temperatu re Post-Dialysis 97.4 degF Standing Heart Rate Pre-Dialysis 66 BPM Temperature Pre-Dialysis 97.1 degF November 28, 2022 In-Center Hemodialysis Treatment [id number]:32:00.000Z 5695-64-75K55:57:46.000Z BP Sitting (Pre-Dialysis) 138/93 mmHg BP Sitting (Post-Dialysis) 134/71 mmHg Concurrent Access: falseAV Fistula Forearm (Left) Arterial BP Standing (Pre-Dialysis) 148/87 mmHg Sitti ng Heart Rate Post-Dialysis 60 BPM Sitting Heart Rate Pre-Dialysis 65 BPM Temperatu re Post-Dialysis 97.3 degF Standing Heart Rate Pre-Dialysis 62 BPM Temperature Pre-Dialysis 97.3 degF November 25, 2022 In-Center Hemodialysis Treatment 7060-57-19Q09:23:00.000Z 8829-45-50F35:51:21.000Z BP Sitting (Pre-Dialysis) 141/75 mmHg BP Sitting (Post-Dialysis) 111/83 mmHg Concurrent Access: falseAV Fistula Forearm (Left) Arterial BP Standing (Pre-Dialysis) 160/88 mmHg BP Standing (P ost-Dialysis) 129/81 mmHg Sitting Heart Rate Pre-Dialysis 60 BPM Sitting Heart Rate Post-Dialysis 93 BPM Standing Heart Rate Pre-Dialysis 73 BPM Standing Heart Rate Post-Dialysis 82 BPM Temperature Pre-Dialysis 97.9 degF Temperature Post -Dialysis 97.4 degF November 23, 2022 In-Center Hemodialysis Treatment 6053-00-11X00:21:00.000Z [id number]:50:33.000Z BP Sitting (Pre-Dialysis) 147/87 mmHg BP Sitting (Post-Dialysis) 133/79 mmHg Concurrent Access: falseAV Fistula Forearm (Left) Arterial BP Standing (Pre-Dialysis) 151/69 mmHg BP Standing (P ost-Dialysis) 111/57 mmHg Sitting Heart Rate Pre-Dialysis 60 BPM Sitting Heart Rate Post-Dialysis 60 BPM Standing Heart Rate Pre-Dialysis 66 BPM Standing Heart Rate Post-Dialysis 60 BPM Temperature Pre-Dialysis 97.2 degF Temperature Post -Dialysis 97.4 degF November 21, 2022 In-Center Hemodialysis Treatment [id number]:44:00.000Z 5335-42-29L31:15:10.000Z BP Sitting (Pre-Dialysis) 161/90 mmHg BP Sitting (Post-Dialysis) 149/87 mmHg Concurrent Access: falseAV Fistula Forearm (Left) Arterial BP Standing (Pre-Dialysis) 156/85 mmHg BP Standing (P ost-Dialysis) 131/67 mmHg Sitting Heart Rate Pre-Dialysis 67 BPM Sitting Heart Rate Post-Dialysis 65 BPM Standing Heart Rate Pre-Dialysis 74 BPM Standing Heart Rate Post-Dialysis 67 BPM Temperature Pre-Dialysis 97.9 degF Temperature Post -Dialysis 97.4 degF November 18, 2022 In-Center Hemodialysis Treatment 6640-29-58Y04:24:00.000Z 3327-33-81L31:53:38.000Z BP Sitting (Pre-Dialysis) 135/71 mmHg BP Sitting (Post-Dialysis) 152/65 mmHg Concurrent Access: falseAV Fistula Forearm (Left) Arterial BP Standing (Pre-Dialysis) 149/83 mmHg Sitti ng Heart Rate Post-Dialysis 60 BPM Sitting Heart Rate Pre-Dialysis 60 BPM Temperatu re Post-Dialysis 97.5 degF Standing Heart Rate Pre-Dialysis 65 BPM Temperature Pre-Dialysis 97.5 degF November 16, 2022 In-Center Hemodialysis Treatment 3314-25-23M52:24:00.000Z 8159-82-72X92:57:32.000Z BP Sitting (Pre-Dialysis) 140/85 mmHg BP Sitting (Post-Dialysis) 147/76 mmHg Concurrent Access: falseAV Fistula Forearm (Left) Arterial BP Standing (Pre-Dialysis) 138/85 mmHg BP Standing (P ost-Dialysis) 105/61 mmHg Sitting Heart Rate Pre-Dialysis 62 BPM Sitting Heart Rate Post-Dialysis 80 BPM Standing Heart Rate Pre-Dialysis 68 BPM Standing Heart Rate Post-Dialysis 60 BPM Temperature Pre-Dialysis 97.5 degF Temperature Post -Dialysis 97.4 degF November 14, 2022 In-Center Hemodialysis Treatment 0524-86-73O80:20:00.000Z 7025-44-19W50:46:33.000Z BP Sitting (Pre-Dialysis) 161/89 mmHg BP Sitting (Post-Dialysis) 146/88 mmHg Concurrent Access: falseAV Fistula Forearm (Left) Arterial Sitting Heart Rate Pre-Dialysis 68 BPM Sitting H eart Rate Post-Dialysis 54 BPM Temperature Pre-Dialysis 97.5 degF Temperature Post -Dialysis 97.4 degF November 11, 2022 In-Center Hemodialysis Treatment 2483-20-98P87:22:00.000Z 9158-55-48O25:04:40.000Z BP Sitting (Pre-Dialysis) 126/70 mmHg BP Sitting (Post-Dialysis) 123/63 mmHg Concurrent Access: falseAV Fistula Forearm (Left) Arterial BP Standing (Pre-Dialysis) 122/81 mmHg BP Standing (P ost-Dialysis) 112/62 mmHg Sitting Heart Rate Pre-Dialysis 72 BPM Sitting Heart Rate Post-Dialysis 66 BPM Standing Heart Rate Pre-Dialysis 72 BPM Standing Heart Rate Post-Dialysis 66 BPM Temperature Pre-Dialysis 97.1 degF November 09, 2022 In-Center Hemodialysis Treatment 1934-57-10L65:25:00.000Z 4438-17-07N30:59:26.000Z BP Sitting (Pre-Dialysis) 123/75 mmHg BP Sitting (Post-Dialysis) 126/72 mmHg Concurrent Access: falseAV Fistula Forearm (Left) Arterial Sitting Heart Rate Pre-Dialysis 60 BPM Sitting H eart Rate Post-Dialysis 60 BPM Temperature Pre-Dialysis 97 degF Temperature Post -Dialysis 96.7 degF November 07, 2022 In-Center Hemodialysis Treatment [id number]:44:00.000Z [id number]:12:00.000Z BP Sitting (Pre-Dialysis) 136/78 mmHg BP Sitting (Post-Dialysis) 121/65 mmHg Concurrent Access: falseAV Fistula Forearm (Left) Arterial BP Standing (Pre-Dialysis) 144/81 mmHg Sitti ng Heart Rate Post-Dialysis 80 BPM Sitting Heart Rate Pre-Dialysis 67 BPM Temperatu re Post-Dialysis 96.8 degF Standing Heart Rate Pre-Dialysis 67 BPM Temperature Pre-Dialysis 97.5 degF November 04, 2022 In-Center Hemodialysis Treatment [id number]:34:00.000Z [id number]:09:36.000Z BP Sitting (Pre-Dialysis) 137/84 mmHg BP Sitting (Post-Dialysis) 136/86 mmHg Concurrent Access: falseAV Fistula Forearm (Left) Arterial BP Standing (Pre-Dialysis) 143/80 mmHg BP Standing (P ost-Dialysis) 112/63 mmHg Sitting Heart Rate Pre-Dialysis 65 BPM Sitting Heart Rate Post-Dialysis 60 BPM Standing Heart Rate Pre-Dialysis 67 BPM Standing Heart Rate Post-Dialysis 67 BPM Temperature Pre-Dialysis 97.3 degF Temperature Post -Dialysis 96.9 degF November 02, 2022 In-Center Hemodialysis Treatment [id number]:02:00.000Z [id number]:34:43.000Z BP Sitting (Pre-Dialysis) 152/78 mmHg BP Sitting (Post-Dialysis) 143/80 mmHg Concurrent Access: falseAV Fistula Forearm (Left) Arterial BP Standing (Pre-Dialysis) 105/81 mmHg BP Standing (P ost-Dialysis) 103/63 mmHg Sitting Heart Rate Pre-Dialysis 62 BPM Sitting Heart Rate Post-Dialysis 98 BPM Standing Heart Rate Pre-Dialysis 62 BPM Standing Heart Rate Post-Dialysis 68 BPM Temperature Pre-Dialysis 97.7 degF Temperature Post -Dialysis 97.1 degF October 31, 2022 In-Center Hemodialysis Treatment [id number]:30:00.000Z [id number]:03:04.000Z BP Sitting (Pre-Dialysis) 137/80 mmHg BP Sitting (Post-Dialysis) 127/73 mmHg Concurrent Access: falseAV Fistula Forearm (Left) Arterial Sitting Heart Rate Pre-Dialysis 88 BPM Sitting H eart Rate Post-Dialysis 60 BPM Temperature Pre-Dialysis 97.1 degF Temperature Post -Dialysis 97.1 degF October 28, 2022 In-Center Hemodialysis Treatment [id number]:30:00.000Z [id number]:01:33.000Z BP Sitting (Pre-Dialysis) 140/85 mmHg BP Sitting (Post-Dialysis) 123/83 mmHg Concurrent Access: falseAV Fistula Forearm (Left) Arterial Sitting Heart Rate Pre-Dialysis 68 BPM BP Standing (Post-Dialysis) 102/64 mmHg Temperature Pre-Dialysis 96.9 degF Sitting Heart Ra te Post-Dialysis 60 BPM Standing Heart Rate Post-Rosa lysis 68 BPM Temperature Post-Dialysis 97 .3 degF October 26, 2022 In-Center Hemodialysis Treatment [id number]:03:00.000Z [id number]:31:53.000Z BP Sitting (Pre-Dialysis) 154/79 mmHg BP Sitting (Post-Dialysis) 137/86 mmHg Concurrent Access: falseAV Fistula Forearm (Left) Arterial BP Standing (Pre-Dialysis) 144/83 mmHg BP Standing (P ost-Dialysis) 112/64 mmHg Sitting Heart Rate Pre-Dialysis 65 BPM Sitting Heart Rate Post-Dialysis 60 BPM Standing Heart Rate Pre-Dialysis 68 BPM Standing Heart Rate Post-Dialysis 62 BPM Temperature Pre-Dialysis 97.9 degF Temperature Post -Dialysis 97.1 degF October 24, 2022 In-Center Hemodialysis Treatment [id number]:31:49.000Z [id number]:05:29.000Z BP Sitting (Pre-Dialysis) 123/73 mmHg BP Sitting (Post-Dialysis) 121/77 mmHg Concurrent Access: falseAV Fistula Forearm (Left) Arterial BP Standing (Pre-Dialysis) 132/82 mmHg Sitti ng Heart Rate Post-Dialysis 61 BPM Sitting Heart Rate Pre-Dialysis 61 BPM Temperatu re Post-Dialysis 97.6 degF Standing Heart Rate Pre-Dialysis 68 BPM Temperature Pre-Dialysis 97.8 degF October 21, 2022 In-Center Hemodialysis Treatment [id number]:23:00.000Z [id number]:55:09.000Z BP Sitting (Pre-Dialysis) 123/72 mmHg BP Sitting (Post-Dialysis) 130/68 mmHg Concurrent Access: falseAV Fistula Forearm (Left) Arterial Sitting Heart Rate Pre-Dialysis 62 BPM BP Standing (Post-Dialysis) 107/51 mmHg Temperature Pre-Dialysis 97.5 degF Sitting Heart Ra te Post-Dialysis 60 BPM Standing Heart Rate Post-Rosa lysis 68 BPM Temperature Post-Dialysis 97 .4 degF October 19, 2022 In-Center Hemodialysis Treatment [id number]:21:16.000Z 6586-48-18K93:50:58.000Z BP Sitting (Pre-Dialysis) 134/80 mmHg BP Sitting (Post-Dialysis) 119/68 mmHg Concurrent Access: falseAV Fistula Forearm (Left) Arterial BP Standing (Pre-Dialysis) 130/83 mmHg Sitti ng Heart Rate Post-Dialysis 59 BPM Sitting Heart Rate Pre-Dialysis 62 BPM Temperatu re Post-Dialysis 97.6 degF Standing Heart Rate Pre-Dialysis 60 BPM Temperature Pre-Dialysis 97.8 degF October 17, 2022 In-Center Hemodialysis Treatment [id number]:08:00.000Z [id number]:41:21.000Z BP Sitting (Pre-Dialysis) 167/87 mmHg BP Sitting (Post-Dialysis) 121/70 mmHg Concurrent Access: falseAV Fistula Forearm (Left) Arterial Sitting Heart Rate Pre-Dialysis 80 BPM BP Standing (Post-Dialysis) 122/79 mmHg Temperature Pre-Dialysis 97.2 degF Sitting Heart Ra te Post-Dialysis 60 BPM Standing Heart Rate Post-Rosa lysis 62 BPM Temperature Post-Dialysis 97 .5 degF October 14, 2022 In-Center Hemodialysis Treatment [id number]:10:00.000Z 7411-20-01T55:43:44.000Z BP Sitting (Pre-Dialysis) 129/81 mmHg BP Sitting (Post-Dialysis) 114/70 mmHg Concurrent Access: falseAV Fistula Forearm (Left) Arterial Sitting Heart Rate Pre-Dialysis 61 BPM BP Standing (Post-Dialysis) 109/56 mmHg Temperature Pre-Dialysis 97.3 degF Sitting Heart Ra te Post-Dialysis 73 BPM Standing Heart Rate Post-Rosa lysis 60 BPM October 12, 2022 In-Center Hemodialysis Treatment [id number]:12:00.000Z [id number]:47:19.000Z BP Sitting (Pre-Dialysis) 153/78 mmHg BP Sitting (Post-Dialysis) 141/58 mmHg Concurrent Access: falseAV Fistula Forearm (Left) Arterial BP Standing (Pre-Dialysis) 168/87 mmHg Sitti ng Heart Rate Post-Dialysis 60 BPM Sitting Heart Rate Pre-Dialysis 68 BPM Temperatu re Post-Dialysis 97.1 degF Standing Heart Rate Pre-Dialysis 62 BPM Temperature Pre-Dialysis 97.1 degF October 10, 2022 In-Center Hemodialysis Treatment [id number]:08:00.000Z 7460-39-27K55:37:55.000Z BP Sitting (Pre-Dialysis) 148/81 mmHg BP Sitting (Post-Dialysis) 139/57 mmHg Concurrent Access: falseAV Fistula Forearm (Left) Arterial BP Standing (Pre-Dialysis) 140/74 mmHg BP Standing (P ost-Dialysis) 102/65 mmHg Sitting Heart Rate Pre-Dialysis 60 BPM Sitting Heart Rate Post-Dialysis 60 BPM Standing Heart Rate Pre-Dialysis 60 BPM Standing Heart Rate Post-Dialysis 60 BPM Temperature Pre-Dialysis 98.5 degF Temperature Post -Dialysis 97.5 degF October 07, 2022 In-Center Hemodialysis Treatment [id number]:06:00.000Z [id number]:39:19.000Z BP Sitting (Pre-Dialysis) 119/91 mmHg BP Sitting (Post-Dialysis) 154/90 mmHg Concurrent Access: falseAV Fistula Forearm (Left) Arterial BP Standing (Pre-Dialysis) 134/78 mmHg BP Standing (P ost-Dialysis) 110/65 mmHg Sitting Heart Rate Pre-Dialysis 66 BPM Sitting Heart Rate Post-Dialysis 60 BPM Standing Heart Rate Pre-Dialysis 69 BPM Standing Heart Rate Post-Dialysis 65 BPM Temperature Pre-Dialysis 97.5 degF Temperature Post -Dialysis 97.8 degF October 05, 2022 In-Center Hemodialysis Treatment [id number]:09:00.000Z [id number]:46:48.000Z BP Sitting (Pre-Dialysis) 148/89 mmHg BP Sitting (Post-Dialysis) 129/72 mmHg Concurrent Access: falseAV Fistula Forearm (Left) Arterial BP Standing (Pre-Dialysis) 146/87 mmHg BP Standing (P ost-Dialysis) 112/61 mmHg Sitting Heart Rate Pre-Dialysis 66 BPM Sitting Heart Rate Post-Dialysis 55 BPM Standing Heart Rate Pre-Dialysis 67 BPM Standing Heart Rate Post-Dialysis 60 BPM Temperature Pre-Dialysis 97.3 degF Temperature Post -Dialysis 97.5 degF October 03, 2022 In-Center Hemodialysis Treatment [id number]:01:00.000Z 1850-35-57C96:33:34.000Z BP Sitting (Pre-Dialysis) 137/80 mmHg BP Sitting (Post-Dialysis) 123/79 mmHg Concurrent Access: falseAV Fistula Forearm (Left) Arterial BP Standing (Pre-Dialysis) 130/61 mmHg BP Standing (P ost-Dialysis) 104/65 mmHg Sitting Heart Rate Pre-Dialysis 60 BPM Sitting Heart Rate Post-Dialysis 60 BPM Standing Heart Rate Pre-Dialysis 67 BPM Standing Heart Rate Post-Dialysis 60 BPM Temperature Pre-Dialysis 97.2 degF Temperature Post -Dialysis 97.8 degF September 30, 2022 In-Center Hemodialysis Treatment [id number]:32:00.000Z [id number]:02:43.000Z BP Sitting (Pre-Dialysis) 137/81 mmHg BP Sitting (Post-Dialysis) 128/77 mmHg Concurrent Access: falseAV Fistula Forearm (Left) Arterial BP Standing (Pre-Dialysis) 132/71 mmHg BP Standing (P ost-Dialysis) 101/54 mmHg Sitting Heart Rate Pre-Dialysis 55 BPM Sitting Heart Rate Post-Dialysis 60 BPM Standing Heart Rate Pre-Dialysis 55 BPM Standing Heart Rate Post-Dialysis 60 BPM Temperature Pre-Dialysis 97.6 degF Temperature Post -Dialysis 97.1 degF September 28, 2022 In-Center Hemodialysis Treatment [id number]:16:00.000Z [id number]:54:18.000Z BP Sitting (Pre-Dialysis) 153/86 mmHg BP Sitting (Post-Dialysis) 146/82 mmHg Concurrent Access: falseAV Fistula Forearm (Left) Arterial BP Standing (Pre-Dialysis) 153/88 mmHg BP Standing (P ost-Dialysis) 112/64 mmHg Sitting Heart Rate Pre-Dialysis 60 BPM Sitting Heart Rate Post-Dialysis 50 BPM Standing Heart Rate Pre-Dialysis 60 BPM Standing Heart Rate Post-Dialysis 62 BPM Temperature Pre-Dialysis 97.8 degF Temperature Post -Dialysis 97.8 degF September 26, 2022 In-Center Hemodialysis Treatment [id number]:20:00.000Z [id number]:51:19.000Z BP Sitting (Pre-Dialysis) 142/82 mmHg BP Sitting (Post-Dialysis) 147/84 mmHg Concurrent Access: falseAV Fistula Forearm (Left) Arterial BP Standing (Pre-Dialysis) 141/72 mmHg BP Standing (P ost-Dialysis) 115/64 mmHg Sitting Heart Rate Pre-Dialysis 60 BPM Sitting Heart Rate Post-Dialysis 60 BPM Standing Heart Rate Pre-Dialysis 60 BPM Standing Heart Rate Post-Dialysis 60 BPM Temperature Pre-Dialysis 97.5 degF Temperature Post -Dialysis 97 degF September 23, 2022 In-Center Hemodialysis Treatment [id number]:50:00.000Z [id number]:48:47.000Z BP Sitting (Pre-Dialysis) 124/89 mmHg BP Sitting (Post-Dialysis) 112/98 mmHg Concurrent Access: falseAV Fistula Forearm (Left) Arterial BP Standing (Pre-Dialysis) 147/87 mmHg BP Standing (P ost-Dialysis) 101/53 mmHg Sitting Heart Rate Pre-Dialysis 60 BPM Sitting Heart Rate Post-Dialysis 60 BPM Standing Heart Rate Pre-Dialysis 60 BPM Standing Heart Rate Post-Dialysis 85 BPM Temperature Pre-Dialysis 97.1 degF Temperature Post -Dialysis 97.1 degF September 21, 2022 In-Center Hemodialysis Treatment [id number]:05:00.000Z 9877-69-14Q60:38:40.000Z BP Sitting (Pre-Dialysis) 140/80 mmHg BP Sitting (Post-Dialysis) 150/84 mmHg Concurrent Access: falseAV Fistula Forearm (Left) Arterial BP Standing (Pre-Dialysis) 151/94 mmHg BP Standing (P ost-Dialysis) 102/65 mmHg Sitting Heart Rate Pre-Dialysis 60 BPM Sitting Heart Rate Post-Dialysis 80 BPM Standing Heart Rate Pre-Dialysis 80 BPM Standing Heart Rate Post-Dialysis 65 BPM Temperature Pre-Dialysis 97.1 degF Temperature Post -Dialysis 97 degF September 19, 2022 In-Center Hemodialysis Treatment [id number]:32:00.000Z [id number]:08:57.000Z BP Sitting (Pre-Dialysis) 143/70 mmHg BP Sitting (Post-Dialysis) 131/80 mmHg Concurrent Access: falseAV Fistula Forearm (Left) Arterial Sitting Heart Rate Pre-Dialysis 62 BPM Sitting H eart Rate Post-Dialysis 60 BPM Temperature Pre-Dialysis 97.7 degF Temperature Post -Dialysis 97.3 degF September 16, 2022 In-Center Hemodialysis Treatment [id number]:07:00.000Z [id number]:38:02.000Z BP Sitting (Pre-Dialysis) 133/80 mmHg BP Sitting (Post-Dialysis) 140/74 mmHg Concurrent Access: falseAV Fistula Forearm (Left) Arterial BP Standing (Pre-Dialysis) 130/72 mmHg BP Standing (P ost-Dialysis) 112/69 mmHg Sitting Heart Rate Pre-Dialysis 65 BPM Sitting Heart Rate Post-Dialysis 60 BPM Standing Heart Rate Pre-Dialysis 67 BPM Standing Heart Rate Post-Dialysis 60 BPM Temperature Pre-Dialysis 97.4 degF Temperature Post -Dialysis 97.1 degF September 14, 2022 In-Center Hemodialysis Treatment [id number]:09:00.000Z [id number]:36:24.000Z BP Sitting (Pre-Dialysis) 136/75 mmHg BP Sitting (Post-Dialysis) 137/86 mmHg Concurrent Access: falseAV Fistula Forearm (Left) Arterial BP Standing (Pre-Dialysis) 135/81 mmHg BP Standing (P ost-Dialysis) 104/61 mmHg Sitting Heart Rate Pre-Dialysis 66 BPM Sitting Heart Rate Post-Dialysis 60 BPM Standing Heart Rate Pre-Dialysis 69 BPM Standing Heart Rate Post-Dialysis 67 BPM Temperature Pre-Dialysis 97.8 degF Temperature Post -Dialysis 97.7 degF September 12, 2022 In-Center Hemodialysis Treatment 0512-66-13L43:04:00.000Z [id number]:39:10.000Z BP Sitting (Pre-Dialysis) 135/85 mmHg BP Sitting (Post-Dialysis) 133/81 mmHg Concurrent Access: falseAV Fistula Forearm (Left) Arterial BP Standing (Pre-Dialysis) 185/75 mmHg Sitti ng Heart Rate Post-Dialysis 60 BPM Sitting Heart Rate Pre-Dialysis 67 BPM Temperatu re Post-Dialysis 97.8 degF Standing Heart Rate Pre-Dialysis 90 BPM Temperature Pre-Dialysis 97.5 degF September 09, 2022 In-Center Hemodialysis Treatment [id number]:18:12.000Z [id number]:46:33.000Z BP Sitting (Pre-Dialysis) 133/79 mmHg BP Sitting (Post-Dialysis) 137/83 mmHg Concurrent Access: falseAV Fistula Forearm (Left) Arterial BP Standing (Pre-Dialysis) 131/77 mmHg BP Standing (P ost-Dialysis) 106/61 mmHg Sitting Heart Rate Pre-Dialysis 60 BPM Sitting Heart Rate Post-Dialysis 60 BPM Standing Heart Rate Pre-Dialysis 60 BPM Standing Heart Rate Post-Dialysis 62 BPM Temperature Pre-Dialysis 97.4 degF Temperature Post -Dialysis 97.3 degF September 07, 2022 In-Center Hemodialysis Treatment [id number]:24:21.000Z [id number]:54:56.000Z BP Sitting (Pre-Dialysis) 130/82 mmHg BP Sitting (Post-Dialysis) 114/66 mmHg Concurrent Access: falseAV Fistula Forearm (Left) Arterial BP Standing (Pre-Dialysis) 134/81 mmHg Sitti ng Heart Rate Post-Dialysis 60 BPM Sitting Heart Rate Pre-Dialysis 60 BPM Temperatu re Post-Dialysis 97.1 degF Standing Heart Rate Pre-Dialysis 60 BPM Temperature Pre-Dialysis 97.1 degF September 05, 2022 In-Center Hemodialysis Treatment [id number]:17:00.000Z 6088-56-07O84:51:35.000Z BP Sitting (Pre-Dialysis) 136/81 mmHg BP Sitting (Post-Dialysis) 138/78 mmHg Concurrent Access: falseAV Fistula Forearm (Left) Arterial BP Standing (Pre-Dialysis) 137/83 mmHg BP Standing (P ost-Dialysis) 112/78 mmHg Sitting Heart Rate Pre-Dialysis 62 BPM Sitting Heart Rate Post-Dialysis 60 BPM Standing Heart Rate Pre-Dialysis 61 BPM Standing Heart Rate Post-Dialysis 61 BPM Temperature Pre-Dialysis 97.1 degF Temperature Post -Dialysis 97.7 degF September 02, 2022 In-Center Hemodialysis Treatment [id number]:32:31.000Z 9600-74-14N96:34:52.000Z BP Sitting (Pre-Dialysis) 121/75 mmHg BP Sitting (Post-Dialysis) 135/70 mmHg Concurrent Access: falseAV Fistula Forearm (Left) Arterial Sitting Heart Rate Pre-Dialysis 62 BPM BP Standing (Post-Dialysis) 107/65 mmHg Temperature Pre-Dialysis 97.5 degF Sitting Heart Ra te Post-Dialysis 60 BPM Standing Heart Rate Post-Rosa lysis 62 BPM Temperature Post-Dialysis 97 .7 degF August 31, 2022 In-Center Hemodialysis Treatment [id number]:08:00.000Z [id number]:31:47.000Z BP Sitting (Pre-Dialysis) 125/71 mmHg BP Sitting (Post-Dialysis) 136/82 mmHg Concurrent Access: falseAV Fistula Forearm (Left) Arterial BP Standing (Pre-Dialysis) 132/78 mmHg BP Standing (P ost-Dialysis) 101/65 mmHg Sitting Heart Rate Pre-Dialysis 60 BPM Sitting Heart Rate Post-Dialysis 60 BPM Standing Heart Rate Pre-Dialysis 60 BPM Standing Heart Rate Post-Dialysis 65 BPM Temperature Pre-Dialysis 97.5 degF Temperature Post -Dialysis 97.7 degF August 29, 2022 In-Center Hemodialysis Treatment [id number]:21:00.000Z [id number]:07:21.000Z BP Sitting (Pre-Dialysis) 158/97 mmHg BP Sitting (Post-Dialysis) 131/78 mmHg Concurrent Access: falseAV Fistula Forearm (Left) Arterial Sitting Heart Rate Pre-Dialysis 68 BPM BP Standing (Post-Dialysis) 100/78 mmHg Temperature Pre-Dialysis 97.8 degF Sitting Heart Ra te Post-Dialysis 60 BPM Standing Heart Rate Post-Rosa lysis 67 BPM Temperature Post-Dialysis 98 .1 degF August 26, 2022 In-Center Hemodialysis Treatment [id number]:19:58.000Z [id number]:52:19.000Z BP Sitting (Pre-Dialysis) 141/71 mmHg BP Sitting (Post-Dialysis) 147/85 mmHg Concurrent Access: falseAV Fistula Forearm (Left) Arterial BP Standing (Pre-Dialysis) 139/61 mmHg Sitti ng Heart Rate Post-Dialysis 61 BPM Sitting Heart Rate Pre-Dialysis 66 BPM Temperatu re Post-Dialysis 96.9 degF Temperature Pre-Dialysis 97.4 degF August 24, 2022 In-Center Hemodialysis Treatment [id number]:11:00.000Z 7132-70-22B08:40:58.000Z BP Sitting (Pre-Dialysis) 125/72 mmHg BP Sitting (Post-Dialysis) 138/81 mmHg Concurrent Access: falseAV Fistula Forearm (Left) Arterial BP Standing (Pre-Dialysis) 126/78 mmHg BP Standing (P ost-Dialysis) 101/65 mmHg Sitting Heart Rate Pre-Dialysis 66 BPM Sitting Heart Rate Post-Dialysis 60 BPM Standing Heart Rate Pre-Dialysis 62 BPM Standing Heart Rate Post-Dialysis 65 BPM Temperature Pre-Dialysis 97.6 degF Temperature Post -Dialysis 97 degF August 22, 2022 In-Center Hemodialysis Treatment [id number]:48:00.000Z [id number]:25:12.000Z BP Sitting (Pre-Dialysis) 120/68 mmHg BP Sitting (Post-Dialysis) 138/87 mmHg Concurrent Access: falseAV Fistula Forearm (Left) Arterial BP Standing (Pre-Dialysis) 134/81 mmHg BP Standing (P ost-Dialysis) 112/72 mmHg Sitting Heart Rate Pre-Dialysis 68 BPM Sitting Heart Rate Post-Dialysis 60 BPM Standing Heart Rate Pre-Dialysis 68 BPM Standing Heart Rate Post-Dialysis 68 BPM Temperature Pre-Dialysis 97.8 degF Temperature Post -Dialysis 97 degF August 19, 2022 In-Center Hemodialysis Treatment [id number]:22:00.000Z 9319-54-65K18:54:00.000Z BP Sitting (Pre-Dialysis) 127/74 mmHg BP Sitting (Post-Dialysis) 107/90 mmHg Concurrent Access: falseAV Fistula Forearm (Left) Arterial BP Standing (Pre-Dialysis) 109/63 mmHg BP Standing (P ost-Dialysis) 100/54 mmHg Sitting Heart Rate Pre-Dialysis 66 BPM Sitting Heart Rate Post-Dialysis 105 BPM Standing Heart Rate Pre-Dialysis 72 BPM Standing Heart Rate Post-Dialysis 60 BPM Temperature Pre-Dialysis 96.9 degF Temperature Post -Dialysis 97.6 degF August 17, 2022 In-Center Hemodialysis Treatment [id number]:13:00.000Z [id number]:40:54.000Z BP Sitting (Pre-Dialysis) 138/80 mmHg BP Sitting (Post-Dialysis) 130/96 mmHg Concurrent Access: falseAV Fistula Forearm (Left) Arterial Sitting Heart Rate Pre-Dialysis 91 BPM BP Standing (Post-Dialysis) 102/59 mmHg Temperature Pre-Dialysis 97.8 degF Sitting Heart Ra te Post-Dialysis 60 BPM Standing Heart Rate Post-Rosa lysis 65 BPM Temperature Post-Dialysis 97 .7 degF August 15, 2022 In-Center Hemodialysis Treatment [id number]:23:00.000Z [id number]:58:57.000Z BP Sitting (Pre-Dialysis) 143/79 mmHg BP Sitting (Post-Dialysis) 153/84 mmHg Concurrent Access: falseAV Fistula Forearm (Left) Arterial BP Standing (Pre-Dialysis) 143/72 mmHg BP Standing (P ost-Dialysis) 100/62 mmHg Sitting Heart Rate Pre-Dialysis 68 BPM Sitting Heart Rate Post-Dialysis 55 BPM Standing Heart Rate Pre-Dialysis 73 BPM Standing Heart Rate Post-Dialysis 68 BPM Temperature Pre-Dialysis 97.5 degF Temperature Post -Dialysis 97.4 degF August 12, 2022 In-Center Hemodialysis Treatment [id number]:30:00.000Z 4007-47-10K46:01:30.000Z BP Sitting (Pre-Dialysis) 132/97 mmHg BP Sitting (Post-Dialysis) 145/89 mmHg Concurrent Access: falseAV Fistula Forearm (Left) Arterial Sitting Heart Rate Pre-Dialysis 60 BPM BP Standi ng (Post-Dialysis) 114/65 mmHg Temperature Pre-Dialysis 97 degF Sitting Heart Ra te Post-Dialysis 59 BPM Standing Heart Rate Post-Rosa lysis 60 BPM Temperature Post-Dialysis 97 .8 degF August 10, 2022 In-Center Hemodialysis Treatment [id number]:13:00.000Z [id number]:50:17.000Z BP Sitting (Pre-Dialysis) 139/78 mmHg BP Sitting (Post-Dialysis) 141/86 mmHg Concurrent Access: falseAV Fistula Forearm (Left) Arterial BP Standing (Pre-Dialysis) 139/74 mmHg Sitti ng Heart Rate Post-Dialysis 60 BPM Sitting Heart Rate Pre-Dialysis 67 BPM Temperatu re Post-Dialysis 97.8 degF Standing Heart Rate Pre-Dialysis 66 BPM Temperature Pre-Dialysis 97.8 degF August 08, 2022 In-Center Hemodialysis Treatment [id number]:17:00.000Z [id number]:52:42.000Z BP Sitting (Pre-Dialysis) 129/76 mmHg BP Sitting (Post-Dialysis) 138/67 mmHg Concurrent Access: falseAV Fistula Forearm (Left) Arterial BP Standing (Pre-Dialysis) 123/79 mmHg BP Standing (P ost-Dialysis) 100/65 mmHg Sitting Heart Rate Pre-Dialysis 62 BPM Sitting Heart Rate Post-Dialysis 60 BPM Standing Heart Rate Pre-Dialysis 60 BPM Standing Heart Rate Post-Dialysis 93 BPM Temperature Pre-Dialysis 97.8 degF Temperature Post -Dialysis 97.8 degF August 05, 2022 In-Center Hemodialysis Treatment [id number]:29:00.000Z 8994-30-07S20:56:00.000Z BP Sitting (Pre-Dialysis) 136/81 mmHg BP Sitting (Post-Dialysis) 146/82 mmHg Concurrent Access: falseAV Fistula Forearm (Left) Arterial Sitting Heart Rate Pre-Dialysis 69 BPM BP Standing (Post-Dialysis) 128/72 mmHg Temperature Pre-Dialysis 97.5 degF Sitting Heart Ra te Post-Dialysis 60 BPM Standing Heart Rate Post-Rosa lysis 61 BPM Temperature Post-Dialysis 97 .4 degF August 03, 2022 In-Center Hemodialysis Treatment [id number]:33:00.000Z [id number]:10:26.000Z BP Sitting (Pre-Dialysis) 110/67 mmHg BP Sitting (Post-Dialysis) 137/84 mmHg Concurrent Access: falseAV Fistula Forearm (Left) Arterial BP Standing (Pre-Dialysis) 120/77 mmHg Sitti ng Heart Rate Post-Dialysis 90 BPM Sitting Heart Rate Pre-Dialysis 62 BPM Temperatu re Post-Dialysis 97.5 degF Standing Heart Rate Pre-Dialysis 60 BPM Temperature Pre-Dialysis 97.5 degF August 01, 2022 In-Center Hemodialysis Treatment [id number]:22:00.000Z [id number]:51:23.000Z BP Sitting (Pre-Dialysis) 129/74 mmHg BP Sitting (Post-Dialysis) 128/76 mmHg Concurrent Access: falseAV Fistula Forearm (Left) Arterial Sitting Heart Rate Pre-Dialysis 66 BPM BP Standing (Post-Dialysis) 119/79 mmHg Temperature Pre-Dialysis 96.9 degF Sitting Heart Ra te Post-Dialysis 60 BPM Standing Heart Rate Post-Rosa lysis 67 BPM Temperature Post-Dialysis 97 .6 degF July 29, 2022 In-Center Hemodialysis Treatment [id number]:44:00.000Z [id number]:16:14.000Z BP Sitting (Pre-Dialysis) 131/77 mmHg BP Sitting (Post-Dialysis) 132/73 mmHg Concurrent Access: falseAV Fistula Forearm (Left) Arterial Sitting Heart Rate Pre-Dialysis 90 BPM Sitting H eart Rate Post-Dialysis 60 BPM Temperature Pre-Dialysis 97 degF Temperature Post -Dialysis 97.7 degF July 27, 2022 In-Center Hemodialysis Treatment [id number]:21:00.000Z [id number]:55:23.000Z BP Sitting (Pre-Dialysis) 140/82 mmHg BP Sitting (Post-Dialysis) 126/78 mmHg Concurrent Access: falseAV Fistula Forearm (Left) Arterial BP Standing (Pre-Dialysis) 140/81 mmHg BP Standing (P ost-Dialysis) 114/64 mmHg Sitting Heart Rate Pre-Dialysis 80 BPM Sitting Heart Rate Post-Dialysis 60 BPM Standing Heart Rate Pre-Dialysis 69 BPM Standing Heart Rate Post-Dialysis 60 BPM Temperature Pre-Dialysis 97 degF Temperature Post -Dialysis 98.5 degF July 25, 2022 In-Center Hemodialysis Treatment [id number]:27:00.000Z [id number]:08:42.000Z BP Sitting (Pre-Dialysis) 133/81 mmHg BP Sitting (Post-Dialysis) 150/83 mmHg Concurrent Access: falseAV Fistula Forearm (Left) Arterial BP Standing (Pre-Dialysis) 149/108 mmHg BP Standing (P ost-Dialysis) 122/79 mmHg Sitting Heart Rate Pre-Dialysis 62 BPM Sitting Heart Rate Post-Dialysis 60 BPM Standing Heart Rate Pre-Dialysis 60 BPM Standing Heart Rate Post-Dialysis 72 BPM Temperature Pre-Dialysis 98.5 degF Temperature Post -Dialysis 97 degF July 22, 2022 In-Center Hemodialysis Treatment [id number]:27:00.000Z [id number]:56:47.000Z BP Sitting (Pre-Dialysis) 128/73 mmHg BP Sitting (Post-Dialysis) 134/86 mmHg Concurrent Access: falseAV Fistula Forearm (Left) Arterial Sitting Heart Rate Pre-Dialysis 73 BPM BP Standing (Post-Dialysis) 122/81 mmHg Temperature Pre-Dialysis 96.9 degF Sitting Heart Ra te Post-Dialysis 60 BPM Standing Heart Rate Post-Rosa lysis 60 BPM Temperature Post-Dialysis 97 .2 degF July 20, 2022 In-Center Hemodialysis Treatment [id number]:18:00.000Z [id number]:52:00.000Z BP Sitting (Pre-Dialysis) 139/80 mmHg BP Sitting (Post-Dialysis) 121/67 mmHg Concurrent Access: falseAV Fistula Forearm (Left) Arterial BP Standing (Pre-Dialysis) 137/77 mmHg Sitti ng Heart Rate Post-Dialysis 60 BPM Sitting Heart Rate Pre-Dialysis 67 BPM Temperatu re Post-Dialysis 97.5 degF Standing Heart Rate Pre-Dialysis 68 BPM Temperature Pre-Dialysis 97 degF July 18, 2022 In-Center Hemodialysis Treatment [id number]:19:00.000Z [id number]:45:24.000Z BP Sitting (Pre-Dialysis) 132/75 mmHg BP Sitting (Post-Dialysis) 117/71 mmHg Concurrent Access: falseAV Fistula Forearm (Left) Arterial Sitting Heart Rate Pre-Dialysis 67 BPM BP Standing (Post-Dialysis) 101/66 mmHg Temperature Pre-Dialysis 97.2 degF Sitting Heart Ra te Post-Dialysis 60 BPM Standing Heart Rate Post-Rosa lysis 68 BPM Temperature Post-Dialysis 97 .4 degF July 15, 2022 In-Center Hemodialysis Treatment [id number]:26:00.000Z [id number]:26:26.000Z BP Sitting (Pre-Dialysis) 131/73 mmHg BP Sitting (Post-Dialysis) 121/78 mmHg Concurrent Access: falseAV Fistula Forearm (Left) Arterial Sitting Heart Rate Pre-Dialysis 62 BPM BP Standi ng (Post-Dialysis) 101/66 mmHg Temperature Pre-Dialysis 97 degF Sitting Heart Ra te Post-Dialysis 80 BPM Standing Heart Rate Post-Rosa lysis 66 BPM Temperature Post-Dialysis 97 .2 degF July 13, 2022 In-Center Hemodialysis Treatment [id number]:19:00.000Z [id number]:00:07.000Z BP Sitting (Pre-Dialysis) 137/75 mmHg BP Sitting (Post-Dialysis) 147/85 mmHg Concurrent Access: falseAV Fistula Forearm (Left) Arterial BP Standing (Pre-Dialysis) 138/78 mmHg BP Standing (P ost-Dialysis) 154/93 mmHg Sitting Heart Rate Pre-Dialysis 67 BPM Sitting Heart Rate Post-Dialysis 60 BPM Standing Heart Rate Pre-Dialysis 66 BPM Standing Heart Rate Post-Dialysis 72 BPM Temperature Pre-Dialysis 97.9 degF Temperature Post -Dialysis 97.8 degF July 11, 2022 In-Center Hemodialysis Treatment [id number]:21:00.000Z [id number]:56:06.000Z BP Sitting (Pre-Dialysis) 133/81 mmHg BP Sitting (Post-Dialysis) 129/74 mmHg Concurrent Access: falseAV Fistula Forearm (Left) Arterial BP Standing (Pre-Dialysis) 122/80 mmHg BP Standing (P ost-Dialysis) 104/65 mmHg Sitting Heart Rate Pre-Dialysis 68 BPM Sitting Heart Rate Post-Dialysis 64 BPM Standing Heart Rate Pre-Dialysis 80 BPM Standing Heart Rate Post-Dialysis 62 BPM Temperature Pre-Dialysis 97 degF Temperature Post -Dialysis 97.1 degF July 08, 2022 In-Center Hemodialysis Treatment [id number]:22:00.000Z [id number]:52:20.000Z BP Sitting (Pre-Dialysis) 122/68 mmHg BP Sitting (Post-Dialysis) 130/79 mmHg Concurrent Access: falseAV Fistula Forearm (Left) Arterial Sitting Heart Rate Pre-Dialysis 73 BPM BP Standing (Post-Dialysis) 100/63 mmHg Temperature Pre-Dialysis 97.4 degF Sitting Heart Ra te Post-Dialysis 50 BPM Standing Heart Rate Post-Rosa lysis 66 BPM Temperature Post-Dialysis 97 .2 degF July 06, 2022 In-Center Hemodialysis Treatment 5724-08-01K14:42:00.000Z [id number]:11:03.000Z BP Sitting (Pre-Dialysis) 139/83 mmHg BP Sitting (Post-Dialysis) 138/77 mmHg Concurrent Access: falseAV Fistula Forearm (Left) Arterial BP Standing (Pre-Dialysis) 117/90 mmHg Sitti ng Heart Rate Post-Dialysis 60 BPM Sitting Heart Rate Pre-Dialysis 60 BPM Temperatu re Post-Dialysis 97.9 degF Standing Heart Rate Pre-Dialysis 60 BPM Temperature Pre-Dialysis 97.9 degF July 04, 2022 In-Center Hemodialysis Treatment [id number]:44:00.000Z [id number]:14:39.000Z BP Sitting (Pre-Dialysis) 150/91 mmHg BP Sitting (Post-Dialysis) 163/98 mmHg Concurrent Access: falseAV Fistula Forearm (Left) Arterial Sitting Heart Rate Pre-Dialysis 65 BPM BP Standing (Post-Dialysis) 133/85 mmHg Temperature Pre-Dialysis 97.2 degF Sitting Heart Ra te Post-Dialysis 78 BPM Standing Heart Rate Post-Rosa lysis 85 BPM Temperature Post-Dialysis 97 degF July 01, 2022 In-Center Hemodialysis Treatment [id number]:49:00.000Z [id number]:23:00.000Z BP Sitting (Pre-Dialysis) 130/65 mmHg BP Sitting (Post-Dialysis) 147/82 mmHg Concurrent Access: falseAV Fistula Forearm (Left) Arterial BP Standing (Pre-Dialysis) 136/77 mmHg BP Standing (P ost-Dialysis) 101/63 mmHg Sitting Heart Rate Pre-Dialysis 60 BPM Sitting Heart Rate Post-Dialysis 60 BPM Standing Heart Rate Pre-Dialysis 60 BPM Standing Heart Rate Post-Dialysis 61 BPM Temperature Pre-Dialysis 97.8 degF Temperature Post -Dialysis 97.9 degF June 29, 2022 In-Center Hemodialysis Treatment [id number]:42:00.000Z [id number]:16:18.000Z BP Sitting (Pre-Dialysis) 137/85 mmHg BP Sitting (Post-Dialysis) 135/82 mmHg Concurrent Access: falseAV Fistula Forearm (Left) Arterial BP Standing (Pre-Dialysis) 125/62 mmHg Sitti ng Heart Rate Post-Dialysis 54 BPM Sitting Heart Rate Pre-Dialysis 67 BPM Temperatu re Post-Dialysis 97.6 degF Standing Heart Rate Pre-Dialysis 70 BPM Temperature Pre-Dialysis 97.6 degF June 27, 2022 In-Center Hemodialysis Treatment [id number]:05:00.000Z [id number]:38:22.000Z BP Sitting (Pre-Dialysis) 134/68 mmHg BP Sitting (Post-Dialysis) 131/79 mmHg Concurrent Access: falseAV Fistula Forearm (Left) Arterial Sitting Heart Rate Pre-Dialysis 60 BPM BP Standing (Post-Dialysis) 106/46 mmHg Temperature Pre-Dialysis 97.5 degF Sitting Heart Ra te Post-Dialysis 60 BPM Standing Heart Rate Post-Rosa lysis 82 BPM Temperature Post-Dialysis 97 .7 degF June 24, 2022 In-Center Hemodialysis Treatment [id number]:03:00.000Z [id number]:32:10.000Z BP Sitting (Pre-Dialysis) 137/85 mmHg BP Sitting (Post-Dialysis) 133/81 mmHg Concurrent Access: falseAV Fistula Forearm (Left) Arterial Sitting Heart Rate Pre-Dialysis 60 BPM BP Standi ng (Post-Dialysis) 182/57 mmHg Temperature Pre-Dialysis 97 degF Sitting Heart Ra te Post-Dialysis 60 BPM Standing Heart Rate Post-Rosa lysis 66 BPM Temperature Post-Dialysis 97 .3 degF June 22, 2022 In-Center Hemodialysis Treatment [id number]:39:00.000Z [id number]:08:25.000Z BP Sitting (Pre-Dialysis) 139/78 mmHg BP Sitting (Post-Dialysis) 129/83 mmHg Concurrent Access: falseAV Fistula Forearm (Left) Arterial BP Standing (Pre-Dialysis) 131/79 mmHg BP Standing (P ost-Dialysis) 110/89 mmHg Sitting Heart Rate Pre-Dialysis 69 BPM Sitting Heart Rate Post-Dialysis 86 BPM Standing Heart Rate Pre-Dialysis 62 BPM Standing Heart Rate Post-Dialysis 85 BPM Temperature Pre-Dialysis 97.9 degF Temperature Post -Dialysis 97 degF June 20, 2022 In-Center Hemodialysis Treatment [id number]:42:00.000Z 7930-88-40I27:15:45.000Z BP Sitting (Pre-Dialysis) 153/76 mmHg BP Sitting (Post-Dialysis) 131/89 mmHg Concurrent Access: falseAV Fistula Forearm (Left) Arterial BP Standing (Pre-Dialysis) 164/68 mmHg BP Standing (P ost-Dialysis) 130/89 mmHg Sitting Heart Rate Pre-Dialysis 65 BPM Sitting Heart Rate Post-Dialysis 80 BPM Standing Heart Rate Pre-Dialysis 66 BPM Standing Heart Rate Post-Dialysis 80 BPM Temperature Pre-Dialysis 97.9 degF Temperature Post -Dialysis 97 degF 2022 In-Center Hemodialysis Treatment [id number]:49:00.000Z [id number]:16:17.000Z BP Sitting (Pre-Dialysis) 124/87 mmHg BP Sitting (Post-Dialysis) 147/87 mmHg Concurrent Access: falseAV Fistula Forearm (Left) Arterial BP Standing (Pre-Dialysis) 127/98 mmHg BP Standing (P ost-Dialysis) 105/70 mmHg Sitting Heart Rate Pre-Dialysis 67 BPM Sitting Heart Rate Post-Dialysis 79 BPM Standing Heart Rate Pre-Dialysis 87 BPM Standing Heart Rate Post-Dialysis 68 BPM Temperature Pre-Dialysis 97.9 degF Temperature Post -Dialysis 97 degF June 15, 2022 In-Center Hemodialysis Treatment [id number]:02:13.000Z [id number]:31:28.000Z BP Sitting (Pre-Dialysis) 147/92 mmHg BP Sitting (Post-Dialysis) 141/88 mmHg Concurrent Access: falseAV Fistula Forearm (Left) Arterial BP Standing (Pre-Dialysis) 145/89 mmHg Sitting Heart Rate Post-Dialysis 80 BPM Sitting Heart Rate Pre-Dialysis 89 BPM Temperatu re Post-Dialysis 97 degF Standing Heart Rate Pre-Dialysis 69 BPM Temperature Pre-Dialysis 97.5 degF June 13, 2022 In-Center Hemodialysis Treatment [id number]:18:00.000Z [id number]:51:59.000Z BP Sitting (Pre-Dialysis) 140/69 mmHg BP Sitting (Post-Dialysis) 125/73 mmHg Concurrent Access: falseAV Fistula Forearm (Left) Arterial Sitting Heart Rate Pre-Dialysis 73 BPM BP Standi ng (Post-Dialysis) 101/65 mmHg Temperature Pre-Dialysis 98 degF Sitting Heart Ra te Post-Dialysis 60 BPM Standing Heart Rate Post-Rosa lysis 60 BPM Temperature Post-Dialysis 97 .5 degF June 10, 2022 In-Center Hemodialysis Treatment [id number]:00:00.000Z 5786-90-41N03:36:27.000Z BP Sitting (Pre-Dialysis) 134/78 mmHg BP Sitting (Post-Dialysis) 142/92 mmHg Concurrent Access: falseAV Fistula Forearm (Left) Arterial Sitting Heart Rate Pre-Dialysis 77 BPM BP Standing (Post-Dialysis) 121/77 mmHg Temperature Pre-Dialysis 97.7 degF Sitting Heart Ra te Post-Dialysis 60 BPM Standing Heart Rate Post-Rosa lysis 85 BPM Temperature Post-Dialysis 97 .8 degF June 08, 2022 In-Center Hemodialysis Treatment [id number]:24:00.000Z [id number]:56:31.000Z BP Sitting (Pre-Dialysis) 145/77 mmHg BP Sitting (Post-Dialysis) 143/82 mmHg Concurrent Access: falseAV Fistula Forearm (Left) Arterial BP Standing (Pre-Dialysis) 140/81 mmHg BP Standing (P ost-Dialysis) 116/68 mmHg Sitting Heart Rate Pre-Dialysis 66 BPM Sitting Heart Rate Post-Dialysis 60 BPM Standing Heart Rate Pre-Dialysis 69 BPM Standing Heart Rate Post-Dialysis 65 BPM Temperature Pre-Dialysis 97.9 degF Temperature Post -Dialysis 97.5 degF June 06, 2022 In-Center Hemodialysis Treatment [id number]:26:00.000Z [id number]:00:09.000Z BP Sitting (Pre-Dialysis) 133/81 mmHg BP Sitting (Post-Dialysis) 124/93 mmHg Concurrent Access: falseAV Fistula Forearm (Left) Arterial BP Standing (Pre-Dialysis) 138/90 mmHg BP Standing (P ost-Dialysis) 120/89 mmHg Sitting Heart Rate Pre-Dialysis 62 BPM Sitting Heart Rate Post-Dialysis 54 BPM Standing Heart Rate Pre-Dialysis 66 BPM Standing Heart Rate Post-Dialysis 61 BPM Temperature Pre-Dialysis 97.9 degF Temperature Post -Dialysis 97.5 degF June 03, 2022 In-Center Hemodialysis Treatment [id number]:14:00.000Z [id number]:44:29.000Z BP Sitting (Pre-Dialysis) 144/82 mmHg BP Sitting (Post-Dialysis) 134/96 mmHg Concurrent Access: falseAV Fistula Forearm (Left) Arterial Sitting Heart Rate Pre-Dialysis 67 BPM Sitting H eart Rate Post-Dialysis 60 BPM Temperature Pre-Dialysis 96.9 degF Temperature Post -Dialysis 97.2 degF June 01, 2022 In-Center Hemodialysis Treatment [id number]:52:00.000Z [id number]:55:08.000Z BP Sitting (Pre-Dialysis) 136/68 mmHg BP Sitting (Post-Dialysis) 105/92 mmHg Concurrent Access: falseAV Fistula Forearm (Left) Arterial Sitting Heart Rate Pre-Dialysis 74 BPM BP Standi ng (Post-Dialysis) 100/66 mmHg Temperature Pre-Dialysis 98 degF Sitting Heart Ra te Post-Dialysis 62 BPM Standing Heart Rate Post-Rosa lysis 66 BPM Temperature Post-Dialysis 98 .2 degF May 30, 2022 In-Center Hemodialysis Treatment [id number]:46:00.000Z 6590-29-98E35:12:42.000Z BP Sitting (Pre-Dialysis) 151/89 mmHg BP Sitting (Post-Dialysis) 156/91 mmHg Concurrent Access: falseAV Fistula Forearm (Left) Arterial Sitting Heart Rate Pre-Dialysis 74 BPM BP Standi ng (Post-Dialysis) 121/78 mmHg Temperature Pre-Dialysis 98 degF Sitting Heart Ra te Post-Dialysis 60 BPM Standing Heart Rate Post-Rosa lysis 60 BPM Temperature Post-Dialysis 97 .5 degF May 27, 2022 In-Center Hemodialysis Treatment [id number]:35:00.000Z [id number]:34:50.000Z BP Sitting (Pre-Dialysis) 143/88 mmHg BP Sitting (Post-Dialysis) 135/84 mmHg Concurrent Access: falseAV Fistula Forearm (Left) Arterial Sitting Heart Rate Pre-Dialysis 66 BPM BP Standing (Post-Dialysis) 106/67 mmHg Temperature Pre-Dialysis 97.6 degF Sitting Heart Ra te Post-Dialysis 80 BPM Standing Heart Rate Post-Rosa lysis 66 BPM Temperature Post-Dialysis 97 degF May 25, 2022 In-Center Hemodialysis Treatment [id number]:00:00.000Z 7637-07-05R00:34:00.000Z BP Sitting (Pre-Dialysis) 133/76 mmHg BP Sitting (Post-Dialysis) 139/84 mmHg Concurrent Access: falseAV Fistula Forearm (Left) Arterial Sitting Heart Rate Pre-Dialysis 80 BPM Sitting H eart Rate Post-Dialysis 65 BPM Temperature Pre-Dialysis 97.8 degF Temperature Post -Dialysis 97.5 degF May 23, 2022 In-Center Hemodialysis Treatment [id number]:22:00.000Z [id number]:58:24.000Z BP Sitting (Pre-Dialysis) 165/89 mmHg BP Sitting (Post-Dialysis) 148/85 mmHg Concurrent Access: falseAV Fistula Forearm (Left) Arterial Sitting Heart Rate Pre-Dialysis 85 BPM BP Standi ng (Post-Dialysis) 125/78 mmHg Temperature Pre-Dialysis 98 degF Sitting Heart Ra te Post-Dialysis 64 BPM Standing Heart Rate Post-Rosa lysis 69 BPM Temperature Post-Dialysis 97 .2 degF May 20, 2022 In-Center Hemodialysis Treatment [id number]:11:00.000Z [id number]:50:39.000Z BP Sitting (Pre-Dialysis) 144/84 mmHg BP Sitting (Post-Dialysis) 137/77 mmHg Concurrent Access: falseAV Fistula Forearm (Left) Arterial BP Standing (Pre-Dialysis) 143/79 mmHg BP Standing (P ost-Dialysis) 111/59 mmHg Sitting Heart Rate Pre-Dialysis 60 BPM Sitting Heart Rate Post-Dialysis 60 BPM Standing Heart Rate Pre-Dialysis 60 BPM Standing Heart Rate Post-Dialysis 62 BPM Temperature Pre-Dialysis 97.7 degF Temperature Post -Dialysis 97.2 degF May 18, 2022 In-Center Hemodialysis Treatment [id number]:04:00.000Z [id number]:34:31.000Z BP Sitting (Pre-Dialysis) 152/92 mmHg BP Sitting (Post-Dialysis) 166/69 mmHg Concurrent Access: falseAV Fistula Forearm (Left) Arterial Sitting Heart Rate Pre-Dialysis 63 BPM BP Standi ng (Post-Dialysis) 124/79 mmHg Temperature Pre-Dialysis 98 degF Sitting Heart Ra te Post-Dialysis 80 BPM Standing Heart Rate Post-Rosa lysis 68 BPM Temperature Post-Dialysis 98 degF May 17, 2022 In-Center Hemodialysis Treatment [id number]:01:00.000Z [id number]:36:51.000Z BP Sitting (Pre-Dialysis) 144/98 mmHg BP Sitting (Post-Dialysis) 145/86 mmHg Concurrent Access: falseAV Fistula Forearm (Left) Arterial Sitting Heart Rate Pre-Dialysis 65 BPM BP Standing (Post-Dialysis) 111/79 mmHg Temperature Pre-Dialysis 97.7 degF Sitting Heart Ra te Post-Dialysis 71 BPM Standing Heart Rate Post-Rosa lysis 60 BPM Temperature Post-Dialysis 97 .8 degF May 13, 2022 In-Center Hemodialysis Treatment 7914-02-01Z65:29:00.000Z 3777-01-76H01:31:01.000Z BP Sitting (Pre-Dialysis) 129/70 mmHg BP Sitting (Post-Dialysis) 140/84 mmHg Concurrent Access: falseAV Fistula Forearm (Left) Arterial Sitting Heart Rate Pre-Dialysis 60 BPM BP Standing (Post-Dialysis) 104/55 mmHg Temperature Pre-Dialysis 97.3 degF Sitting Heart Ra te Post-Dialysis 60 BPM Standing Heart Rate Post-Rosa lysis 60 BPM Temperature Post-Dialysis 97 .4 degF May 11, 2022 In-Center Hemodialysis Treatment [id number]:20:00.000Z 0966-03-61E40:54:21.000Z BP Sitting (Pre-Dialysis) 147/96 mmHg BP Sitting (Post-Dialysis) 117/89 mmHg Concurrent Access: falseAV Fistula Forearm (Left) Arterial BP Standing (Pre-Dialysis) 147/97 mmHg BP Standing (P ost-Dialysis) 108/65 mmHg Sitting Heart Rate Pre-Dialysis 60 BPM Sitting Heart Rate Post-Dialysis 80 BPM Standing Heart Rate Pre-Dialysis 60 BPM Standing Heart Rate Post-Dialysis 66 BPM Temperature Pre-Dialysis 97 degF Temperature Post -Dialysis 97.7 degF May 09, 2022 In-Center Hemodialysis Treatment [id number]:12:00.000Z 2488-23-09A42:44:00.000Z BP Sitting (Pre-Dialysis) 148/83 mmHg BP Sitting (Post-Dialysis) 138/78 mmHg Concurrent Access: falseAV Fistula Forearm (Left) Arterial BP Standing (Pre-Dialysis) 145/81 mmHg BP Standing (P ost-Dialysis) 110/69 mmHg Sitting Heart Rate Pre-Dialysis 62 BPM Sitting Heart Rate Post-Dialysis 60 BPM Standing Heart Rate Pre-Dialysis 65 BPM Standing Heart Rate Post-Dialysis 60 BPM Temperature Pre-Dialysis 97.7 degF Temperature Post -Dialysis 97.5 degF May 06, 2022 In-Center Hemodialysis Treatment [id number]:15:00.000Z [id number]:22:55.000Z BP Sitting (Pre-Dialysis) 140/86 mmHg BP Sitting (Post-Dialysis) 141/79 mmHg Concurrent Access: falseAV Fistula Forearm (Left) Arterial Sitting Heart Rate Pre-Dialysis 65 BPM Sitting H eart Rate Post-Dialysis 60 BPM Temperature Pre-Dialysis 97.8 degF Temperature Post -Dialysis 97.8 degF May 04, 2022 In-Center Hemodialysis Treatment [id number]:16:42.000Z [id number]:44:43.000Z BP Sitting (Pre-Dialysis) 127/76 mmHg BP Sitting (Post-Dialysis) 136/81 mmHg Concurrent Access: falseAV Fistula Forearm (Left) Arterial Sitting Heart Rate Pre-Dialysis 65 BPM BP Standing (Post-Dialysis) 102/65 mmHg Temperature Pre-Dialysis 96.9 degF Sitting Heart Ra te Post-Dialysis 60 BPM Standing Heart Rate Post-Rosa lysis 66 BPM Temperature Post-Dialysis 97 .3 degF May 02, 2022 In-Center Hemodialysis Treatment [id number]:06:00.000Z 2782-32-24E36:41:34.000Z BP Sitting (Pre-Dialysis) 143/78 mmHg BP Sitting (Post-Dialysis) 145/83 mmHg Concurrent Access: falseAV Fistula Forearm (Left) Arterial BP Standing (Pre-Dialysis) 148/67 mmHg BP Standing (P ost-Dialysis) 102/69 mmHg Sitting Heart Rate Pre-Dialysis 67 BPM Sitting Heart Rate Post-Dialysis 60 BPM Standing Heart Rate Pre-Dialysis 87 BPM Standing Heart Rate Post-Dialysis 67 BPM Temperature Pre-Dialysis 97.2 degF Temperature Post -Dialysis 97.9 degF April 29, 2022 In-Center Hemodialysis Treatment 7232-07-32E98:26:00.000Z 7010-47-20A38:55:28.000Z BP Sitting (Pre-Dialysis) 154/84 mmHg BP Sitting (Post-Dialysis) 125/76 mmHg Concurrent Access: falseAV Fistula Forearm (Left) Arterial Sitting Heart Rate Pre-Dialysis 68 BPM BP Standing (Post-Dialysis) 120/78 mmHg Temperature Pre-Dialysis 97.3 degF Sitting Heart Ra te Post-Dialysis 62 BPM Standing Heart Rate Post-Rosa lysis 65 BPM Temperature Post-Dialysis 97 .1 degF April 28, 2022 In-Center Hemodialysis Treatment [id number]:17:00.000Z 2801-95-20I89:49:31.000Z BP Sitting (Pre-Dialysis) 150/85 mmHg BP Sitting (Post-Dialysis) 146/85 mmHg Concurrent Access: falseAV Fistula Forearm (Left) Arterial BP Standing (Pre-Dialysis) 145/78 mmHg BP Standing (P ost-Dialysis) 120/80 mmHg Sitting Heart Rate Pre-Dialysis 66 BPM Sitting Heart Rate Post-Dialysis 68 BPM Standing Heart Rate Pre-Dialysis 67 BPM Standing Heart Rate Post-Dialysis 80 BPM Temperature Pre-Dialysis 97 degF Temperature Post -Dialysis 97.2 degF April 25, 2022 In-Center Hemodialysis Treatment 1410-69-12J20:13:00.000Z 8526-03-97I98:46:04.000Z BP Sitting (Pre-Dialysis) 164/82 mmHg BP Sitting (Post-Dialysis) 156/97 mmHg Concurrent Access: falseAV Fistula Forearm (Left) Arterial Sitting Heart Rate Pre-Dialysis 68 BPM BP Standing (Post-Dialysis) 149/87 mmHg Temperature Pre-Dialysis 97.8 degF Sitting Heart Ra te Post-Dialysis 60 BPM Standing Heart Rate Post-Rosa lysis 61 BPM Temperature Post-Dialysis 97 .7 degF April 22, 2022 In-Center Hemodialysis Treatment [id number]:17:06.000Z [id number]:33:07.000Z BP Sitting (Pre-Dialysis) 146/80 mmHg BP Sitting (Post-Dialysis) 144/77 mmHg Concurrent Access: falseAV Fistula Forearm (Left) Arterial Sitting Heart Rate Pre-Dialysis 62 BPM BP Standing (Post-Dialysis) 107/69 mmHg Temperature Pre-Dialysis 97.2 degF Sitting Heart Ra te Post-Dialysis 60 BPM Standing Heart Rate Post-Rosa lysis 68 BPM Temperature Post-Dialysis 97 .7 degF April 20, 2022 In-Center Hemodialysis Treatment [id number]:09:00.000Z 8741-75-00G24:40:00.000Z BP Sitting (Pre-Dialysis) 145/77 mmHg BP Sitting (Post-Dialysis) 151/81 mmHg Concurrent Access: falseAV Fistula Forearm (Left) Arterial BP Standing (Pre-Dialysis) 145/88 mmHg BP Standing (P ost-Dialysis) 126/74 mmHg Sitting Heart Rate Pre-Dialysis 60 BPM Sitting Heart Rate Post-Dialysis 60 BPM Standing Heart Rate Pre-Dialysis 77 BPM Standing Heart Rate Post-Dialysis 62 BPM Temperature Pre-Dialysis 97.6 degF Temperature Post -Dialysis 97.3 degF April 18, 2022 In-Center Hemodialysis Treatment [id number]:10:00.000Z 7730-03-58K45:34:55.000Z BP Sitting (Pre-Dialysis) 160/85 mmHg BP Sitting (Post-Dialysis) 148/82 mmHg Concurrent Access: falseAV Fistula Forearm (Left) Arterial BP Standing (Pre-Dialysis) 158/87 mmHg BP Standing (P ost-Dialysis) 110/58 mmHg Sitting Heart Rate Pre-Dialysis 67 BPM Sitting Heart Rate Post-Dialysis 60 BPM Standing Heart Rate Pre-Dialysis 69 BPM Standing Heart Rate Post-Dialysis 60 BPM Temperature Pre-Dialysis 97.8 degF Temperature Post -Dialysis 97.5 degF April 15, 2022 In-Center Hemodialysis Treatment [id number]:06:00.000Z 3580-06-33B80:27:12.000Z BP Sitting (Pre-Dialysis) 142/79 mmHg BP Sitting (Post-Dialysis) 124/78 mmHg Concurrent Access: falseAV Fistula Forearm (Left) Arterial BP Standing (Pre-Dialysis) 140/81 mmHg BP Standing (P ost-Dialysis) 106/68 mmHg Sitting Heart Rate Pre-Dialysis 68 BPM Sitting Heart Rate Post-Dialysis 60 BPM Standing Heart Rate Pre-Dialysis 69 BPM Standing Heart Rate Post-Dialysis 65 BPM Temperature Pre-Dialysis 97.5 degF April 13, 2022 In-Center Hemodialysis Treatment 8459-05-29K98:28:00.000Z [id number]:43:00.000Z BP Sitting (Pre-Dialysis) 146/94 mmHg BP Sitting (Post-Dialysis) 148/75 mmHg Concurrent Access: falseAV Fistula Forearm (Left) Arterial BP Standing (Pre-Dialysis) 159/88 mmHg BP Standing (P ost-Dialysis) 125/62 mmHg Sitting Heart Rate Pre-Dialysis 66 BPM Sitting Heart Rate Post-Dialysis 60 BPM Standing Heart Rate Pre-Dialysis 66 BPM Standing Heart Rate Post-Dialysis 68 BPM Temperature Pre-Dialysis 97 degF Temperature Post -Dialysis 97 degF April 11, 2022 In-Center Hemodialysis Treatment [id number]:03:00.000Z 8778-23-11J25:28:00.000Z BP Sitting (Pre-Dialysis) 141/85 mmHg BP Sitting (Post-Dialysis) 139/86 mmHg Concurrent Access: falseAV Fistula Forearm (Left) Arterial Sitting Heart Rate Pre-Dialysis 70 BPM Sitting H eart Rate Post-Dialysis 60 BPM Temperature Pre-Dialysis 98 degF Temperature Post -Dialysis 97.3 degF April 10, 2022 Additional Day Of Dialysis Treatment [id number]:34:00.000Z 3714-01-32C61:28:26.000Z BP Sitting (Pre-Dialysis) 144/77 mmHg BP Sitting (Post-Dialysis) 153/101 mmHg Concurrent Access: falseAV Fistula Forearm (Left) Arterial Sitting Heart Rate Pre-Dialysis 62 BPM BP Standing (Post-Dialysis) 113/74 mmHg Temperature Pre-Dialysis 96.8 degF Sitting Heart Ra te Post-Dialysis 60 BPM Standing Heart Rate Post-[place] lysis 60 BPM Temperature Post-Dialysis 97 .4 degF April 06, 2022 In-Center Hemodialysis Treatment 5477-35-14S41:06:00.000Z 8906-03-75S07:35:35.000Z BP Sitting (Pre-Dialysis) 149/90 mmHg BP Sitting (Post-Dialysis) 134/86 mmHg Concurrent Access: falseAV Fistula Forearm (Left) Arterial Sitting Heart Rate Pre-Dialysis 69 BPM BP Standi ng (Post-Dialysis) 120/59 mmHg Temperature Pre-Dialysis 98 degF Sitting Heart Ra te Post-Dialysis 66 BPM Standing Heart Rate Post-Rosa lysis 68 BPM Temperature Post-Dialysis 97 .7 degF April 04, 2022 In-Center Hemodialysis Treatment [id number]:11:00.000Z 9065-93-52J10:40:53.000Z BP Sitting (Pre-Dialysis) 140/79 mmHg BP Sitting (Post-Dialysis) 134/75 mmHg Concurrent Access: falseAV Fistula Forearm (Left) Arterial BP Standing (Pre-Dialysis) 125/68 mmHg Sitti ng Heart Rate Post-Dialysis 60 BPM Sitting Heart Rate Pre-Dialysis 66 BPM Temperatu re Post-Dialysis 97.5 degF Standing Heart Rate Pre-Dialysis 80 BPM Temperature Pre-Dialysis 97.6 degF April 01, 2022 In-Center Hemodialysis Treatment 6832-87-15F12:35:00.000Z 1275-92-16Q83:02:26.000Z BP Sitting (Pre-Dialysis) 125/86 mmHg BP Sitting (Post-Dialysis) 140/86 mmHg Concurrent Access: falseAV Fistula Forearm (Left) Arterial BP Standing (Pre-Dialysis) 140/81 mmHg BP Standing (P ost-Dialysis) 133/79 mmHg Sitting Heart Rate Pre-Dialysis 60 BPM Sitting Heart Rate Post-Dialysis 60 BPM Standing Heart Rate Pre-Dialysis 67 BPM Standing Heart Rate Post-Dialysis 64 BPM Temperature Pre-Dialysis 97.2 degF Temperature Post -Dialysis 97 degF March 30, 2022 In-Center Hemodialysis Treatment [id number]:13:00.000Z 3038-99-18K78:30:24.000Z BP Sitting (Pre-Dialysis) 154/86 mmHg BP Sitting (Post-Dialysis) 145/90 mmHg Concurrent Access: falseAV Fistula Forearm (Left) Arterial BP Standing (Pre-Dialysis) 126/89 mmHg BP Standing (P ost-Dialysis) 106/60 mmHg Sitting Heart Rate Pre-Dialysis 70 BPM Sitting Heart Rate Post-Dialysis 60 BPM Standing Heart Rate Pre-Dialysis 73 BPM Standing Heart Rate Post-Dialysis 67 BPM Temperature Pre-Dialysis 96.9 degF Temperature Post -Dialysis 97.1 degF March 28, 2022 In-Center Hemodialysis Treatment [id number]:12:15.000Z 5324-07-88M86:43:28.000Z BP Sitting (Pre-Dialysis) 154/89 mmHg BP Sitting (Post-Dialysis) 148/81 mmHg Concurrent Access: falseAV Fistula Forearm (Left) Arterial BP Standing (Pre-Dialysis) 147/88 mmHg Sitting Heart Rate Post-Dialysis 60 BPM Sitting Heart Rate Pre-Dialysis 87 BPM Temperatu re Post-Dialysis 97 degF Standing Heart Rate Pre-Dialysis 69 BPM Temperature Pre-Dialysis 97.5 degF March 25, 2022 In-Center Hemodialysis Treatment [id number]:15:00.000Z [id number]:36:09.000Z BP Sitting (Pre-Dialysis) 104/78 mmHg BP Sitting (Post-Dialysis) 160/90 mmHg Concurrent Access: falseAV Fistula Forearm (Left) Arterial Sitting Heart Rate Pre-Dialysis 62 BPM BP Standing (Post-Dialysis) 126/85 mmHg Temperature Pre-Dialysis 97.8 degF Sitting Heart Ra te Post-Dialysis 53 BPM Standing Heart Rate Post-Rosa lysis 66 BPM Temperature Post-Dialysis 97 .4 degF March 23, 2022 In-Center Hemodialysis Treatment [id number]:05:00.000Z [id number]:38:27.000Z BP Sitting (Pre-Dialysis) 132/65 mmHg BP Sitting (Post-Dialysis) 144/89 mmHg Concurrent Access: falseAV Fistula Forearm (Left) Arterial Sitting Heart Rate Pre-Dialysis 58 BPM BP Standing (Post-Dialysis) 111/67 mmHg Temperature Pre-Dialysis 97.8 degF Sitting Heart Ra te Post-Dialysis 60 BPM Standing Heart Rate Post-Rosa lysis 60 BPM Temperature Post-Dialysis 97 .2 degF March 21, 2022 In-Center Hemodialysis Treatment [id number]:27:00.000Z [id number]:50:05.000Z BP Sitting (Pre-Dialysis) 139/80 mmHg BP Sitting (Post-Dialysis) 127/78 mmHg Concurrent Access: falseAV Fistula Forearm (Left) Arterial BP Standing (Pre-Dialysis) 135/75 mmHg BP Standing (P ost-Dialysis) 115/67 mmHg Sitting Heart Rate Pre-Dialysis 65 BPM Sitting Heart Rate Post-Dialysis 74 BPM Standing Heart Rate Pre-Dialysis 69 BPM Standing Heart Rate Post-Dialysis 65 BPM Temperature Pre-Dialysis 97.3 degF Temperature Post -Dialysis 97.1 degF March 18, 2022 In-Center Hemodialysis Treatment [id number]:09:00.000Z [id number]:35:53.000Z BP Sitting (Pre-Dialysis) 132/80 mmHg BP Sitting (Post-Dialysis) 139/79 mmHg Concurrent Access: falseAV Fistula Forearm (Left) Arterial Sitting Heart Rate Pre-Dialysis 67 BPM Sitting H eart Rate Post-Dialysis 60 BPM Temperature Pre-Dialysis 97.2 degF Temperature Post -Dialysis 97.1 degF March 16, 2022 In-Center Hemodialysis Treatment [id number]:17:00.000Z [id number]:51:29.000Z BP Sitting (Pre-Dialysis) 140/73 mmHg BP Sitting (Post-Dialysis) 127/91 mmHg Concurrent Access: falseAV Fistula Forearm (Left) Arterial BP Standing (Pre-Dialysis) 135/78 mmHg BP Standing (P ost-Dialysis) 106/61 mmHg Sitting Heart Rate Pre-Dialysis 80 BPM Sitting Heart Rate Post-Dialysis 60 BPM Standing Heart Rate Pre-Dialysis 96 BPM Standing Heart Rate Post-Dialysis 80 BPM Temperature Pre-Dialysis 96.8 degF Temperature Post -Dialysis 97.9 degF March 14, 2022 In-Center Hemodialysis Treatment [id number]:12:00.000Z [id number]:35:43.000Z BP Sitting (Pre-Dialysis) 135/100 mmHg BP Sitting (Post-Dialysis) 136/71 mmHg Concurrent Access: falseAV Fistula Forearm (Left) Arterial BP Standing (Pre-Dialysis) 129/106 mmHg BP Standing (P ost-Dialysis) 100/64 mmHg Sitting Heart Rate Pre-Dialysis 66 BPM Sitting Heart Rate Post-Dialysis 60 BPM Standing Heart Rate Pre-Dialysis 120 BPM Standing Heart Rate Post-Dialysis 66 BPM Temperature Pre-Dialysis 97.7 degF Temperature Post -Dialysis 96.8 degF March 11, 2022 In-Center Hemodialysis Treatment [id number]:11:00.000Z [id number]:40:54.000Z BP Sitting (Pre-Dialysis) 164/87 mmHg BP Sitting (Post-Dialysis) 182/64 mmHg Concurrent Access: falseAV Fistula Forearm (Left) Arterial BP Standing (Pre-Dialysis) 150/90 mmHg BP Standing (P ost-Dialysis) 150/91 mmHg Sitting Heart Rate Pre-Dialysis 71 BPM Sitting Heart Rate Post-Dialysis 74 BPM Standing Heart Rate Pre-Dialysis 74 BPM Standing Heart Rate Post-Dialysis 75 BPM Temperature Pre-Dialysis 98 degF Temperature Post -Dialysis 98 degF March 07, 2022 In-Center Hemodialysis Treatment [id number]:13:00.000Z [id number]:48:51.000Z BP Sitting (Pre-Dialysis) 146/87 mmHg BP Sitting (Post-Dialysis) 147/94 mmHg Concurrent Access: falseAV Fistula Forearm (Left) Arterial BP Standing (Pre-Dialysis) 150/80 mmHg Sitti ng Heart Rate Post-Dialysis 60 BPM Sitting Heart Rate Pre-Dialysis 65 BPM Temperatu re Post-Dialysis 97.6 degF Standing Heart Rate Pre-Dialysis 66 BPM Temperature Pre-Dialysis 97.4 degF March 05, 2022 In-Center Hemodialysis Treatment [id number]:15:49.000Z [id number]:58:11.000Z BP Sitting (Pre-Dialysis) 147/83 mmHg BP Sitting (Post-Dialysis) 139/78 mmHg Concurrent Access: falseAV Fistula Forearm (Left) Arterial BP Standing (Pre-Dialysis) 149/98 mmHg BP Standing (P ost-Dialysis) 122/82 mmHg Sitting Heart Rate Pre-Dialysis 65 BPM Sitting Heart Rate Post-Dialysis 60 BPM Standing Heart Rate Pre-Dialysis 66 BPM Standing Heart Rate Post-Dialysis 66 BPM Temperature Pre-Dialysis 98 degF Temperature Post -Dialysis 98.2 degF March 04, 2022 In-Center Hemodialysis Treatment [id number]:15:00.000Z 1894-01-02O07:37:33.000Z BP Sitting (Pre-Dialysis) 139/83 mmHg BP Sitting (Post-Dialysis) 115/98 mmHg Concurrent Access: falseAV Fistula Forearm (Left) Arterial Sitting Heart Rate Pre-Dialysis 60 BPM BP Standing (Post-Dialysis) 119/81 mmHg Temperature Pre-Dialysis 97.8 degF Sitting Heart Ra te Post-Dialysis 60 BPM Standing Heart Rate Post-Rosa lysis 60 BPM Temperature Post-Dialysis 97 .6 degF March 02, 2022 In-Center Hemodialysis Treatment [id number]:24:00.000Z [id number]:31:40.000Z BP Sitting (Pre-Dialysis) 143/79 mmHg BP Sitting (Post-Dialysis) 134/78 mmHg Concurrent Access: falseAV Fistula Forearm (Left) Arterial BP Standing (Pre-Dialysis) 127/92 mmHg Sitti ng Heart Rate Post-Dialysis 60 BPM Sitting Heart Rate Pre-Dialysis 62 BPM Temperatu re Post-Dialysis 97.5 degF Standing Heart Rate Pre-Dialysis 50 BPM Temperature Pre-Dialysis 98.1 degF February 28, 2022 In-Center Hemodialysis Treatment [id number]:19:00.000Z 2214-58-66P28:51:10.000Z BP Sitting (Pre-Dialysis) 136/76 mmHg BP Sitting (Post-Dialysis) 147/87 mmHg Concurrent Access: falseAV Fistula Forearm (Left) Arterial Sitting Heart Rate Pre-Dialysis 67 BPM BP Standing (Post-Dialysis) 110/82 mmHg Temperature Pre-Dialysis 97.8 degF Sitting Heart Ra te Post-Dialysis 80 BPM Standing Heart Rate Post-Rosa lysis 87 BPM Temperature Post-Dialysis 97 degF February 25, 2022 In-Center Hemodialysis Treatment [id number]:13:00.000Z [id number]:36:19.000Z BP Sitting (Pre-Dialysis) 152/81 mmHg BP Sitting (Post-Dialysis) 134/70 mmHg Concurrent Access: falseAV Fistula Forearm (Left) Arterial Sitting Heart Rate Pre-Dialysis 80 BPM BP Standi ng (Post-Dialysis) 114/67 mmHg Temperature Pre-Dialysis 97 degF Sitting Heart Ra te Post-Dialysis 55 BPM Standing Heart Rate Post-Rosa lysis 60 BPM Temperature Post-Dialysis 97 .2 degF February 23, 2022 In-Center Hemodialysis Treatment [id number]:06:00.000Z [id number]:40:00.000Z BP Sitting (Pre-Dialysis) 135/87 mmHg BP Sitting (Post-Dialysis) 119/85 mmHg Concurrent Access: falseAV Fistula Forearm (Left) Arterial Sitting Heart Rate Pre-Dialysis 60 BPM Sitting H eart Rate Post-Dialysis 60 BPM Temperature Pre-Dialysis 98 degF Temperature Post -Dialysis 98 degF February 21, 2022 In-Center Hemodialysis Treatment [id number]:15:00.000Z [id number]:49:11.000Z BP Sitting (Pre-Dialysis) 146/93 mmHg BP Sitting (Post-Dialysis) 156/90 mmHg Concurrent Access: falseAV Fistula Forearm (Left) Arterial Sitting Heart Rate Pre-Dialysis 60 BPM BP Standing (Post-Dialysis) 119/78 mmHg Temperature Pre-Dialysis 97.5 degF Sitting Heart Ra te Post-Dialysis 55 BPM Standing Heart Rate Post-Rosa lysis 80 BPM Temperature Post-Dialysis 97 .5 degF February 18, 2022 In-Center Hemodialysis Treatment [id number]:04:00.000Z [id number]:31:00.000Z BP Sitting (Pre-Dialysis) 132/96 mmHg BP Sitting (Post-Dialysis) 139/85 mmHg Concurrent Access: falseAV Fistula Forearm (Left) Arterial Sitting Heart Rate Pre-Dialysis 66 BPM Sitting H eart Rate Post-Dialysis 60 BPM Temperature Pre-Dialysis 97.6 degF Temperature Post -Dialysis 97.6 degF February 16, 2022 In-Center Hemodialysis Treatment [id number]:15:00.000Z [id number]:37:55.000Z BP Sitting (Pre-Dialysis) 121/77 mmHg BP Sitting (Post-Dialysis) 143/76 mmHg Concurrent Access: falseAV Fistula Forearm (Left) Arterial Sitting Heart Rate Pre-Dialysis 60 BPM BP Standing (Post-Dialysis) 114/75 mmHg Temperature Pre-Dialysis 97.2 degF Sitting Heart Ra te Post-Dialysis 60 BPM Standing Heart Rate Post-Rosa lysis 66 BPM Temperature Post-Dialysis 97 .1 degF February 14, 2022 In-Center Hemodialysis Treatment [id number]:20:00.000Z [id number]:50:17.000Z BP Sitting (Pre-Dialysis) 150/97 mmHg BP Sitting (Post-Dialysis) 142/87 mmHg Concurrent Access: falseAV Fistula Forearm (Left) Arterial BP Standing (Pre-Dialysis) 139/80 mmHg Sitti ng Heart Rate Post-Dialysis 65 BPM Sitting Heart Rate Pre-Dialysis 62 BPM Temperatu re Post-Dialysis 97.2 degF Standing Heart Rate Pre-Dialysis 74 BPM Temperature Pre-Dialysis 98 degF February 11, 2022 In-Center Hemodialysis Treatment 7943-30-25Q48:12:44.000Z 3662-87-62W92:36:10.000Z BP Sitting (Pre-Dialysis) 137/85 mmHg BP Sitting (Post-Dialysis) 148/83 mmHg Concurrent Access: falseAV Fistula Forearm (Left) Arterial Sitting Heart Rate Pre-Dialysis 68 BPM BP Standing (Post-Dialysis) 112/65 mmHg Temperature Pre-Dialysis 97.3 degF Sitting Heart Ra te Post-Dialysis 60 BPM Standing Heart Rate Post-Rosa lysis 60 BPM Temperature Post-Dialysis 97 .3 degF February 09, 2022 In-Center Hemodialysis Treatment [id number]:18:00.000Z [id number]:24:07.000Z BP Sitting (Pre-Dialysis) 125/58 mmHg BP Sitting (Post-Dialysis) 127/77 mmHg Concurrent Access: falseAV Fistula Forearm (Left) Arterial BP Standing (Pre-Dialysis) 141/82 mmHg Sitti ng Heart Rate Post-Dialysis 62 BPM Sitting Heart Rate Pre-Dialysis 61 BPM Temperatu re Post-Dialysis 97.6 degF Standing Heart Rate Pre-Dialysis 62 BPM Temperature Pre-Dialysis 97 degF February 07, 2022 In-Center Hemodialysis Treatment [id number]:14:00.000Z 2885-22-48C62:42:57.000Z BP Sitting (Pre-Dialysis) 132/79 mmHg BP Sitting (Post-Dialysis) 135/73 mmHg Concurrent Access: falseAV Fistula Forearm (Left) Arterial BP Standing (Pre-Dialysis) 118/79 mmHg BP Standing (P ost-Dialysis) 121/79 mmHg Sitting Heart Rate Pre-Dialysis 76 BPM Sitting Heart Rate Post-Dialysis 60 BPM Standing Heart Rate Pre-Dialysis 74 BPM Standing Heart Rate Post-Dialysis 67 BPM Temperature Pre-Dialysis 98 degF Temperature Post -Dialysis 97.5 degF February 04, 2022 In-Center Hemodialysis Treatment [id number]:05:00.000Z 5078-66-02G63:30:55.000Z BP Sitting (Pre-Dialysis) 125/73 mmHg BP Sitting (Post-Dialysis) 140/84 mmHg Concurrent Access: falseAV Fistula Forearm (Left) Arterial Sitting Heart Rate Pre-Dialysis 71 BPM BP Standing (Post-Dialysis) 114/70 mmHg Temperature Pre-Dialysis 97.2 degF Sitting Heart Ra te Post-Dialysis 65 BPM Standing Heart Rate Post-Rosa lysis 67 BPM Temperature Post-Dialysis 97 .4 degF February 02, 2022 In-Center Hemodialysis Treatment [id number]:02:00.000Z [id number]:25:52.000Z BP Sitting (Pre-Dialysis) 128/79 mmHg BP Sitting (Post-Dialysis) 37/76 mmHg Concurrent Access: falseAV Fistula Forearm (Left) Arterial Sitting Heart Rate Pre-Dialysis 66 BPM BP Standing (Post-Dialysis) 103/70 mmHg Temperature Pre-Dialysis 97.1 degF Sitting Heart Ra te Post-Dialysis 62 BPM Standing Heart Rate Post-Rosa lysis 62 BPM Temperature Post-Dialysis 97 .1 degF January 31, 2022 In-Center Hemodialysis Treatment [id number]:05:36.000Z [id number]:30:50.000Z BP Sitting (Pre-Dialysis) 144/85 mmHg BP Sitting (Post-Dialysis) 108/68 mmHg Concurrent Access: falseAV Fistula Forearm (Left) Arterial BP Standing (Pre-Dialysis) 127/75 mmHg BP Standing (P ost-Dialysis) 120/71 mmHg Sitting Heart Rate Pre-Dialysis 62 BPM Sitting Heart Rate Post-Dialysis 60 BPM Standing Heart Rate Pre-Dialysis 67 BPM Standing Heart Rate Post-Dialysis 64 BPM Temperature Pre-Dialysis 98 degF Temperature Post -Dialysis 97.2 degF January 28, 2022 In-Center Hemodialysis Treatment [id number]:07:00.000Z [id number]:32:00.000Z BP Sitting (Pre-Dialysis) 135/86 mmHg BP Sitting (Post-Dialysis) 151/74 mmHg Concurrent Access: falseAV Fistula Forearm (Left) Arterial BP Standing (Pre-Dialysis) 102/82 mmHg BP Standing (P ost-Dialysis) 139/80 mmHg Sitting Heart Rate Pre-Dialysis 66 BPM Sitting Heart Rate Post-Dialysis 79 BPM Standing Heart Rate Pre-Dialysis 74 BPM Standing Heart Rate Post-Dialysis 71 BPM Temperature Pre-Dialysis 98 degF Temperature Post -Dialysis 97 degF January 26, 2022 In-Center Hemodialysis Treatment [id number]:07:00.000Z 0511-85-83T15:44:29.000Z BP Sitting (Pre-Dialysis) 123/73 mmHg BP Sitting (Post-Dialysis) 135/82 mmHg Concurrent Access: falseAV Fistula Forearm (Left) Arterial BP Standing (Pre-Dialysis) 133/76 mmHg BP Standing (P ost-Dialysis) 102/65 mmHg Sitting Heart Rate Pre-Dialysis 62 BPM Sitting Heart Rate Post-Dialysis 60 BPM Standing Heart Rate Pre-Dialysis 62 BPM Standing Heart Rate Post-Dialysis 66 BPM Temperature Pre-Dialysis 97 degF Temperature Post -Dialysis 97 degF January 24, 2022 In-Center Hemodialysis Treatment [id number]:28:00.000Z 8068-25-78N94:58:10.000Z BP Sitting (Pre-Dialysis) 113/59 mmHg BP Sitting (Post-Dialysis) 133/82 mmHg Concurrent Access: falseAV Fistula Forearm (Left) Arterial BP Standing (Pre-Dialysis) 138/63 mmHg BP Standing (P ost-Dialysis) 102/65 mmHg Sitting Heart Rate Pre-Dialysis 60 BPM Sitting Heart Rate Post-Dialysis 60 BPM Standing Heart Rate Pre-Dialysis 60 BPM Standing Heart Rate Post-Dialysis 68 BPM Temperature Pre-Dialysis 97 degF Temperature Post -Dialysis 97 degF January 21, 2022 In-Center Hemodialysis Treatment [id number]:28:00.000Z [id number]:45:00.000Z BP Sitting (Pre-Dialysis) 131/79 mmHg BP Sitting (Post-Dialysis) 145/74 mmHg Concurrent Access: falseAV Fistula Forearm (Left) Arterial Sitting Heart Rate Pre-Dialysis 65 BPM BP Standi ng (Post-Dialysis) 127/78 mmHg Temperature Pre-Dialysis 97 degF Sitting Heart Ra te Post-Dialysis 61 BPM Standing Heart Rate Post-Rosa lysis 74 BPM Temperature Post-Dialysis 97 degF January 19, 2022 In-Center Hemodialysis Treatment [id number]:47:00.000Z [id number]:50:26.000Z BP Sitting (Pre-Dialysis) 143/78 mmHg BP Sitting (Post-Dialysis) 147/79 mmHg Concurrent Access: falseAV Fistula Forearm (Left) Arterial BP Standing (Pre-Dialysis) 130/73 mmHg BP Standing (P ost-Dialysis) 110/53 mmHg Sitting Heart Rate Pre-Dialysis 62 BPM Sitting Heart Rate Post-Dialysis 60 BPM Standing Heart Rate Pre-Dialysis 68 BPM Standing Heart Rate Post-Dialysis 65 BPM Temperature Pre-Dialysis 97.2 degF Temperature Post -Dialysis 97 degF January 17, 2022 In-Center Hemodialysis Treatment [id number]:11:00.000Z [id number]:29:20.000Z BP Sitting (Pre-Dialysis) 127/73 mmHg BP Sitting (Post-Dialysis) 135/82 mmHg Concurrent Access: falseAV Fistula Forearm (Left) Arterial BP Standing (Pre-Dialysis) 126/74 mmHg BP Standing (P ost-Dialysis) 131/79 mmHg Sitting Heart Rate Pre-Dialysis 80 BPM Sitting Heart Rate Post-Dialysis 60 BPM Standing Heart Rate Pre-Dialysis 82 BPM Standing Heart Rate Post-Dialysis 80 BPM Temperature Pre-Dialysis 97 degF Temperature Post -Dialysis 97 degF January 14, 2022 In-Center Hemodialysis Treatment [id number]:38:00.000Z [id number]:41:21.000Z BP Sitting (Pre-Dialysis) 111/66 mmHg BP Sitting (Post-Dialysis) 135/89 mmHg Concurrent Access: falseAV Fistula Forearm (Left) Arterial BP Standing (Pre-Dialysis) 119/73 mmHg BP Standing (P ost-Dialysis) 122/86 mmHg Sitting Heart Rate Pre-Dialysis 60 BPM Sitting Heart Rate Post-Dialysis 60 BPM Standing Heart Rate Pre-Dialysis 60 BPM Standing Heart Rate Post-Dialysis 60 BPM Temperature Pre-Dialysis 97 degF Temperature Post -Dialysis 97 degF January 12, 2022 In-Center Hemodialysis Treatment [id number]:22:00.000Z [id number]:48:17.000Z BP Sitting (Pre-Dialysis) 119/68 mmHg BP Sitting (Post-Dialysis) 127/83 mmHg Concurrent Access: falseAV Fistula Forearm (Left) Arterial BP Standing (Pre-Dialysis) 124/79 mmHg BP Standing (P ost-Dialysis) 109/66 mmHg Sitting Heart Rate Pre-Dialysis 60 BPM Sitting Heart Rate Post-Dialysis 60 BPM Standing Heart Rate Pre-Dialysis 62 BPM Standing Heart Rate Post-Dialysis 61 BPM Temperature Pre-Dialysis 97.4 degF Temperature Post -Dialysis 97.4 degF January 10, 2022 In-Center Hemodialysis Treatment [id number]:40:00.000Z 4503-36-57C12:05:11.000Z BP Sitting (Pre-Dialysis) 133/73 mmHg BP Sitting (Post-Dialysis) 108/69 mmHg Concurrent Access: falseAV Fistula Forearm (Left) Arterial BP Standing (Pre-Dialysis) 131/70 mmHg BP Standing (P ost-Dialysis) 118/66 mmHg Sitting Heart Rate Pre-Dialysis 62 BPM Sitting Heart Rate Post-Dialysis 60 BPM Standing Heart Rate Pre-Dialysis 60 BPM Standing Heart Rate Post-Dialysis 67 BPM Temperature Pre-Dialysis 97.9 degF Temperature Post -Dialysis 97.5 degF January 07, 2022 In-Center Hemodialysis Treatment [id number]:02:00.000Z [id number]:20:43.000Z BP Sitting (Pre-Dialysis) 126/73 mmHg BP Sitting (Post-Dialysis) 134/78 mmHg Concurrent Access: falseAV Fistula Forearm (Left) Arterial BP Standing (Pre-Dialysis) 134/76 mmHg BP Standing (P ost-Dialysis) 101/63 mmHg Sitting Heart Rate Pre-Dialysis 65 BPM Sitting Heart Rate Post-Dialysis 54 BPM Standing Heart Rate Pre-Dialysis 74 BPM Standing Heart Rate Post-Dialysis 60 BPM Temperature Pre-Dialysis 98.1 degF Temperature Post -Dialysis 97.1 degF January 05, 2022 In-Center Hemodialysis Treatment [id number]:38:00.000Z [id number]:09:55.000Z BP Sitting (Pre-Dialysis) 137/79 mmHg BP Sitting (Post-Dialysis) 121/73 mmHg Concurrent Access: falseAV Fistula Forearm (Left) Arterial BP Standing (Pre-Dialysis) 139/87 mmHg BP Standing (P ost-Dialysis) 128/83 mmHg Sitting Heart Rate Pre-Dialysis 60 BPM Sitting Heart Rate Post-Dialysis 60 BPM Standing Heart Rate Pre-Dialysis 62 BPM Standing Heart Rate Post-Dialysis 66 BPM Temperature Pre-Dialysis 97.8 degF Temperature Post -Dialysis 97.3 degF January 03, 2022 In-Center Hemodialysis Treatment [id number]:28:02.000Z [id number]:11:22.000Z BP Sitting (Pre-Dialysis) 126/68 mmHg BP Sitting (Post-Dialysis) 141/79 mmHg Concurrent Access: falseAV Fistula Forearm (Left) Arterial Sitting Heart Rate Pre-Dialysis 60 BPM BP Standi ng (Post-Dialysis) 139/71 mmHg Temperature Pre-Dialysis 98 degF Sitting Heart Ra te Post-Dialysis 74 BPM Standing Heart Rate Post-Rosa lysis 69 BPM Temperature Post-Dialysis 97 .2 degF December 31, 2021 In-Center Hemodialysis Treatment [id number]:30:13.000Z [id number]:58:43.000Z BP Sitting (Pre-Dialysis) 140/85 mmHg BP Sitting (Post-Dialysis) 144/86 mmHg Concurrent Access: falseAV Fistula Forearm (Left) Arterial BP Standing (Pre-Dialysis) 138/85 mmHg BP Standing (P ost-Dialysis) 111/58 mmHg Sitting Heart Rate Pre-Dialysis 60 BPM Sitting Heart Rate Post-Dialysis 60 BPM Standing Heart Rate Pre-Dialysis 60 BPM Standing Heart Rate Post-Dialysis 66 BPM Temperature Pre-Dialysis 97.3 degF Temperature Post -Dialysis 97.1 degF December 29, 2021 In-Center Hemodialysis Treatment [id number]:14:00.000Z [id number]:42:57.000Z BP Sitting (Pre-Dialysis) 131/77 mmHg BP Sitting (Post-Dialysis) 137/80 mmHg Concurrent Access: falseAV Fistula Forearm (Left) Arterial BP Standing (Pre-Dialysis) 136/83 mmHg BP Standing (P ost-Dialysis) 107/61 mmHg Sitting Heart Rate Pre-Dialysis 60 BPM Sitting Heart Rate Post-Dialysis 60 BPM Standing Heart Rate Pre-Dialysis 60 BPM Standing Heart Rate Post-Dialysis 60 BPM Temperature Pre-Dialysis 97.6 degF Temperature Post -Dialysis 97 degF December 27, 2021 In-Center Hemodialysis Treatment [id number]:26:00.000Z [id number]:00:58.000Z BP Sitting (Pre-Dialysis) 127/71 mmHg BP Sitting (Post-Dialysis) 135/78 mmHg Concurrent Access: falseAV Fistula Forearm (Left) Arterial BP Standing (Pre-Dialysis) 131/64 mmHg BP Standing (P ost-Dialysis) 129/75 mmHg Sitting Heart Rate Pre-Dialysis 62 BPM Sitting Heart Rate Post-Dialysis 69 BPM Standing Heart Rate Pre-Dialysis 65 BPM Standing Heart Rate Post-Dialysis 71 BPM Temperature Pre-Dialysis 98.4 degF Temperature Post -Dialysis 98.4 degF December 24, 2021 In-Center Hemodialysis Treatment 5310-27-26R57:10:00.000Z [id number]:34:05.000Z BP Sitting (Pre-Dialysis) 133/90 mmHg BP Sitting (Post-Dialysis) 141/65 mmHg Concurrent Access: falseAV Fistula Forearm (Left) Arterial BP Standing (Pre-Dialysis) 113/85 mmHg BP Standing (P ost-Dialysis) 126/76 mmHg Sitting Heart Rate Pre-Dialysis 65 BPM Sitting Heart Rate Post-Dialysis 74 BPM Standing Heart Rate Pre-Dialysis 67 BPM Standing Heart Rate Post-Dialysis 77 BPM Temperature Pre-Dialysis 98.1 degF Temperature Post -Dialysis 98 degF December 22, 2021 In-Center Hemodialysis Treatment [id number]:36:00.000Z 0514-39-81C63:03:00.000Z BP Sitting (Pre-Dialysis) 138/97 mmHg BP Sitting (Post-Dialysis) 145/91 mmHg Concurrent Access: falseAV Fistula Forearm (Left) Arterial BP Standing (Pre-Dialysis) 121/79 mmHg BP Standing (P ost-Dialysis) 113/72 mmHg Sitting Heart Rate Pre-Dialysis 60 BPM Sitting Heart Rate Post-Dialysis 60 BPM Standing Heart Rate Pre-Dialysis 60 BPM Standing Heart Rate Post-Dialysis 62 BPM Temperature Pre-Dialysis 97.2 degF Temperature Post -Dialysis 97.8 degF December 20, 2021 In-Center Hemodialysis Treatment [id number]:13:00.000Z 4535-74-35M60:50:00.000Z BP Sitting (Pre-Dialysis) 136/77 mmHg BP Sitting (Post-Dialysis) 156/91 mmHg Concurrent Access: falseAV Fistula Forearm (Left) Arterial BP Standing (Pre-Dialysis) 140/93 mmHg BP Standing (P ost-Dialysis) 123/77 mmHg Sitting Heart Rate Pre-Dialysis 61 BPM Sitting Heart Rate Post-Dialysis 60 BPM Standing Heart Rate Pre-Dialysis 62 BPM Standing Heart Rate Post-Dialysis 67 BPM Temperature Pre-Dialysis 97 degF Temperature Post -Dialysis 97.5 degF December 17, 2021 In-Center Hemodialysis Treatment [id number]:21:00.000Z [id number]:55:26.000Z BP Sitting (Pre-Dialysis) 138/82 mmHg BP Sitting (Post-Dialysis) 107/67 mmHg Concurrent Access: falseAV Fistula Forearm (Left) Arterial Sitting Heart Rate Pre-Dialysis 62 BPM BP Standing (Post-Dialysis) 125/81 mmHg Temperature Pre-Dialysis 97.2 degF Sitting Heart Ra te Post-Dialysis 66 BPM Standing Heart Rate Post-Rosa lysis 62 BPM Temperature Post-Dialysis 97 .2 degF December 15, 2021 In-Center Hemodialysis Treatment [id number]:25:00.000Z [id number]:03:50.000Z BP Sitting (Pre-Dialysis) 128/83 mmHg BP Sitting (Post-Dialysis) 130/87 mmHg Concurrent Access: falseAV Fistula Forearm (Left) Arterial BP Standing (Pre-Dialysis) 137/85 mmHg Sitti ng Heart Rate Post-Dialysis 60 BPM Sitting Heart Rate Pre-Dialysis 60 BPM Temperatu re Post-Dialysis 97.2 degF Standing Heart Rate Pre-Dialysis 62 BPM Temperature Pre-Dialysis 98.1 degF December 13, 2021 In-Center Hemodialysis Treatment 3622-09-31Y28:27:00.000Z [id number]:59:00.000Z BP Sitting (Pre-Dialysis) 137/80 mmHg BP Sitting (Post-Dialysis) 149/69 mmHg Concurrent Access: falseAV Fistula Forearm (Left) Arterial BP Standing (Pre-Dialysis) 148/77 mmHg BP Standing (P ost-Dialysis) 122/79 mmHg Sitting Heart Rate Pre-Dialysis 65 BPM Sitting Heart Rate Post-Dialysis 69 BPM Standing Heart Rate Pre-Dialysis 92 BPM Standing Heart Rate Post-Dialysis 102 BPM Temperature Pre-Dialysis 97.8 degF Temperature Post -Dialysis 97.7 degF December 10, 2021 In-Center Hemodialysis Treatment [id number]:13:00.000Z [id number]:33:59.000Z BP Sitting (Pre-Dialysis) 124/75 mmHg BP Sitting (Post-Dialysis) 143/68 mmHg Concurrent Access: falseAV Fistula Forearm (Left) Arterial Sitting Heart Rate Pre-Dialysis 68 BPM BP Standing (Post-Dialysis) 134/67 mmHg Temperature Pre-Dialysis 97.7 degF Sitting Heart Ra te Post-Dialysis 55 BPM Standing Heart Rate Post-Rosa lysis 60 BPM Temperature Post-Dialysis 97 .4 degF December 08, 2021 In-Center Hemodialysis Treatment [id number]:50:00.000Z [id number]:32:29.000Z BP Sitting (Pre-Dialysis) 130/65 mmHg BP Sitting (Post-Dialysis) 131/80 mmHg Concurrent Access: falseAV Fistula Forearm (Left) Arterial BP Standing (Pre-Dialysis) 125/77 mmHg BP Standing (P ost-Dialysis) 112/65 mmHg Sitting Heart Rate Pre-Dialysis 80 BPM Sitting Heart Rate Post-Dialysis 60 BPM Standing Heart Rate Pre-Dialysis 78 BPM Standing Heart Rate Post-Dialysis 60 BPM Temperature Pre-Dialysis 98.1 degF Temperature Post -Dialysis 97.6 degF December 06, 2021 In-Center Hemodialysis Treatment [id number]:20:00.000Z [id number]:54:17.000Z BP Sitting (Pre-Dialysis) 140/83 mmHg BP Sitting (Post-Dialysis) 137/78 mmHg Concurrent Access: falseAV Fistula Forearm (Left) Arterial BP Standing (Pre-Dialysis) 123/79 mmHg BP Standing (P ost-Dialysis) 104/71 mmHg Sitting Heart Rate Pre-Dialysis 62 BPM Sitting Heart Rate Post-Dialysis 60 BPM Standing Heart Rate Pre-Dialysis 65 BPM Standing Heart Rate Post-Dialysis 65 BPM Temperature Pre-Dialysis 98 degF Temperature Post -Dialysis 97.6 degF December 03, 2021 In-Center Hemodialysis Treatment [id number]:21:00.000Z [id number]:41:26.000Z BP Sitting (Pre-Dialysis) 133/75 mmHg BP Sitting (Post-Dialysis) 124/87 mmHg Concurrent Access: falseAV Fistula Forearm (Left) Arterial BP Standing (Pre-Dialysis) 123/73 mmHg BP Standing (P ost-Dialysis) 121/80 mmHg Sitting Heart Rate Pre-Dialysis 60 BPM Sitting Heart Rate Post-Dialysis 60 BPM Standing Heart Rate Pre-Dialysis 62 BPM Standing Heart Rate Post-Dialysis 66 BPM Temperature Pre-Dialysis 97.9 degF Temperature Post -Dialysis 97.2 degF December 01, 2021 In-Center Hemodialysis Treatment [id number]:27:00.000Z [id number]:56:44.000Z BP Sitting (Pre-Dialysis) 130/78 mmHg BP Sitting (Post-Dialysis) 121/78 mmHg Concurrent Access: falseAV Fistula Forearm (Left) Arterial BP Standing (Pre-Dialysis) 118/71 mmHg BP Standing (P ost-Dialysis) 132/83 mmHg Sitting Heart Rate Pre-Dialysis 62 BPM Sitting Heart Rate Post-Dialysis 68 BPM Standing Heart Rate Pre-Dialysis 65 BPM Standing Heart Rate Post-Dialysis 96 BPM Temperature Pre-Dialysis 98.1 degF Temperature Post -Dialysis 97.3 degF November 29, 2021 In-Center Hemodialysis Treatment [id number]:50:00.000Z [id number]:15:44.000Z BP Sitting (Pre-Dialysis) 121/77 mmHg BP Sitting (Post-Dialysis) 100/62 mmHg Concurrent Access: falseAV Fistula Forearm (Left) Arterial BP Standing (Pre-Dialysis) 120/78 mmHg BP Standing (P ost-Dialysis) 120/67 mmHg Sitting Heart Rate Pre-Dialysis 60 BPM Sitting Heart Rate Post-Dialysis 88 BPM Standing Heart Rate Pre-Dialysis 60 BPM Standing Heart Rate Post-Dialysis 60 BPM Temperature Pre-Dialysis 98.1 degF Temperature Post -Dialysis 97.8 degF November 26, 2021 In-Center Hemodialysis Treatment [id number]:14:46.000Z [id number]:44:42.000Z BP Sitting (Pre-Dialysis) 121/74 mmHg BP Sitting (Post-Dialysis) 129/67 mmHg Concurrent Access: falseAV Fistula Forearm (Left) Arterial BP Standing (Pre-Dialysis) 122/71 mmHg BP Standing (P ost-Dialysis) 101/66 mmHg Sitting Heart Rate Pre-Dialysis 62 BPM Sitting Heart Rate Post-Dialysis 60 BPM Standing Heart Rate Pre-Dialysis 62 BPM Standing Heart Rate Post-Dialysis 67 BPM Temperature Pre-Dialysis 97.1 degF Temperature Post -Dialysis 97.5 degF November 24, 2021 In-Center Hemodialysis Treatment [id number]:34:00.000Z [id number]:03:56.000Z BP Sitting (Pre-Dialysis) 129/71 mmHg BP Sitting (Post-Dialysis) 134/81 mmHg Concurrent Access: falseAV Fistula Forearm (Left) Arterial BP Standing (Pre-Dialysis) 132/72 mmHg Sitti ng Heart Rate Post-Dialysis 60 BPM Sitting Heart Rate Pre-Dialysis 70 BPM Temperatu re Post-Dialysis 97.7 degF Standing Heart Rate Pre-Dialysis 69 BPM Temperature Pre-Dialysis 98.1 degF November 22, 2021 In-Center Hemodialysis Treatment [id number]:38:00.000Z [id number]:13:22.000Z BP Sitting (Pre-Dialysis) 131/78 mmHg BP Sitting (Post-Dialysis) 139/87 mmHg Concurrent Access: falseAV Fistula Forearm (Left) Arterial BP Standing (Pre-Dialysis) 125/81 mmHg Sitti ng Heart Rate Post-Dialysis 68 BPM Sitting Heart Rate Pre-Dialysis 66 BPM Temperatu re Post-Dialysis 97.8 degF Standing Heart Rate Pre-Dialysis 67 BPM Temperature Pre-Dialysis 97.6 degF November 19, 2021 In-Center Hemodialysis Treatment [id number]:30:00.000Z [id number]:24:56.000Z BP Sitting (Pre-Dialysis) 127/68 mmHg BP Sitting (Post-Dialysis) 141/81 mmHg Concurrent Access: falseAV Fistula Forearm (Left) Arterial BP Standing (Pre-Dialysis) 142/77 mmHg Sitting Heart Rate Post-Dialysis 60 BPM Sitting Heart Rate Pre-Dialysis 80 BPM Temperatu re Post-Dialysis 98 degF Standing Heart Rate Pre-Dialysis 62 BPM Temperature Pre-Dialysis 97.4 degF November 18, 2021 In-Center Hemodialysis Treatment [id number]:03:00.000Z [id number]:04:02.000Z BP Sitting (Pre-Dialysis) 128/67 mmHg BP Sitting (Post-Dialysis) 115/62 mmHg Concurrent Access: falseAV Fistula Forearm (Left) Arterial BP Standing (Pre-Dialysis) 135/75 mmHg BP Standing (P ost-Dialysis) 101/67 mmHg Sitting Heart Rate Pre-Dialysis 66 BPM Sitting Heart Rate Post-Dialysis 60 BPM Standing Heart Rate Pre-Dialysis 67 BPM Standing Heart Rate Post-Dialysis 66 BPM Temperature Pre-Dialysis 97.4 degF Temperature Post -Dialysis 98.1 degF November 15, 2021 In-Center Hemodialysis Treatment [id number]:42:00.000Z [id number]:18:22.000Z BP Sitting (Pre-Dialysis) 132/81 mmHg BP Sitting (Post-Dialysis) 153/90 mmHg Concurrent Access: falseAV Fistula Forearm (Left) Arterial BP Standing (Pre-Dialysis) 131/78 mmHg BP Standing (P ost-Dialysis) 101/63 mmHg Sitting Heart Rate Pre-Dialysis 60 BPM Sitting Heart Rate Post-Dialysis 60 BPM Standing Heart Rate Pre-Dialysis 60 BPM Standing Heart Rate Post-Dialysis 70 BPM Temperature Pre-Dialysis 97.1 degF Temperature Post -Dialysis 98.1 degF November 12, 2021 In-Center Hemodialysis Treatment [id number]:23:00.000Z [id number]:24:19.000Z BP Sitting (Pre-Dialysis) 134/79 mmHg BP Sitting (Post-Dialysis) 156/84 mmHg Concurrent Access: falseAV Fistula Forearm (Left) Arterial BP Standing (Pre-Dialysis) 133/77 mmHg Sitting Heart Rate Post-Dialysis 60 BPM Sitting Heart Rate Pre-Dialysis 67 BPM Temperatu re Post-Dialysis 97 degF Standing Heart Rate Pre-Dialysis 65 BPM Temperature Pre-Dialysis 97 degF November 10, 2021 In-Center Hemodialysis Treatment [id number]:34:00.000Z [id number]:05:49.000Z BP Sitting (Pre-Dialysis) 130/82 mmHg BP Sitting (Post-Dialysis) 148/81 mmHg Concurrent Access: falseAV Fistula Forearm (Left) Arterial BP Standing (Pre-Dialysis) 136/76 mmHg BP Standing (P ost-Dialysis) 140/80 mmHg Sitting Heart Rate Pre-Dialysis 60 BPM Sitting Heart Rate Post-Dialysis 76 BPM Standing Heart Rate Pre-Dialysis 68 BPM Standing Heart Rate Post-Dialysis 78 BPM Temperature Pre-Dialysis 97.6 degF Temperature Post -Dialysis 98.4 degF November 08, 2021 In-Center Hemodialysis Treatment [id number]:35:00.000Z [id number]:06:24.000Z BP Sitting (Pre-Dialysis) 133/72 mmHg BP Sitting (Post-Dialysis) 128/75 mmHg Concurrent Access: falseAV Fistula Forearm (Left) Arterial BP Standing (Pre-Dialysis) 136/77 mmHg BP Standing (P ost-Dialysis) 120/97 mmHg Sitting Heart Rate Pre-Dialysis 61 BPM Sitting Heart Rate Post-Dialysis 60 BPM Standing Heart Rate Pre-Dialysis 62 BPM Standing Heart Rate Post-Dialysis 62 BPM Temperature Pre-Dialysis 97.4 degF Temperature Post -Dialysis 97.2 degF November 05, 2021 In-Center Hemodialysis Treatment [id number]:30:00.000Z [id number]:32:16.000Z BP Sitting (Pre-Dialysis) 118/69 mmHg BP Sitting (Post-Dialysis) 142/80 mmHg Concurrent Access: falseAV Fistula Forearm (Left) Arterial BP Standing (Pre-Dialysis) 125/75 mmHg BP Standing (P ost-Dialysis) 100/63 mmHg Sitting Heart Rate Pre-Dialysis 67 BPM Sitting Heart Rate Post-Dialysis 60 BPM Standing Heart Rate Pre-Dialysis 68 BPM Standing Heart Rate Post-Dialysis 68 BPM Temperature Pre-Dialysis 97.4 degF Temperature Post -Dialysis 97 degF November 03, 2021 In-Center Hemodialysis Treatment [id number]:32:00.000Z [id number]:57:27.000Z BP Sitting (Pre-Dialysis) 126/81 mmHg BP Sitting (Post-Dialysis) 162/82 mmHg Concurrent Access: falseAV Fistula Forearm (Left) Arterial BP Standing (Pre-Dialysis) 126/73 mmHg BP Standing (P ost-Dialysis) 110/62 mmHg Sitting Heart Rate Pre-Dialysis 82 BPM Sitting Heart Rate Post-Dialysis 72 BPM Standing Heart Rate Pre-Dialysis 62 BPM Standing Heart Rate Post-Dialysis 88 BPM Temperature Pre-Dialysis 97.4 degF Temperature Post -Dialysis 97.2 degF November 01, 2021 In-Center Hemodialysis Treatment [id number]:31:00.000Z [id number]:06:06.000Z BP Sitting (Pre-Dialysis) 141/76 mmHg BP Sitting (Post-Dialysis) 126/83 mmHg Concurrent Access: falseAV Fistula Forearm (Left) Arterial BP Standing (Pre-Dialysis) 138/78 mmHg Sitti ng Heart Rate Post-Dialysis 60 BPM Sitting Heart Rate Pre-Dialysis 68 BPM Temperatu re Post-Dialysis 97.6 degF Standing Heart Rate Pre-Dialysis 62 BPM Temperature Pre-Dialysis 97.8 degF DIALYSIS ORDER Dialysis Procedure Orders Type of Dialysis Procedure Order Order Date/Time Observations In-Center Hemodialysis Treatment December 10, 2024 Target Weight 80.5 kg Dialysate Flow Rate 500 mL/min Blood Flow Rate 400 mL/min Treatment Time 210 min(total) Max UF Rate 13 mL/kg/hr Base Sodium Dialysate Base Sodium 138 mE q/L dialysate_temp 35 C BiCarb Dialysate BiCarbonate 32 mEq/L Access Concurrent No Arterial Access AV Fistula (Forearm (Left)) Venous Access AV Fistula (Forearm (Left)) Arterial Needle Display NIPRO, TULIP, 15 G x 1 , SHARP , TWIN Venous Needle NIPRO, TULIP, 15G x 1 , SHARP , TWIN Dialyzer [employer] Optiflux F 180NR 1218 [email or web address] Dialysate Bath Potassium Potassium 3 mEq /L Dialysate Bath Calcium Calcium 2.5 mEq/L In-Center Hemodialysis [id number] Observation Value Target Weight 83.5 kg Dialysate Flow Rate 500 mL/min Blood Flow Rate 400 mL/min Treatment Time 210 min(total) Max UF Rate 13 mL/kg/hr Base Sodium Dialysate Base Sodium 140 mE q/L dialysate_temp 35 C BiCarb Dialysate BiCarbonate 32 mEq/L Access Concurrent No Arterial Access AV Fistula (Forearm (Left)) Venous Access AV Fistula (Forearm (Left)) Arterial Needle Display NIPRO, TULIP, 15 G x 1 , SHARP , TWIN Venous Needle NIPRO, TULIP, 15G x 1 , SHARP , TWIN Dialyzer [employer] Optiflux F 180NR 1218 [email or web address] Dialysate Bath Potassium Potassium 3 mEq /L Dialysate Bath Calcium Calcium 2.5 mEq/L In-Center Hemodialysis [id number] Observation Value Target Weight 89 kg Dialysate Flow Rate 500 mL/min Blood Flow Rate 400 mL/min Treatment Time 210 min(total) Max UF Rate 13 mL/kg/hr Base Sodium Dialysate Base Sodium 140 mE q/L dialysate_temp 35 C BiCarb Dialysate BiCarbonate 32 mEq/L Access Concurrent No Arterial Access AV Fistula (Forearm (Left)) Venous Access AV Fistula (Forearm (Left)) Arterial Needle Display NIPRO, TULIP, 15 G x 1 , SHARP , TWIN Venous Needle NIPRO, TULIP, 15G x 1 , SHARP , TWIN Dialyzer [employer] Optiflux F 180NR 1218 [email or web address] Dialysate Bath Potassium Potassium 2 mEq /L Dialysate Bath Calcium Calcium 2.5 mEq/L Results Adequacy Description Draw Date Result/Unit Status Ref Range Result Comments CURRENT KRU 2025-01-30 21:22:06 F DIALYZER FLOW-QD 2025-01-30 21:22:06 504 mL/min F URR% 2025-01-30 21:22:06 68 % F LENGTH OF DIALYSIS 2025-01-30 21:22:06 211 min F PATIENT AGE 2025-01-30 21:22:06 79 Years F Dialyzer JERARDO 2025-01-30 21:22:06 1218 Calc F BSA REHAN 2025-01-30 21:22:06 1.98 sq m F HEIGHT IN INCHES 2025-01-30 21:22:06 70 Inches F WEIGHT - PRE DAY 1 2025-01-30 21:22:06 83.9 kg F PRESCRIBED DAYS/WEEK 2025-01-30 21:22:06 3 Day/Wk F WEIGHT - POST DAY 1 2025-01-30 21:22:06 80.4 kg F WEIGHT (KG) 2025-01-30 21:22:06 80.5 kg F VM (KT/V MEAN VOL) 2025-01-30 21:22:06 41.7 F Residual kt/v 2025-01-30 21:22:06 F KT/V PRESCRIBED 2025-01-30 21:22:06 1.65 F VT (KT/V TX VOL) 2025-01-30 21:22:06 42.8 L F AMPUTATE FACTOR 2025-01-30 21:22:06 0 F Total Kt/V 2025-01-30 21:22:06 1.33 F TBW (Agudelo) 2025-01-30 21:22:06 41.06 Liters F nPCR 2025-01-30 21:22:06 0.63 G/KG/D F stdKt/V (DIAL) 2025-01-30 21:22:06 N/A F stdKT/V Total 2025-01-30 21:22:06 N/A F spKt/V 2025-01-30 21:22:06 1.33 F TOTAL HOURS/WEEK DIALYSIS 2025-01-30 21:22:06 7 hrs F eKt/V 2025-01-30 21:22:06 1.14 F Std Renal KT/V 2025-01-30 21:22:06 N/A F BLOOD FLOW-QWB 2025-01-30 21:22:06 400 F Urea nitrogen [Mass/volume] in Serum or Plasma 2025-01-30 21:20:16 60 mg/dL F 9.0-23.0 Creatinine [Mass/volume] in Serum or Plasma 2025-01-30 21:20:16 8.44 mg/dL F 0.7-1.3 Urea nitrogen [Mass/volume] in Serum or Plasma --post dialysis 2025-01-30 18:10:13 19 mg/dL F 9.0-23.0 Urea nitrogen [Mass/volume] in Serum or Plasma 2025-01-21 17:38:12 F RECOLLECT - PARTIALLY SPUN SST Creatinine [Mass/volume] in Serum or Plasma 2025-01-21 17:38:12 F RECOLLECT - PARTIALLY SPUN SST URR% 2024-12-25 02:24:15 69 % F Dialyzer JERARDO 2024-12-25 02:24:15 1218 Calc F LENGTH OF DIALYSIS 2024-12-25 02:24:15 213 min F DIALYZER FLOW-QD 2024-12-25 02:24:15 500 mL/min F BSA REHAN 2024-12-25 02:24:15 1.98 sq m F WEIGHT - POST DAY 1 2024-12-25 02:24:15 81.5 kg F PATIENT AGE 2024-12-25 02:24:15 79 Years F WEIGHT - PRE DAY 1 2024-12-25 02:24:15 83.4 kg F PRESCRIBED DAYS/WEEK 2024-12-25 02:24:15 3 Day/Wk F WEIGHT (KG) 2024-12-25 02:24:15 80.5 kg F HEIGHT IN INCHES 2024-12-25 02:24:15 70 Inches F Residual kt/v 2024-12-25 02:24:15 F Unable to calculate: Post BUN lab result is unknown VT (KT/V TX VOL) 2024-12-25 02:24:15 42.5 L F KT/V PRESCRIBED 2024-12-25 02:24:15 1.66 F VM (KT/V MEAN VOL) 2024-12-25 02:24:15 41.3 F Total Kt/V 2024-12-25 02:24:15 1.34 F AMPUTATE FACTOR 2024-12-25 02:24:15 0 F TBW (Agudelo) 2024-12-25 02:24:15 41.43 Liters F nPCR 2024-12-25 02:24:15 0.61 G/KG/D F spKt/V 2024-12-25 02:24:15 1.34 F eKt/V 2024-12-25 02:24:15 1.15 F stdKt/V (DIAL) 2024-12-25 02:24:15 N/A F Std Renal KT/V 2024-12-25 02:24:15 N/A F stdKT/V Total 2024-12-25 02:24:15 N/A F BLOOD FLOW-QWB 2024-12-25 02:24:15 400 F TOTAL HOURS/WEEK DIALYSIS 2024-12-25 02:24:15 10 hrs F CURRENT KRU 2024-12-25 02:24:15 F Unable to calculate: Post BUN lab result is unknown Urea nitrogen [Mass/volume] in Serum or Plasma --post dialysis 2024-12-25 02:22:24 11 mg/dL F 9.0-23.0 Urea nitrogen [Mass/volume] in Serum or Plasma 2024-12-24 20:10:17 36 mg/dL F 9.0-23.0 Creatinine [Mass/volume] in Serum or Plasma 2024-12-24 20:10:17 5.66 mg/dL F 0.7-1.3 Creatinine [Mass/volume] in Serum or Plasma 2024-11-26 15:34:12 7.17 mg/dL F 0.7-1.3 PATIENT AGE 2024-11-25 19:09:13 79 Years F WEIGHT (KG) 2024-11-25 19:09:13 82.5 kg F HEIGHT IN INCHES 2024-11-25 19:09:13 70 Inches F AMPUTATE FACTOR 2024-11-25 19:09:13 0 F URR% 2024-11-21 22:33:02 74 % F DIALYZER FLOW-QD 2024-11-21 22:33:02 498 mL/min F LENGTH OF DIALYSIS 2024-11-21 22:33:02 209 min F BSA REHAN 2024-11-21 22:33:02 2 sq m F PATIENT AGE 2024-11-21 22:33:02 79 Years F Dialyzer JERARDO 2024-11-21 22:33:02 1218 Calc F WEIGHT - POST DAY 1 2024-11-21 22:33:02 82.4 kg F HEIGHT IN INCHES 2024-11-21 22:33:02 70 Inches F WEIGHT (KG) 2024-11-21 22:33:02 82.5 kg F PRESCRIBED DAYS/WEEK 2024-11-21 22:33:02 3 Day/Wk F WEIGHT - PRE DAY 1 2024-11-21 22:33:02 84.4 kg F Residual kt/v 2024-11-21 22:33:02 F VT (KT/V TX VOL) 2024-11-21 22:33:02 37 L F VM (KT/V MEAN VOL) 2024-11-21 22:33:02 40.9 F KT/V PRESCRIBED 2024-11-21 22:33:02 1.61 F nPCR 2024-11-21 22:33:02 0.5 G/KG/D F Total Kt/V 2024-11-21 22:33:02 1.51 F spKt/V 2024-11-21 22:33:02 1.51 F TBW (Agudelo) 2024-11-21 22:33:02 41.73 Liters F stdKt/V (DIAL) 2024-11-21 22:33:02 N/A F eKt/V 2024-11-21 22:33:02 1.28 F AMPUTATE FACTOR 2024-11-21 22:33:02 0 F Std Renal KT/V 2024-11-21 22:33:02 N/A F stdKT/V Total 2024-11-21 22:33:02 N/A F CURRENT KRU 2024-11-21 22:33:02 F TOTAL HOURS/WEEK DIALYSIS 2024-11-21 22:33:02 6 hrs F BLOOD FLOW-QWB 2024-11-21 22:33:02 400 F Urea nitrogen [Mass/volume] in Serum or Plasma 2024-11-21 22:31:17 43 mg/dL F 9.0-23.0 Urea nitrogen [Mass/volume] in Serum or Plasma --post dialysis 2024-11-21 13:35:21 11 mg/dL F 9.0-23.0 Residual kt/v 2024-10-29 22:08:23 F HEIGHT IN INCHES 2024-10-29 22:08:23 70 Inches F Total Kt/V 2024-10-29 22:08:23 1.21 F DIALYZER FLOW-QD 2024-10-29 22:08:23 500 mL/min F BLOOD FLOW-QWB 2024-10-29 22:08:23 371 F PATIENT AGE 2024-10-29 22:08:23 79 Years F BSA REHAN 2024-10-29 22:08:23 2.02 sq m F LENGTH OF DIALYSIS 2024-10-29 22:08:23 210 min F VM (KT/V MEAN VOL) 2024-10-29 22:08:23 42.2 F AMPUTATE FACTOR 2024-10-29 22:08:23 0 F WEIGHT - POST DAY 1 2024-10-29 22:08:23 84.1 kg F Std Renal KT/V 2024-10-29 22:08:23 N/A F stdKT/V Total 2024-10-29 22:08:23 N/A F URR% 2024-10-29 22:08:23 66 % F TOTAL HOURS/WEEK DIALYSIS 2024-10-29 22:08:23 10 hrs F Dialyzer JERARDO 2024-10-29 22:08:23 1218 Calc F stdKt/V (DIAL) 2024-10-29 22:08:23 N/A F TBW (Agudelo) 2024-10-29 22:08:23 42.3 Liters F nPCR 2024-10-29 22:08:23 0.58 G/KG/D F PRESCRIBED DAYS/WEEK 2024-10-29 22:08:23 3 Day/Wk F WEIGHT (KG) 2024-10-29 22:08:23 83.5 kg F WEIGHT - PRE DAY 1 2024-10-29 22:08:23 85.9 kg F VT (KT/V TX VOL) 2024-10-29 22:08:23 45.1 L F KT/V PRESCRIBED 2024-10-29 22:08:23 1.6 F spKt/V 2024-10-29 22:08:23 1.21 F CURRENT KRU 2024-10-29 22:08:23 F eKt/V 2024-10-29 22:08:23 1.04 F Creatinine [Mass/volume] in Serum or Plasma 2024-10-29 22:06:23 6.65 mg/dL F 0.7-1.3 Urea nitrogen [Mass/volume] in Serum or Plasma 2024-10-29 22:06:23 35 mg/dL F 9.0-23.0 Urea nitrogen [Mass/volume] in Serum or Plasma --post dialysis 2024-10-29 19:56:24 12 mg/dL F 9.0-23.0 Creatinine [Mass/volume] in Serum or Plasma 2024-09-25 02:39:18 7.05 mg/dL F 0.7-1.3 nPCR 2024-09-19 19:54:04 0.65 G/KG/D F CURRENT KRU 2024-09-19 19:54:04 F Unable to calculate: Post BUN lab result is unknown TBW (Agudelo) 2024-09-19 19:54:04 43.54 Liters F VM (KT/V MEAN VOL) 2024-09-19 19:54:04 41.3 F WEIGHT - POST DAY 1 2024-09-19 19:54:04 87.8 kg F Std Renal KT/V 2024-09-19 19:54:04 N/A F HEIGHT IN INCHES 2024-09-19 19:54:04 70 Inches F Residual kt/v 2024-09-19 19:54:04 F Unable to calculate: Post BUN lab result is unknown WEIGHT - PRE DAY 1 2024-09-19 19:54:04 90.3 kg F stdKt/V (DIAL) 2024-09-19 19:54:04 N/A F Total Kt/V 2024-09-19 19:54:04 1.25 F BLOOD FLOW-QWB 2024-09-19 19:54:04 400 F stdKT/V Total 2024-09-19 19:54:04 N/A F LENGTH OF DIALYSIS 2024-09-19 19:54:04 208 min F PRESCRIBED DAYS/WEEK 2024-09-19 19:54:04 3 Day/Wk F KT/V PRESCRIBED 2024-09-19 19:54:04 1.52 F spKt/V 2024-09-19 19:54:04 1.25 F VT (KT/V TX VOL) 2024-09-19 19:54:04 44.7 L F TOTAL HOURS/WEEK DIALYSIS 2024-09-19 19:54:04 10 hrs F eKt/V 2024-09-19 19:54:04 1.07 F DIALYZER FLOW-QD 2024-09-19 19:54:04 500 mL/min F WEIGHT (KG) 2024-09-19 19:54:04 88.5 kg F BSA REHAN 2024-09-19 19:54:04 2.07 sq m F URR% 2024-09-19 19:54:04 66 % F PATIENT AGE 2024-09-19 19:54:04 79 Years F Dialyzer JERARDO 2024-09-19 19:54:04 1218 Calc F AMPUTATE FACTOR 2024-09-19 19:54:04 0 F Urea nitrogen [Mass/volume] in Serum or Plasma --post dialysis 2024-09-19 19:52:10 11 mg/dL F 9.0-23.0 Urea nitrogen [Mass/volume] in Serum or Plasma 2024-09-19 17:41:23 32 mg/dL F 9.0-23.0 PRESCRIBED DAYS/WEEK 2024-08-16 03:42:18 3 Day/Wk F AMPUTATE FACTOR 2024-08-16 03:42:18 0 F Residual kt/v 2024-08-16 03:42:18 F LENGTH OF DIALYSIS 2024-08-16 03:42:18 209 min F BSA REHAN 2024-08-16 03:42:18 2.07 sq m F eKt/V 2024-08-16 03:42:18 1.2 F VM (KT/V MEAN VOL) 2024-08-16 03:42:18 40.2 F Dialyzer JERARDO 2024-08-16 03:42:18 1218 Calc F DIALYZER FLOW-QD 2024-08-16 03:42:18 507 mL/min F nPCR 2024-08-16 03:42:18 0.77 G/KG/D F spKt/V 2024-08-16 03:42:18 1.41 F BLOOD FLOW-QWB 2024-08-16 03:42:18 358 F URR% 2024-08-16 03:42:18 71 % F Std Renal KT/V 2024-08-16 03:42:18 N/A F PATIENT AGE 2024-08-16 03:42:18 79 Years F WEIGHT - POST DAY 1 2024-08-16 03:42:18 89.1 kg F stdKt/V (DIAL) 2024-08-16 03:42:18 N/A F WEIGHT (KG) 2024-08-16 03:42:18 89 kg F TOTAL HOURS/WEEK DIALYSIS 2024-08-16 03:42:18 10 hrs F KT/V PRESCRIBED 2024-08-16 03:42:18 1.53 F WEIGHT - PRE DAY 1 2024-08-16 03:42:18 90.5 kg F Total Kt/V 2024-08-16 03:42:18 1.41 F stdKT/V Total 2024-08-16 03:42:18 N/A F VT (KT/V TX VOL) 2024-08-16 03:42:18 37.8 L F HEIGHT IN INCHES 2024-08-16 03:42:18 70 Inches F TBW (Agudelo) 2024-08-16 03:42:18 43.98 Liters F CURRENT KRU 2024-08-16 03:42:18 F PRESCRIBED DAYS/WEEK 2024-08-16 03:42:18 3 Day/Wk F HEIGHT IN INCHES 2024-08-16 03:42:18 70 Inches F VT (KT/V TX VOL) 2024-08-16 03:42:18 37.8 L F spKt/V 2024-08-16 03:42:18 1.41 F nPCR 2024-08-16 03:42:18 0.77 G/KG/D F BSA REHAN 2024-08-16 03:42:18 2.07 sq m F stdKT/V Total 2024-08-16 03:42:18 N/A F Dialyzer JERARDO 2024-08-16 03:42:18 1218 Calc F PATIENT AGE 2024-08-16 03:42:18 79 Years F Residual kt/v 2024-08-16 03:42:18 F Unable to calculate: Pre BUN lab result is unknown eKt/V 2024-08-16 03:42:18 1.2 F TOTAL HOURS/WEEK DIALYSIS 2024-08-16 03:42:18 10 hrs F CURRENT KRU 2024-08-16 03:42:18 F Unable to calculate: Pre BUN lab result is unknown AMPUTATE FACTOR 2024-08-16 03:42:18 0 F stdKt/V (DIAL) 2024-08-16 03:42:18 N/A F Std Renal KT/V 2024-08-16 03:42:18 N/A F WEIGHT (KG) 2024-08-16 03:42:18 89 kg F Total Kt/V 2024-08-16 03:42:18 1.41 F DIALYZER FLOW-QD 2024-08-16 03:42:18 507 mL/min F LENGTH OF DIALYSIS 2024-08-16 03:42:18 209 min F TBW (Agudelo) 2024-08-16 03:42:18 43.98 Liters F WEIGHT - PRE DAY 1 2024-08-16 03:42:18 90.5 kg F BLOOD FLOW-QWB 2024-08-16 03:42:18 358 F VM (KT/V MEAN VOL) 2024-08-16 03:42:18 40.2 F KT/V PRESCRIBED 2024-08-16 03:42:18 1.53 F WEIGHT - POST DAY 1 2024-08-16 03:42:18 89.1 kg F URR% 2024-08-16 03:42:18 71 % F Urea nitrogen [Mass/volume] in Serum or Plasma 2024-08-16 03:29:09 38 mg/dL F 9.0-23.0 Creatinine [Mass/volume] in Serum or Plasma 2024-08-16 03:29:09 6.17 mg/dL F 0.7-1.3 Creatinine [Mass/volume] in Serum or Plasma 2024-08-16 03:29:09 6.17 mg/dL F 0.7-1.3 Urea nitrogen [Mass/volume] in Serum or Plasma 2024-08-16 03:29:09 38 mg/dL F 9.0-23.0 Urea nitrogen [Mass/volume] in Serum or Plasma --post dialysis 2024-08-15 23:40:22 11 mg/dL F 9.0-23.0 Urea nitrogen [Mass/volume] in Serum or Plasma --post dialysis 2024-08-15 23:40:22 11 mg/dL F 9.0-23.0 Residual kt/v 2024-07-25 21:50:32 F HEIGHT IN INCHES 2024-07-25 21:50:32 70 Inches F WEIGHT - PRE DAY 1 2024-07-25 21:50:32 89.3 kg F KT/V PRESCRIBED 2024-07-25 21:50:32 1.54 F LENGTH OF DIALYSIS 2024-07-25 21:50:32 212 min F Total Kt/V 2024-07-25 21:50:32 1.19 F PRESCRIBED DAYS/WEEK 2024-07-25 21:50:32 3 Day/Wk F spKt/V 2024-07-25 21:50:32 1.19 F nPCR 2024-07-25 21:50:32 0.41 G/KG/D F PATIENT AGE 2024-07-25 21:50:32 79 Years F URR% 2024-07-25 21:50:32 68 % F stdKT/V Total 2024-07-25 21:50:32 N/A F TBW (Agudelo) 2024-07-25 21:50:32 43.95 Liters F TOTAL HOURS/WEEK DIALYSIS 2024-07-25 21:50:32 3 hrs F BLOOD FLOW-QWB 2024-07-25 21:50:32 380 F BSA REHAN 2024-07-25 21:50:32 2.08 sq m F VM (KT/V MEAN VOL) 2024-07-25 21:50:32 41 F AMPUTATE FACTOR 2024-07-25 21:50:32 0 F eKt/V 2024-07-25 21:50:32 1.02 F WEIGHT (KG) 2024-07-25 21:50:32 89.5 kg F CURRENT KRU 2024-07-25 21:50:32 F WEIGHT - POST DAY 1 2024-07-25 21:50:32 89 kg F VT (KT/V TX VOL) 2024-07-25 21:50:32 46.5 L F DIALYZER FLOW-QD 2024-07-25 21:50:32 504 mL/min F Std Renal KT/V 2024-07-25 21:50:32 N/A F stdKt/V (DIAL) 2024-07-25 21:50:32 N/A F Dialyzer JERARDO 2024-07-25 21:50:32 1218 Calc F Urea nitrogen [Mass/volume] in Serum or Plasma 2024-07-25 21:48:22 57 mg/dL F 9.0-23.0 Urea nitrogen [Mass/volume] in Serum or Plasma --post dialysis 2024-07-25 18:54:21 18 mg/dL F 9.0-23.0 eKt/V 2024-06-25 18:48:42 1.2 F DIALYZER FLOW-QD 2024-06-25 18:48:42 500 mL/min F AMPUTATE FACTOR 2024-06-25 18:48:42 0 F KT/V PRESCRIBED 2024-06-25 18:48:42 1.5 F PRESCRIBED DAYS/WEEK 2024-06-25 18:48:42 3 Day/Wk F nPCR 2024-06-25 18:48:42 0.69 G/KG/D F Total Kt/V 2024-06-25 18:48:42 1.42 F LENGTH OF DIALYSIS 2024-06-25 18:48:42 206 min F stdKT/V Total 2024-06-25 18:48:42 N/A F PATIENT AGE 2024-06-25 18:48:42 79 Years F TBW (Agudelo) 2024-06-25 18:48:42 43.85 Liters F VT (KT/V TX VOL) 2024-06-25 18:48:42 39 L F stdKt/V (DIAL) 2024-06-25 18:48:42 N/A F VM (KT/V MEAN VOL) 2024-06-25 18:48:42 39.2 F TOTAL HOURS/WEEK DIALYSIS 2024-06-25 18:48:42 10 hrs F spKt/V 2024-06-25 18:48:42 1.42 F CURRENT KRU 2024-06-25 18:48:42 F URR% 2024-06-25 18:48:42 71 % F Std Renal KT/V 2024-06-25 18:48:42 N/A F BSA REHAN 2024-06-25 18:48:42 2.07 sq m F BLOOD FLOW-QWB 2024-06-25 18:48:42 400 F Dialyzer JERARDO 2024-06-25 18:48:42 1218 Calc F HEIGHT IN INCHES 2024-06-25 18:48:42 70 Inches F WEIGHT - POST DAY 1 2024-06-25 18:48:42 88.7 kg F WEIGHT (KG) 2024-06-25 18:48:42 89 kg F WEIGHT - PRE DAY 1 2024-06-25 18:48:42 91.1 kg F Residual kt/v 2024-06-25 18:48:42 F Urea nitrogen [Mass/volume] in Serum or Plasma --post dialysis 2024-06-25 18:47:15 12 mg/dL F 9.0-23.0 Creatinine [Mass/volume] in Serum or Plasma 2024-06-25 16:08:21 7.79 mg/dL F 0.7-1.3 Urea nitrogen [Mass/volume] in Serum or Plasma 2024-06-25 16:08:21 41 mg/dL F 9.0-23.0 URR% 2024-05-28 17:52:33 70 % F BSA REHAN 2024-05-28 17:52:33 2.07 sq m F VT (KT/V TX VOL) 2024-05-28 17:52:33 38.7 L F TBW (Agudelo) 2024-05-28 17:52:33 44.14 Liters F stdKT/V Total 2024-05-28 17:52:33 N/A F Total Kt/V 2024-05-28 17:52:33 1.41 F eKt/V 2024-05-28 17:52:33 1.21 F spKt/V 2024-05-28 17:52:33 1.41 F HEIGHT IN INCHES 2024-05-28 17:52:33 70 Inches F KT/V PRESCRIBED 2024-05-28 17:52:33 1.57 F BLOOD FLOW-QWB 2024-05-28 17:52:33 356 F PATIENT AGE 2024-05-28 17:52:33 78 Years F Dialyzer JERARDO 2024-05-28 17:52:33 1218 Calc F WEIGHT (KG) 2024-05-28 17:52:33 89 kg F CURRENT KRU 2024-05-28 17:52:33 F WEIGHT - POST DAY 1 2024-05-28 17:52:33 89.3 kg F LENGTH OF DIALYSIS 2024-05-28 17:52:33 215 min F TOTAL HOURS/WEEK DIALYSIS 2024-05-28 17:52:33 10 hrs F AMPUTATE FACTOR 2024-05-28 17:52:33 0 F Residual kt/v 2024-05-28 17:52:33 F VM (KT/V MEAN VOL) 2024-05-28 17:52:33 39.3 F nPCR 2024-05-28 17:52:33 0.73 G/KG/D F stdKt/V (DIAL) 2024-05-28 17:52:33 N/A F WEIGHT - PRE DAY 1 2024-05-28 17:52:33 91.8 kg F DIALYZER FLOW-QD 2024-05-28 17:52:33 503 mL/min F PRESCRIBED DAYS/WEEK 2024-05-28 17:52:33 3 Day/Wk F Std Renal KT/V 2024-05-28 17:52:33 N/A F Urea nitrogen [Mass/volume] in Serum or Plasma --post dialysis 2024-05-28 17:50:28 13 mg/dL F 9.0-23.0 Urea nitrogen [Mass/volume] in Serum or Plasma 2024-05-28 15:59:22 44 mg/dL F 9.0-23.0 Creatinine [Mass/volume] in Serum or Plasma 2024-05-28 15:59:20 7.97 mg/dL F 0.7-1.3 stdKt/V (DIAL) 2024-02-28 06:52:47 N/A F Residual kt/v 2024-02-28 06:52:47 F HEIGHT IN INCHES 2024-02-28 06:52:47 70 Inches F BLOOD FLOW-QWB 2024-02-28 06:52:47 378 F DIALYZER FLOW-QD 2024-02-28 06:52:47 501 mL/min F Total Kt/V 2024-02-28 06:52:47 1.44 F KT/V PRESCRIBED 2024-02-28 06:52:47 1.5 F AMPUTATE FACTOR 2024-02-28 06:52:47 0 F WEIGHT - PRE DAY 1 2024-02-28 06:52:47 92.5 kg F Dialyzer JERARDO 2024-02-28 06:52:47 1218 Calc F BSA REHAN 2024-02-28 06:52:47 2.1 sq m F TOTAL HOURS/WEEK DIALYSIS 2024-02-28 06:52:47 10 hrs F spKt/V 2024-02-28 06:52:47 1.44 F nPCR 2024-02-28 06:52:47 0.76 G/KG/D F VM (KT/V MEAN VOL) 2024-02-28 06:52:47 39.6 F WEIGHT (KG) 2024-02-28 06:52:47 92 kg F VT (KT/V TX VOL) 2024-02-28 06:52:47 38.2 L F LENGTH OF DIALYSIS 2024-02-28 06:52:47 211 min F CURRENT KRU 2024-02-28 06:52:47 F URR% 2024-02-28 06:52:47 72 % F Std Renal KT/V 2024-02-28 06:52:47 N/A F PRESCRIBED DAYS/WEEK 2024-02-28 06:52:47 3 Day/Wk F TBW (Agudelo) 2024-02-28 06:52:47 44.71 Liters F PATIENT AGE 2024-02-28 06:52:47 78 Years F eKt/V 2024-02-28 06:52:47 1.23 F WEIGHT - POST DAY 1 2024-02-28 06:52:47 91 kg F stdKT/V Total 2024-02-28 06:52:47 N/A F Creatinine [Mass/volume] in Serum or Plasma 2024-02-28 06:51:14 7.76 mg/dL F 0.7-1.3 Urea nitrogen [Mass/volume] in Serum or Plasma 2024-02-28 06:51:14 47 mg/dL F 9.0-23.0 Urea nitrogen [Mass/volume] in Serum or Plasma --post dialysis 2024-02-28 03:32:11 13 mg/dL F 9.0-23.0 TBW (Agudelo) 2023-03-01 01:29:58 49.62 Liters F URR% 2023-03-01 01:29:58 67 % F PRESCRIBED DAYS/WEEK 2023-03-01 01:29:58 3 Day/Wk F BLOOD FLOW-QWB 2023-03-01 01:29:58 400 F AMPUTATE FACTOR 2023-03-01 01:29:58 0 F Residual kt/v 2023-03-01 01:29:58 F LENGTH OF DIALYSIS 2023-03-01 01:29:58 206 min F stdKt/V (DIAL) 2023-03-01 01:29:58 N/A F CURRENT KRU 2023-03-01 01:29:58 F WEIGHT - POST DAY 1 2023-03-01 01:29:58 105.3 kg F TOTAL HOURS/WEEK DIALYSIS 2023-03-01 01:29:58 10 hrs F Dialyzer JERARDO 2023-03-01 01:29:58 1218 Calc F WEIGHT - PRE DAY 1 2023-03-01 01:29:58 108.4 kg F eKt/V 2023-03-01 01:29:58 1.1 F Std Renal KT/V 2023-03-01 01:29:58 N/A F nPCR 2023-03-01 01:29:58 0.72 G/KG/D F PATIENT AGE 2023-03-01 01:29:58 77 Years F HEIGHT IN INCHES 2023-03-01 01:29:58 70 Inches F VM (KT/V MEAN VOL) 2023-03-01 01:29:58 37.3 F spKt/V 2023-03-01 01:29:58 1.29 F stdKT/V Total 2023-03-01 01:29:58 N/A F WEIGHT (KG) 2023-03-01 01:29:58 103.5 kg F Total Kt/V 2023-03-01 01:29:58 1.29 F BSA REHAN 2023-03-01 01:29:58 2.21 sq m F KT/V PRESCRIBED 2023-03-01 01:29:58 1.35 F VT (KT/V TX VOL) 2023-03-01 01:29:58 43.1 L F DIALYZER FLOW-QD 2023-03-01 01:29:58 502 mL/min F Urea nitrogen [Mass/volume] in Serum or Plasma --post dialysis 2023-03-01 01:28:34 15 mg/dL F 9.0-23.0 Creatinine [Mass/volume] in Serum or Plasma 2023-02-28 21:56:32 9.6 mg/dL F 0.7-1.3 Urea nitrogen [Mass/volume] in Serum or Plasma 2023-02-28 21:56:32 45 mg/dL F 9.0-23.0 WEIGHT (KG) 2022-03-02 04:33:55 102 kg F LENGTH OF DIALYSIS 2022-03-02 04:33:55 212 min F Total Kt/V 2022-03-02 04:33:55 1.46 F AMPUTATE FACTOR 2022-03-02 04:33:55 0 F DIALYZER FLOW-QD 2022-03-02 04:33:55 501 mL/min F nPCR 2022-03-02 04:33:55 0.75 G/KG/D F HEIGHT IN INCHES 2022-03-02 04:33:55 70 Inches F PRESCRIBED DAYS/WEEK 2022-03-02 04:33:55 3 Day/Wk F TOTAL HOURS/WEEK DIALYSIS 2022-03-02 04:33:55 10 F KT/V PRESCRIBED 2022-03-02 04:33:55 1.4 F PATIENT AGE 2022-03-02 04:33:55 76 Years F URR% 2022-03-02 04:33:55 71 % F WEIGHT - POST DAY 1 2022-03-02 04:33:55 101.7 kg F WEIGHT - PRE DAY 1 2022-03-02 04:33:55 104.6 kg F BLOOD FLOW-QWB 2022-03-02 04:33:55 375 F stdKt/V (DIAL) 2022-03-02 04:33:55 N/A F stdKT/V Total 2022-03-02 04:33:55 N/A F Dialyzer JERARDO 2022-03-02 04:33:55 1218 Calc F spKt/V 2022-03-02 04:33:55 1.46 F TBW (Agudelo) 2022-03-02 04:33:55 48.5 Liters F VT (KT/V TX VOL) 2022-03-02 04:33:55 38 L F VM (KT/V MEAN VOL) 2022-03-02 04:33:55 38.2 F Residual kt/v 2022-03-02 04:33:55 F BSA REHAN 2022-03-02 04:33:55 2.19 sq m F eKt/V 2022-03-02 04:33:55 1.24 F CURRENT KRU 2022-03-02 04:33:55 F Std Renal KT/V 2022-03-02 04:33:55 N/A F Creatinine [Mass/volume] in Serum or Plasma 2022-03-02 04:30:47 8.95 mg/dL F 0.7-1.3 Urea nitrogen [Mass/volume] in Serum or Plasma 2022-03-02 04:30:47 45 mg/dL F 9.0-23.0 Urea nitrogen [Mass/volume] in Serum or Plasma --post dialysis 2022-03-01 23:16:36 13 mg/dL F 9.0-23.0 Urea nitrogen [Mass/volume] in Serum or Plasma --post dialysis Urea nitrogen [Mass/volume] in Serum or Plasma DIALYZER FLOW-QD 0 mL/min F URR% Dialyzer JERARDO 0 Calc F LENGTH OF DIALYSIS 0 min F BSA REHAN WEIGHT - PRE DAY 1 0 kg F WEIGHT - POST DAY 1 0 kg F Residual kt/v VM (KT/V MEAN VOL) VT (KT/V TX VOL) PRESCRIBED DAYS/WEEK 0 Day/Wk F KT/V PRESCRIBED nPCR Total Kt/V spKt/V TBW (Agudelo) eKt/V Std Renal KT/V TOTAL HOURS/WEEK DIALYSIS 0 hrs F stdKt/V (DIAL) stdKT/V Total BLOOD FLOW-QWB 0 F CURRENT KRU Anemia Description Draw Date Result/Unit Status Ref Range Result Comments ABSOLUTE RETIC COUNT 2025-02-05 01:22:09 0.076 x 10^6 cells/uL F 0.035-0.127 Reticulocytes/100 erythrocytes in Blood by Automated count 2025-02-05 01:22:09 2.25 % F 0.7-2.5 TIBC 2025-01-31 03:08:50 109 ug/dL F 250.0-425.0 IRON SATURATION 2025-01-31 03:08:50 14 % F 21.0-49.0 Iron binding capacity.unsaturated [Mass/volume] in Serum or Plasma 2025-01-31 03:04:45 94 ug/dL F 75.0-360.0 Iron [Mass/volume] in Serum or Plasma 2025-01-31 03:04:45 15 ug/dL F 65.0-175.0 Transferrin [Mass/volume] in Serum or Plasma 2025-01-30 21:20:16 48 mg/dL F 215.0-365.0 HCT CALC HGBX3 2025-01-30 21:14:20 28.2 % F 42.0-52.0 Erythrocytes [#/volume] in Blood by Automated count 2025-01-30 21:13:10 3.35 x 10^6 cells/uL F 4.6-6.2 Hemoglobin [Mass/volume] in Blood 2025-01-30 21:13:10 9.4 g/dL F 14.0-18.0 MCHC [Mass/volume] by Automated count 2025-01-30 21:13:10 30.8 g/dL F 29.6-35.3 MCV [Entitic volume] by Automated count 2025-01-30 21:13:10 91.5 fL F 80.0-100.0 MCH [Entitic mass] by Automated count 2025-01-30 21:13:10 28.2 pg F 25.9-34.2 Hematocrit [Volume Fraction] of Blood by Automated count 2025-01-30 21:13:10 30.7 % F 41.0-53.0 Platelets [#/volume] in Blood by Automated count 2025-01-30 21:13:10 460 x 10^3 cells/uL F 140.0-450.0 Erythrocyte distribution width [Ratio] by Automated count 2025-01-30 21:13:10 16.2 % F 11.0-15.0 Ferritin [Mass/volume] in Serum or Plasma 2025-01-30 19:45:17 1777 ng/mL F 22.0-322.0 HCT CALC HGBX3 2025-01-21 17:19:16 30.3 % F 42.0-52.0 Erythrocytes [#/volume] in Blood by Automated count 2025-01-21 17:14:26 3.47 x 10^6 cells/uL F 4.6-6.2 Erythrocyte distribution width [Ratio] by Automated count 2025-01-21 17:14:25 16.9 % F 11.0-15.0 MCH [Entitic mass] by Automated count 2025-01-21 17:14:25 29.1 pg F 25.9-34.2 Hematocrit [Volume Fraction] of Blood by Automated count 2025-01-21 17:14:25 32.3 % F 41.0-53.0 MCHC [Mass/volume] by Automated count 2025-01-21 17:14:25 31.3 g/dL F 29.6-35.3 Hemoglobin [Mass/volume] in Blood 2025-01-21 17:14:25 10.1 g/dL F 14.0-18.0 MCV [Entitic volume] by Automated count 2025-01-21 17:14:25 93 fL F 80.0-100.0 Platelets [#/volume] in Blood by Automated count 2025-01-21 17:14:25 546 x 10^3 cells/uL F 140.0-450.0 HCT CALC HGBX3 2025-01-09 17:49:04 27.6 % F 42.0-52.0 Hemoglobin [Mass/volume] in Blood 2025-01-09 17:48:08 9.2 g/dL F 14.0-18.0 IRON SATURATION 2024-12-25 06:58:50 18 % F 21.0-49.0 TIBC 2024-12-25 06:58:50 113 ug/dL F 250.0-425.0 Iron [Mass/volume] in Serum or Plasma 2024-12-25 06:52:32 20 ug/dL F 65.0-175.0 Iron binding capacity.unsaturated [Mass/volume] in Serum or Plasma 2024-12-25 06:47:03 93 ug/dL F 75.0-360.0 HCT CALC HGBX3 2024-12-25 02:29:19 30 % F 42.0-52.0 Erythrocyte distribution width [Ratio] by Automated count 2024-12-25 02:28:18 17 % F 11.0-15.0 Erythrocytes [#/volume] in Blood by Automated count 2024-12-25 02:28:18 3.51 x 10^6 cells/uL F 4.6-6.2 Hematocrit [Volume Fraction] of Blood by Automated count 2024-12-25 02:28:18 32.7 % F 41.0-53.0 Hemoglobin [Mass/volume] in Blood 2024-12-25 02:28:18 10 g/dL F 14.0-18.0 MCV [Entitic volume] by Automated count 2024-12-25 02:28:18 93.2 fL F 80.0-100.0 MCH [Entitic mass] by Automated count 2024-12-25 02:28:18 28.5 pg F 25.9-34.2 Platelets [#/volume] in Blood by Automated count 2024-12-25 02:28:18 588 x 10^3 cells/uL F 140.0-450.0 MCHC [Mass/volume] by Automated count 2024-12-25 02:28:18 30.6 g/dL F 29.6-35.3 Ferritin [Mass/volume] in Serum or Plasma 2024-12-24 21:45:21 1105 ng/mL F 22.0-322.0 Transferrin [Mass/volume] in Serum or Plasma 2024-12-24 20:10:17 66 mg/dL F 215.0-365.0 HCT CALC HGBX3 2024-12-11 22:42:42 29.7 % F 42.0-52.0 Hemoglobin [Mass/volume] in Blood 2024-12-11 22:42:11 9.9 g/dL F 14.0-18.0 IRON SATURATION 2024-11-27 06:54:01 12 % F 21.0-49.0 TIBC 2024-11-27 06:54:01 114 ug/dL F 250.0-425.0 Iron [Mass/volume] in Serum or Plasma 2024-11-27 06:53:14 14 ug/dL F 65.0-175.0 Iron binding capacity.unsaturated [Mass/volume] in Serum or Plasma 2024-11-27 06:53:14 100 ug/dL F 75.0-360.0 HCT CALC HGBX3 2024-11-27 06:22:52 29.7 % F 42.0-52.0 Erythrocyte distribution width [Ratio] by Automated count 2024-11-27 06:22:15 17.4 % F 11.0-15.0 Hemoglobin [Mass/volume] in Blood 2024-11-27 06:22:15 9.9 g/dL F 14.0-18.0 Erythrocytes [#/volume] in Blood by Automated count 2024-11-27 06:22:15 3.44 x 10^6 cells/uL F 4.6-6.2 Hematocrit [Volume Fraction] of Blood by Automated count 2024-11-27 06:22:15 32.8 % F 41.0-53.0 MCH [Entitic mass] by Automated count 2024-11-27 06:22:15 28.7 pg F 25.9-34.2 MCV [Entitic volume] by Automated count 2024-11-27 06:22:15 95.2 fL F 80.0-100.0 MCHC [Mass/volume] by Automated count 2024-11-27 06:22:15 30.2 g/dL F 29.6-35.3 Platelets [#/volume] in Blood by Automated count 2024-11-27 06:22:15 488 x 10^3 cells/uL F 140.0-450.0 Ferritin [Mass/volume] in Serum or Plasma 2024-11-27 00:07:14 1488 ng/mL F 22.0-322.0 Transferrin [Mass/volume] in Serum or Plasma 2024-11-26 15:34:12 55 mg/dL F 215.0-365.0 HCT CALC HGBX3 2024-11-12 21:28:44 30 % F 42.0-52.0 Hemoglobin [Mass/volume] in Blood 2024-11-12 21:28:09 10 g/dL F 14.0-18.0 IRON SATURATION 2024-10-30 06:05:00 12 % F 21.0-49.0 TIBC 2024-10-30 06:05:00 132 ug/dL F 250.0-425.0 Iron [Mass/volume] in Serum or Plasma 2024-10-30 06:00:50 16 ug/dL F 65.0-175.0 Iron binding capacity.unsaturated [Mass/volume] in Serum or Plasma 2024-10-30 06:00:50 116 ug/dL F 75.0-360.0 Ferritin [Mass/volume] in Serum or Plasma 2024-10-29 23:18:19 1182 ng/mL F 22.0-322.0 Transferrin [Mass/volume] in Serum or Plasma 2024-10-29 22:06:23 74 mg/dL F 215.0-365.0 HCT CALC HGBX3 2024-10-29 21:41:03 29.1 % F 42.0-52.0 MCHC [Mass/volume] by Automated count 2024-10-29 21:40:11 30.5 g/dL F 29.6-35.3 MCH [Entitic mass] by Automated count 2024-10-29 21:40:11 29 pg F 25.9-34.2 Erythrocytes [#/volume] in Blood by Automated count 2024-10-29 21:40:11 3.36 x 10^6 cells/uL F 4.6-6.2 Erythrocyte distribution width [Ratio] by Automated count 2024-10-29 21:40:11 16.5 % F 11.0-15.0 Hemoglobin [Mass/volume] in Blood 2024-10-29 21:40:11 9.7 g/dL F 14.0-18.0 Platelets [#/volume] in Blood by Automated count 2024-10-29 21:40:11 534 x 10^3 cells/uL F 140.0-450.0 Hematocrit [Volume Fraction] of Blood by Automated count 2024-10-29 21:40:11 31.9 % F 41.0-53.0 MCV [Entitic volume] by Automated count 2024-10-29 21:40:11 95 fL F 80.0-100.0 HCT CALC HGBX3 2024-10-09 04:54:47 26.7 % F 42.0-52.0 Hemoglobin [Mass/volume] in Blood 2024-10-09 04:48:11 8.9 g/dL F 14.0-18.0 Ferritin [Mass/volume] in Serum or Plasma 2024-09-25 15:18:13 1310 ng/mL F 22.0-322.0 TIBC 2024-09-25 03:59:57 141 ug/dL F 250.0-425.0 IRON SATURATION 2024-09-25 03:59:57 23 % F 21.0-49.0 Iron binding capacity.unsaturated [Mass/volume] in Serum or Plasma 2024-09-25 03:51:02 109 ug/dL F 75.0-360.0 Iron [Mass/volume] in Serum or Plasma 2024-09-25 03:51:02 32 ug/dL F 65.0-175.0 Transferrin [Mass/volume] in Serum or Plasma 2024-09-25 02:39:18 94 mg/dL F 215.0-365.0 HCT CALC HGBX3 2024-09-24 21:27:57 26.4 % F 42.0-52.0 Erythrocyte distribution width [Ratio] by Automated count 2024-09-24 21:27:09 15.6 % F 11.0-15.0 MCH [Entitic mass] by Automated count 2024-09-24 21:27:09 29.7 pg F 25.9-34.2 Erythrocytes [#/volume] in Blood by Automated count 2024-09-24 21:27:09 2.94 x 10^6 cells/uL F 4.6-6.2 Hematocrit [Volume Fraction] of Blood by Automated count 2024-09-24 21:27:09 29 % F 41.0-53.0 MCV [Entitic volume] by Automated count 2024-09-24 21:27:09 98.5 fL F 80.0-100.0 Platelets [#/volume] in Blood by Automated count 2024-09-24 21:27:09 551 x 10^3 cells/uL F 140.0-450.0 Hemoglobin [Mass/volume] in Blood 2024-09-24 21:27:09 8.8 g/dL F 14.0-18.0 MCHC [Mass/volume] by Automated count 2024-09-24 21:27:09 30.2 g/dL F 29.6-35.3 HCT CALC HGBX3 2024-09-11 02:11:52 26.4 % F 42.0-52.0 Hemoglobin [Mass/volume] in Blood 2024-09-11 02:11:06 8.8 g/dL F 14.0-18.0 IRON SATURATION 2024-09-06 04:13:27 12 % F 21.0-49.0 TIBC 2024-09-06 04:13:27 161 ug/dL F 250.0-425.0 Iron [Mass/volume] in Serum or Plasma 2024-09-06 04:12:02 20 ug/dL F 65.0-175.0 Iron binding capacity.unsaturated [Mass/volume] in Serum or Plasma 2024-09-06 04:12:01 141 ug/dL F 75.0-360.0 Ferritin [Mass/volume] in Serum or Plasma 2024-09-03 19:48:34 1017 ng/mL F 22.0-322.0 TIBC 2024-08-16 06:26:55 176 ug/dL F 250.0-425.0 IRON SATURATION 2024-08-16 06:26:55 15 % F 21.0-49.0 TIBC 2024-08-16 06:26:55 176 ug/dL F 250.0-425.0 IRON SATURATION 2024-08-16 06:26:55 15 % F 21.0-49.0 Iron binding capacity.unsaturated [Mass/volume] in Serum or Plasma 2024-08-16 06:11:33 149 ug/dL F 75.0-360.0 Iron [Mass/volume] in Serum or Plasma 2024-08-16 06:11:33 27 ug/dL F 65.0-175.0 Iron [Mass/volume] in Serum or Plasma 2024-08-16 06:11:33 27 ug/dL F 65.0-175.0 Iron binding capacity.unsaturated [Mass/volume] in Serum or Plasma 2024-08-16 06:11:33 149 ug/dL F 75.0-360.0 Transferrin [Mass/volume] in Serum or Plasma 2024-08-16 03:29:09 111 mg/dL F 215.0-365.0 Transferrin [Mass/volume] in Serum or Plasma 2024-08-16 03:29:09 111 mg/dL F 215.0-365.0 Ferritin [Mass/volume] in Serum or Plasma 2024-08-16 01:24:20 F Ferritin [Mass/volume] in Serum or Plasma 2024-08-16 01:24:20 F CANCELED - TEST CANCELED HCT CALC HGBX3 2024-08-16 00:38:31 27.6 % F 42.0-52.0 HCT CALC HGBX3 2024-08-16 00:38:31 27.6 % F 42.0-52.0 MCH [Entitic mass] by Automated count 2024-08-16 00:37:12 29.9 pg F 25.9-34.2 MCHC [Mass/volume] by Automated count 2024-08-16 00:37:12 29.8 g/dL F 29.6-35.3 Hemoglobin [Mass/volume] in Blood 2024-08-16 00:37:12 9.2 g/dL F 14.0-18.0 Erythrocytes [#/volume] in Blood by Automated count 2024-08-16 00:37:12 3.09 x 10^6 cells/uL F 4.6-6.2 Erythrocyte distribution width [Ratio] by Automated count 2024-08-16 00:37:12 14.9 % F 11.0-15.0 Hematocrit [Volume Fraction] of Blood by Automated count 2024-08-16 00:37:12 31 % F 41.0-53.0 Platelets [#/volume] in Blood by Automated count 2024-08-16 00:37:12 530 x 10^3 cells/uL F 140.0-450.0 MCV [Entitic volume] by Automated count 2024-08-16 00:37:12 100.6 fL F 80.0-100.0 MCH [Entitic mass] by Automated count 2024-08-16 00:37:12 29.9 pg F 25.9-34.2 Platelets [#/volume] in Blood by Automated count 2024-08-16 00:37:12 530 x 10^3 cells/uL F 140.0-450.0 MCHC [Mass/volume] by Automated count 2024-08-16 00:37:12 29.8 g/dL F 29.6-35.3 Hematocrit [Volume Fraction] of Blood by Automated count 2024-08-16 00:37:12 31 % F 41.0-53.0 Erythrocyte distribution width [Ratio] by Automated count 2024-08-16 00:37:12 14.9 % F 11.0-15.0 Hemoglobin [Mass/volume] in Blood 2024-08-16 00:37:12 9.2 g/dL F 14.0-18.0 Erythrocytes [#/volume] in Blood by Automated count 2024-08-16 00:37:12 3.09 x 10^6 cells/uL F 4.6-6.2 MCV [Entitic volume] by Automated count 2024-08-16 00:37:12 100.6 fL F 80.0-100.0 HCT CALC HGBX3 2024-07-25 21:31:48 28.5 % F 42.0-52.0 Hemoglobin [Mass/volume] in Blood 2024-07-25 21:26:16 9.5 g/dL F 14.0-18.0 HCT CALC HGBX3 2024-07-09 21:53:14 29.1 % F 42.0-52.0 Hemoglobin [Mass/volume] in Blood 2024-07-09 21:52:15 9.7 g/dL F 14.0-18.0 IRON SATURATION 2024-06-26 07:06:55 19 % F 21.0-49.0 TIBC 2024-06-26 07:06:55 151 ug/dL F 250.0-425.0 Iron binding capacity.unsaturated [Mass/volume] in Serum or Plasma 2024-06-26 07:03:33 123 ug/dL F 75.0-360.0 Iron [Mass/volume] in Serum or Plasma 2024-06-26 07:03:33 28 ug/dL F 65.0-175.0 Ferritin [Mass/volume] in Serum or Plasma 2024-06-26 00:41:20 1206 ng/mL F 22.0-322.0 HCT CALC HGBX3 2024-06-25 22:08:12 31.2 % F 42.0-52.0 MCH [Entitic mass] by Automated count 2024-06-25 22:07:19 29.6 pg F 25.9-34.2 MCV [Entitic volume] by Automated count 2024-06-25 22:07:19 99.9 fL F 80.0-100.0 Erythrocyte distribution width [Ratio] by Automated count 2024-06-25 22:07:17 15.4 % F 11.0-15.0 Hemoglobin [Mass/volume] in Blood 2024-06-25 22:07:17 10.4 g/dL F 14.0-18.0 Platelets [#/volume] in Blood by Automated count 2024-06-25 22:07:17 402 x 10^3 cells/uL F 140.0-450.0 MCHC [Mass/volume] by Automated count 2024-06-25 22:07:17 29.6 g/dL F 29.6-35.3 Hematocrit [Volume Fraction] of Blood by Automated count 2024-06-25 22:07:17 35 % F 41.0-53.0 Erythrocytes [#/volume] in Blood by Automated count 2024-06-25 22:07:17 3.5 x 10^6 cells/uL F 4.6-6.2 Transferrin [Mass/volume] in Serum or Plasma 2024-06-25 16:08:21 96 mg/dL F 215.0-365.0 HCT CALC HGBX3 2024-06-12 03:14:21 30.3 % F 42.0-52.0 Hemoglobin [Mass/volume] in Blood 2024-06-12 03:13:18 10.1 g/dL F 14.0-18.0 IRON SATURATION 2024-05-29 09:29:53 15 % F 21.0-49.0 TIBC 2024-05-29 09:29:53 156 ug/dL F 250.0-425.0 Iron binding capacity.unsaturated [Mass/volume] in Serum or Plasma 2024-05-29 07:02:28 133 ug/dL F 75.0-360.0 Iron [Mass/volume] in Serum or Plasma 2024-05-29 07:02:28 23 ug/dL F 65.0-175.0 Ferritin [Mass/volume] in Serum or Plasma 2024-05-29 01:39:35 1282 ng/mL F 22.0-322.0 HCT CALC HGBX3 2024-05-28 23:56:08 31.2 % F 42.0-52.0 Erythrocyte distribution width [Ratio] by Automated count 2024-05-28 23:55:17 15.4 % F 11.0-15.0 Hemoglobin [Mass/volume] in Blood 2024-05-28 23:55:17 10.4 g/dL F 14.0-18.0 Platelets [#/volume] in Blood by Automated count 2024-05-28 23:55:17 438 x 10^3 cells/uL F 140.0-450.0 MCH [Entitic mass] by Automated count 2024-05-28 23:55:17 30.3 pg F 25.9-34.2 MCHC [Mass/volume] by Automated count 2024-05-28 23:55:17 30.9 g/dL F 29.6-35.3 Hematocrit [Volume Fraction] of Blood by Automated count 2024-05-28 23:55:17 33.8 % F 41.0-53.0 Erythrocytes [#/volume] in Blood by Automated count 2024-05-28 23:55:17 3.44 x 10^6 cells/uL F 4.6-6.2 MCV [Entitic volume] by Automated count 2024-05-28 23:55:17 98.1 fL F 80.0-100.0 Transferrin [Mass/volume] in Serum or Plasma 2024-05-28 15:59:20 96 mg/dL F 215.0-365.0 Ferritin [Mass/volume] in Serum or Plasma 2024-02-28 19:22:55 1028 ng/mL F 22.0-322.0 IRON SATURATION 2024-02-28 07:45:24 36 % F 21.0-49.0 TIBC 2024-02-28 07:45:24 149 ug/dL F 250.0-425.0 Iron [Mass/volume] in Serum or Plasma 2024-02-28 07:42:10 54 ug/dL F 65.0-175.0 Iron binding capacity.unsaturated [Mass/volume] in Serum or Plasma 2024-02-28 07:42:09 95 ug/dL F 75.0-360.0 Transferrin [Mass/volume] in Serum or Plasma 2024-02-28 06:51:14 102 mg/dL F 215.0-365.0 HCT CALC HGBX3 2024-02-28 05:57:41 34.8 % F 42.0-52.0 Erythrocyte distribution width [Ratio] by Automated count 2024-02-28 05:56:11 16.7 % F 11.0-15.0 Hemoglobin [Mass/volume] in Blood 2024-02-28 05:56:11 11.6 g/dL F 14.0-18.0 Platelets [#/volume] in Blood by Automated count 2024-02-28 05:56:11 401 x 10^3 cells/uL F 140.0-450.0 MCH [Entitic mass] by Automated count 2024-02-28 05:56:11 29.8 pg F 25.9-34.2 MCHC [Mass/volume] by Automated count 2024-02-28 05:56:11 31 g/dL F 29.6-35.3 Erythrocytes [#/volume] in Blood by Automated count 2024-02-28 05:56:11 3.89 x 10'6 cells/uL F 4.6-6.2 Hematocrit [Volume Fraction] of Blood by Automated count 2024-02-28 05:56:11 37.4 % F 41.0-53.0 MCV [Entitic volume] by Automated count 2024-02-28 05:56:11 96.2 fL F 80.0-100.0 HCT CALC HGBX3 2023-03-01 07:42:25 33 % F 42.0-52.0 Erythrocyte distribution width [Ratio] by Automated count 2023-03-01 07:41:28 14 % F 11.0-15.0 Hemoglobin [Mass/volume] in Blood 2023-03-01 07:41:28 11 g/dL F 14.0-18.0 Platelets [#/volume] in Blood by Automated count 2023-03-01 07:41:28 255 x 10^3 cells/uL F 140.0-450.0 MCH [Entitic mass] by Automated count 2023-03-01 07:41:28 32.8 pg F 25.9-34.2 MCHC [Mass/volume] by Automated count 2023-03-01 07:41:28 32.6 g/dL F 29.6-35.3 Erythrocytes [#/volume] in Blood by Automated count 2023-03-01 07:41:28 3.35 x 10'6 cells/uL F 4.6-6.2 Hematocrit [Volume Fraction] of Blood by Automated count 2023-03-01 07:41:28 33.7 % F 41.0-53.0 MCV [Entitic volume] by Automated count 2023-03-01 07:41:28 100.5 fL F 80.0-100.0 IRON SATURATION 2023-03-01 06:14:01 49 % F 21.0-49.0 TIBC 2023-03-01 06:14:01 196 ug/dL F 250.0-425.0 Iron [Mass/volume] in Serum or Plasma 2023-03-01 06:08:51 97 ug/dL F 65.0-175.0 Iron binding capacity.unsaturated [Mass/volume] in Serum or Plasma 2023-03-01 06:08:51 99 ug/dL F 75.0-360.0 Ferritin [Mass/volume] in Serum or Plasma 2023-03-01 05:24:52 591 ng/mL F 22.0-322.0 Transferrin [Mass/volume] in Serum or Plasma 2023-02-28 21:56:32 151 mg/dL F 215.0-365.0 HCT CALC HGBX3 2022-09-07 01:11:44 31.2 % F 42.0-52.0 Hemoglobin [Mass/volume] in Blood 2022-09-07 01:11:10 10.4 g/dL F 14.0-18.0 IRON SATURATION 2022-03-02 07:50:27 36 % F 21.0-49.0 TIBC 2022-03-02 07:50:27 204 ug/dL F 250.0-425.0 HCT CALC HGBX3 2022-03-02 07:50:27 32.7 % F 42.0-52.0 Erythrocyte distribution width [Ratio] by Automated count 2022-03-02 07:48:34 13.1 % F 11.0-15.0 Platelets [#/volume] in Blood by Automated count 2022-03-02 07:48:34 221 x 10^3 cells/uL F 150.0-400.0 Hemoglobin [Mass/volume] in Blood 2022-03-02 07:48:34 10.9 g/dL F 14.0-18.0 MCH [Entitic mass] by Automated count 2022-03-02 07:48:34 32.9 pg F 27.0-31.0 Hematocrit [Volume Fraction] of Blood by Automated count 2022-03-02 07:48:34 33.1 % F 42.0-52.0 MCHC [Mass/volume] by Automated count 2022-03-02 07:48:34 33 g/dL F 32.0-36.0 MCV [Entitic volume] by Automated count 2022-03-02 07:48:34 99.6 fL F 80.0-100.0 Erythrocytes [#/volume] in Blood by Automated count 2022-03-02 07:48:34 3.32 x 10'6 cells/uL F 4.6-6.2 Iron [Mass/volume] in Serum or Plasma 2022-03-02 05:20:28 73 ug/dL F 65.0-175.0 Iron binding capacity.unsaturated [Mass/volume] in Serum or Plasma 2022-03-02 05:20:28 131 ug/dL F 75.0-360.0 Transferrin [Mass/volume] in Serum or Plasma 2022-03-02 04:30:47 150 mg/dL F 215.0-365.0 Ferritin [Mass/volume] in Serum or Plasma 2022-03-01 23:40:45 481 ng/mL F 22.0-322.0 Comorbidities Description Draw Date Result/Unit Status Ref Range Result Comments Thyrotropin [Units/volume] in Serum or Plasma by Detection limit <= 0.05 mIU/L 2025-01-22 07:14:09 3.17 uIU/mL F 0.55-4.78 Hemoglobin A1c/Hemoglobin.total in Blood 2024-11-27 06:46:10 4.8 %A1c F 0.0-5.6 Hemoglobin A1c/Hemoglobin.total in Blood 2024-05-29 01:30:26 5.5 %A1c F 0.0-5.6 Hemoglobin A1c/Hemoglobin.total in Blood 2024-02-28 08:09:19 5.7 %A1c F 0.0-5.6 Hemoglobin A1c/Hemoglobin.total in Blood 2023-03-02 02:55:27 6.6 %A1c F 0.0-5.6 Hemoglobin A1c/Hemoglobin.total in Blood 2022-03-02 20:21:57 6.1 %A1c F 0.0-5.6 FluidBP Description Draw Date Result/Unit Status Ref Range Result Comments Sodium [Moles/volume] in Serum or Plasma 2025-01-31 03:04:44 135 mEq/L F 132.0-146.0 Sodium [Moles/volume] in Serum or Plasma 2025-01-21 17:38:12 F RECOLLECT - PARTIALLY SPUN SST Sodium [Moles/volume] in Serum or Plasma 2024-12-25 06:47:03 137 mEq/L F 132.0-146.0 Sodium [Moles/volume] in Serum or Plasma 2024-11-26 16:22:21 135 mEq/L F 132.0-146.0 Sodium [Moles/volume] in Serum or Plasma 2024-10-30 06:00:49 136 mEq/L F 132.0-146.0 Sodium [Moles/volume] in Serum or Plasma 2024-09-25 03:51:02 138 mEq/L F 132.0-146.0 Sodium [Moles/volume] in Serum or Plasma 2024-08-16 06:11:33 138 mEq/L F 132.0-146.0 Sodium [Moles/volume] in Serum or Plasma 2024-08-16 06:11:33 138 mEq/L F 132.0-146.0 Sodium [Moles/volume] in Serum or Plasma 2024-06-26 07:03:33 139 mEq/L F 132.0-146.0 Sodium [Moles/volume] in Serum or Plasma 2024-05-29 07:02:28 138 mEq/L F 132.0-146.0 Sodium [Moles/volume] in Serum or Plasma 2024-02-28 07:42:09 140 mEq/L F 132.0-146.0 Sodium [Moles/volume] in Serum or Plasma 2023-02-28 21:56:32 138 mEq/L F 132.0-146.0 Sodium [Moles/volume] in Serum or Plasma 2022-03-02 04:30:47 138 mEq/L F 132.0-146.0 General Description Draw Date Result/Unit Status Ref Range Result Comments Chloride [Moles/volume] in Serum or Plasma 2025-01-31 03:04:44 101 mEq/L F 99.0-109.0 Alanine aminotransferase [Enzymatic activity/volume] in Serum or Plasma 2025-01-30 21:20:16 9 U/L F 10.0-49.0 Aspartate aminotransferase [Enzymatic activity/volume] in Serum or Plasma 2025-01-30 21:20:16 19 U/L F 0.0-33.0 Chloride [Moles/volume] in Serum or Plasma 2025-01-21 17:38:12 F RECOLLECT - PARTIALLY SPUN SST Chloride [Moles/volume] in Serum or Plasma 2024-12-25 06:47:03 101 mEq/L F 99.0-109.0 Alanine aminotransferase [Enzymatic activity/volume] in Serum or Plasma 2024-12-24 20:10:17 9 U/L F 10.0-49.0 Aspartate aminotransferase [Enzymatic activity/volume] in Serum or Plasma 2024-12-24 20:10:17 14 U/L F 0.0-33.0 Chloride [Moles/volume] in Serum or Plasma 2024-11-26 16:22:21 99 mEq/L F 99.0-109.0 Alanine aminotransferase [Enzymatic activity/volume] in Serum or Plasma 2024-11-26 15:34:12 9 U/L F 10.0-49.0 Aspartate aminotransferase [Enzymatic activity/volume] in Serum or Plasma 2024-11-26 15:34:12 14 U/L F 0.0-33.0 Chloride [Moles/volume] in Serum or Plasma 2024-10-30 06:00:49 100 mEq/L F 99.0-109.0 Aspartate aminotransferase [Enzymatic activity/volume] in Serum or Plasma 2024-10-29 22:06:23 14 U/L F 0.0-33.0 Alanine aminotransferase [Enzymatic activity/volume] in Serum or Plasma 2024-10-29 22:06:23 9 U/L F 10.0-49.0 Chloride [Moles/volume] in Serum or Plasma 2024-09-25 03:51:02 99 mEq/L F 99.0-109.0 Aspartate aminotransferase [Enzymatic activity/volume] in Serum or Plasma 2024-09-25 02:39:18 11 U/L F 0.0-33.0 Alanine aminotransferase [Enzymatic activity/volume] in Serum or Plasma 2024-09-25 02:39:18 9 U/L F 10.0-49.0 Chloride [Moles/volume] in Serum or Plasma 2024-08-16 06:11:33 99 mEq/L F 99.0-109.0 Chloride [Moles/volume] in Serum or Plasma 2024-08-16 06:11:33 99 mEq/L F 99.0-109.0 Alanine aminotransferase [Enzymatic activity/volume] in Serum or Plasma 2024-08-16 03:29:09 9 U/L F 10.0-49.0 Aspartate aminotransferase [Enzymatic activity/volume] in Serum or Plasma 2024-08-16 03:29:09 12 U/L F 0.0-33.0 Alanine aminotransferase [Enzymatic activity/volume] in Serum or Plasma 2024-08-16 03:29:09 9 U/L F 10.0-49.0 Aspartate aminotransferase [Enzymatic activity/volume] in Serum or Plasma 2024-08-16 03:29:09 12 U/L F 0.0-33.0 Chloride [Moles/volume] in Serum or Plasma 2024-06-26 07:03:33 102 mEq/L F 99.0-109.0 Aspartate aminotransferase [Enzymatic activity/volume] in Serum or Plasma 2024-06-25 16:08:21 12 U/L F 0.0-33.0 Alanine aminotransferase [Enzymatic activity/volume] in Serum or Plasma 2024-06-25 16:08:21 10 U/L F 10.0-49.0 Chloride [Moles/volume] in Serum or Plasma 2024-05-29 07:02:28 98 mEq/L F 99.0-109.0 Aspartate aminotransferase [Enzymatic activity/volume] in Serum or Plasma 2024-05-28 15:59:22 9 U/L F 0.0-33.0 Alanine aminotransferase [Enzymatic activity/volume] in Serum or Plasma 2024-05-28 15:59:22 9 U/L F 10.0-49.0 Chloride [Moles/volume] in Serum or Plasma 2024-02-28 07:42:09 102 mEq/L F 99.0-109.0 Aspartate aminotransferase [Enzymatic activity/volume] in Serum or Plasma 2024-02-28 06:51:14 9 U/L F 0.0-33.0 Alanine aminotransferase [Enzymatic activity/volume] in Serum or Plasma 2024-02-28 06:51:14 9 U/L F 10.0-49.0 Aluminum [Mass/volume] in Serum or Plasma 2024-02-27 19:08:13 10 ug/L F 0.0-9.0 Aspartate aminotransferase [Enzymatic activity/volume] in Serum or Plasma 2023-02-28 21:56:32 13 U/L F 0.0-33.0 Alanine aminotransferase [Enzymatic activity/volume] in Serum or Plasma 2023-02-28 21:56:32 12 U/L F 10.0-49.0 Chloride [Moles/volume] in Serum or Plasma 2023-02-28 21:56:32 103 mEq/L F 99.0-109.0 Aspartate aminotransferase [Enzymatic activity/volume] in Serum or Plasma 2022-03-02 04:30:47 14 U/L F 0.0-33.0 Alanine aminotransferase [Enzymatic activity/volume] in Serum or Plasma 2022-03-02 04:30:47 11 U/L F 10.0-49.0 Chloride [Moles/volume] in Serum or Plasma 2022-03-02 04:30:47 102 mEq/L F 99.0-109.0 Aluminum [Mass/volume] in Serum or Plasma 2022-03-01 18:17:58 10 ug/L F 0.0-9.0 InfectionVaccination Description Draw Date Result/Unit Status Ref Range Result Comments Lymphocytes [#/volume] in Blood by Automated count 2025-01-30 21:13:10 1293 Cells/uL F 620.0-3660.0 Neutrophils [#/volume] in Blood by Automated count 2025-01-30 21:13:10 8406 Cells/uL F 2000.0-8800.0 Eosinophils [#/volume] in Blood by Automated count 2025-01-30 21:13:10 148 Cells/uL F 0.0-700.0 Monocytes [#/volume] in Blood by Automated count 2025-01-30 21:13:10 721 Cells/uL F 0.0-1100.0 Basophils [#/volume] in Blood by Automated count 2025-01-30 21:13:10 32 Cells/uL F 0.0-400.0 Neutrophils/100 leukocytes in Blood by Automated count 2025-01-30 21:13:10 79.3 % F Lymphocytes/100 leukocytes in Blood by Automated count 2025-01-30 21:13:10 12.2 % F Basophils/100 leukocytes in Blood by Automated count 2025-01-30 21:13:10 0.3 % F Eosinophils/100 leukocytes in Blood by Automated count 2025-01-30 21:13:10 1.4 % F Monocytes/100 leukocytes in Blood by Automated count 2025-01-30 21:13:10 6.8 % F Leukocytes [#/volume] in Blood by Automated count 2025-01-30 21:13:10 10.6 x 10^3 cells/uL F 4.0-11.0 Leukocytes [#/volume] in Blood by Automated count 2025-01-21 17:14:26 8.4 x 10^3 cells/uL F 4.0-11.0 Basophils [#/volume] in Blood by Automated count 2025-01-21 17:14:26 17 Cells/uL F 0.0-400.0 Eosinophils [#/volume] in Blood by Automated count 2025-01-21 17:14:26 161 Cells/uL F 0.0-700.0 Basophils/100 leukocytes in Blood by Automated count 2025-01-21 17:14:25 0.2 % F Neutrophils/100 leukocytes in Blood by Automated count 2025-01-21 17:14:25 77.8 % F Lymphocytes/100 leukocytes in Blood by Automated count 2025-01-21 17:14:25 14.1 % F Monocytes/100 leukocytes in Blood by Automated count 2025-01-21 17:14:25 6 % F Eosinophils/100 leukocytes in Blood by Automated count 2025-01-21 17:14:25 1.9 % F Neutrophils [#/volume] in Blood by Automated count 2025-01-21 17:14:25 6574 Cells/uL F 2000.0-8800.0 Lymphocytes [#/volume] in Blood by Automated count 2025-01-21 17:14:25 1191 Cells/uL F 620.0-3660.0 Monocytes [#/volume] in Blood by Automated count 2025-01-21 17:14:25 507 Cells/uL F 0.0-1100.0 Lymphocytes [#/volume] in Blood by Automated count 2024-12-25 02:28:21 1431 Cells/uL F 620.0-3660.0 Basophils/100 leukocytes in Blood by Automated count 2024-12-25 02:28:18 0.6 % F Monocytes/100 leukocytes in Blood by Automated count 2024-12-25 02:28:18 7.1 % F Lymphocytes/100 leukocytes in Blood by Automated count 2024-12-25 02:28:18 17 % F Eosinophils/100 leukocytes in Blood by Automated count 2024-12-25 02:28:18 1.1 % F Neutrophils/100 leukocytes in Blood by Automated count 2024-12-25 02:28:18 74.2 % F Leukocytes [#/volume] in Blood by Automated count 2024-12-25 02:28:18 8.4 x 10^3 cells/uL F 4.0-11.0 Neutrophils [#/volume] in Blood by Automated count 2024-12-25 02:28:18 6248 Cells/uL F 2000.0-8800.0 Eosinophils [#/volume] in Blood by Automated count 2024-12-25 02:28:18 93 Cells/uL F 0.0-700.0 Monocytes [#/volume] in Blood by Automated count 2024-12-25 02:28:18 598 Cells/uL F 0.0-1100.0 Basophils [#/volume] in Blood by Automated count 2024-12-25 02:28:18 51 Cells/uL F 0.0-400.0 Basophils/100 leukocytes in Blood by Automated count 2024-11-27 06:22:15 1.2 % F Neutrophils/100 leukocytes in Blood by Automated count 2024-11-27 06:22:15 73.1 % F Lymphocytes/100 leukocytes in Blood by Automated count 2024-11-27 06:22:15 17 % F Monocytes/100 leukocytes in Blood by Automated count 2024-11-27 06:22:15 7 % F Leukocytes [#/volume] in Blood by Automated count 2024-11-27 06:22:15 8.3 x 10^3 cells/uL F 4.0-11.0 Eosinophils/100 leukocytes in Blood by Automated count 2024-11-27 06:22:15 1.7 % F Monocytes [#/volume] in Blood by Automated count 2024-11-27 06:22:15 578 Cells/uL F 0.0-1100.0 Lymphocytes [#/volume] in Blood by Automated count 2024-11-27 06:22:15 1404 Cells/uL F 620.0-3660.0 Eosinophils [#/volume] in Blood by Automated count 2024-11-27 06:22:15 140 Cells/uL F 0.0-700.0 Neutrophils [#/volume] in Blood by Automated count 2024-11-27 06:22:15 6038 Cells/uL F 2000.0-8800.0 Basophils [#/volume] in Blood by Automated count 2024-11-27 06:22:15 99 Cells/uL F 0.0-400.0 Basophils/100 leukocytes in Blood by Automated count 2024-10-29 21:40:11 1.7 % F Monocytes/100 leukocytes in Blood by Automated count 2024-10-29 21:40:11 8 % F Basophils [#/volume] in Blood by Automated count 2024-10-29 21:40:11 146 Cells/uL F 0.0-400.0 Lymphocytes/100 leukocytes in Blood by Automated count 2024-10-29 21:40:11 17 % F Neutrophils/100 leukocytes in Blood by Automated count 2024-10-29 21:40:11 71.5 % F Eosinophils/100 leukocytes in Blood by Automated count 2024-10-29 21:40:11 1.9 % F Monocytes [#/volume] in Blood by Automated count 2024-10-29 21:40:11 689 Cells/uL F 0.0-1100.0 Eosinophils [#/volume] in Blood by Automated count 2024-10-29 21:40:11 164 Cells/uL F 0.0-700.0 Leukocytes [#/volume] in Blood by Automated count 2024-10-29 21:40:11 8.6 x 10^3 cells/uL F 4.0-11.0 Neutrophils [#/volume] in Blood by Automated count 2024-10-29 21:40:11 6156 Cells/uL F 2000.0-8800.0 Lymphocytes [#/volume] in Blood by Automated count 2024-10-29 21:40:11 1464 Cells/uL F 620.0-3660.0 Monocytes/100 leukocytes in Blood by Automated count 2024-09-24 21:27:09 5.7 % F Basophils/100 leukocytes in Blood by Automated count 2024-09-24 21:27:09 0.8 % F Eosinophils/100 leukocytes in Blood by Automated count 2024-09-24 21:27:09 1.9 % F Eosinophils [#/volume] in Blood by Automated count 2024-09-24 21:27:09 216 Cells/uL F 0.0-700.0 Lymphocytes/100 leukocytes in Blood by Automated count 2024-09-24 21:27:09 15 % F Neutrophils/100 leukocytes in Blood by Automated count 2024-09-24 21:27:09 76.6 % F Basophils [#/volume] in Blood by Automated count 2024-09-24 21:27:09 91 Cells/uL F 0.0-400.0 Monocytes [#/volume] in Blood by Automated count 2024-09-24 21:27:09 649 Cells/uL F 0.0-1100.0 Neutrophils [#/volume] in Blood by Automated count 2024-09-24 21:27:09 8717 Cells/uL F 2000.0-8800.0 Leukocytes [#/volume] in Blood by Automated count 2024-09-24 21:27:09 11.4 x 10^3 cells/uL F 4.0-11.0 Lymphocytes [#/volume] in Blood by Automated count 2024-09-24 21:27:09 1707 Cells/uL F 620.0-3660.0 Eosinophils/100 leukocytes in Blood by Automated count 2024-08-16 00:37:12 1.4 % F Basophils [#/volume] in Blood by Automated count 2024-08-16 00:37:12 28 Cells/uL F 0.0-400.0 Leukocytes [#/volume] in Blood by Automated count 2024-08-16 00:37:12 9.3 x 10^3 cells/uL F 4.0-11.0 Neutrophils/100 leukocytes in Blood by Automated count 2024-08-16 00:37:12 71.6 % F Neutrophils [#/volume] in Blood by Automated count 2024-08-16 00:37:12 6680 Cells/uL F 2000.0-8800.0 Eosinophils [#/volume] in Blood by Automated count 2024-08-16 00:37:12 131 Cells/uL F 0.0-700.0 Basophils/100 leukocytes in Blood by Automated count 2024-08-16 00:37:12 0.3 % F Monocytes [#/volume] in Blood by Automated count 2024-08-16 00:37:12 690 Cells/uL F 0.0-1100.0 Lymphocytes [#/volume] in Blood by Automated count 2024-08-16 00:37:12 1801 Cells/uL F 620.0-3660.0 Monocytes/100 leukocytes in Blood by Automated count 2024-08-16 00:37:12 7.4 % F Lymphocytes/100 leukocytes in Blood by Automated count 2024-08-16 00:37:12 19.3 % F Lymphocytes/100 leukocytes in Blood by Automated count 2024-08-16 00:37:12 19.3 % F Monocytes/100 leukocytes in Blood by Automated count 2024-08-16 00:37:12 7.4 % F Monocytes [#/volume] in Blood by Automated count 2024-08-16 00:37:12 690 Cells/uL F 0.0-1100.0 Basophils [#/volume] in Blood by Automated count 2024-08-16 00:37:12 28 Cells/uL F 0.0-400.0 Leukocytes [#/volume] in Blood by Automated count 2024-08-16 00:37:12 9.3 x 10^3 cells/uL F 4.0-11.0 Basophils/100 leukocytes in Blood by Automated count 2024-08-16 00:37:12 0.3 % F Eosinophils/100 leukocytes in Blood by Automated count 2024-08-16 00:37:12 1.4 % F Neutrophils/100 leukocytes in Blood by Automated count 2024-08-16 00:37:12 71.6 % F Eosinophils [#/volume] in Blood by Automated count 2024-08-16 00:37:12 131 Cells/uL F 0.0-700.0 Neutrophils [#/volume] in Blood by Automated count 2024-08-16 00:37:12 6680 Cells/uL F 2000.0-8800.0 Lymphocytes [#/volume] in Blood by Automated count 2024-08-16 00:37:12 1801 Cells/uL F 620.0-3660.0 Monocytes/100 leukocytes in Blood by Automated count 2024-06-25 22:07:17 7.1 % F Basophils/100 leukocytes in Blood by Automated count 2024-06-25 22:07:17 0.6 % F Lymphocytes/100 leukocytes in Blood by Automated count 2024-06-25 22:07:17 16.6 % F Neutrophils/100 leukocytes in Blood by Automated count 2024-06-25 22:07:17 74.1 % F Monocytes [#/volume] in Blood by Automated count 2024-06-25 22:07:17 752 Cells/uL F 0.0-1100.0 Eosinophils/100 leukocytes in Blood by Automated count 2024-06-25 22:07:17 1.7 % F Basophils [#/volume] in Blood by Automated count 2024-06-25 22:07:17 64 Cells/uL F 0.0-400.0 Eosinophils [#/volume] in Blood by Automated count 2024-06-25 22:07:17 180 Cells/uL F 0.0-700.0 Neutrophils [#/volume] in Blood by Automated count 2024-06-25 22:07:17 7847 Cells/uL F 2000.0-8800.0 Leukocytes [#/volume] in Blood by Automated count 2024-06-25 22:07:17 10.6 x 10^3 cells/uL F 4.0-11.0 Lymphocytes [#/volume] in Blood by Automated count 2024-06-25 22:07:17 1758 Cells/uL F 620.0-3660.0 Neutrophils/100 leukocytes in Blood by Automated count 2024-05-28 23:55:17 75.9 % F Monocytes/100 leukocytes in Blood by Automated count 2024-05-28 23:55:17 6 % F Basophils/100 leukocytes in Blood by Automated count 2024-05-28 23:55:17 0.5 % F Eosinophils/100 leukocytes in Blood by Automated count 2024-05-28 23:55:17 2.8 % F Lymphocytes/100 leukocytes in Blood by Automated count 2024-05-28 23:55:17 14.7 % F Monocytes [#/volume] in Blood by Automated count 2024-05-28 23:55:17 533 Cells/uL F 0.0-1100.0 Basophils [#/volume] in Blood by Automated count 2024-05-28 23:55:17 44 Cells/uL F 0.0-400.0 Eosinophils [#/volume] in Blood by Automated count 2024-05-28 23:55:17 249 Cells/uL F 0.0-700.0 Neutrophils [#/volume] in Blood by Automated count 2024-05-28 23:55:17 6740 Cells/uL F 2000.0-8800.0 Leukocytes [#/volume] in Blood by Automated count 2024-05-28 23:55:17 8.9 x 10^3 cells/uL F 4.0-11.0 Lymphocytes [#/volume] in Blood by Automated count 2024-05-28 23:55:17 1305 Cells/uL F 620.0-3660.0 Neutrophils/100 leukocytes in Blood by Automated count 2024-02-28 05:56:11 71.9 % F Eosinophils/100 leukocytes in Blood by Automated count 2024-02-28 05:56:11 2.4 % F Monocytes/100 leukocytes in Blood by Automated count 2024-02-28 05:56:11 6.1 % F Basophils/100 leukocytes in Blood by Automated count 2024-02-28 05:56:11 1.1 % F Lymphocytes/100 leukocytes in Blood by Automated count 2024-02-28 05:56:11 18.5 % F Monocytes [#/volume] in Blood by Automated count 2024-02-28 05:56:11 568 Cells/uL F 0.0-1100.0 Basophils [#/volume] in Blood by Automated count 2024-02-28 05:56:11 102 Cells/uL F 0.0-400.0 Eosinophils [#/volume] in Blood by Automated count 2024-02-28 05:56:11 223 Cells/uL F 0.0-700.0 Neutrophils [#/volume] in Blood by Automated count 2024-02-28 05:56:11 6694 Cells/uL F 2000.0-8800.0 Leukocytes [#/volume] in Blood by Automated count 2024-02-28 05:56:11 9.3 x 10^3 cells/uL F 4.0-11.0 Lymphocytes [#/volume] in Blood by Automated count 2024-02-28 05:56:11 1722 Cells/uL F 620.0-3660.0 Eosinophils/100 leukocytes in Blood by Automated count 2023-03-01 07:41:28 3.6 % F Neutrophils/100 leukocytes in Blood by Automated count 2023-03-01 07:41:28 69.2 % F Basophils/100 leukocytes in Blood by Automated count 2023-03-01 07:41:28 1.8 % F Monocytes/100 leukocytes in Blood by Automated count 2023-03-01 07:41:28 5.9 % F Monocytes [#/volume] in Blood by Automated count 2023-03-01 07:41:28 444 Cell/uL F 0.0-1100.0 Lymphocytes/100 leukocytes in Blood by Automated count 2023-03-01 07:41:28 19.5 % F Basophils [#/volume] in Blood by Automated count 2023-03-01 07:41:28 136 Cell/uL F 0.0-400.0 Eosinophils [#/volume] in Blood by Automated count 2023-03-01 07:41:28 271 Cell/uL F 0.0-700.0 Neutrophils [#/volume] in Blood by Automated count 2023-03-01 07:41:28 5211 Cell/uL F 2000.0-8800.0 Leukocytes [#/volume] in Blood by Automated count 2023-03-01 07:41:28 7.5 x 10^3 cells/uL F 4.0-11.0 Lymphocytes [#/volume] in Blood by Automated count 2023-03-01 07:41:28 1468 Cell/uL F 620.0-3660.0 Lymphocytes/100 leukocytes in Blood by Automated count 2022-03-02 07:48:34 19.4 % F Neutrophils/100 leukocytes in Blood by Automated count 2022-03-02 07:48:34 71 % F Eosinophils/100 leukocytes in Blood by Automated count 2022-03-02 07:48:34 2.3 % F Monocytes/100 leukocytes in Blood by Automated count 2022-03-02 07:48:34 6.5 % F Basophils/100 leukocytes in Blood by Automated count 2022-03-02 07:48:34 0.8 % F Monocytes [#/volume] in Blood by Automated count 2022-03-02 07:48:34 490.1 Cell/uL F 0.0-1100.0 Basophils [#/volume] in Blood by Automated count 2022-03-02 07:48:34 60.32 Cell/uL F 0.0-400.0 Eosinophils [#/volume] in Blood by Automated count 2022-03-02 07:48:34 173.42 Cell/uL F 0.0-700.0 Lymphocytes [#/volume] in Blood by Automated count 2022-03-02 07:48:34 1462.76 Cell/uL F 1100.0-4800.0 Neutrophils [#/volume] in Blood by Automated count 2022-03-02 07:48:34 5353.4 Cell/uL F 2000.0-8800.0 Leukocytes [#/volume] in Blood by Automated count 2022-03-02 07:48:34 7.5 x 10^3 cells/uL F 4.5-11.0 MineralBone Disorder Description Draw Date Result/Unit Status Ref Range Result Comments CA CORRECTED 2025-01-31 03:11:13 8.9 mg/dL F CA/PHOS PRODUCT 2025-01-31 03:08:50 25.7 Calc F 21.0-53.0 CA*PO4 CORRCTD 2025-01-31 03:08:50 29.4 Calc F 21.0-53.0 Calcium [Mass/volume] in Serum or Plasma 2025-01-31 03:04:44 7.8 mg/dL F 8.7-10.4 Alkaline phosphatase [Enzymatic activity/volume] in Serum or Plasma 2025-01-30 21:20:16 162 U/L F 46.0-116.0 Phosphate [Mass/volume] in Serum or Plasma 2025-01-30 21:20:16 3.3 mg/dL F 2.4-5.1 Parathyrin.intact [Mass/volume] in Serum or Plasma 2025-01-30 19:45:17 172 pg/mL F 18.0-80.0 Calcium [Mass/volume] in Serum or Plasma 2025-01-21 17:38:12 F RECOLLECT - PARTIALLY SPUN SST Phosphate [Mass/volume] in Serum or Plasma 2025-01-14 15:41:16 3.7 mg/dL F 2.4-5.1 CA CORRECTED 2024-12-25 06:56:20 8.9 mg/dL F CA/PHOS PRODUCT 2024-12-25 06:52:52 19 Calc F 21.0-53.0 CA*PO4 CORRCTD 2024-12-25 06:52:52 21.5 Calc F 21.0-53.0 Calcium [Mass/volume] in Serum or Plasma 2024-12-25 06:47:03 7.9 mg/dL F 8.7-10.4 Parathyrin.intact [Mass/volume] in Serum or Plasma 2024-12-24 21:45:21 171 pg/mL F 18.0-80.0 Alkaline phosphatase [Enzymatic activity/volume] in Serum or Plasma 2024-12-24 20:10:17 154 U/L F 46.0-116.0 Phosphate [Mass/volume] in Serum or Plasma 2024-12-24 20:10:17 2.4 mg/dL F 2.4-5.1 CA CORRECTED 2024-11-27 06:54:59 9 mg/dL F CA/PHOS PRODUCT 2024-11-27 06:54:01 25.9 Calc F 21.0-53.0 CA*PO4 CORRCTD 2024-11-27 06:54:01 28.7 Calc F 21.0-53.0 Calcium [Mass/volume] in Serum or Plasma 2024-11-27 06:53:10 8.1 mg/dL F 8.7-10.4 Parathyrin.intact [Mass/volume] in Serum or Plasma 2024-11-27 00:07:14 185 pg/mL F 18.0-80.0 Alkaline phosphatase [Enzymatic activity/volume] in Serum or Plasma 2024-11-26 15:34:12 125 U/L F 46.0-116.0 Phosphate [Mass/volume] in Serum or Plasma 2024-11-26 15:34:12 3.2 mg/dL F 2.4-5.1 CA CORRECTED 2024-10-30 06:06:41 9.2 mg/dL F CA/PHOS PRODUCT 2024-10-30 06:05:00 28.6 Calc F 21.0-53.0 CA*PO4 CORRCTD 2024-10-30 06:05:00 31.3 Calc F 21.0-53.0 Calcium [Mass/volume] in Serum or Plasma 2024-10-30 06:00:49 8.4 mg/dL F 8.7-10.4 Parathyrin.intact [Mass/volume] in Serum or Plasma 2024-10-29 23:18:19 143 pg/mL F 18.0-80.0 Phosphate [Mass/volume] in Serum or Plasma 2024-10-29 22:06:23 3.4 mg/dL F 2.4-5.1 Alkaline phosphatase [Enzymatic activity/volume] in Serum or Plasma 2024-10-29 22:06:23 134 U/L F 46.0-116.0 Parathyrin.intact [Mass/volume] in Serum or Plasma 2024-09-25 15:18:13 134 pg/mL F 18.0-80.0 CA CORRECTED 2024-09-25 04:02:18 8.9 mg/dL F CA/PHOS PRODUCT 2024-09-25 03:59:57 30.7 Calc F 21.0-53.0 CA*PO4 CORRCTD 2024-09-25 03:59:57 32.8 Calc F 21.0-53.0 Calcium [Mass/volume] in Serum or Plasma 2024-09-25 03:51:02 8.3 mg/dL F 8.7-10.4 Alkaline phosphatase [Enzymatic activity/volume] in Serum or Plasma 2024-09-25 02:39:18 142 U/L F 46.0-116.0 Phosphate [Mass/volume] in Serum or Plasma 2024-09-25 02:39:18 3.7 mg/dL F 2.4-5.1 Parathyrin.intact [Mass/volume] in Serum or Plasma 2024-09-03 19:49:36 235 pg/mL F 18.0-80.0 CA CORRECTED 2024-08-22 16:46:32 8.4 mg/dL F Calcium [Mass/volume] in Serum or Plasma 2024-08-22 16:40:26 8.2 mg/dL F 8.7-10.4 CA CORRECTED 2024-08-16 06:29:12 9 mg/dL F CA CORRECTED 2024-08-16 06:29:12 9 mg/dL F CA/PHOS PRODUCT 2024-08-16 06:26:55 32.6 Calc F 21.0-53.0 CA*PO4 CORRCTD 2024-08-16 06:26:55 33.4 Calc F 21.0-53.0 CA/PHOS PRODUCT 2024-08-16 06:26:55 32.6 Calc F 21.0-53.0 CA*PO4 CORRCTD 2024-08-16 06:26:55 33.4 Calc F 21.0-53.0 Phosphate [Mass/volume] in Serum or Plasma 2024-08-16 06:11:33 3.7 mg/dL F 2.4-5.1 Calcium [Mass/volume] in Serum or Plasma 2024-08-16 06:11:33 8.8 mg/dL F 8.7-10.4 Phosphate [Mass/volume] in Serum or Plasma 2024-08-16 06:11:33 3.7 mg/dL F 2.4-5.1 Calcium [Mass/volume] in Serum or Plasma 2024-08-16 06:11:33 8.8 mg/dL F 8.7-10.4 Alkaline phosphatase [Enzymatic activity/volume] in Serum or Plasma 2024-08-16 03:29:09 208 U/L F 46.0-116.0 Alkaline phosphatase [Enzymatic activity/volume] in Serum or Plasma 2024-08-16 03:29:09 208 U/L F 46.0-116.0 Parathyrin.intact [Mass/volume] in Serum or Plasma 2024-08-16 01:24:20 F Parathyrin.intact [Mass/volume] in Serum or Plasma 2024-08-16 01:24:20 F CANCELED - TEST CANCELED CA CORRECTED 2024-06-26 07:09:25 8.7 mg/dL F CA*PO4 CORRCTD 2024-06-26 07:06:55 39 Calc F 21.0-53.0 CA/PHOS PRODUCT 2024-06-26 07:06:55 38.3 Calc F 21.0-53.0 Phosphate [Mass/volume] in Serum or Plasma 2024-06-26 07:03:33 4.5 mg/dL F 2.4-5.1 Calcium [Mass/volume] in Serum or Plasma 2024-06-26 07:03:33 8.5 mg/dL F 8.7-10.4 Parathyrin.intact [Mass/volume] in Serum or Plasma 2024-06-25 20:45:21 226 pg/mL F 18.0-80.0 Alkaline phosphatase [Enzymatic activity/volume] in Serum or Plasma 2024-06-25 16:08:21 126 U/L F 46.0-116.0 CA CORRECTED 2024-05-29 09:32:51 8.7 mg/dL F CA*PO4 CORRCTD 2024-05-29 09:29:53 38.4 Calc F 21.0-53.0 CA/PHOS PRODUCT 2024-05-29 09:29:53 37 Calc F 21.0-53.0 Phosphate [Mass/volume] in Serum or Plasma 2024-05-29 07:02:28 4.4 mg/dL F 2.4-5.1 Calcium [Mass/volume] in Serum or Plasma 2024-05-29 07:02:28 8.4 mg/dL F 8.7-10.4 Parathyrin.intact [Mass/volume] in Serum or Plasma 2024-05-28 21:01:18 263 pg/mL F 18.0-80.0 Alkaline phosphatase [Enzymatic activity/volume] in Serum or Plasma 2024-05-28 15:59:20 94 U/L F 46.0-116.0 Parathyrin.intact [Mass/volume] in Serum or Plasma 2024-02-28 14:23:18 252 pg/mL F 18.0-80.0 25-Hydroxyvitamin D3+25-Hydroxyvitamin D2 [Mass/volume] in Serum or Plasma 2024-02-28 08:13:14 56.4 ng/mL F CA CORRECTED 2024-02-28 07:46:24 8.6 mg/dL F CA/PHOS PRODUCT 2024-02-28 07:45:24 51.2 Calc F 21.0-53.0 CA*PO4 CORRCTD 2024-02-28 07:45:24 52.2 Calc F 21.0-53.0 Calcium [Mass/volume] in Serum or Plasma 2024-02-28 07:42:09 8.4 mg/dL F 8.7-10.4 Phosphate [Mass/volume] in Serum or Plasma 2024-02-28 06:51:14 6.1 mg/dL F 2.4-5.1 Alkaline phosphatase [Enzymatic activity/volume] in Serum or Plasma 2024-02-28 06:51:14 102 U/L F 46.0-116.0 CA CORRECTED 2023-03-01 06:15:46 8.9 mg/dL F CA/PHOS PRODUCT 2023-03-01 06:14:01 36.5 Calc F 21.0-53.0 CA*PO4 CORRCTD 2023-03-01 06:14:01 36.5 Calc F 21.0-53.0 Calcium [Mass/volume] in Serum or Plasma 2023-03-01 06:08:51 8.9 mg/dL F 8.7-10.4 25-Hydroxyvitamin D3+25-Hydroxyvitamin D2 [Mass/volume] in Serum or Plasma 2023-03-01 05:24:58 50.3 ng/mL F Parathyrin.intact [Mass/volume] in Serum or Plasma 2023-03-01 05:24:52 154 pg/mL F 18.0-80.0 Phosphate [Mass/volume] in Serum or Plasma 2023-02-28 21:56:32 4.1 mg/dL F 2.4-5.1 Alkaline phosphatase [Enzymatic activity/volume] in Serum or Plasma 2023-02-28 21:56:32 86 U/L F 46.0-116.0 Calcium.ionized [Mass/volume] in Serum or Plasma 2022-03-15 13:49:22 F CANCELED - INCORRECT TEST ORDERED,[id number] CA CORRECTED 2022-03-02 07:51:13 8.1 mg/dL F CA*PO4 CORRCTD 2022-03-02 07:50:27 41.3 Calc F 21.0-53.0 CA/PHOS PRODUCT 2022-03-02 07:50:27 41.3 Calc F 21.0-53.0 Calcium [Mass/volume] in Serum or Plasma 2022-03-02 05:20:28 8.1 mg/dL F 8.7-10.4 Phosphate [Mass/volume] in Serum or Plasma 2022-03-02 04:30:47 5.1 mg/dL F 2.4-5.1 Alkaline phosphatase [Enzymatic activity/volume] in Serum or Plasma 2022-03-02 04:30:47 71 U/L F 46.0-116.0 25-Hydroxyvitamin D3+25-Hydroxyvitamin D2 [Mass/volume] in Serum or Plasma 2022-03-02 02:29:46 53.4 ng/mL F 30.0-100.0 Parathyrin.intact [Mass/volume] in Serum or Plasma 2022-03-01 23:40:45 115 pg/mL F 18.0-80.0 CA CORRECTED F Nutrition Description Draw Date Result/Unit Status Ref Range Result Comments Potassium [Moles/volume] in Serum or Plasma 2025-01-31 03:04:44 5.3 mEq/L F 3.5-5.5 A/G RATIO 2025-01-30 21:21:05 1.1 Calc F 1.0-2.5 GLOBULIN 2025-01-30 21:21:05 2.3 g/dL F 0.9-5.0 Albumin [Mass/volume] in Serum or Plasma by Bromocresol green (BCG) dye binding method 2025-01-30 21:20:16 2.6 g/dL F 3.4-4.8 Glucose [Mass/volume] in Serum or Plasma 2025-01-30 21:20:16 150 mg/dL F 70.0-99.0 Bicarbonate [Moles/volume] in Serum or Plasma 2025-01-30 21:20:16 21 mEq/L F 20.0-31.0 Lactate dehydrogenase [Enzymatic activity/volume] in Serum or Plasma 2025-01-30 21:20:16 243 U/L F 120.0-246.0 Protein [Mass/volume] in Serum or Plasma 2025-01-30 21:20:16 4.9 g/dL F 5.7-8.2 Cobalamin (Vitamin B12) [Mass/volume] in Serum or Plasma 2025-01-22 07:14:09 2000 pg/mL F 211.0-911.0 Bicarbonate [Moles/volume] in Serum or Plasma 2025-01-21 17:38:12 F RECOLLECT - PARTIALLY SPUN SST Glucose [Mass/volume] in Serum or Plasma 2025-01-21 17:38:12 F RECOLLECT - PARTIALLY SPUN SST Potassium [Moles/volume] in Serum or Plasma 2025-01-21 17:38:12 F RECOLLECT - PARTIALLY SPUN SST Potassium [Moles/volume] in Serum or Plasma 2025-01-10 03:11:37 4.4 mEq/L F 3.5-5.5 Potassium [Moles/volume] in Serum or Plasma 2024-12-25 06:47:03 4.6 mEq/L F 3.5-5.5 A/G RATIO 2024-12-24 20:11:00 1.1 Calc F 1.0-2.5 GLOBULIN 2024-12-24 20:11:00 2.5 g/dL F 0.9-5.0 Albumin [Mass/volume] in Serum or Plasma by Bromocresol green (BCG) dye binding method 2024-12-24 20:10:17 2.7 g/dL F 3.4-4.8 Glucose [Mass/volume] in Serum or Plasma 2024-12-24 20:10:17 134 mg/dL F 70.0-99.0 Bicarbonate [Moles/volume] in Serum or Plasma 2024-12-24 20:10:17 25 mEq/L F 20.0-31.0 Lactate dehydrogenase [Enzymatic activity/volume] in Serum or Plasma 2024-12-24 20:10:17 231 U/L F 120.0-246.0 Protein [Mass/volume] in Serum or Plasma 2024-12-24 20:10:17 5.2 g/dL F 5.7-8.2 Potassium [Moles/volume] in Serum or Plasma 2024-12-11 20:00:57 4.2 mEq/L F 3.5-5.5 Potassium [Moles/volume] in Serum or Plasma 2024-11-26 16:22:21 4.7 mEq/L F 3.5-5.5 A/G RATIO 2024-11-26 15:35:15 1.2 Calc F 1.0-2.5 GLOBULIN 2024-11-26 15:35:15 2.5 g/dL F 0.9-5.0 CHOL/HDL RATIO 2024-11-26 15:35:15 3.7 Calc F 3.3-5.0 LDL-CHOLESTEROL 2024-11-26 15:35:15 70 mg/dL F 0.0-99.0 VLDL-CHOL(CALC) 2024-11-26 15:35:15 16 mg/dL F 0.0-29.0 Albumin [Mass/volume] in Serum or Plasma by Bromocresol green (BCG) dye binding method 2024-11-26 15:34:12 2.9 g/dL F 3.4-4.8 Cholesterol [Mass/volume] in Serum or Plasma 2024-11-26 15:34:12 118 mg/dL F 0.0-199.0 Bicarbonate [Moles/volume] in Serum or Plasma 2024-11-26 15:34:12 24 mEq/L F 20.0-31.0 Glucose [Mass/volume] in Serum or Plasma 2024-11-26 15:34:12 190 mg/dL F 70.0-99.0 Lactate dehydrogenase [Enzymatic activity/volume] in Serum or Plasma 2024-11-26 15:34:12 278 U/L F 120.0-246.0 Protein [Mass/volume] in Serum or Plasma 2024-11-26 15:34:12 5.4 g/dL F 5.7-8.2 Protein [Mass/volume] in Serum or Plasma 2024-11-26 15:34:12 82 mg/dL F 0.0-149.0 Cholesterol in HDL [Mass/volume] in Serum or Plasma 2024-11-26 15:34:12 32 mg/dL F 40.0-60.0 Potassium [Moles/volume] in Serum or Plasma 2024-11-13 04:36:35 4.5 mEq/L F 3.5-5.5 Potassium [Moles/volume] in Serum or Plasma 2024-10-30 06:00:49 3.8 mEq/L F 3.5-5.5 A/G RATIO 2024-10-29 22:07:24 1.3 Calc F 1.0-2.5 GLOBULIN 2024-10-29 22:07:24 2.4 g/dL F 0.9-5.0 Lactate dehydrogenase [Enzymatic activity/volume] in Serum or Plasma 2024-10-29 22:06:23 234 U/L F 120.0-246.0 Albumin [Mass/volume] in Serum or Plasma by Bromocresol green (BCG) dye binding method 2024-10-29 22:06:23 3 g/dL F 3.4-4.8 Bicarbonate [Moles/volume] in Serum or Plasma 2024-10-29 22:06:23 27 mEq/L F 20.0-31.0 Protein [Mass/volume] in Serum or Plasma 2024-10-29 22:06:23 5.4 g/dL F 5.7-8.2 Glucose [Mass/volume] in Serum or Plasma 2024-10-29 22:06:23 170 mg/dL F 70.0-99.0 Potassium [Moles/volume] in Serum or Plasma 2024-10-09 04:08:05 4 mEq/L F 3.5-5.5 Potassium [Moles/volume] in Serum or Plasma 2024-09-25 03:51:02 4.4 mEq/L F 3.5-5.5 GLOBULIN 2024-09-25 02:40:27 2.6 g/dL F 0.9-5.0 A/G RATIO 2024-09-25 02:40:27 1.3 Calc F 1.0-2.5 Bicarbonate [Moles/volume] in Serum or Plasma 2024-09-25 02:39:18 24 mEq/L F 20.0-31.0 Albumin [Mass/volume] in Serum or Plasma by Bromocresol green (BCG) dye binding method 2024-09-25 02:39:18 3.3 g/dL F 3.4-4.8 Glucose [Mass/volume] in Serum or Plasma 2024-09-25 02:39:18 164 mg/dL F 70.0-99.0 Protein [Mass/volume] in Serum or Plasma 2024-09-25 02:39:18 5.9 g/dL F 5.7-8.2 Lactate dehydrogenase [Enzymatic activity/volume] in Serum or Plasma 2024-09-25 02:39:18 248 U/L F 120.0-246.0 Potassium [Moles/volume] in Serum or Plasma 2024-09-11 07:16:07 5 mEq/L F 3.5-5.5 Potassium [Moles/volume] in Serum or Plasma 2024-08-16 06:11:33 4.6 mEq/L F 3.5-5.5 Potassium [Moles/volume] in Serum or Plasma 2024-08-16 06:11:33 4.6 mEq/L F 3.5-5.5 GLOBULIN 2024-08-16 03:41:09 2.6 g/dL F 0.9-5.0 A/G RATIO 2024-08-16 03:41:09 1.4 Calc F 1.0-2.5 GLOBULIN 2024-08-16 03:41:09 2.6 g/dL F 0.9-5.0 A/G RATIO 2024-08-16 03:41:09 1.4 Calc F 1.0-2.5 Glucose [Mass/volume] in Serum or Plasma 2024-08-16 03:29:09 173 mg/dL F 70.0-99.0 Bicarbonate [Moles/volume] in Serum or Plasma 2024-08-16 03:29:09 24 mEq/L F 20.0-31.0 Protein [Mass/volume] in Serum or Plasma 2024-08-16 03:29:09 6.3 g/dL F 5.7-8.2 Albumin [Mass/volume] in Serum or Plasma by Bromocresol green (BCG) dye binding method 2024-08-16 03:29:09 3.7 g/dL F 3.4-4.8 Lactate dehydrogenase [Enzymatic activity/volume] in Serum or Plasma 2024-08-16 03:29:09 257 U/L F 120.0-246.0 Protein [Mass/volume] in Serum or Plasma 2024-08-16 03:29:09 6.3 g/dL F 5.7-8.2 Lactate dehydrogenase [Enzymatic activity/volume] in Serum or Plasma 2024-08-16 03:29:09 257 U/L F 120.0-246.0 Bicarbonate [Moles/volume] in Serum or Plasma 2024-08-16 03:29:09 24 mEq/L F 20.0-31.0 Albumin [Mass/volume] in Serum or Plasma by Bromocresol green (BCG) dye binding method 2024-08-16 03:29:09 3.7 g/dL F 3.4-4.8 Glucose [Mass/volume] in Serum or Plasma 2024-08-16 03:29:09 173 mg/dL F 70.0-99.0 Potassium [Moles/volume] in Serum or Plasma 2024-07-09 16:43:07 4.3 mEq/L F 3.5-5.5 Potassium [Moles/volume] in Serum or Plasma 2024-06-26 07:03:33 4.2 mEq/L F 3.5-5.5 GLOBULIN 2024-06-25 16:09:02 2.4 g/dL F 0.9-5.0 A/G RATIO 2024-06-25 16:09:02 1.6 Calc F 1.0-2.5 Lactate dehydrogenase [Enzymatic activity/volume] in Serum or Plasma 2024-06-25 16:08:21 205 U/L F 120.0-246.0 Bicarbonate [Moles/volume] in Serum or Plasma 2024-06-25 16:08:21 23 mEq/L F 20.0-31.0 Albumin [Mass/volume] in Serum or Plasma by Bromocresol green (BCG) dye binding method 2024-06-25 16:08:21 3.8 g/dL F 3.4-4.8 Protein [Mass/volume] in Serum or Plasma 2024-06-25 16:08:21 6.2 g/dL F 5.7-8.2 Glucose [Mass/volume] in Serum or Plasma 2024-06-25 16:08:21 169 mg/dL F 70.0-99.0 Potassium [Moles/volume] in Serum or Plasma 2024-06-12 07:54:52 4.4 mEq/L F 3.5-5.5 Potassium [Moles/volume] in Serum or Plasma 2024-05-29 07:02:28 4.4 mEq/L F 3.5-5.5 VLDL-CHOL(CALC) 2024-05-28 16:00:16 18 mg/dL F 0.0-29.0 A/G RATIO 2024-05-28 16:00:16 1.4 Calc F 1.0-2.5 LDL-CHOLESTEROL 2024-05-28 16:00:16 68 mg/dL F 0.0-99.0 GLOBULIN 2024-05-28 16:00:16 2.5 g/dL F 0.9-5.0 CHOL/HDL RATIO 2024-05-28 16:00:16 3.8 Calc F 3.3-5.0 Cholesterol [Mass/volume] in Serum or Plasma 2024-05-28 15:59:22 117 mg/dL F 0.0-199.0 Bicarbonate [Moles/volume] in Serum or Plasma 2024-05-28 15:59:22 24 mEq/L F 20.0-31.0 Glucose [Mass/volume] in Serum or Plasma 2024-05-28 15:59:22 184 mg/dL F 70.0-99.0 Protein [Mass/volume] in Serum or Plasma 2024-05-28 15:59:20 90 mg/dL F 0.0-149.0 Lactate dehydrogenase [Enzymatic activity/volume] in Serum or Plasma 2024-05-28 15:59:20 209 U/L F 120.0-246.0 Cholesterol in HDL [Mass/volume] in Serum or Plasma 2024-05-28 15:59:20 31 mg/dL F 40.0-60.0 Albumin [Mass/volume] in Serum or Plasma by Bromocresol green (BCG) dye binding method 2024-05-28 15:59:20 3.6 g/dL F 3.4-4.8 Protein [Mass/volume] in Serum or Plasma 2024-05-28 15:59:20 6.1 g/dL F 5.7-8.2 CHOL/HDL RATIO 2024-02-28 19:56:59 5.7 Calc F 3.3-5.0 Cobalamin (Vitamin B12) [Mass/volume] in Serum or Plasma 2024-02-28 08:14:08 2000 pg/mL F 211.0-911.0 Folate [Mass/volume] in Serum or Plasma 2024-02-28 08:13:13 15.8 ng/mL F 5.5-16.0 Potassium [Moles/volume] in Serum or Plasma 2024-02-28 07:42:09 4.3 mEq/L F 3.5-5.5 VLDL-CHOL(CALC) 2024-02-28 06:51:58 26 mg/dL F 0.0-29.0 LDL-CHOLESTEROL 2024-02-28 06:51:58 83 mg/dL F 0.0-99.0 GLOBULIN 2024-02-28 06:51:58 2.6 g/dL F 0.9-5.0 A/G RATIO 2024-02-28 06:51:58 1.5 Calc F 1.0-2.5 Protein [Mass/volume] in Serum or Plasma 2024-02-28 06:51:14 132 mg/dL F 0.0-149.0 Cholesterol [Mass/volume] in Serum or Plasma 2024-02-28 06:51:14 132 mg/dL F 0.0-199.0 Lactate dehydrogenase [Enzymatic activity/volume] in Serum or Plasma 2024-02-28 06:51:14 165 U/L F 120.0-246.0 Bicarbonate [Moles/volume] in Serum or Plasma 2024-02-28 06:51:14 24 mEq/L F 20.0-31.0 Albumin [Mass/volume] in Serum or Plasma by Bromocresol green (BCG) dye binding method 2024-02-28 06:51:14 3.8 g/dL F 3.4-4.8 Cholesterol in HDL [Mass/volume] in Serum or Plasma 2024-02-28 06:51:14 23 mg/dL F 40.0-60.0 Protein [Mass/volume] in Serum or Plasma 2024-02-28 06:51:14 6.4 g/dL F 5.7-8.2 Glucose [Mass/volume] in Serum or Plasma 2024-02-28 06:51:14 165 mg/dL F 70.0-99.0 Cobalamin (Vitamin B12) [Mass/volume] in Serum or Plasma 2023-03-01 05:24:53 893 pg/mL F 211.0-911.0 Folate [Mass/volume] in Serum or Plasma 2023-03-01 05:24:53 20.8 ng/mL F 5.5-16.0 VLDL-CHOL(CALC) 2023-02-28 21:56:44 21 mg/dL F 0.0-29.0 LDL-CHOLESTEROL 2023-02-28 21:56:44 22 mg/dL F 0.0-99.0 GLOBULIN 2023-02-28 21:56:44 2.4 g/dL F 0.9-5.0 A/G RATIO 2023-02-28 21:56:44 1.7 Calc F 1.0-2.5 CHOL/HDL RATIO 2023-02-28 21:56:44 2.8 Calc F 3.3-5.0 Cholesterol [Mass/volume] in Serum or Plasma 2023-02-28 21:56:32 67 mg/dL F 0.0-199.0 Protein [Mass/volume] in Serum or Plasma 2023-02-28 21:56:32 107 mg/dL F 0.0-149.0 Lactate dehydrogenase [Enzymatic activity/volume] in Serum or Plasma 2023-02-28 21:56:32 164 U/L F 120.0-246.0 Bicarbonate [Moles/volume] in Serum or Plasma 2023-02-28 21:56:32 24 mEq/L F 20.0-31.0 Albumin [Mass/volume] in Serum or Plasma by Bromocresol green (BCG) dye binding method 2023-02-28 21:56:32 4 g/dL F 3.4-4.8 Potassium [Moles/volume] in Serum or Plasma 2023-02-28 21:56:32 4.6 mEq/L F 3.5-5.5 Cholesterol in HDL [Mass/volume] in Serum or Plasma 2023-02-28 21:56:32 24 mg/dL F 40.0-60.0 Protein [Mass/volume] in Serum or Plasma 2023-02-28 21:56:32 6.4 g/dL F 5.7-8.2 Glucose [Mass/volume] in Serum or Plasma 2023-02-28 21:56:32 198 mg/dL F 70.0-99.0 Potassium [Moles/volume] in Serum or Plasma 2022-09-06 23:19:17 4.3 mEq/L F 3.5-5.5 VLDL-CHOL(CALC) 2022-03-02 04:31:09 15 mg/dL F 0.0-29.0 LDL-CHOLESTEROL 2022-03-02 04:31:09 24 mg/dL F 0.0-99.0 GLOBULIN 2022-03-02 04:31:09 2.1 g/dL F 0.9-5.0 A/G RATIO 2022-03-02 04:31:09 1.9 Calc F 1.0-2.5 CHOL/HDL RATIO 2022-03-02 04:31:09 2.7 Calc F 3.3-5.0 Protein [Mass/volume] in Serum or Plasma 2022-03-02 04:30:47 77 mg/dL F 0.0-149.0 Cholesterol [Mass/volume] in Serum or Plasma 2022-03-02 04:30:47 62 mg/dL F 0.0-199.0 Lactate dehydrogenase [Enzymatic activity/volume] in Serum or Plasma 2022-03-02 04:30:47 169 U/L F 120.0-246.0 Bicarbonate [Moles/volume] in Serum or Plasma 2022-03-02 04:30:47 25 mEq/L F 20.0-31.0 Albumin [Mass/volume] in Serum or Plasma by Bromocresol green (BCG) dye binding method 2022-03-02 04:30:47 4 g/dL F 3.4-4.8 Potassium [Moles/volume] in Serum or Plasma 2022-03-02 04:30:47 4.2 mEq/L F 3.5-5.5 Cholesterol in HDL [Mass/volume] in Serum or Plasma 2022-03-02 04:30:47 23 mg/dL F 40.0-60.0 Protein [Mass/volume] in Serum or Plasma 2022-03-02 04:30:47 6.1 g/dL F 5.7-8.2 Glucose [Mass/volume] in Serum or Plasma 2022-03-02 04:30:47 180 mg/dL F 70.0-99.0 Cobalamin (Vitamin B12) [Mass/volume] in Serum or Plasma 2022-03-02 02:29:46 1141 pg/mL F 211.0-911.0 Folate [Mass/volume] in Serum or Plasma 2022-03-02 02:29:46 12.4 ng/mL F 5.5-16.0 Encounters No encounter information to report Immunizations Ordered Immunization Name Filled Immunization Name Date Status Comments Refusal Reason Influenza Vaccination 2025-01-19 04:00:00 TST-PPD intradermal 2024-05-06 14:23:28 Influenza Vaccination 2024-03-03 05:00:00 TST-PPD intradermal 2023-05-22 16:24:00 TB RAQ 2023-05-22 05:00:00 TST-PPD intradermal 2022-07-04 15:02:39 TB RAQ 2022-07-04 04:00:00 Influenza Vaccination 2022-01-23 04:00:00 Influenza Vaccination 2021-12-19 04:00:00 Hepatitis B Vaccination 2021-08-25 04:00:00 TB Skin Test 2021-07-05 04:00:00 TB RAQ 2021-07-05 04:00:00 Hepatitis B Vaccination 2021-06-02 05:00:00 Hepatitis B Vaccination 2021-04-26 05:00:00 Covid-19 Vaccination 2021-04-20 05:00:00 Hepatitis B Vaccination 2021-03-29 05:00:00 Influenza Vaccination 2021-01-15 04:00:00 Covid-19 Vaccination 2020-08-17 04:00:00 Covid-19 Vaccination 2020-07-29 04:00:00 TB Skin Test 2020-06-29 04:00:00 TB Skin Test 2020-06-15 05:00:00 Influenza Vaccination 2020-02-12 04:00:00 pneumococcal polysaccharide PPV23 2019-12-10 04:00:00 Pneumococcal Vaccination 2016-03-27 05:00:00 Plan of Treatment Planned Activity Provider Planned Date Details Commen ts Diagnostic Test Pending [facility] 2024-06-14 05:00:00 Ferritin [Mass/volume] in Serum or Plasma [code = 2276-4] Diagnostic Test Pending [facility] 2023-06-15 07:06:05 Hemoglobin [Mass/volume] in Blood [code = 718-7] Diagnostic Test Pending [facility] 2024-08-16 05:47:53 Calcium [Mass/volume] in Serum or Plasma [code = 49543-0] Diagnostic Test Pending [facility] 2021-11-14 04:00:00 Alanine aminotransferase [Enzymatic activity/volume] in Serum or Plasma [code = 1742-6] Diagnostic Test Pending [facility] 2021-11-14 04:00:00 Creatinine [Mass/volume] in Serum or Plasma [code = 2160-0] Diagnostic Test Pending [facility] 2021-10-30 08:11:03 Parathyrin.intact [Mass/volume] in Serum or Plasma [code = 2731-8] Diagnostic Test Pending [facility] 2021-11-14 04:00:00 Sodium [Moles/volume] in Serum or Plasma [code = 2951-2] Diagnostic Test Pending Amandeep-Alan [facility] 2021-10-30 04:00:00 Hemoglobin A1c/Hemoglobin.total in Blood [code = 4548-4] Diagnostic Test Pending Amandeep-Alan [facility] 2021-10-30 04:00:00 Transferrin [Mass/volume] in Serum or Plasma [code = 3034-6] [facility] 04:00:00 Potassium [Moles/volume] in Serum or Plasma [code = 2823-3] Diagnostic Test Pending [facility] 2021-10-30 04:00:00 Folate [Mass/volume] in Serum or Plasma [code = 2284-8] Diagnostic Test Pending [facility] 2021-10-30 04:00:00 Cobalamin (Vitamin B12) [Mass/volume] in Serum or Plasma [code = 2132-9] Diagnostic Test Pending Amandeep-Alan [facility] 2021-10-30 04:00:00 Glucose [Mass/volume] in Serum or Plasma [code = 2345-7] Diagnostic Test Pending [facility] 2021-10-30 04:00:00 25-Hydroxyvitamin D3+25-Hydroxyvitamin D2 [Mass/volume] in Serum or Plasma [code = 20046-3] Diagnostic Test Pending [facility] 2021-10-30 04:00:00 Aluminum [Mass/volume] in Serum or Plasma [code = 5574-9] Diagnostic Test Pending [facility] 2024-12-10 19:52:09 In-Center Hemodialysis Treatment [code = OIP059] Diagnostic Test Pending [facility] 2024-10-30 18:44:52 In-Center Hemodialysis Treatment [code = PIF335] Diagnostic Test Pending [facility] 2024-07-24 18:33:00 In-Center Hemodialysis Treatment [code = XZH623] Diet Order [facility] July 22, 2024 Diet Calorie 30 kcal/kg Fluid Value 1500 mL/d Phosphorus Value 1000 mg/d Potassium Value 2000 mg/d Protein Value 1.4 gm/kg Sodium Value 2000 mg/d Calculated Weight 87 kg dietary_diet_modification Carb Controlle d;
== END 2025-02-06 23:59 | disposition home or self-care (01) ==
LOC: RAD 13:27
PROVIDERS: PCP Family Medicine; Visit Provider Family Medicine
DX: C41.4 Malignant neoplasm of pelvic bones, sacrum and coccyx (principal); M51.362 Other intervertebral disc degeneration, lumbar region with discogenic back pain and lower extremity pain; S32.10XA Unspecified fracture of sacrum, initial encounter for closed fracture
CPT/HCPCS: 72148

== ENCOUNTER 2025-02-23 20:38 | Emergency (ER) | payer MEDICARE, OTHER, SELFPAY ==
[2025-02-23] VITALS (7 sets, daily range): BP systolic 133–164; BP diastolic 67–81; PULSE 69–76; RESP 14–25; TEMP 37.1; O2SAT 98–99; BMI 24.7
--- NOTE | 2025-02-23 20:41 | PC.NURSE ---
Pt arrives via EMS for c/o chest pain Pt denies pain at this time Skin pink warm and dry Resp full and easy Speech clear and appropriate Pt has dialysis fistula left arm with +thirll and bruit. IV sited in right AC without redness or edema Pt in Atrial fibrillation per continuous heart monitor
--- NOTE | 2025-02-23 20:46 | ECG_ITS ---
APPROVED REPORT Exam: Resting ECG HR:75 bpm ECG Measurements Heart Rate 75 AXES QRSd 79 QRS 59 QT 374 T 26 QTc 403 Conclusion SUPRAVENTRICULAR RHYTHM ABNORMAL RHYTHM ECG UNCONFIRMED REPORT Electronically signed by : JOSEPH SERRANO, 02/24/2025 05:21:33
--- NOTE | 2025-02-23 20:48 | XR_ITS ---
PROCEDURE INFORMATION: Exam: XR Left Hip Exam date and time: 02/23/2025 9:05 PM Age: 79 years old Clinical indication: Hip pain; Left hip; Additional info: 3 views including ap pelvis, tenderness, fall TECHNIQUE: Imaging protocol: Radiologic exam of the left hip. Views: 2 or 3 views hip with pelvis when performed. COMPARISON: CR XR HIP LT 2-3V W/PELVIS 02/23/2025 9:05 PM FINDINGS: Bones/joints: Moderate osteophytosis and degenerative changes involve the bilateral femoroacetabular joints. No evidence of acute osseous abnormality. Soft tissues: Unremarkable. IMPRESSION: 1. Moderate osteophytosis and degenerative changes involve the bilateral femoroacetabular joints. 2. No evidence of acute osseous abnormality.
--- NOTE | 2025-02-23 20:48 | XR_ITS ---
PROCEDURE INFORMATION: Exam: XR Left Femur Exam date and time: 02/23/2025 9:05 PM Age: 79 years old Clinical indication: Injury or trauma; Fall; Other: Pain; Additional info: Tenderness, fall TECHNIQUE: Imaging protocol: Radiologic exam of the left femur. Views: 2 views. COMPARISON: CR XR FEMUR LT 2V 02/23/2025 9:05 PM FINDINGS: Bones/joints: Moderate osteophytosis and degenerative changes involve the tricompartments of the left knee, and femoroacetabular joint. No evidence of acute osseous abnormality. Soft tissues: Unremarkable. IMPRESSION: No evidence of acute osseous abnormality.
--- OUTSIDE RECORDS SUMMARY | 2025-02-23 20:48 | XMS_ITS | Encounter Summary ---
Author Organization [facility] Address [address] [place] [address] Care Team Providers Care Metal Off Bearer Name Role Phone Yusuf Luke MD Primary Care Provider + [phone] Liam Pineda MD Unavailable Janee Anton RN Unavailable [phone] Lei Abarca MD Unavailable [phone] Payton Austin Unavailable [phone] Reason for Visit * Reason Comments Med Refill Encounter Details Date Type Department Care Team (Late st Contact Info) Description 06/04/2023 Refill Professional [facility] Nephrology, Bone & Mineral Metabolism [address], [address] [place] [address] Yeyo Marrufo MD [address] [place] [id number] Social History Tobacco Use Types Packs/Day [...] documented as of this encounter Care Teams Metal Off Bearer Relationship Specialty Start Date End Date Yusuf Luke MD [address] [place] [address] PCP - General 08/27/20 Liam Pineda MD [address] [facility] [address] [place] [address] Transplant Physician Transplant Surgery 06/30/20 Janee Anton RN [facility] [address] [place] [address] Surgical Navigator Transplant 06/30/20 Lei Abarca MD [address] [facility] [address] [place] [address] Referring Physician Nephrology 06/30/20 [place] [address] Surgical Navigator Transplant Surgery 12/09/20 documented as of this encounter
--- OUTSIDE RECORDS SUMMARY | 2025-02-23 20:48 | XMS_ITS | Clinical Summary ---
Author Organization [facility] Address [address] [place] [address] Care Team Providers Care Racing Board Marker Name Role Phone Yusuf Luke MD Primary Care Provider + [phone] Liam Pineda MD Unavailable Janee Anton RN Unavailable [phone] Lei Abarca MD Unavailable [phone] Payton Austin Unavailable [phone] Allergies Active Allergy Reactions Criticality Noted [...] Will need to follow up with home Liver Trimmer Dr. Helton in the next 2-3 weeks [...] (12/30/2020): Added automatically from request for surgery [id number] Good tolerance for activity 10/15/2020 07/16/2024 Antiplatelet [...] Screening 1945 [facility]-Medicare Annual Wellness (AWV) 1945 [facility]-/Child/Adol SDOH Screenings 1945 Diabetes: Dental Exam 06/18/1955 [facility]- SDOH Screenings 06/18/1963 [facility]-Adult SDOH Screenings 06/18/1963 [facility]-Zoster Vaccines (1 of 2) 06/18/1995 [facility]-DTaP,Tdap,and Td Vaccines (1 - Tdap) 10/19/2017 10/18/2017 [facility]-RSV Vaccine: 60+ Years or (1 - 1-dose 75+ series) 2020 [facility]-Diabetes: Hemoglobin A1C 12/08/2020 06/10/2020 [id number] Vaccine (2024- season) 2024 04/20/2021, 08/17/2020, 07/29/2020 [...] this topic Medical Devices Implanted Type Area Senior Qa Tester Device Identifier Shelf Expiration Date Model / Serial / Lot Coil 38 Embolization 0.038 In-2cm-3mm - [id number] Implanted:Qty: 1 on 01/14/2021 by Caitlyn Malcolm RN at [facility] Left: Arm [employer]-[id number] 12/09/2025 [id number] / / [id number] Coil Emb Pltm 0.035in 6cm 6mm - [id number] Implanted:Qty: 1 on 01/14/2021 by Caitlyn Malcolm, YAQUELIN at [facility] Left: Arm [facility] Inc-[id number] 11/27/2024 [id number] / / [id number] Coil 38 Embolization 0.038 In-2cm-3mm - [id number] Implanted:Qty: 1 on 01/14/2021 by Caitlyn Malcolm RN at [facility] Left: Arm Independent IP [facility] Inc-[id number] 12/09/2025 [id number] / / [id number] Coil 38 Embolization 0.038 In-2cm-3mm - [id number] Implanted:Qty: 1 on 01/14/2021 by Caitlyn aMlcolm, RN at [facility] Left: Arm [employer]-[id number] 12/09/2025 [id number] / / [id number] Coil Emb Pltm 0.035in 6cm 6mm - [id number] Implanted:Qty: 1 on 01/14/2021 by Caitlyn Malcolm, YAQUELIN at [facility] Left: Arm [facility] Inc-[id number] 11/27/2024 [id number] / / [id number] Coil Emb Pltm 0.035in 6cm 6mm - [id number] Implanted:Qty: 1 on 01/14/2021 by Caitlyn Malcolm, YAQUELIN at [facility] Left: Arm [facility] Inc-[id number] 11/27/2024 [id number] / / [id number] Procedures Procedure Name Priority Date/Time Associated Diagnosis Comments ACUTE HEPATITIS PANEL Routine 07/17/2024 9:22 AM EDT HEMOGLOBIN A1C Routine 06/10/2020 3:50 PM EST from Last 3 Months or Most Recently Relevant to Health Maintenance Results * Hepatitis panel, acute (07/17/2024 9:22 AM EDT) Hepatitis B Surf Antigen Negative Negative 07/17/2024 12:[address] [facility] Hepatitis A Antibody IgM Negative Negative 07/17/2024 12:[address] [facility] Hepatitis B Core Antibody IgM Negative Negative 07/17/2024 12:[address] [facility] Blood Venous blood specimen / Unknown (Central Line) Existing Catheter / Unknown 07/17/2024 9:22 AM EDT 07/17/2024 9:[address] [facility] - 07/17/2024 12:01 PM EDT Hepatitis C Antibody previously reported on patient within 24hrs and will not be repeated on this panel. See previous results below: Hepatitis C Antibody Date Value Ref Range Status 07/16/2024 Negative Negative Final Jennifer Riggs MD LAB BLOOD ORDERABLES Final Resul t [facility] [address] [place] [address] * (ABNORMAL) Hemoglobin A1c (06/10/2020 3:50 PM [...] <6.0% Children and Adolescents <7.5% . Source: [place] [employer]. Standards of medical care in diabetes, 2017. Diabetes Care.2017:40 (suppl 1):S1-S135. . HbA1c assay performed by an ion-exchange chromatography method that is certified traceable to the DCCT. 06/10/2020 3:50 PM EST 06/10/2020 5:40 PM EST us Nelida Brandt MD LAB BLOOD ORDERABLES Final Resu lt SUNQUEST from Last 3 Months or Most Recently Relevant to Health Maintenance Insurance MEDICARE 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 Relationship Specialty Start Date End Date Yusuf Luke MD [address] [place] [address] PCP - General 08/27/20 Liam Pineda MD [address] [facility] [address] [place] [address] Transplant Physician Transplant Surgery 06/30/20 Janee Anton, RN [facility] [address] [place] [address] Surgical Navigator Transplant 06/30/20 Lei Abarca MD [address] [facility] [address] [place] [address] Referring Physician Nephrology 06/30/20 [place] [address] Surgical Navigator Transplant Surgery 12/09/20
--- OUTSIDE RECORDS SUMMARY | 2025-02-23 20:48 | XMS_ITS | Encounter Summary ---
Author Organization [facility] Address [address] [id number] Care Team Providers Care Leasing Specialist Name Role Phone Yusuf Luke MD Primary Care Provider + [phone] Liam Pineda MD Unavailable Janee Anton RN Unavailable [phone] Lei Abarca MD Unavailable [phone] Payton Austin Unavailable [phone] Encounter Details Date Type Department Care Team (Late st Contact Info) Description 09/15/2020 [facility] OTTR Encounter Historical OTTR [address] [place] [address] Payton Austin [place], [place] [id number] Social History Tobacco Use Types Packs/Day Years [...] that Mr. Bay has already seen the healthcare advisory services manager had had stent placement and started on Plavix. He was told by pre-op that the healthcare advisory services manager said that he is good to go [...] phone number that Dr. Pineda gave me [phone], LVM on Dr. Keys's cell requesting a follow up call. Spoke with [facility] clinic, I was told that Mr. Bay does need to have cardiac clearance prior to surgery but they are getting that arranged due to him wanting it at a specific facility. Updated dialysis facility, [facility] requesting a call back from Mr. Bay and letting him know that we were aware of the current situation with cardiac testing and we will cancel surgery for Sundayand reschedule once those were complete. Note to Janee for update. UPDATE: email sent to [facility] for cancellation * Progress Notes - Payton Austin RN - 07/28/2020 12:58 PM EDT Ronna with dialysis has aggreed to do Mr. Bay's COVID on Sunday prior to his surgery, 08/02. * Progress Notes - ProviderDomenico MD - 07/22/2020 1:05 PM EDT DOS 08/04/2020 AVF vs Graft creation on 08/04 (Dx: N18.6 (ESRD), CPT: 57284 (Fistula)). This procedure is booked as an [...] creation on 08/04 (Dx: N18.6 (ESRD), CPT: 16982 (Fistula)). This procedure is booked as an [...] DOS 07/07/2020 Venous duplex Upper Extremity Bilateral [id number] 1. [employer] AandB active NPR 2. [employer] NPR updating IAuth and nurse. * Progress Notes - Judith Trinidad - 06/30/2020 3:06 PM EDT OCEANOGRAPHIC METEOROLOGIST Surgical ICE referred by Lei Abarca MD for AVF placement consult for NORIS. Called , confirmed w/ , Mr. Bay is scheduled 07/07/20 1 pm arrival time for vein mapping/SG. Appt information mailed and emailed to [email or web address]. Referring/[facility] notified. documented in this encounter Plan of Treatment Not on file documented as of this encounter Visit Diagnoses Not on filedocumented in this encounter Care Teams Leasing Specialist Relationship Specialty Start Date End Date Yusuf Luke MD [address] [place] [address] PCP - General 08/27/20 Liam Pineda MD [address] [facility] [address] [place] [address] Transplant Physician Transplant Surgery 06/30/20 Janee Anton, RN [facility] [address] [place] [address] Surgical Navigator Transplant 06/30/20 Lei Abarca MD [address] [facility] [address] [place] [address] Referring Physician Nephrology 06/30/20 [place] [address] Surgical Navigator Transplant Surgery 12/09/20 documented as of this encounter
--- NOTE | 2025-02-23 20:51 | ED_ITS ---
Discharge Plan Disposition Chief Complaint: Chest Pain Prescriptions Prescriptions: No Action sevelamer HCl 800 mg tablet 800 mg PO TID Centrliberty Silver Men 300-600-300 mcg tablet 1 tab PO DAILY gabapentin 100 mg capsule 100 mg PO BID Patient Comments: TAKE 1 CAPSULE BY MOUTH TWICE DAILY FOR 30 DAYS atorvastatin 40 mg tablet 40 mg PO HS Qty: 90 3RF carvedilol 12.5 mg tablet 12.5 mg PO BID Qty: 180 1RF Rx Instructions: must administer with a meal/food clopidogrel 75 mg tablet 75 mg PO DAILY Qty: 90 3RF nifedipine 90 mg tablet extended release See Rx Instructions .ROUTE .COMPLEX Qty: 90 3RF Dose Instruction: TAKE 1 TABLET BY MOUTH DAILY Rx Instructions: TAKE 1 TABLET BY MOUTH DAILY levothyroxine 175 MCG tablet 175 mcg PO DAILY aspirin 81 MG tablet,chewable 81 mg PO DAILY sitagliptin phosphate 25 MG tablet 25 mg PO DAILY vitamin G28-kxqgn acid 1 EACH tablet 1 each PO DAILY Referrals Follow up/Referrals: Nestor Verdugo MD [Primary Care Provider, Medical] - See instructions Print Language Print Language: South Sudanese Discharge ED Provider: Caty Chowdhury Adult HPI General Chief complaint: Chest Pain Stated complaint: Chest Pain Time Seen by Provider: 02/23/25 20:42 Mode of Arrival: EMS Source of Information: Patient and EMS Description of Symptoms (Recalled from ER Triage Doc. by RN): Pt presents to ER via EMS fro chest pain. 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 Pt does not c/o of any chest pain upon arrival. known hx of a-fib. - blood thinners. Pt hads dialysis on TTS and has not missed any sessions. Fistual to L arm History of Present Illness HPI narrative: 79-year-old male with history of ESRD on dialysis Sunday//Sunday presenting the emergency department after a ground-level fall. He leaned over to adjust his socks when he fell forward, landing on his left hip. Denies hit to the head. Denies blood thinners. No loss consciousness. He has been unable to ambulate due to pain in the left hip. Patient denies any chest pain here in the emergency department. Of note, triage note states that primary reason for presenting to the emergency department is chest pain. Patient denies any episodes of chest pain today. Related Data Home Medications ?Medication ?Instructions ?Recorded ?Confirmed aspirin 81 mg chewable tablet 81 mg PO DAILY Blood thi nner 10/18/17 01/26/25 levothyroxine 175 mcg tablet 175 mcg PO DAILY THYROID 10/18/17 01/26/25 sitagliptin phosphate 25 mg tablet 25 mg PO DAILY Diab etes 10/18/17 01/26/25 vitamin B12 500 mcg-folic acid 400 1 each PO DAILY HEA LTH 10/18/17 01/26/25 mcg tablet vcdhkrgs-rr-mntet 300 mcg-K 60 1 tab PO DAILY Suppleme nt 08/03/20 01/26/25 mcg-lycop 600 mcg-lutein 300 mcg tablet (Centrum Silver Men) sevelamer HCl 800 mg tablet 800 mg PO TID CKD 08/03/20 01/26/25 gabapentin 100 mg capsule 100 mg PO BID 01/26/2501/26 Previous Rx's ?Medication ?Instructions ?Recorded atorvastatin 40 mg tablet 40 mg PO HS Cholesterol #90 tabs 02/28/24 carvedilol 12.5 mg tablet 12.5 mg PO BID #180 tabs clopidogrel 75 mg tablet 75 mg PO DAILY STENT #90 tab s 02/03/25 nifedipine 90 mg tablet,extended See Rx Instructions . Route 02/05/25 release .COMPLEX #90 tabs Allergies Allergy/AdvReac Type Severity Reaction Status Date / Time sulfamethoxazole (From Allergy Rash Verified 01/26/25 14:02 Bactrim) trimethoprim (From Bactrim) Allergy Rash Verified 01/26/25 14:02 PFSH [facility] Disclaimer: The information contained in this section may have been updated after the patient was seen, as this information can be updated by other users. Medical History Bradycardia LV dysfunction CAD (coronary artery disease) Dialysis patient Typical angina Preop cardiovascular exam Abnormal EKG End stage renal disease Edema Dyspnea Chest pain Social History Smoking Status: Never smoker alcohol intake: never substance use type: denies use current occupational status: retired Travel in the last 8 weeks?: None household members: spouse housing: house caffeine: Yes Have you lived/traveled outside US in past 30 days?: No Contact w/someone who lives/traveled outside US past 30 days?: No Exposure to someone with infectious disease in past 14 days?: No Do you have a fever (greater than 100.4 F or 38 C)?: No Have you tested positive for COVID-19?: No Exposed to someone with COVID-19 in past 14 days?: No Do you have a sore throat?: No Do you have a cough?: No Do you have any weakness?: No Do you have any diarrhea?: No Are you experiencing any unusual bleeding?: No Do you have any muscle aches/pain?: No Do you have any abdominal pain?: No Are you experiencing loss of taste or smell?: No Other Medical History Have you received the Flu Vaccine for this season: Yes Have you received the Pneumonia Vaccine: Yes ROS Obtained: Yes All systems reviewed & no additional complaints except as documented Physical Exam General General appearance: alert and in no apparent distress Head Head exam: atraumatic Eye Eye exam: Present normal appearance, PERRL and EOMI ENT ENT exam: Present mucous membranes moist Neck Neck exam: Present normal inspection and full ROM; Absent tenderness Chest Chest inspection: Present symmetric chest wall rise; Absent tenderness Respiratory Respiratory exam: Absent respiratory distress, wheezes or accessory muscle use Cardiovascular Cardiovascular exam: Present regular rate and normal rhythm Abdominal Exam Abdominal exam: Present soft; Absent tenderness or guarding Extremities Exam Extremities exam: Present tenderness (Mild tenderness palpation of the upper femur and left hip region. Tenderness to palpation on mild external rotation of this hip. No overlying hematoma or ecchymosis.) Neurological Exam Neurological exam: Present alert and oriented X3 Psychiatric Psychiatric exam: Present normal affect Skin Skin exam: Present warm and dry Medical Decision Making Medical Records Screening: Per USPSTF and CDC recommendations, given the prevalence of disease in our region, it is our hospital?s policy to screen for HIV and viral Hepatitis for all patients aged 18 and over and those with ongoing risk factors. Wyatt Inquiry Pt receiving controlled substance: No Wyatt was queried for this patient: No Vital Signs: 02/23/25 20:41 02/23/25 21:02 02/23/25 21:02 Temperature 98.8 F Temperature Source Oral Pulse Rate Pulse Rate [Left Radial] 76 Respiratory Rate 16 25 H Blood Pressure 164/67 H Blood Pressure [Right Arm] 143/81 H Blood Pressure Mean 99 Blood Pressure Mean [Right Arm] 101 Blood Pressure Source [Right Arm] Automatic Cuff Blood Pressure Position [Right Arm] Supine 02 Sat by Pulse Oximetry 99 Oxygen Delivery Method Room Air 02/23/25 21:30 02/23/25 21:45 02/23/25 22:00 Temperature Temperature Source Pulse Rate 76 Pulse Rate [Left Radial] Respiratory Rate 15 24 Blood Pressure 136/68 Blood Pressure [Right Arm] Blood Pressure Mean 90 Blood Pressure Mean [Right Arm] Blood Pressure Source [Right Arm] Blood Pressure Position [Right Arm] 02 Sat by Pulse Oximetry 98 Oxygen Delivery Method 02/23/25 22:00 02/23/25 22:30 02/23/25 22:45 Temperature Temperature Source Pulse Rate 69 Pulse Rate [Left Radial] Respiratory Rate 14 Blood Pressure 136/76 133/77 Blood Pressure [Right Arm] Blood Pressure Mean 84 95 Blood Pressure Mean [Right Arm] Blood Pressure Source [Right Arm] Blood Pressure Position [Right Arm] 02 Sat by Pulse Oximetry 98 Oxygen Delivery Method Lab Data Lab Results 02/23/25 20:40: WBC 12.9 H, RBC 4.22 L, Hgb 11.9 L, Hct 37.1 L, MCV 87.9, MCH 28.2, MCHC 32.1, RDW 17.2, Plt Count 509 H, MPV 8.8, Neut % (Auto) 75.6, Lymph % (Auto) 12.8, [place] % (Auto) 9.0, Eos % (Auto) 1.2, Baso % (Auto) 0.6, Neut # (Auto) 9.8 H, Lymph # (Auto) 1.7, [place] # (Auto) 1.2 H, Eos # (Auto) 0.2, Baso # (Auto) 0.1, Sodium 134 L, Potassium 5.4 H, Chloride 96 L, Carbon Dioxide 25, A nion Gap 18.4 H, BUN 37 H, Creatinine 7.00 H, Estimated Creat Clear 9, Estimated GFR 8 L*, Est GFR ( Amer) 9 L*, Glucose 134 H, Calcium 8.8, Total Bilirubin 0.9, AST 35, ALT 17, Alkaline Phosphatase 251 H, Total Protein 7.9 D, Albumin 3.8, Globulin 4.1 H, Albumin/Globulin Ratio 0.9 L, HCV Ab LOYDA w/Rflx PCR Qn Negative, HIV Ag/Ab Combo Qual Negative 02/23/25 20:40 02/23/25 20:40 Orders (Tests/Meds): ED MEDICATIONS Discontinued Medications Generic Name Dose Route Start Last Admin Trade Name [place] PRN Reason Stop Dose Admin Acetaminophen 500 mg 02/23/25 20:50 02/23/25 21:07 Acetaminophen 500mg Tab PO 02/23/25 20:51 500 mg ONCE ONE Administration ORDERS Category Date Time Status CT bony pelvis Stat Cat Scan 02/23/25 22:[address] femur LT wo con Stat Cat Scan 02/23/25 22:02 Completed Chest XR -- portable [XR chest portable] Stat Exams 02/23/25 20:55 Completed Femur XR left 2 views [XR femur LT 2V] Stat Exams 02/23/25 20:48 Completed Hip XR left minimum 2 views [XR hip LT 2-3V w/pelvis] Exams 02/23/25 20:48 Completed Stat CBC w/Auto Diff [Complete Blood Count Auto Diff] Stat Lab 02/23/25 20:40 Completed CMP [Comprehensive Metabolic Panel] Stat Lab 02/23/25 20:40 Completed HIV Combo Stat Lab 02/23/25 20:40 Completed Hepatitis C Ab Qual. W/ RFX Stat Lab 02/23/25 20:40 Completed Medical Decision Narrative: In summary, this is a 79y/o male presenting the emergency department for episode of chest pain in the field and left lower extremity pain after ground-level fall. Differential diagnosis includes but is not limited to: Femur fracture, hip dislocation, soft tissue contusion ACS, severe electrolyte abnormality On my initial assessment, the patient is hemodynamically stable in no acute distress. Physical exam is notable for tenderness palpation of the left hip region, especially with internal and external rotation. Initial workup will be focused on evaluating for acute injury of the right hip in addition to known ACS. ECG personally interpreted: EKG shows atrial fibrillation at a rate of 75. Normal MO, QRS, and QTc intervals. Normal axis. No acute ST elevations or signs of acute subendocardial or transmural ischemia. There is significant baseline artifact affecting the quality of the study. CBC shows a mild cytosis chronic stable anemia. Mild thrombocytosis. CMP notable for hyperkalemia with potassium of 5.4. Creatinine is elevated at 7, consistent consistent with patient's baseline of ESRD. LFTs grossly normal. Repeat EKG obtained considering elevated potassium initially poor quality study. EKG shows atrial fibrillation at a rate of 72. Normal MO, QRS, and QTc intervals. Normal axis. No acute ST elevations or signs of acute subendocardial or transmural ischemia. During persistent pain CTs were performed in order to rule out underlying fracture. CTs are notable for marked lytic and sclerotic changes in the lumbar spine in addition to marked metastatic disease. There is incidentally noted noted rectal wall thickening, prostatomegaly, and a distended urinary bladder. Care transferred to Dr. Barron pending clinical reassessment and ultimate disposition. Critical Care Critical Care Time Critical Care Time: No
--- NOTE | 2025-02-23 20:55 | XR_ITS ---
PROCEDURE INFORMATION: Exam: XR Chest Exam date and time: 02/23/2025 9:05 PM Age: 79 years old Clinical indication: Pain; Chest pressure; Additional info: Cp TECHNIQUE: Imaging protocol: Radiologic exam of the chest. Views: 1 view. COMPARISON: CR XR CHEST PORTABLE 08/19/2024 10:23 AM FINDINGS: Lungs: Unremarkable. No consolidation. Pleural spaces: Unremarkable. No pleural effusion. No pneumothorax. Heart/Mediastinum: Unremarkable. No cardiomegaly. Bones/joints: Unremarkable. IMPRESSION: No acute findings.
[2025-02-23 20:59] LABS: Hematocrit 37.1 % (42.0-52.0); Hemoglobin 11.9 g/dL (14.1-18.0); Immature Granulocytes % 0.8 %; Mean Corpuscular HGB Conc 32.1 g/dL (31.8-35.4); Mean Corpuscular Hemoglobin 28.2 pg (27.0-31.2); Mean Corpuscular Volume 87.9 fl (80-94); Nucleated Red Blood Cells % 0 %; Platelet Count 509 K/mm3 (142-424); Red Blood Count 4.22 M/mm3 (4.60-6.20); Red Cell Distribution Width-SD 55.3 fL; White Blood Count 12.9 K/mm3 (4.8-10.8)
[2025-02-23] MEDS: ACETAMINOPHEN 500MG TAB 500 MG PO (21:07)
--- NOTE | 2025-02-23 21:07 | PC.NURSE ---
Pt incontinent of stool Changed and cleaned
--- NOTE | 2025-02-23 21:12 | PC.NURSE ---
Pt states he fell earlier today and has left hop pain Pedal pulses strong and equal no obvious deformity noted
[2025-02-23 21:58] LABS: Hepatitis C Ab Qual. W/ RFX NEGATIVE (Negative)
--- NOTE | 2025-02-23 22:02 | CT_ITS ---
PROCEDURE INFORMATION: Exam: CT Left Lower Extremity Without Contrast, Thigh Exam date and time: 02/23/2025 10:23 PM Age: 79 years old Clinical indication: Pain; Thigh; Left; Additional info: Ttp TECHNIQUE: Imaging protocol: CT of the left lower extremity without contrast was performed. Exam focused on the thigh. Radiation optimization: All CT scans at this facility use at least one of these dose optimization techniques: automated exposure control; mA and/or kV adjustment per patient size (includes targeted exams where dose is matched to clinical indication); or iterative reconstruction. COMPARISON: CR XR FEMUR LT 2V 02/23/2025 9:05 PM FINDINGS: Bones/joints: There is partially visualized mixed lytic and sclerotic left hemisacrum discussed with the pelvis CT exam. Diffuse osteopenia. No fracture or bone destruction. Higher density marrow space image 4/126: Marrow space infiltration not excluded. Soft tissues: Skin thickening medial left thigh image 4/123. Fat filled left inguinal hernia. IMPRESSION: 1. There is partially visualized mixed lytic and sclerotic left hemisacrum discussed with the pelvis CT exam. 2. Other findings which were seen in the pelvis discussed in the pelvic CT report. 3. Diffuse osteopenia. 4. No fracture or bone destruction. 5. Higher density marrow space mid femur image 4/126: Marrow space infiltration not excluded. MRI may be helpful. 6. Skin thickening medial left thigh image 4/123.
--- NOTE | 2025-02-23 22:02 | CT_ITS ---
PROCEDURE INFORMATION: Exam: CT Pelvis Without Contrast, Skeleton Exam date and time: 02/23/2025 10:21 PM Age: 79 years old Clinical indication: Pelvic pain; Additional info: Ttp TECHNIQUE: Imaging protocol: Computed tomography of the pelvis without contrast. Exam focused on the skeleton. Radiation optimization: All CT scans at this facility use at least one of these dose optimization techniques: automated exposure control; mA and/or kV adjustment per patient size (includes targeted exams where dose is matched to clinical indication); or iterative reconstruction. COMPARISON: CR XR HIP LT 2-3V W/PELVIS 02/23/2025 9:05 PM FINDINGS: Intestine: Severe rectal wall thickening image Vasculature: Moderate calcific atherosclerosis of the aortoiliac and femoral vessels. Reproductive: Prostatomegaly with invagination into the bladder base Urinary bladder: Distended urinary bladder. Bones/joints: Marked lytic and sclerotic appearance to the visualized L5 , sacrum and ischium with destructive changes image . Soft tissue in the lower spinal canal and sacral foramina and extensive soft tissue infiltration of the presacral space image . Soft tissues: Fat filled inguinal hernias. IMPRESSION: 1. Marked lytic and sclerotic appearance to the visualized L5 , sacrum and ischium with destructive changes image . Findings consistent with osseous metastatic disease. Soft tissue in the lower spinal canal and sacral foramina and extensive neoplastic soft tissue infiltration of the presacral space . 2. Severe rectal wall thickening image . Proctoscopy recommended different delineate these findings. 3. Prostatomegaly with invagination into the bladder base. 4. Distended urinary bladder.
[2025-02-23 22:30] LABS: Alanine Aminotransferase 17 U/L (12-78); Albumin Level 3.8 g/dl (3.5-5.0); Albumin/Globulin Ratio 0.9 (1.1-1.8); Alkaline Phosphatase 251 U/L (38-126); Anion Gap 18.4 mEq/L (5-15); Aspartate Amino Transferase 35 U/L (17-59); Bilirubin,Total 0.9 mg/dl (0.2-1.3); Blood Urea Nitrogen 37 mg/dl (9-20); Calcium 8.8 mg/dl (8.4-10.2); Carbon Dioxide 25 mmol/L (22.0-30.0); Chloride 96 mmol/L (98-107); Creatinine Clearance Estimated 9 mL/min (50-200); Estimated Glomerular Filt Rate 8 ml/min (>60); GFR (African American) 9 ML/MIN (>60); Globulin 4.1 g/dL (1.3-3.2); Glucose 134 mg/dl (74-100); Potassium 5.4 mmoL/L (3.5-5.1); Sodium 134 mmol/L (136-145); Total Protein,Serum 7.9 g/dl (6.3-8.2)
[2025-02-23 22:43] LABS: Creatinine,Serum 7.00 mg/dl (0.66-1.25)
--- NOTE | 2025-02-23 23:50 | PC.NURSE ---
Pt attempted to walk with walker Pt unsuccessful Pt states it is too painful to walk and he is afraid to fall
--- NOTE | 2025-02-24 00:03 | PC.NURSE ---
Spoke with [facility], awaiting a call back at this time
--- NOTE | 2025-02-24 00:11 | PC.NURSE ---
Pt aware of plans for transfer
[2025-02-24 01:47] VITALS: BP 146/79; PULSE 70; RESP 20; TEMP 36.8; O2SAT 98
--- NOTE | 2025-02-24 01:53 | PC.NURSE ---
Pt transported to [facility] via ambulance.
== END 2025-02-24 01:53 | disposition other institution (70) ==
PROVIDERS: Student in an Organized Health Care Education/Training Program; Emergency Provider Emergency Medicine; PCP Family Medicine
DX: M25.552 Pain in left hip (principal); M89.8X8 Other specified disorders of bone, other site; N18.6 End stage renal disease; E87.5 Hyperkalemia; I48.91 Unspecified atrial fibrillation; I12.0 Hypertensive chronic kidney disease with stage 5 chronic kidney disease or end stage renal disease; E78.5 Hyperlipidemia, unspecified; Z99.2 Dependence on renal dialysis; W18.30XA Fall on same level, unspecified, initial encounter
CPT/HCPCS: 71045; 72192; 73502; 73552; 73700; 80053; 85025; 86803; 87389; 93005; 99285